=== PATIENT | male | born 1945 | race Caucasian/White ===

== ENCOUNTER 2021-04-27 07:56 | Inpatient (IN) | payer OTHER, MEDICARE, SELFPAY ==
[2021-04-27] VITALS (14 sets, daily range): BP systolic 112–145; BP diastolic 52–91; PULSE 75–133; RESP 12–34; TEMP 36.4–36.6; O2SAT 88–96; BMI 33.0
--- NOTE | 2021-04-27 07:57 | W.ED.WEAKNES ---
HPI - Weakness General: Chief complaint: Shortness of Breath/Dyspnea Stated complaint: WEAKNESS Time Seen by Provider: 04/27/21 07:56 History of Present Illness: HPI Narrative: Mr. Guerrero is a 75-year-old gentleman with most of his care performed at [facility] with history of diabetes, obesity, hypertension, hyperlipidemia, COPD with chronic hypoxic respiratory failure who presents the emergency department due to weakness. He reports being at his baseline health and was on the toilet at about 9:30 PM. He was unable to get up and reported difficulty with his left knee. He has chronic problems with his left knee. He has generalized weakness without focality. History is somewhat limited, unclear whether the patient has mildly altered mental status or is just a poor historian. Per EMS the patient's family demanded that he come to the hospital, he lives at home and has difficulty caring for himself. History otherwise limited by mental status. No other significant changes in health, exacerbating, alleviating, or provoking factors identified. Unclear intensity or course. MD Complaint: generalized weakness Onset (ago): hour(s) Duration: constant Location: generalized Migration: none Severity: moderate Relieving factors: none Exacerbating factors: movement Associated symptoms: Reports no associated symptoms Review of Systems General: Reports: 10 or more systems reviewed and unremarkable except in HPI and below PFSH ED PFSH: Medical History (Updated 05/03/21 @ 12:23 by Bebeto Bishop MD) Chronic respiratory failure with hypoxia COPD (chronic obstructive pulmonary disease) CVA (cerebral vascular accident) Diabetes Gastric ulcer Ribs, multiple fractures Surgical History H/O knee surgery Social History Additional social history: lives at home Physical Exam Const: COMMON NORMALS: alert GENERAL APPEARANCE: disheveled and ill appearing HENMT: COMMON NORMALS: normocephalic, atraumatic, external ears normal and Normal external nose present HEAD & SCALP: normocephalic and atraumatic NOSE: Normal external nose present EXTERNAL EAR: Yes external ears normal Eye: COMMON NORMALS: conjunctivae normal CONJUNCTIVA: Yes conjunctivae normal SCLERA: sclerae normal Neck/C-Spine: COMMON NORMALS: supple GENERAL: Yes trachea midline Resp: EFFORT & INSPECTION: Yes tachypneic and Yes uses accessory muscles AUSCULTATION: diminished lung sounds Cardio: RATE: tachycardic RHYTHM: abnormal rhythm irregularly irregular GI: COMMON NORMALS: Soft to palpation PALPATION: Yes Soft to palpation and No Tenderness to palpation present (GI) PERCUSSION: normal to percussion Extremity: NARRATIVE EXTREMITY EXAM: Bilateral lower extremities with 2+ edema which is firm. GENERAL: Yes edema Neuro: COMMON NORMALS: moves all extremities and no focal motor deficits SENSORIUM/ORIENTATION: Yes alert and No Orientation impaired Psych: THOUGHT PROCESS: confused Skin: GENERAL SKIN EXAM: other (Bilateral lower extremities with chronic skin breakdown/stasis changes.) Course ED course: - Patient was seen and evaluated by me at bedside - Patient placed on cardiac monitors, IV access obtained - Initial evaluation notable for confused without focality on neurologic exam. Patient is a poor historian. A. fib with RVR. Edematous. -Cardizem ordered - Labs notable for mild leukocytosis, normocytic anemia. Thrombocytosis noted. Metabolic panel with mild evidence of intravascular depletion or metabolic stress related to A. fib with RVR. CK is mildly elevated likely secondary to being stuck on the toilet all night. BNP elevated. - Imaging notable for lower lung consolidation and effusions. CT head without acute abnormality to explain mental status. - After bolus and drip of Cardizem with maximal titration patient remained at 125 to 130 bpm. As such D-dimer ordered for evaluation of persistent tachycardia and was elevated. Therefore CTA obtained. No evidence of pulmonary embolism. - Upon serial reexamination after treatment the patient was mildly improved though patient remains significantly ill - Based on patient history, evaluation, labs, and imaging as interpreted the most likely cause of the patient's condition is COPD, decompensated heart failure, atrial fibrillation with rapid ventricular response. - The results of ED evaluation were discussed with the patient including plan for admission due to requirement for level of care not available if discharged to prevent significant worsening/deterioration. - Hospitalist service contacted and agreed admit the patient. - Patient was admitted without further deterioration or significant events but remains significantly ill with multisystem dysfunction. Note: Click bubbles or prepopulated romero in note writing are used for assistance with data collection and billing and are inherently more limited than narrative and other text portions of this note. Please use narrative for additional clinical history and defer to narrative/free test for any case of contradictory information. If information appears in only free text or click bubble it should be considered present or absent as reported. Please contact note medical technical writer for clarifications of clinical information or contradictory information. MDM is a brief summary, contradictory or erroneous seeming information should be clarified and full note should be referred to in cases of contradiction or lack of clarity. 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 Patient is volume overloaded as well as in A. fib with RVR, likely has a component of COPD with exacerbation as well. Patient started on Cardizem with addition of esmolol secondary to suboptimal rate control on maxed Cardizem. Admitted for further management. Medical Records: Attestation: I reviewed the patient's medical records. Lab Data: Attestation: I reviewed the patient's lab results. Labs: Lab Results 04/27/21 04/27/21 04/27/21 01:36 08:23 08:23 WBC 10.2 10^3/uL H 10 ^3/uL (4.0-10.0) RBC 4.57 10^6/uL 10^6 /uL (4.1-5.3) Hgb 11.4 g/dL L g/dL (11.7-16.6) Hct 39.3 % L % (42.0-52.0) MCV 86.0 fl fl (80-94) MCH 24.9 pg L pg (28.0-34.0) MCHC 29.0 g/dL L g/dL (30.0-36.0) RDW 16.1 % H % (12.1-15.1) Plt Count 514 10^3/cmm H 10 ^3/cmm (130-400) MPV 9.7 fL fL (7.4-10.4) Neut % (Auto) 84.5 % % Lymph % (Auto) 7.9 % % Dawes % (Auto) 6.9 % % Eos % (Auto) 0.1 % % Baso % (Auto) 0.3 % % Neut # (Auto) 8.63 10^3/uL H 10 ^3/uL (1.8-7.7) Lymph # (Auto) 0.8 10^3/uL 10^3/ uL (0.8-4.8) Dawes # (Auto) 0.7 10^3/uL 10^3/ uL (0.2-0.9) Eos # (Auto) 0.0 10^3/uL 10^3/ uL (0.0-0.8) Baso # (Auto) 0.0 10^3/uL 10^3/ uL (0.0-0.1) Nucleated RBC % (a uto) 0 % % Nucleated RBCs # 0.0 /100WBC /100W BC D-Dimer Specimen Type Sample Site ABG pH ABG pCO2 ABG pO2 ABG HCO3 ABG O2 Saturation ABG Base Excess Dimitry Test A-a O2 Gradient Hematocrit Hgb O2 Saturation Carboxyhemoglobin Methemoglobin Total Hemoglobin Ionized Calcium O2 Delivery Device O2 Liters/Min FiO2 Erosion Control Specialist ID Sodium 133 mmol/L L mmol /L (136-145) Potassium 4.9 mmol/L mmol/L (3.5-5.1) Chloride 94 mmol/L L mmol/ L (98-107) Carbon Dioxide 22 mmol/L mmol/L (22-29) Anion Gap 21.9 H (5-19) BUN 37 mg/dL H mg/dL (8-23) Creatinine 1.2 mg/dL mg/dL (0.7-1.2) GFR Calculation Not Reportable Glucose 332 mg/dL H mg/dL (65-115) Calculated Osmolal ity 298 mOsm/kg H mOs m/kg (285-295) Lactate Calcium 8.9 mg/dL mg/dL (8.5-10.5) Magnesium 2.4 mg/dL H mg/dL (1.7-2.3) Total Bilirubin 0.2 mg/dL mg/dL (0.15-1.2) AST 22 U/L U/L (0-40) ALT 9 U/L U/L (0-41) Alkaline Phosphata se 109 IU/L IU/L (40-130) Creatine Kinase 461 U/L H* U/L (39-308) Troponin T Baselin e Troponin T 120 [place] Troponin T Troponin T Hi Sens 6Hr Troponin T Hi Sens 6Hr Delta C-Reactive Protein 179.8 mg/L H mg/L (0.0-4.9) NT-Pro-B Natriuret Pep 26630 pg/mL H pg/ mL (0-125) Total Protein 8.0 g/dL g/dL (6.6-8.7) Albumin 3.4 g/dL L g/dL (3.5-5.2) Globulin 4.6 g/dL g/dL (1.3-4.6) Procalcitonin 0.17 ng/mL ng/mL (0-0.5) TSH 0.35 uIU/mL uIU/m L (0.27-4.20) Urine Color Yellow (Yellow) Urine Appearance Hazy A (CLEAR) Urine pH 5 (5-7) Ur Specific Gravit y 1.020 (1.005-1.030) Urine Protein Neg (Negative) Urine Glucose (UA) Norm (Normal) Urine Ketones Negative (Negative) Urine Blood 2+ H (Negative) Urine Nitrate Negative (Negative) Urine Bilirubin Neg (Negative) Urine Urobilinogen Norm mg/dL mg/dL (Negative) Ur Leukocyte Esther ase Negative (Negative) Urine RBC 0-4 /hpf H /hpf (0-2) Urine WBC 5-10 /hpf H /hpf (0-5) Ur Squamous Epith Cells Rare /hpf /hpf (0-5) Amorphous Sediment Not Reportable Urine Bacteria 1+ /hpf H /hpf (NONE) Coronavirus 229E ( PCR) SARS-CoV-2 (PCR) 04/27/21 04/27/21 04/27/21 08:23 08:23 08:23 WBC RBC Hgb Hct MCV MCH MCHC RDW Plt Count MPV Neut % (Auto) Lymph % (Auto) Dawes % (Auto) Eos % (Auto) Baso % (Auto) Neut # (Auto) Lymph # (Auto) Dawes # (Auto) Eos # (Auto) Baso # (Auto) Nucleated RBC % (a uto) Nucleated RBCs # D-Dimer 7.36 ug/mIFEU H u g/mIFEU (0-0.59) Specimen Type Sample Site ABG pH ABG pCO2 ABG pO2 ABG HCO3 ABG O2 Saturation ABG Base Excess Dimitry Test A-a O2 Gradient Hematocrit Hgb O2 Saturation Carboxyhemoglobin Methemoglobin Total Hemoglobin Ionized Calcium O2 Delivery Device O2 Liters/Min FiO2 Erosion Control Specialist ID Sodium Potassium Chloride Carbon Dioxide Anion Gap BUN Creatinine GFR Calculation Glucose Calculated Osmolal ity Lactate 2.2 mmol/L mmol/L (0.5-2.2) Calcium Magnesium Total Bilirubin AST ALT Alkaline Phosphata se Creatine Kinase Troponin T Baselin e 47 ng/L H ng/L (0-15) Troponin T 120 [place] Troponin T Troponin T Hi Sens 6Hr Troponin T Hi Sens 6Hr Delta C-Reactive Protein NT-Pro-B Natriuret Pep Total Protein Albumin Globulin Procalcitonin TSH Urine Color Urine Appearance Urine pH Ur Specific Gravit y Urine Protein Urine Glucose (UA) Urine Ketones Urine Blood Urine Nitrate Urine Bilirubin Urine Urobilinogen Ur Leukocyte Esther ase Urine RBC Urine WBC Ur Squamous Epith Cells Amorphous Sediment Urine Bacteria Coronavirus 229E ( PCR) SARS-CoV-2 (PCR) 04/27/21 04/27/21 04/27/21 08:32 08:46 10:17 WBC RBC Hgb Hct MCV MCH MCHC RDW Plt Count MPV Neut % (Auto) Lymph % (Auto) Dawes % (Auto) Eos % (Auto) Baso % (Auto) Neut # (Auto) Lymph # (Auto) Dawes # (Auto) Eos # (Auto) Baso # (Auto) Nucleated RBC % (a uto) Nucleated RBCs # D-Dimer Specimen Type Arterial Sample Site Brachial, right ABG pH 7.30 L (7.35-7.45) ABG pCO2 51.5 mmHg H mmHg (35-45) ABG pO2 65.1 mmHg L mmHg (80.0-100.0) ABG HCO3 25.1 mmol/L mmol/ L (22-26) ABG O2 Saturation ABG Base Excess -1.8 mmol/L mmol/ L (-2.0-2.0) Dimitry Test N/a A-a O2 Gradient Hematocrit 33.7 % L % (42-52) Hgb O2 Saturation Carboxyhemoglobin Methemoglobin Total Hemoglobin Ionized Calcium O2 Delivery Device Nc O2 Liters/Min 4.0 % % FiO2 36.0 % % Erosion Control Specialist ID Amh Sodium Potassium Chloride Carbon Dioxide Anion Gap BUN Creatinine GFR Calculation Glucose Calculated Osmolal ity Lactate Calcium Magnesium Total Bilirubin AST ALT Alkaline Phosphata se Creatine Kinase Troponin T Baselin e Troponin T 120 [place] 46.61 ng/L H ng/L (0-15) Delta Troponin T -0.39 ABS# L ABS# (0-10) Troponin T Hi Sens 6Hr Troponin T Hi Sens 6Hr Delta C-Reactive Protein NT-Pro-B Natriuret Pep Total Protein Albumin Globulin Procalcitonin TSH Urine Color Urine Appearance Urine pH Ur Specific Gravit y Urine Protein Urine Glucose (UA) Urine Ketones Urine Blood Urine Nitrate Urine Bilirubin Urine Urobilinogen Ur Leukocyte Esther ase Urine RBC Urine WBC Ur Squamous Epith Cells Amorphous Sediment Urine Bacteria Coronavirus 229E ( PCR) Not detected (NOT DETECT) SARS-CoV-2 (PCR) Not detected (NOT DETECT) 04/27/21 04/27/21 13:22 14:13 WBC RBC Hgb Hct MCV MCH MCHC RDW Plt Count MPV Neut % (Auto) Lymph % (Auto) Dawes % (Auto) Eos % (Auto) Baso % (Auto) Neut # (Auto) Lymph # (Auto) Dawes # (Auto) Eos # (Auto) Baso # (Auto) Nucleated RBC % (a uto) Nucleated RBCs # D-Dimer Specimen Type Arterial Sample Site Radial, right ABG pH 7.30 L (7.35-7.45) ABG pCO2 54.0 mmHg H mmHg (35-45) ABG pO2 72.0 mmHg L mmHg (80.0-100.0) ABG HCO3 26.3 mmol/L H mmo l/L (22-26) ABG O2 Saturation 93.1 ABG Base Excess -0.8 mmol/L mmol/ L (-2.0-2.0) Dimitry Test Pos A-a O2 Gradient 19.7 mmHg H mmHg (5-10) Hematocrit 32.9 % L % (42-52) Hgb O2 Saturation 92.2 % L % (95-100) Carboxyhemoglobin 1.2 %THgb %THgb (0.4-20.1) Methemoglobin < 0.0 % L % (0.4-1.5) Total Hemoglobin 10.7 g/dL L g/dL (14-18) Ionized Calcium 1.2 mmol/L mmol/L (1.1-1.4) O2 Delivery Device Bipap O2 Liters/Min FiO2 40.0 % % Erosion Control Specialist ID Amh Sodium 136.0 mmol/L mmol /L (131-143) Potassium 5.1 mmol/L H mmol /L (3.5-5.0) Chloride Carbon Dioxide Anion Gap BUN Creatinine GFR Calculation Glucose 364.0 mg/dL H mg/ dL (70-115) Calculated Osmolal ity Lactate Calcium Magnesium Total Bilirubin AST ALT Alkaline Phosphata se Creatine Kinase Troponin T Baselin e Troponin T 120 [place] Troponin T Troponin T Hi Sens 6Hr 47.02 ng/L H ng/L (0-15) Troponin T Hi Sens 6Hr [place] 0.02 ng/L ng/L (0-12) C-Reactive Protein NT-Pro-B Natriuret Pep Total Protein Albumin Globulin Procalcitonin TSH Urine Color Urine Appearance Urine pH Ur Specific Gravit y Urine Protein Urine Glucose (UA) Urine Ketones Urine Blood Urine Nitrate Urine Bilirubin Urine Urobilinogen Ur Leukocyte Esther ase Urine RBC Urine WBC Ur Squamous Epith Cells Amorphous Sediment Urine Bacteria Coronavirus 229E ( PCR) SARS-CoV-2 (PCR) EKG Data^: EKG 1: Attestation: I personally reviewed and interpreted this EKG as follows: EKG interpretation date: 04/27/21 EKG interpretation time: 08:12 Interpretation: Twelve-lead EKG shows an irregular rhythm at a rate of 159. QRS duration 99, QTc 365. No CT interval. Normal axis. Interpretation: Atrial fibrillation with rapid ventricular response. EKG 2: Attestation: I personally reviewed and interpreted this EKG as follows: EKG interpretation date: 04/27/21 EKG interpretation time: 14:27 Interpretation: Twelve-lead EKG shows an irregular rhythm at a rate of 127. No CT interval, QRS 95, QTc 388. Normal axis. Interpretation: Atrial fibrillation with rapid ventricular response. Critical Care Time Critical Care Time: Critical Care Time: Yes Total Critical Care Time: 45 Attestation: Due to a high probability of clinically significant, possibly life threatening deterioration, the patient required my highest level of attention and preparedness to intervene emergently and I personally spent this critical care time directly and personally managing the patient. This critical care time included obtaining a history; examining the patient; pulse oximetry; ordering and review of laboratory and imaging studies; arranging urgent treatment with development of a management plan; evaluation of patient's response to treatment; frequent reassessment; and, discussions with other providers as applicable. It was exclusive of separately billable procedures. Discharge Plan Discharge Patient Disposition: Admitted As Inpatient Admit Provider: Capo Ames Clinical Impression: Acute exacerbation of chronic obstructive airways disease, Atrial fibrillation with rapid ventricular response Condition: Stable Coding Level of Care Code ED Literacy Teacher for Chg Fwd Exam Comprehensive
--- NOTE | 2021-04-27 08:00 | PC.NURSE ---
pt placed on continuous spo2, nibp, and cm.
--- NOTE | 2021-04-27 08:07 | XRR_ITS ---
PROCEDURE INFORMATION: Exam: XR Chest Exam date and time: 04/27/2021 8:07 AM Age: 75 years old Clinical indication: Other: Tachycardia; Prior surgery TECHNIQUE: Imaging protocol: XR of the chest. Views: 1 view. COMPARISON: CR Chest 1 [place] [id number] 08/22/2015 6:44 PM FINDINGS: Lungs: Limited inspiratory volume. Opacities of lower lungs. Pleural spaces: Bilateral pleural effusions. Heart/Mediastinum: The cardiac margins are not well defined. Heart size is accentuated. Bones/joints: Osteopenia. Degenerative change of the spine. Numerous plate fixation structures over left ribs posteriorly. XR/XR chest 1V portable [id number] IMPRESSION: 1. Consolidations in the lower lungs which may reflect pneumonic infiltrates or atelectasis. 2. Bilateral pleural effusions. 3. Accentuation of the heart size which has progressed since the prior comparison.
--- NOTE | 2021-04-27 08:07 | CTR_ITS ---
PROCEDURE INFORMATION: Exam: CT Head Without Contrast Exam date and time: 04/27/2021 8:07 AM Age: 75 years old Clinical indication: Weakness, extremity; Bilateral; Additional info: AMS TECHNIQUE: Imaging protocol: Computed tomography of the head without contrast. Radiation optimization: All CT scans at this facility use at least one of these dose optimization techniques: automated exposure control; mA and/or kV adjustment per patient size (includes targeted exams where dose is matched to clinical indication); or iterative reconstruction. COMPARISON: No relevant prior studies available. RADIATION DOSE METRICS: Total DLP (mGy-cm): 742.76 FINDINGS: Brain: Prominence of the cortical sulci. Extensive multifocal small-vessel ischemic change along with encephalomalacia in the left posterior parietal and occipital regions. Additional hypodensity in the left posterior cerebellum, suspicious for and ischemic infarct (series 2: Image 15). MRI can be performed for improved characterization, as clinically indicated. Cerebral ventricles: Mild ex vacuo enlargement of the left occipital horn. Paranasal sinuses: 12 x 6 mm polypoid lesion in the left maxillary sinus. Mastoid air cells: No mastoid effusion. Vasculature: Vascular, basal ganglia, and dural calcifications. Bones/joints: No acute calvarial pathology. Soft tissues: Punctate cutaneous calcifications. CT/CT head wo con* [id number] IMPRESSION: 1. Extensive multifocal small-vessel ischemic change along with encephalomalacia in the left posterior parietal and occipital regions. 2. Additional hypodensity in the left posterior cerebellum, suspicious for an ischemic infarct. MRI can be performed for improved characterization, as clinically indicated.
--- NOTE | 2021-04-27 08:09 | ECG_ITS ---
[facility] Test Date: 2021-04-27 Pat Name: John Guerrero Department: Room: Gender: Male Cigarette Tester: : 1945 Requested By: Aristides Cornejo Order Number: [id number] Jena MD: Pam Lamas M.D. Measurements Intervals [place] Rate: 159 P: MS: QRS: 65 QRSD: 99 T: 248 QT: 276 QTc: 450 Interpretive Statements ATRIAL FIBRILLATION WITH RAPID VENTRICULAR RESPONSE SEPTAL MYOCARDIAL INFARCTION , PROBABLY OLD [40+ ms Q WAVE IN V1/V2] MODERATE T-WAVE ABNORMALITY, CONSIDER INFERIOR ISCHEMIA [-0.1+ mV T-WAVE IN II/aVF] CRITICAL TEST RESULT No previous ECG available for comparison Electronically Signed On 04-29-2021 5:09:27 CHIEF MERCHANDISING OFFICER by Pam Lamas M.D. [email or web address]
--- NOTE | 2021-04-27 08:11 | XRR_ITS ---
PROCEDURE INFORMATION: Exam: XR Left Knee Exam date and time: 04/27/2021 8:11 AM Age: 75 years old Clinical indication: Pain; Knee; Left; Prior surgery; Additional info: Knee pain TECHNIQUE: Imaging protocol: XR Left knee. Views: 3 views. COMPARISON: No relevant prior studies available. FINDINGS: Bones/joints: Well-healed fracture deformity of the distal femoral diaphysis with callus formation. Intramedullary edward and transcortical screws distal femur. Osteopenia. Degenerative changes of the tibial spine and lateral tibial plateau. No acute fracture. Soft tissues: Soft tissue vascular calcification. XR/XR knee LT 3V* [id number] IMPRESSION: 1. Osteopenia. 2. Mild degenerative arthritis left knee.
[2021-04-27 08:31] LABS: Basophils % 0.3 %; Eosinophils % 0.1 %; Hematocrit 39.3 % (42.0-52.0); Hemoglobin 11.4 g/dL (11.7-16.6); Lymphocytes # 0.8 10^3/uL (0.8-4.8); Lymphocytes % 7.9 %; Mean Corpuscular Hemoglobin 24.9 pg (28.0-34.0); Mean Platelet Volume 9.7 fL (7.4-10.4); Monocytes # 0.7 10^3/uL (0.2-0.9); Monocytes % 6.9 %; Neutrophils # 8.63 10^3/uL (1.8-7.7); Neutrophils % 84.5 %; Nucleated Red Blood Cells % 0 %; Platelet Count 514 10^3/cmm (130-400); Red Blood Count 4.57 10^6/uL (4.1-5.3); Red Cell Distribution Width 16.1 % (12.1-15.1); White Blood Count 10.2 10^3/uL (4.0-10.0)
[2021-04-27 08:43] LABS: ABG PCO2 51.5 mmHg (35-45); Arterial Blood Gas Hematocrit 33.7 % (42-52); Base Excess ABG -1.8 mmol/L (-2.0-2.0); Blood Gas Operator Identificat AMH; Blood Gas Sample Site Brachial, right; Blood Gas Sample Type Arterial; HCO3 ABG 25.1 mmol/L (22-26); Oxygen Device NC; PO2 ABG 65.1 mmHg (80.0-100.0)
[2021-04-27 08:54] LABS: Lactate (Lactic Acid level) 2.2 mmol/L (0.5-2.2); Troponin(5th) Baseline 47 ng/L (0-15)
[2021-04-27 09:01] LABS: NT Pro B Type Natriuretic Pept 14272 pg/mL (0-125); Procalcitonin 0.17 ng/mL (0-0.5); Thyroid Stimulating Hormone 0.35 uIU/mL (0.27-4.20)
[2021-04-27 09:13] LABS: Alanine Aminotransferase 9 U/L (0-41); Albumin Level 3.4 g/dL (3.5-5.2); Alkaline Phosphatase 109 IU/L (40-130); Anion Gap 21.9 (5-19); Aspartate Amino Transferase 22 U/L (0-40); Blood Urea Nitrogen 37 mg/dL (8-23); C Reactive Protein 179.8 mg/L (0.0-4.9); Calcium 8.9 mg/dL (8.5-10.5); Carbon Dioxide 22 mmol/L (22-29); Chloride 94 mmol/L (98-107); Globulin 4.6 g/dL (1.3-4.6); Glucose 332 mg/dL (65-115); Magnesium 2.4 mg/dL (1.7-2.3); Osmolality Calculated 298 mOsm/kg (285-295); Potassium 4.9 mmol/L (3.5-5.1); Sodium 133 mmol/L (136-145); Total Bilirubin 0.2 mg/dL (0.15-1.2)
[2021-04-27 09:18] LABS: Creatine Phosphokinase 461 U/L (39-308)
[2021-04-27] MEDS: sodium chloride 0.9% 500 ML 999 ML IV (09:22)
--- NOTE | 2021-04-27 09:22 | PC.NURSE ---
HR IS 140BPM INFORMED DR. MICHAEL VERBALIZED UNDERSTANDING NO FURTHER ORDRES.
[2021-04-27] MEDS: ipratropium-albuterol 3 mL Neb INHALATION ×2 (09:36→22:05)
--- NOTE | 2021-04-27 10:09 | ECG_ITS ---
[facility] Test Date: 2021-04-27 Pat Name: John Guerrero Department: Room: Gender: Male Agricultural Technical Officer: : 1945 Requested By: Aristides Cornejo Order Number: [id number] Jena MD: Pam Lamas M.D. Measurements Intervals [place] Rate: 127 P: OR: QRS: 42 QRSD: 95 T: 127 QT: 313 QTc: 456 Interpretive Statements ATRIAL FIBRILLATION WITH RAPID VENTRICULAR RESPONSE NONSPECIFIC ST & T-WAVE ABNORMALITY Compared to ECG 04/27/2021 08:08:41 Myocardial infarct finding no longer present Possible ischemia no longer present T-wave abnormality still present Electronically Signed On 04-29-2021 5:20:55 MANAGER MERCHANDISING by Pam Lamas M.D. [email or web address]
[2021-04-27] MEDS: metoprolol tartrate 1 mg/1 mL SDV 5 mL 5 MG IVP ×2 (10:13→11:39)
--- NOTE | 2021-04-27 10:23 | PC.NURSE ---
PC TO RESP FOR NEED OF BIPAP.
--- NOTE | 2021-04-27 10:25 | PC.PHAR ---
Addendum entered by Carol Powell 04/27/21 14:52: RECEIVED [facility] L[facility] AT [id number] - UPDATED MED LIST Original Note: ATTEMPTED TO FAX [facility] ON 04/27/21 AT 7100
[2021-04-27 10:39] LABS: Troponin 5 2HR 46.61 ng/L (0-15)
[2021-04-27 10:43] LABS: Troponin 5 2HR Delta -0.39 ABS# (0-10)
[2021-04-27 12:46] LABS: Adenovirus Not Detected (NOT DETECT); Chlamydia Pneumoniae Not Detected (NOT DETECT); Coronavirus 229E,HKU1,NL63,OC4 Not Detected (NOT DETECT); Human Metapneumovirus Not Detected (NOT DETECT); Human Rhinovirus/Enterovirus Not Detected (NOT DETECT); Influenza A Not Detected (NOT DETECT); Influenza A H1 Not Detected (NOT DETECT); Influenza A H1-2009 Not Detected (NOT DETECT); Influenza A H3 Not Detected (NOT DETECT); Influenza B Not Detected (NOT DETECT); Mycoplasma Pneumoniae Not Detected (NOT DETECT); Parainfluenza Virus Type 1 Not Detected (NOT DETECT); Parainfluenza Virus Type 2 Not Detected (NOT DETECT); Parainfluenza Virus Type 3 Not Detected (NOT DETECT); Parainfluenza Virus Type 4 Not Detected (NOT DETECT); Respiratory Syncytial Virus A Not Detected (NOT DETECT); Respiratory Syncytial Virus B Not Detected (NOT DETECT); SARS-COV-2 Not Detected (NOT DETECT)
[2021-04-27 12:57] LABS: D Dimer 7.36 ug/mIFEU (0-0.59)
--- NOTE | 2021-04-27 13:06 | CTR_ITS ---
PROCEDURE INFORMATION: Exam: CTA Chest With Contrast Exam date and time: 04/27/2021 1:06 PM Age: 75 years old Clinical indication: Shortness of breath; Patient HX: SOB, tachycardia; Additional info: D dimer elevated, tachycardia, SOB TECHNIQUE: Imaging protocol: Computed tomographic angiography of the chest with contrast. 3D rendering (Not supervised by radiologist): MIP and/or 3D reconstructed images were created by the technologist. Radiation optimization: All CT scans at this facility use at least one of these dose optimization techniques: automated exposure control; mA and/or kV adjustment per patient size (includes targeted exams where dose is matched to clinical indication); or iterative reconstruction. Contrast material: OMNI 350; Contrast volume: 85 ml; Contrast route: INTRAVENOUS (IV); COMPARISON: CR (CHEST, ) 04/27/2021 8:25 AM RADIATION DOSE METRICS: Total DLP (mGy-cm): 602.56 FINDINGS: Pulmonary arteries: No filling defects in the pulmonary arteries to suggest pulmonary embolism. Aorta: Moderate atherosclerotic changes in the visualized arteries. No evidence for aortic aneurysm. Evaluation for aortic dissection is limited due to the phase of contrast-enhancement. Thyroid: 2.1 x 1.9 cm heterogenous nodule with foci of internal calcification in the right thyroid lobe (series 2, image 50). Lungs: Mild interstitial pulmonary edema. Compressive atelectasis in the the posterior right and left lower lobes and the posterior right upper lobe. No pulmonary parenchymal nodules or masses. Pleural spaces: Large bilateral pleural effusions. No pneumothorax. Heart: Mild enlargement of the heart. Small pericardial effusion. Moderate atherosclerotic calcification in the coronary arteries. Calcification of the aortic valve. Esophagus: The esophagus is unremarkable. Mediastinal space: No mediastinal hematoma. No pneumomediastinum. Lymph nodes: No lymphadenopathy. Liver: The visualized liver is unremarkable. Gallbladder and bile ducts: The visualized gallbladder is unremarkable. Pancreas: Mild atrophy of the visualized pancreatic parenchyma. Spleen: Multiple calcified granulomas in the spleen. Small splenule in the left upper quadrant. Adrenal glands: The right adrenal gland is unremarkable. The visualized left adrenal gland is unremarkable. Bones/joints: Degenerative changes in the spine and shoulders. Postsurgical changes in the posterior left 5th, 6th, and 7th ribs. Soft tissues: Mild body wall edema. CT/CT angio chest PE protcl [id number] IMPRESSION: 1. Mild interstitial pulmonary edema with large bilateral pleural effusions and compressive atelectasis in the the posterior right and left lower lobes and the posterior right upper lobe. 2. No evidence for pulmonary embolism. 3. Mild body wall edema. 4. Small pericardial effusion. 5. Complex nodule with internal foci of calcification in the right thyroid lobe.Follow-up non-emergent thyroid ultrasound is recommended if this has not previously been evaluated. No lymphadenopathy. 6. Incidental/nonacute findings are listed in the report. COMMENTS: Consistent with the [employer]'s Incidental Findings Committee white paper (J Am Wong Radiol 2015): In patients aged 35 years and older with an incidental thyroid nodule equal to or greater than 1.[address], MRI or extrathyroidal US, further evaluation with dedicated thyroid US is recommended for patients with normal life expectancy and without comorbidities. For smaller nodules without suspicious features, no further evaluation or follow up is recommended.
[2021-04-27] MEDS: esmolol drip 2,500 MG/250 ML PREMIX 34.02 MG IV (13:27)
[2021-04-27 13:34] LABS: Alveolar-Arterial Oxygen Gradi 19.7 mmHg (5-10); Arterial Blood Gas Hematocrit 32.9 % (42-52); Base Excess ABG -0.8 mmol/L (-2.0-2.0); Blood Gas Allen Test Pos; Blood Gas Operator Identificat AMH; Blood Gas Sample Site Radial, right; Blood Gas Sample Type Arterial; Carboxyhemoglobin 1.2 %THgb (0.4-20.1); HCO3 ABG 26.3 mmol/L (22-26); HGB O2 Sat 92.2 % (95-100); Ionized Calcium Level - ABG 1.2 mmol/L (1.1-1.4); Methemoglobin < 0.0 % (0.4-1.5); Oxygen Device BIPAP; Oxygen Saturation ABG 93.1; Potassium Level - ABG 5.1 mmol/L (3.5-5.0); Total Hemoglobin 10.7 g/dL (14-18)
[2021-04-27 15:03] LABS: Troponin 5 6HR 47.02 ng/L (0-15); Troponin 5 6HR Delta 0.02 ng/L (0-12)
[2021-04-27] MEDS: iohexol 350 mg/mL 100 mL Btl IV (17:06)
--- NOTE | 2021-04-27 18:25 | PM.HP ---
Providers/Chief Complaint Chief Complaint: WEAKNESS History of Present Illness 75 year old male with past medical history of hypertension, diabetes, heart failure, COPD, stays alone at home, and take care of himself, was brought in by chief complaint of weakness, and worsening shortness of breath, states that he was doing fine till yesterday night, was on the toilet at about 9:30 PM.He was unable to get up and reported difficulty with his left knee. He has chronic problems with his left knee. Patient is a poor historian, history taking has been difficult, history mostly gathered from ER chart review as well as from daughter. Upon arrival in the ER he was found to be in A. fib with RVR. He was worked up further. Potential imaging studies: CT angio chest PE: No PE, no infiltrates , Mild interstitial pulmonary edema with large bilateral pleural effusions and compressive atelectasis in the the posterior right and left lower lobes and the posterior right upper lobe. Small pericardial effusion. CT head without contrast; Extensive multifocal small-vessel ischemic change.Hypodensity in the left posterior cerebellum, suspicious for an ischemic infarct. XR knee LT: Mild degenerative arthritis left knee EKG: A. fib with RVR Pertinent labs: WBC 10.2, H&H 11.4/ 39.3, PLT : 514 , serum sodium 133 serum potassium 4.9, BUN and serum creatinine 37/ 1.2 , creatinine kinase 461, troponin trend without significant delta, proBNP:00651 Procalcitonin normal TSH normal, In ER: She was given Cardizem as well as metoprolol IV, and was then started on Cardizem as well as esmolol drip. Review of Systems Const: Denies: fever(s), chills, body aches, change in appetite or diaphoresis Resp: Denies: productive cough, wheezing or pain on inspiration GI: Denies: abdominal pain, nausea, vomiting, diarrhea or constipation : Denies: flank pain or difficulty urinating Musc: Denies: back pain or extremity pain Neuro: Denies: headache(s) or confusion Medications/Allergies Home Medications Medication Instructions Recorded Confirmed Last Taken Type atorvastatin 80 mg PO DAILY 04/27/21 04/27/21 Unknown History carvedilol 6.25 mg PO BID 04/27/21 04/27/21 Unknown History cholecalciferol (vitamin D3) 25 mcg PO DAILY 04/27/21 04/27/21 Unknown History [Vitamin D3] clopidogrel [Plavix] 75 mg PO DAILY 04/27/21 04/27/21 Unknown History ferrous gluconate 324 mg PO DAILY 04/27/21 04/27/21 Unknown History insulin aspart U-100 [Novolog See Rx Instructions .ROUTE .COMPLEX 04/27/21 04/27/21 Unknown History U-100 Insulin aspart] insulin glargine [Lantus U-100 40 unit SUBCUT DAILY 04/27/21 04/27/21 Unknown History Insulin] ipratropium-albuterol 3 ml INHALATION QID PRN 04/27/21 04/27/21 Unknown History metoprolol tartrate 25 mg PO BID 04/27/21 04/27/21 Unknown History multivitamin 1 tab PO DAILY 04/27/21 04/27/21 Unknown History oxycodone 10 mg PO Q8H PRN 04/27/21 04/27/21 Unknown History Allergies Allergy/AdvReac Type Severity Reaction Status Date / Time No Known Allergies Allergy Verified 04/27/21 08:00 PFSH Acute PFSH: Medical History (Updated 04/27/21 @ 18:55 by Capo Ames MD) Chronic respiratory failure with hypoxia COPD (chronic obstructive pulmonary disease) Diabetes Ribs, multiple fractures Surgical History H/O knee surgery Social History Additional social history: lives at home Vitals/I&O/Wt Last Vital Signs Pulse 86 04/27/21 16:37 Resp 30 H 04/27/21 11:06 BP 112/91 04/27/21 08:00 Pulse Ox 95 04/27/21 16:37 04/27/21 04/27/21 04/27/21 06:59 14:59 22:59 Intake Total 532.384 / 532.384 Balance 532.384 / 532.384 Weight last 48 hrs Weight 113.398 kg Physical Exam Const: COMMON NORMALS: patient oriented x3 HENMT: COMMON NORMALS: normocephalic and atraumatic Resp: OTHER: Diminished entry bilaterally up to mid lung romero. Cardio: COMMON NORMALS: No rub (Cardio) and Peripheral pulses 2+ throughout HEART SOUNDS: S1 normal heart sound present PERIPHERAL PULSES: Peripheral pulses 2+ throughout OTHER: Irregularly irregular rhythm, S1-S2 variable intensity GI: COMMON NORMALS: Normal to inspection, nondistended, normoactive bowel sounds present, Soft to palpation, non-tender, No hepatosplenomegaly present and no masses AUSCULTATION: Yes normoactive bowel sounds PALPATION: Yes Soft to palpation and Yes No hepatosplenomegaly present RECTAL EXAM: Yes deferred Extremity: NARRATIVE EXTREMITY EXAM: Bilateral lower extremity 3+ pitting edema, bilateral lower extremity extensive erythema, unkept feets Neuro: COMMON NORMALS: patient oriented x3 Data : 04/27/21 08:23 04/27/21 08:23 A&P Assessment and plan (1) Atrial fibrillation with rapid ventricular response: Status: Acute (2) Heart failure: Status: Acute (3) Acute on chronic respiratory failure with hypoxia and hypercapnia: Status: Acute (4) COPD (chronic obstructive pulmonary disease): Status: Acute (5) Diabetes: Status: Acute (6) Hypertension: Status: Acute Additional A&P Information 75 year old male with past medical history of hypertension, diabetes, heart failure, COPD, stays alone at home, and take care of himself, was brought in by chief complaint of weakness, and worsening shortness of breath, states that he was doing fine till yesterday night, was on the toilet at about 9:30 PM.He was unable to get up and reported difficulty with his left knee. #A. fib with RVR: Patient was started on Cardizem as well as esmolol drip in the ER. When I examined the patient the heart rate was pretty well controlled. We will continue metoprolol 50 mg p.o. twice daily Lovenox for therapeutic anticoagulation Continue telemetry monitoring #Decompensated heart failure: Patient presented with worsening shortness of breath. Has bilateral lower extremity 3+ pitting edema, bilateral moderate to large pleural effusion, interstitial edema. Elevated proBNP. No recent echo, according to daughter last echo was done around 5 years back. 2D echo: Lasix 60 mg IV twice daily Intake output charting Daily weight k>4,mg>2 #AC on Chronic hypoxic hypercapnic respiratory failure: Likely secondary to decompensated heart failure: AB.30 PCO2 54 , PO2 72, FiO2: 40% Continue BiPAP DuoNebs Monitor ABG #Diabetes: Lantus 30 subcu daily Low-dose sliding scale insulin Cardiac carbohydrate consistent diet Monitor fingerstick glucose #Hypertension: #COPD: Plan as above #Elevated CK: Continue IV hydration with normal saline at 75 cc an hour Follow CK in a.m. labs CODE STATUS: Full code DVT prophylaxis: On Lovenox Attestations Medical Necessity Statement*: Patient is in hospital for management of decompensated heart failure.Anticipated LOS greater than 2 midnights. Time Spent in Patient Care: Greater than 35 minutes (>than 50% of time spent in counselling and/or direct pt care on unit). Coding Level of Care Code Acute Merchandise Displayer for Chg Fwd Diagnoses Atrial fibrillation with rapid ventricular response I48.91 Heart failure I50.9 Acute on chronic respiratory failure with hypoxia and hypercapnia J96.21; J96.22 COPD (chronic obstructive pulmonary disease) J44.9 Diabetes E11.9 Hypertension I10
--- NOTE | 2021-04-27 18:29 | PC.NURSE ---
WHILE AT BEDSIDE PT ASSISTED WITH POSITIONING. PT DENIES ANY FURTHER NEEDS.
--- NOTE | 2021-04-27 19:09 | PC.NURSE ---
REPORT GIVEN TO CARLYLE XIONG ASSUMED CARE.
[2021-04-27] MEDS: dextrose 5%-sod chloride 0.9% 1,000 ML 75 ML IV (19:53)
--- NOTE | 2021-04-27 20:50 | PC.NURSE ---
Patient arrived to his room after report was received via ED. ED nurse stated that Esmolol and Cardizem drips were shut off in ED. Patient's oxygen saturation in 60s upon arrival to room on room air. RT called into room and placed patient on Bipap. Patient's oxygen saturation is now in he 90s. Patient is oriented x3. Patient had dried feces to bilateral gluts. Patient's bilateral lower extremities dirty. Patient's gluts and legs cleansed.
[2021-04-27] MEDS: insulin lispro 100 unit/1 mL SUBCUT (20:58)
[2021-04-27 21:07] LABS: Glucose Point of Care 373 mg/dL (70-110)
--- NOTE | 2021-04-27 21:29 | PC.NURSE ---
Patient states that [facility].
--- NOTE | 2021-04-27 22:03 | ECG_ITS ---
[facility] Test Date: 2021-04-27 Pat Name: John Guerrero Department: Room: 106 Gender: Male Fire Officer: : 1945 Requested By: Aristides Cornejo Order Number: [id number] Jena MD: Pam Lamas M.D. Measurements Intervals [place] Rate: 77 P: 34 OK: 172 QRS: 48 QRSD: 97 T: 158 QT: 404 QTc: 458 Interpretive Statements SINUS RHYTHM ST DEVIATION AND MODERATE T-WAVE ABNORMALITY, CONSIDER ANTEROLATERAL ISCHEMIA [-0.1+ mV T-WAVE IN V3-V6] Compared to ECG 04/27/2021 14:20:05 Possible ischemia now present Atrial fibrillation no longer present T-wave abnormality still present Electronically Signed On 04-29-2021 5:19:03 INFORMATION SYSTEMS OPERATOR by Pam aLmas M.D. [id number]
[2021-04-27] MEDS: metoprolol tartrate 50 mg Tablet PO (22:43)
[2021-04-27] MEDS: FUROsemide 10 mg/mL SDV 10mL 60 MG IVP (22:43)
[2021-04-27] MEDS: enoxaparin 120 mg/0.8 mL Syringe 110 MG SUBCUT (22:43)
[2021-04-27] MEDS: insulin glargine 100 units/1 mL 30 UNIT SUBCUT (23:24)
[2021-04-28] VITALS (47 sets, daily range): BP systolic 101–126; BP diastolic 44–80; PULSE 60–77; RESP 18–37; TEMP 36.1–36.8; O2SAT 79–98
[2021-04-28] MEDS: ipratropium-albuterol 3 mL Neb INHALATION ×4 (03:05→20:45)
--- NOTE | 2021-04-28 06:00 | PC.NURSE ---
Shift Note Frequent safety and comfort rounds continue. Orders and/or nursing care completed as indicated. Patient monitored for response to intervention and treatment(s). Will continue to monitor.
[2021-04-28 06:16] LABS: Hematocrit 33.9 % (42.0-52.0); Hemoglobin 9.6 g/dL (11.7-16.6); Mean Corpuscular Volume 87.6 fl (80-94); Red Blood Count 3.87 10^6/uL (4.1-5.3); White Blood Count 7.8 10^3/uL (4.0-10.0)
[2021-04-28 06:17] LABS: Basophils % 0.3 %; Eosinophils # 0.1 10^3/uL (0.0-0.8); Eosinophils % 0.9 %; Lymphocytes # 1.1 10^3/uL (0.8-4.8); Lymphocytes % 14.1 %; Mean Corpuscular HGB Conc 28.3 g/dL (30.0-36.0); Mean Corpuscular Hemoglobin 24.8 pg (28.0-34.0); Mean Platelet Volume 10.1 fL (7.4-10.4); Monocytes # 0.8 10^3/uL (0.2-0.9); Monocytes % 9.8 %; Neutrophils # 5.84 10^3/uL (1.8-7.7); Neutrophils % 74.6 %; Nucleated Red Blood Cells % 0.3 %; Platelet Count 337 10^3/cmm (130-400); Red Cell Distribution Width 16.1 % (12.1-15.1)
[2021-04-28 06:29] LABS: Glucose Point of Care 232 mg/dL (70-110)
[2021-04-28 06:34] LABS: INR 1.26 (0.8-1.2)
[2021-04-28 06:36] LABS: Partial Thromboplastin Time 43.2 SECONDS (23.9-36.7)
[2021-04-28 06:46] LABS: Alanine Aminotransferase 8 U/L (0-41); Albumin Level 2.6 g/dL (3.5-5.2); Alkaline Phosphatase 88 IU/L (40-130); Anion Gap 18.1 (5-19); Aspartate Amino Transferase 21 U/L (0-40); Blood Urea Nitrogen 39 mg/dL (8-23); Calcium 9.1 mg/dL (8.5-10.5); Carbon Dioxide 23 mmol/L (22-29); Chloride 103 mmol/L (98-107); Globulin 4.2 g/dL (1.3-4.6); Glucose 239 mg/dL (65-115); Magnesium 2.2 mg/dL (1.7-2.3); Osmolality Calculated 305 mOsm/kg (285-295); Potassium 5.1 mmol/L (3.5-5.1); Sodium 139 mmol/L (136-145); Total Bilirubin 0.2 mg/dL (0.15-1.2); Total Protein 6.8 g/dL (6.6-8.7)
--- NOTE | 2021-04-28 07:00 | ECG_ITS ---
[facility] Test Date: 2021-04-28 Pat Name: John Guerrero Department: Room: 106 Gender: Male Social Services Director: : 1945 Requested By: Capo Ames Order Number: [id number] eJna MD: Pam Lamas M.D. Measurements Intervals [place] Rate: 65 P: 58 WI: 158 QRS: 36 QRSD: 94 T: 101 QT: 420 QTc: 437 Interpretive Statements SINUS RHYTHM MODERATE T-WAVE ABNORMALITY, CONSIDER ANTERIOR ISCHEMIA [-0.1+ mV T-WAVE IN V3/V4] Compared to ECG 04/27/2021 22:33:27 No significant changes Electronically Signed On 04-29-2021 5:17:39 DISTRICT PLANT ENGINEER by Pam Lamas M.D. [id number]
[2021-04-28] MEDS: insulin lispro 100 unit/1 mL SUBCUT ×2 (08:57→12:45)
--- NOTE | 2021-04-28 09:20 | PC.CHAP ---
Pastoral Care Encounter/Spiritual Assessment Type of Contact [] Declined respiratory care instructor visit [] Patient/Family/Request visit [] Outpatient visit [] Follow-up visit [] Physician referral [] Code/Alert [x] Routine visit [] Staff referral [] Actively dying [x] Patient sleeping [] Family support [] [] Out of room [] Palliative care [] [] Receiving care in room [] Pre-surgical visit [] Trauma [] Long length of stay [] ICU visit [] Other: Relational/Emotional Strength [] Patient feels connected with others/family/visitors/staff [] Distress [] Loneliness/isolation [] Abandonment Spirituality of Patient [] Person of Ewa [] Attends Jewish of their Ewa [] Believes in Prayer [] Reads Bible or Tenriism materials [] There are Spiritual issues to be addressed Weft Straightener Interventions [x] Prayer [] Active listening [] Non-anxious presence [] Spiritual/emotional support [] Crisis/trauma care [] Spiritual counseling [] Bereavement support [] Provided bereavement packet [] Provided Bible/devotional materials [] Provided toy/stuffed animal, coloring book to patient or family member [] Provided Communion [] Anointing/[place] [] Salvation [x] Completed spiritual assessment [] Other: Impact on Illness or Injury [] Angry [] Fearful [] Anxious [] Often cries [] Exhaustion [] Unable to work [] Unable to attend hoahaoism [] Unable to walk/stand [] Unable to read [] Unable to drive [] Unable to eat/drink [] Unable to sleep [] Unable to be with family [] Patient intubated [] Other: Summary Time spent with patient
[2021-04-28] MEDS: aspirin 81 mg EC Tablet PO (10:40)
[2021-04-28] MEDS: cholecalciferol (vitamin D3) 1,000 unit Tablet 1000 UNIT PO (10:40)
[2021-04-28] MEDS: atorvastatin 40 mg Tablet 80 MG PO (10:40)
[2021-04-28] MEDS: enoxaparin 120 mg/0.8 mL Syringe 110 MG SUBCUT (10:41)
[2021-04-28] MEDS: metoprolol tartrate 50 mg Tablet PO ×2 (10:41→18:25)
[2021-04-28 12:11] LABS: Glucose Point of Care 191 mg/dL (70-110)
[2021-04-28] MEDS: oxyCODONE-APAP 10-325 mg Tablet 1 TAB PO (14:27)
--- NOTE | 2021-04-28 14:28 | P.PN_ITS ---
Subjective Subjective: Interval history: Patient was seen this morning alert to person, to place, follows commands, continues to complain of shortness of breath currently on BiPAP, no nausea, no vomiting, his lower extremity edema is improving, in normal sinus rhythm, heart rates in the 60s Patient was reexamined this afternoon, he was taken off BiPAP to nasal cannula, however his oxygen saturations dropped into the low 40s, was pale, was placed back on BiPAP, his oxygen saturations improved up to the 90s on 60%, reexamined alert oriented x2, following all commands, complaining of shortness of breath Vitals/I&O/Wt Last Vital Signs Temp 97.9 F 04/27/21 22:37 Pulse 64 04/28/21 13:50 Resp 20 H 04/28/21 14:27 BP 126/44 04/28/21 03:33 Pulse Ox 92 04/28/21 14:27 04/27/21 04/28/21 04/28/21 22:59 06:59 14:59 Intake Total 342.616 / 875.000 350 / 9110.292 4516 / 1000 Output Total 500 / 500 Balance 342.616 / 875.000 -150 / 526.670 3417 / 1000 Weight last 48 hrs Weight 110.54 kg Weight 109.996 kg Weight 109.905 kg Weight 113.398 kg Physical Exam Narrative: EXAM NARRATIVE: Currently on BiPAP, Resp: COMMON NORMALS: normal respiratory effort AUSCULTATION: crackles Cardio: COMMON NORMALS: regular rate, regular rhythm, S1 normal heart sound present and S2 normal heart sound present RATE: regular rate RHYTHM: regular rhythm HEART SOUNDS: S1 normal heart sound present and S2 normal heart sound present GI: COMMON NORMALS: Normal to inspection, nondistended, normoactive bowel sounds present, Soft to palpation and non-tender PALPATION: Yes Soft to palpation Extremity: NARRATIVE EXTREMITY EXAM: Bilateral lower extremity 1+ pitting edema bilateral lower extremity Diffuse skin changes, Left hernandez, slight erythema, swelling, tenderness Urinary Catheter Management^: Corbin: Cath Placed During This Visit: yes Reason for Continuing Indwelling Catheter: Acute Urinary Retention or Obstruction Urinary Catheter Date of Insertion: 04/27/21 Data : 04/28/21 05:44 04/28/21 05:44 A&P Assessment and plan (1) Atrial fibrillation with rapid ventricular response: Status: Acute (2) Heart failure: Status: Acute (3) Acute on chronic respiratory failure with hypoxia and hypercapnia: Status: Acute (4) COPD (chronic obstructive pulmonary disease): Status: Acute (5) Diabetes: Status: Acute (6) Hypertension: Status: Acute Additional A&P Information 75 year old male with past medical history of hypertension, diabetes, heart failure, COPD, stays alone at home, and take care of himself, was brought in by chief complaint of weakness, and worsening shortness of breath, states that he was doing fine till yesterday night, was on the toilet at about 9:30 PM.He was unable to get up and reported difficulty with his left knee. #A. fib with RVR: Patient was started on Cardizem as well as esmolol drip in the ER. When I examined the patient the heart rate was pretty well controlled. Cardizem, esmolol has been stopped We will continue metoprolol 50 mg p.o. twice daily Lovenox for therapeutic anticoagulation, currently on hold Continue telemetry monitoring #Anemia, hemoglobin 9.6, no bloody or black stools, no hemodynamic compromise, hold Lovenox, iron studies, Hemoccult stools repeat check hemoglobin #Decompensated heart failure: Combination of systolic and diastolic CHF, patient presented with worsening shortness of breath. Has bilateral lower extremity 3+ pitting edema, bilateral moderate to large pleural effusion, interstitial edema. Elevated proBNP. No recent echo, according to daughter last echo was done around 5 years back. 2D echo: Technically limited quality echocardiogram because of poor ultrasonic windows. LV systolic function is grossly moderately reduced. Right ventricle is dilated and severely hypokinetic. Left atrium is dilated. Thickened aortic valve. Moderate to severe low-flow low gradient aortic stenosis noted. Mild tricuspid regurgitation No comparison studies are available Bumex 1 mg every 12 hours, metolazone daily dosing Intake output charting Daily weight k>4,mg>2 #Bilateral pleural effusions, ultrasound thoracocentesis tomorrow morning #AC on Chronic hypoxic hypercapnic respiratory failure: Likely secondary to decompensated heart failure: Possible underlying pneumonia/aspiration, Pro-Yonatan, CRP, blood cultures, sputum cultures, start Zosyn Repeat ABG tomorrow morning Continue BiPAP DuoNebs Monitor ABG #Diabetes: Lantus 30 subcu daily Low-dose sliding scale insulin Cardiac carbohydrate consistent diet Monitor fingerstick glucose #Hypertension: #COPD: Plan as above #Elevated CK: Hold IV hydration Follow CK in a.m. labs CODE STATUS: Full code DVT prophylaxis: On Lovenox Attestations Medical Necessity Statement*: Patient course hospitalization for A. fib, decompensated CHF, Coding Level of Care Code Acute Insurance Job Titles for g Fwd Diagnoses Atrial fibrillation with rapid ventricular response I48.91 Heart failure I50.9 Acute on chronic respiratory failure with hypoxia and hypercapnia J96.21; J96.22 COPD (chronic obstructive pulmonary disease) J44.9 Diabetes E11.9 Hypertension I10
[2021-04-28] MEDS: metOLazone 5 MG Tablet 10 MG PO (15:53)
[2021-04-28] MEDS: LORazepam 2 mg/mL INJ 1 mL 0.5 MG IVP (15:53)
[2021-04-28] MEDS: piperacillin-tazobactam 3.375 GM in sodium chloride 0.9% (plus) 50 ML IV ×2 (15:54→22:35)
[2021-04-28] MEDS: bumetanide 0.25 mg/mL SDV 4 mL 1 MG IVP (15:54)
[2021-04-28 17:24] LABS: Glucose Point of Care 104 mg/dL (70-110)
--- NOTE | 2021-04-28 19:44 | USCV_ITS ---
John Guerrero Age: 75 Gender: M : 1945 Exam Date: 04/28/2021 06:25 Ordering Phys: Capo Ames MD Technologist: Karli Hdez Exam Location: [facility] – [place] Indication: SOB HEART FAILURE BP: 126 / 44 HR: 64 Rhythm: Sinus Technical Quality: Adequate MEASUREMENTS (Male / Female) Normal Values 2D ECHO LV Diastolic Diameter PLAX 4.5 cm 4.2 - 5.9 / 3.9 - 5.3 cm LV Systolic Diameter PLAX 3.7 cm LV Chamber Size 5.0 cm IVS Diastolic Thickness 1.2 cm 0.6 - 1.0 / 0.6 - 0.9 cm IVS Systolic Thickness 1.8 cm LVPW Diastolic Thickness 1.4 cm 0.6 - 1.0 / 0.6 - 0.9 cm LVPW Systolic Thickness 2.1 cm RV Chamber Size 4.8 cm LVOT Diameter 2.1 cm LV Ejection Fraction 2D Teich 37.4 % LV Ejection Fraction MOD 2C 51.3 % LV Ejection Fraction 2C AL 52.5 % LA Diameter 4.7 cm LA Width 4.7 cm LA Height 5.7 cm RA Width 4.8 cm RA Height 4.3 cm Aorta at Sinotubular Diameter 3.2 cm M-MODE Aortic Annulus Diameter 3.2 cm LA Ao Ratio MM 1.8 MV E Point Septal Separation 0.6 cm DOPPLER AV Peak Velocity 246.3 cm/s LVOT Peak Velocity 65.4 cm/s AV Area Cont Eq vti 1.0 cm squared AV Area Cont Eq pk 0.9 cm squared MV Area PHT 4.9 cm squared Mitral E to A Ratio 2.1 MV E' Velocity 39.5 cm/s Mitral E to MV E' Ratio 10.3 Mitral E to LV E' Lateral Ratio 9.2 Mitral E to LV E' Septal Ratio 11.8 TR Peak Velocity 226.6 cm/s TR Peak Gradient 20.5 mmHg TR Mean Velocity 176.8 cm/s TR Mean Gradient 14.9 mmHg TR Velocity Time Integral 79.0 cm TV Peak E Velocity 68.0 cm/s Right Atrial Pressure 15.0 mmHg Pulmonary Artery Systolic Pressu 35.5 mmHg PV Peak Velocity 119.0 cm/s RV Acceleration Time 0.2 s RV Ejection Time 0.4 s RV AcT/ET 0.5 FINDINGS Left Ventricle Normal left ventricular size. Grossly LV systolic function is moderately reduced. Moderate global hypokinesis is noted. Diastolic function is indeterminate Right Ventricle Right ventricle is dilated and is severely hypokinetic. Right Atrium The right atrium is normal in size. Left Atrium The left atrium is dilated Mitral Valve Structurally normal mitral valve without significant stenosis or prolapse. There is no mitral regurgitation. Aortic Valve Aortic valve is thickened. Moderate to severe low flow low gradient Aortic stenosis is noted. By continuity equation, aortic valve area is 1.06cm2 and mean gradient across the aortic valve is 13.6mmHg There is no aortic regurgitation. Tricuspid Valve Structurally normal tricuspid valve without significant stenosis. Mild tricuspid regurgitation. Insufficient TR jet to calculate RVSP Pulmonic Valve Structurally normal pulmonic valve without significant stenosis. There is no pulmonic regurgitation. Pericardium Normal pericardium without effusion. Aorta Normal ascending aorta dimension. CONCLUSIONS Technically limited quality echocardiogram because of poor ultrasonic windows. LV systolic function is grossly moderately reduced. Right ventricle is dilated and severely hypokinetic. Left atrium is dilated. Thickened aortic valve. Moderate to severe low-flow low gradient aortic stenosis noted. Mild tricuspid regurgitation No comparison studies are available Skyler Win MD (Electronically Signed) Final Date: 28 April 2021 09:23 S
[2021-04-28 20:24] LABS: Glucose Point of Care 132 mg/dL (70-110)
[2021-04-29] VITALS (59 sets, daily range): BP systolic 101–153; BP diastolic 46–95; PULSE 75–137; RESP 19–35; TEMP 36.8; O2SAT 67–98
[2021-04-29 02:14] LABS: Add Urine Microscopic? YES; Bilirubin Urine Neg (Negative); Blood Urine 2+ (Negative); Glucose Urine UA Norm (Normal); Ketones Urine Negative (Negative); Leukocyte Esterase Urine Negative (Negative); Nitrate Urine Negative (Negative); Protein Urine Neg (Negative); Urine Appearance Hazy (CLEAR); Urine Color Yellow (Yellow); Urobilinogen Urine Norm (Negative); pH Urine 5 (5-7)
[2021-04-29 02:15] LABS: Bacteria Urine 1+ /hpf; RBC Urine 0-4 /hpf (0-2); Squamous Epithelial Cell Urine RARE /hpf (0-5)
[2021-04-29] MEDS: ipratropium-albuterol 3 mL Neb INHALATION ×5 (03:02→23:30)
--- NOTE | 2021-04-29 03:07 | PC.NURSE ---
Patient verbalized understanding of thoracentesis procedure and was alert and oriented at time of consent signature.
[2021-04-29] MEDS: bumetanide 0.25 mg/mL SDV 4 mL 1 MG IVP (03:12)
--- NOTE | 2021-04-29 03:12 | PC.NURSE ---
Patient repositioned in bed with pillows placed. Patients requests to lay on right side. Patient refusing PO PRN pain medication at this time.
[2021-04-29 03:31] LABS: Basophils % 0.5 %; Eosinophils # 0.1 10^3/uL (0.0-0.8); Eosinophils % 0.8 %; Hemoglobin 9.6 g/dL (11.7-16.6); Lymphocytes # 1.3 10^3/uL (0.8-4.8); Lymphocytes % 16.3 %; Mean Corpuscular HGB Conc 29.1 g/dL (30.0-36.0); Mean Corpuscular Hemoglobin 25.7 pg (28.0-34.0); Mean Corpuscular Volume 88.2 fl (80-94); Mean Platelet Volume 9.8 fL (7.4-10.4); Monocytes # 0.7 10^3/uL (0.2-0.9); Monocytes % 8.6 %; Neutrophils # 5.64 10^3/uL (1.8-7.7); Neutrophils % 73.4 %; Nucleated Red Blood Cells % 0.3 %; Platelet Count 456 10^3/cmm (130-400); Red Blood Count 3.74 10^6/uL (4.1-5.3); Red Cell Distribution Width 16.1 % (12.1-15.1); White Blood Count 7.7 10^3/uL (4.0-10.0)
[2021-04-29 03:33] LABS: Reticulocyte % 1.3 % (0.5-2.0)
[2021-04-29 03:56] LABS: Alanine Aminotransferase 6 U/L (0-41); Albumin Level 2.8 g/dL (3.5-5.2); Alkaline Phosphatase 95 IU/L (40-130); Anion Gap 15.7 (5-19); Aspartate Amino Transferase 22 U/L (0-40); Blood Urea Nitrogen 44 mg/dL (8-23); Calcium 8.2 mg/dL (8.5-10.5); Carbon Dioxide 26 mmol/L (22-29); Chloride 101 mmol/L (98-107); Globulin 3.6 g/dL (1.3-4.6); Glucose 118 mg/dL (65-115); Magnesium 2.5 mg/dL (1.7-2.3); Osmolality Calculated 298 mOsm/kg (285-295); Potassium 4.7 mmol/L (3.5-5.1); Sodium 138 mmol/L (136-145); Total Bilirubin 0.2 mg/dL (0.15-1.2); Total Protein 6.4 g/dL (6.6-8.7)
[2021-04-29 04:06] LABS: Procalcitonin 0.23 ng/mL (0-0.5)
[2021-04-29 04:23] LABS: ABG PH Result 7.28 (7.35-7.45); Arterial Blood Gas Hematocrit 51.2 % (42-52); Base Excess ABG -0.3 mmol/L (-2.0-2.0); Blood Gas Allen Test Pos; Blood Gas Sample Site Radial, left; Blood Gas Sample Type Arterial; HCO3 ABG 28.3 mmol/L (22-26); Oxygen Device BIPAP; PO2 ABG 71.6 mmHg (80.0-100.0)
[2021-04-29 04:26] LABS: C Reactive Protein 147.2 mg/L (0.0-4.9); Ferritin 99 ng/mL (30-400); Iron 10 ug/dL (59-158)
[2021-04-29 04:29] LABS: Creatine Phosphokinase 388 U/L (39-308)
--- NOTE | 2021-04-29 05:00 | USCV_ITS ---
John Guerrero Age: 75 Gender: M : 1945 Exam Date: 04/29/2021 06:10 Ordering Phys: Robby Rios MD Technologist: Faviola Painter Exam Location: [facility] [place] Indication: EVAL FOR DVT PROCEDURES: Venous duplex imaging was performed in bilateral lower extremities. The following venous structures were evaluated: common femoral vein, profunda vein, proximal portion of the greater saphenous vein, superficial femoral vein, and the popliteal vein. Serial compression, augmentation maneuvers, and spectral Doppler flow evaluation were performed. FINDINGS: No evidence of DVT seen in any vessel visualized at this time. Examination was technically limited due to patient coorapration. CONCLUSIONS Technically difficult exam No evidence of right lower extremity DVT. No evidence of left lower extremity DVT. Urban Paige MD (Electronically Signed) Final Date: 29 April 2021 11:36 S
[2021-04-29] MEDS: piperacillin-tazobactam 3.375 GM in sodium chloride 0.9% (plus) 50 ML IV ×3 (06:59→22:28)
--- NOTE | 2021-04-29 07:00 | XR_ITS ---
WS: [id number] XR chest 1V portable [id number] REASON FOR EXAM: sob FINDINGS: Compared to the examination of 04/27/2021, the right hemithorax has become completely opacified with a shift of the mediastinal structures to the right. No other significant interval changes identified compared to the previous study. No new findings are noted. XR/XR chest 1V portable [id number] IMPRESSION: Complete opacification of the right hemithorax with shift of the mediastinal st ructures to the right. Most likely this is due to complete atelectasis of the r ight lung. There is right pleural effusion as noted on the previous examination .
[2021-04-29 07:11] LABS: ABG PCO2 60.7 mmHg (35-45)
[2021-04-29 07:25] LABS: Glucose Point of Care 161 mg/dL (70-110)
[2021-04-29] MEDS: acetylcysteine 200 mg/mL SDV 4 mL 100 MG INHALATION ×4 (08:22→23:30)
[2021-04-29] MEDS: sodium chloride 3.5% neb 4 mL Neb INHALATION (09:47)
[2021-04-29 11:31] LABS: Blood Gas Allen Test Pos; Blood Gas Sample Type Arterial; Ionized Calcium Level - ABG 1.2 mmol/L (1.1-1.4)
[2021-04-29 11:33] LABS: Blood Gas Sample Site Brachial, right; Potassium Level - ABG 4.9 mmol/L (3.5-5.0)
[2021-04-29] MEDS: heparin drip 25,000 UNIT/500 ML PREMIX 31 UNIT IV (11:33)
[2021-04-29] MEDS: aspirin 81 mg EC Tablet PO (11:33)
[2021-04-29 11:34] LABS: ABG PCO2 58.1 mmHg (35-45); Arterial Blood Gas Hematocrit 29.7 % (42-52); Carboxyhemoglobin 0.7 %THgb (0.4-20.1); HCO3 ABG 28.2 mmol/L (22-26); HGB O2 Sat 95.2 % (95-100); Methemoglobin 0.2 % (0.4-1.5); PO2 ABG 87.3 mmHg (80.0-100.0); Total Hemoglobin 9.7 g/dL (14-18)
[2021-04-29 11:35] LABS: Alveolar-Arterial Oxygen Gradi 31.3 mmHg (5-10); Blood Gas Operator Identificat MONRO; Oxygen Device BIPAP
--- NOTE | 2021-04-29 12:00 | XRR_ITS ---
PROCEDURE INFORMATION: Exam: XR Chest Exam date and time: 04/29/2021 12:00 PM Age: 75 years old Clinical indication: Condition or disease; Lung condition and disease; Pneumothorax; Additional info: Right lung collapse TECHNIQUE: Imaging protocol: XR of the chest. Views: 1 view. COMPARISON: CR XR chest 1V portable [id number] 04/29/2021 5:31 AM FINDINGS: Lungs: Re-aeration of the right upper lobe but there continues to be lack of aeration of the right lung base assuming the patient has not had a prior partial pneumonectomy. Pleural spaces: Suspect a right subpulmonic pleural effusion, likely moderate to large in size though the location of the right hemidiaphragm cannot be determined on this exam. No pneumothorax. Heart/Mediastinum: The cardiac silhouette is partially silhouetted out but the heart is potentially enlarged. Vasculature: The aorta is atherosclerotic. Bones/joints: Prior multilevel left rib ORIF with side plates and screws. XR/XR chest 1V portable [id number] IMPRESSION: 1. Re-aeration of the right upper lobe. 2. No pneumothorax.
[2021-04-29] MEDS: insulin lispro 100 unit/1 mL SUBCUT (12:58)
--- NOTE | 2021-04-29 15:31 | PM.PN ---
Subjective Subjective: Interval history: This morning I was urgently paged to see patient in CSU, he was progressively more short of breath, on BiPAP, complaining of shortness of breath, chest x-ray showed complete whiteout of the right side of the lung, currently patient is alert oriented x3, following commands, complaining of shortness of breath, no chest pain, no palpitations, patient was moved to CSU, I reexamined patient in the CSU, currently on BiPAP, he tells me that is feeling better, laying on his side, spontaneous movement of upper lower extremities, no weakness reported Vitals/I&O/Wt Last Vital Signs Temp 98.2 F 04/28/21 19:52 Pulse 80 04/29/21 15:24 Resp 33 H 04/29/21 15:22 BP 135/77 04/29/21 14:00 Pulse Ox 96 04/29/21 15:24 04/29/21 04/29/21 04/29/21 06:59 14:59 22:59 Intake Total 50 / 1580 Output Total 300 / 300 Balance -250 / 1280 Weight last 48 hrs Weight 112.763 kg Weight 110.54 kg Weight 109.996 kg Weight 109.905 kg Physical Exam Const: COMMON NORMALS: patient oriented x3 GENERAL APPEARANCE: cooperative Resp: COMMON NORMALS: normal respiratory effort EFFORT & INSPECTION: Yes tachypneic and Yes respiratory distress (Mild respiratory distress, intercostal retractions, nasal flaring) AUSCULTATION: diminished lung sounds on the right throughout Cardio: COMMON NORMALS: regular rate, regular rhythm, S1 normal heart sound present and S2 normal heart sound present RATE: regular rate RHYTHM: regular rhythm HEART SOUNDS: S1 normal heart sound present and S2 normal heart sound present GI: COMMON NORMALS: Normal to inspection, nondistended, normoactive bowel sounds present, Soft to palpation and non-tender PALPATION: Yes Soft to palpation Extremity: NARRATIVE EXTREMITY EXAM: 1+ pitting edema bilateral extremity Neuro: COMMON NORMALS: patient oriented x3 Urinary Catheter Management^: Corbin: Cath Placed During This Visit: yes Reason for Continuing Indwelling Catheter: Acute Urinary Retention or Obstruction Urinary Catheter Date of Insertion: 04/27/21 Data : 04/29/21 02:55 04/29/21 02:55 Micro: Microbiology 04/29/21 02:57 Blood Culture - Preliminary Blood SPECIMEN COLLECTED 04/29/21 02:55 Blood Culture - Preliminary Blood SPECIMEN COLLECTED A&P Assessment and plan (1) Atrial fibrillation with rapid ventricular response: Status: Acute (2) Heart failure: Status: Acute (3) Acute on chronic respiratory failure with hypoxia and hypercapnia: Status: Acute (4) COPD (chronic obstructive pulmonary disease): Status: Acute (5) Diabetes: Status: Acute (6) Hypertension: Status: Acute (7) CVA (cerebral vascular accident): Status: Acute (8) Aspiration into respiratory tract: Status: Acute (9) Aspiration pneumonia: Status: Acute Additional A&P Information 75 year old male with past medical history of hypertension, diabetes, heart failure, COPD, stays alone at home, and take care of himself, was brought in by chief complaint of weakness, and worsening shortness of breath, states that he was doing fine till yesterday night, was on the toilet at about 9:30 PM.He was unable to get up and reported difficulty with his left knee. #Acute CVA -CT of the head shows: 1. Extensive multifocal small-vessel ischemic change along with encephalomalacia in the left posterior parietal and occipital regions. 2. Additional hypodensity in the left posterior cerebellum, suspicious for an ischemic infarct. MRI can be performed for improved characterization, as clinically indicated. -Currently moving all upper and lower extremities, no facial droop, no slurring of words, hasn't gotten up out of bed, is bedbound -All evident of embolic CVAs related to atrial fibrillation -Likely patient's respiratory failure, component related to aspiration event, aspiration pneumonia -Keep n.p.o. -Speech therapy eval -PT OT once stable -Aspirin, statin -On heparin as below #A. fib with RVR: Patient was started on Cardizem as well as esmolol drip in the ER. When I examined the patient the heart rate was pretty well controlled. Cardizem, esmolol has been stopped We will continue metoprolol 50 mg p.o. twice daily Currently on heparin drip for anticoagulation Continue telemetry monitoring #Anemia, hemoglobin 9.6, no bloody or black stools, no hemodynamic compromise, currently on heparin drip, iron 10, ferritin 99, Hemoccult stools pending, monitor hemoglobin #Right lung collapse -Chest x-ray showing whiteout of right lung -Likely aspiration event given concerns for CVA and/or mucous plugging -Status post chest vest therapy, repeat chest x-ray shows improved aeration in the right upper lobe, continues to have white out of right lower lobe -Continue chest vest therapy, hypertonic saline, Mucomyst, repositioning -We'll repeat chest x-ray tomorrow morning -Possible bronchoscopy tomorrow #Acute renal failure -Creatinine up to 1.6, urine output 500 cc -CK388 -Did receive contrast 2 days ago -Hold Bumex therapy -For now hold off on Lasix therapy monitor urine output monitor creatinine #Decompensated heart failure: Combination of systolic and diastolic CHF, patient presented with worsening shortness of breath. Has bilateral lower extremity 1+ + pitting edema, bilateral moderate to large pleural effusion, interstitial edema. Elevated proBNP. No recent echo, according to daughter last echo was done around 5 years back. 2D echo: Technically limited quality echocardiogram because of poor ultrasonic windows. LV systolic function is grossly moderately reduced. Right ventricle is dilated and severely hypokinetic. Left atrium is dilated. Thickened aortic valve. Moderate to severe low-flow low gradient aortic stenosis noted. Mild tricuspid regurgitation No comparison studies are available Creatinine level 1.6, decreasing urine output Hold Bumex 1 mg every 12 hours, hold metolazone daily dosing Intake output charting Daily weight k>4,mg>2 #Bilateral pleural effusions, ultrasound thoracocentesis tomorrow morning #AC on Chronic hypoxic hypercapnic respiratory failure: Likely secondary to decompensated heart failure, possible underlying pneumonia, aspiration, mucous plugging Possible underlying pneumonia/aspiration, blood cultures, sputum cultures On Zosyn Repeat ABG tomorrow morning Continue BiPAP DuoNebs Monitor ABG #Diabetes: Lantus 30 subcu daily Low-dose sliding scale insulin Cardiac carbohydrate consistent diet Monitor fingerstick glucose #Hypertension: #COPD: Plan as above #Elevated CK: 388 Follow CK in a.m. labs CODE STATUS: Full code DVT prophylaxis: On Lovenox Attestations Medical Necessity Statement*: Patient requires hospitalization for acute respiratory failure, atrial fibrillation, acute CVA, anemia, decompensated heart failure, right lung collapse, critical care time spent over 55 minutes Coding Level of Care Code Acute Wide Area Network Engineer for [facility] Diagnoses Atrial fibrillation with rapid ventricular response I48.91 Heart failure I50.9 Acute on chronic respiratory failure with hypoxia and hypercapnia J96.21; J96.22 COPD (chronic obstructive pulmonary disease) J44.9 Diabetes E11.9 Hypertension I10 CVA (cerebral vascular accident) I63.9 Aspiration into respiratory tract T17.908A Aspiration pneumonia J69.0
[2021-04-29 18:23] LABS: Partial Thromboplastin Time 61.1 SECONDS (23.9-36.7)
--- NOTE | 2021-04-29 20:45 | PC.NURSE ---
Family Update Daughter, Lauren Brennan, called for update on patient at this time. Oxygen requirements, NPO diet, and time of procedure tomorrow discussed. Daughter verbalized understanding. No further questions stated at this time.
[2021-04-29] MEDS: insulin glargine 100 units/1 mL 30 UNIT SUBCUT (21:57)
[2021-04-29] MEDS: oxyCODONE-APAP 10-325 mg Tablet 1 TAB PO (22:41)
--- NOTE | 2021-04-29 23:39 | PC.NURSE ---
Physician Communication Dr. Rios provided information on thoracentesis. Thoracentesis to most likely occur tomorrow around 8 AM to be done by radiology. Order received to pause Heparin drip at 0200 on 04/30/21 for procedure.
[2021-04-30] VITALS (55 sets, daily range): BP systolic 92–148; BP diastolic 39–95; PULSE 66–91; RESP 17–88; TEMP 36.6–36.9; O2SAT 87–100; BMI 30.4
[2021-04-30 01:00] LABS: Basophils # 0.1 10^3/uL (0.0-0.1); Basophils % 0.5 %; Eosinophils # 0.1 10^3/uL (0.0-0.8); Eosinophils % 0.6 %; Hematocrit 33.4 % (42.0-52.0); Hemoglobin 9.6 g/dL (11.7-16.6); Lymphocytes % 10.8 %; Mean Corpuscular HGB Conc 28.7 g/dL (30.0-36.0); Mean Corpuscular Hemoglobin 24.9 pg (28.0-34.0); Mean Corpuscular Volume 86.5 fl (80-94); Mean Platelet Volume 9.6 fL (7.4-10.4); Monocytes # 0.8 10^3/uL (0.2-0.9); Monocytes % 8.3 %; Neutrophils % 79.6 %; Nucleated Red Blood Cells % 0 %; Platelet Count 460 10^3/cmm (130-400); Red Blood Count 3.86 10^6/uL (4.1-5.3); Red Cell Distribution Width 16.3 % (12.1-15.1); White Blood Count 9.4 10^3/uL (4.0-10.0)
[2021-04-30 01:20] LABS: C Reactive Protein 131.7 mg/L (0.0-4.9)
[2021-04-30 01:21] LABS: Alanine Aminotransferase 15 U/L (0-41); Albumin Level 2.7 g/dL (3.5-5.2); Alkaline Phosphatase 93 IU/L (40-130); Anion Gap 19.8 (5-19); Aspartate Amino Transferase 49 U/L (0-40); Blood Urea Nitrogen 44 mg/dL (8-23); Calcium 8.4 mg/dL (8.5-10.5); Carbon Dioxide 23 mmol/L (22-29); Chloride 102 mmol/L (98-107); Globulin 4.1 g/dL (1.3-4.6); Glucose 114 mg/dL (65-115); Magnesium 2.5 mg/dL (1.7-2.3); Osmolality Calculated 302 mOsm/kg (285-295); Potassium 4.8 mmol/L (3.5-5.1); Sodium 140 mmol/L (136-145); Total Bilirubin 0.2 mg/dL (0.15-1.2); Total Protein 6.8 g/dL (6.6-8.7)
[2021-04-30 01:22] LABS: Lactate (Lactic Acid level) 1.1 mmol/L (0.5-2.2)
[2021-04-30 01:33] LABS: Partial Thromboplastin Time 63.5 SECONDS (23.9-36.7)
[2021-04-30 01:43] LABS: Phosphorus 4.6 mg/dL (2.5-4.5)
[2021-04-30 01:53] LABS: NT Pro B Type Natriuretic Pept 24125 pg/mL (0-125)
[2021-04-30 02:07] LABS: Creatine Phosphokinase 1394 U/L (39-308)
[2021-04-30] MEDS: ipratropium-albuterol 3 mL Neb INHALATION ×5 (03:33→20:43)
[2021-04-30] MEDS: acetylcysteine 200 mg/mL SDV 4 mL 100 MG INHALATION ×5 (03:33→20:44)
[2021-04-30 04:00] LABS: ABG PCO2 53.9 mmHg (35-45); ABG PH Result 7.33 (7.35-7.45); Arterial Blood Gas Hematocrit 29.8 % (42-52); Blood Gas Allen Test Pos; Blood Gas Sample Site Radial, right; Blood Gas Sample Type Arterial; HCO3 ABG 28.6 mmol/L (22-26); Oxygen Device BIPAP; PO2 ABG 78.8 mmHg (80.0-100.0)
--- NOTE | 2021-04-30 05:00 | US_ITS ---
WS: [id number] ULTRASOUND-GUIDED THORACENTESIS CLINICAL INFORMATION: bilateral pleural efffusion COMPARISON: None. PROCEDURE: Informed consent: The risks, benefits, and alternatives of the procedure were discussed with the basilia ent. Verbal and written consent was obtained. Timeout: A timeout was performed to confirm the correct patient, procedure, and site. Site: Right chest Preparation: A suitable skin site was identified. The patient was prepped and draped in usual sterile fashion. Lidocaine 1% was used for local anesthesia. Catheter: 4 American One-Step catheter. Fluid Volume: 1000 ml Color: Bloody serous Discarded safely. Complications: None US/ thoracentesis [id number] IMPRESSION: 1. Uncomplicated ultrasound-guided thoracentesis. 2. No pneumothorax on the portable radiograph post thoracentesis
[2021-04-30] MEDS: piperacillin-tazobactam 3.375 GM in sodium chloride 0.9% (plus) 50 ML IV ×3 (06:19→22:28)
--- NOTE | 2021-04-30 06:41 | PC.NURSE ---
Family update Daughter, Lauren, called and received update on patient status. Daughter states to call if any changes occur throughout day. No further questions.
--- NOTE | 2021-04-30 07:00 | XRR_ITS ---
PROCEDURE INFORMATION: Exam: XR Chest Exam date and time: 04/30/2021 7:00 AM Age: 75 years old Clinical indication: Condition or disease; Lung condition and disease; Respiratory failure; Status not specified; Shortness of breath; Patient HX: Resp failure. On bipap. Three attempts to include all of left costophrenic angle. Best film submitted; Additional info: SOB TECHNIQUE: Imaging protocol: XR of the chest. Views: 1 view. COMPARISON: CR XR chest 1V portable [id number] 04/29/2021 12:09 PM FINDINGS: Lungs: There is increased density in the right lower hemithorax consistent with right pleural effusion with right basilar consolidation/atelectasis. There is left retrocardiac opacification consistent with left lower lobe atelectasis. Pleural spaces: No pneumothorax Heart/Mediastinum: Stable cardiomegaly. Bones/joints: Multiple plates and screws bridge old left rib fractures. XR/XR chest 1V portable [id number] IMPRESSION: Bibasilar atelectasis and right pleural effusion. When compared to the previous study there is improvement of the aeration in the right lung base.
--- NOTE | 2021-04-30 08:25 | PC.NURSE ---
Family Update Daughter, Lauren, called and received patient update. Thoracentesis procedure completed and oxygen requirements discussed. Lauren verbalized understanding. Stated intent to visit tomorrow
[2021-04-30] MEDS: sodium chloride 3.5% neb 4 mL Neb INHALATION (08:52)
[2021-04-30] MEDS: atorvastatin 40 mg Tablet 80 MG PO (09:17)
[2021-04-30] MEDS: cholecalciferol (vitamin D3) 1,000 unit Tablet 1000 UNIT PO (09:17)
[2021-04-30] MEDS: aspirin 81 mg EC Tablet PO (09:18)
[2021-04-30] MEDS: metoprolol tartrate 50 mg Tablet PO ×2 (09:18→17:44)
[2021-04-30] MEDS: linezolid premix 600 MG/300 ML PREMIX 300 MG IV ×2 (09:22→20:55)
--- NOTE | 2021-04-30 09:24 | XR_ITS ---
WS: [id number] CHEST XRAY TECHNIQUE: Portable chest. CLINICAL INFORMATION: post thora COMPARISON: April 30, 2021 0400 FINDINGS: Heart: Cardiomegaly. Lungs: Improved right pleural effusion post thoracentesis. Small amount of residual pleural fluid. At electasis right lower lobe 6 with partial opacification of the right lower lobe. No pneumothorax. Pul monary vascular congestion. Bones: Prior postoperative changes plate and screw fixation left mid posterior rib fractures XR/XR chest 1V portable [id number] IMPRESSION: 1. Post thoracentesis right lung. No pneumothorax. 2. Small amount of residual pleural fluid bilaterally. Residual opacification right lower lobe. 3. Stable cardiomegaly with pulmonary vascular congestion.
[2021-04-30 09:53] LABS: Body Fluid Polynuclear #Cells 0.153; Body Fluid WBC 906 /uL; Monocytes # Body Fluid 0.753
--- NOTE | 2021-04-30 10:04 | PC.CHAP ---
Pastoral Care Encounter/Spiritual Assessment Type of Contact [] Declined clearing distribution clerk visit [] Patient/Family/Request visit [] Outpatient visit [] Follow-up visit [] Physician referral [] Code/Alert [x] Routine visit [] Staff referral [] Actively dying [] Patient sleeping [] Family support [] [] Out of room [] Palliative care [] [x] Receiving care in room [] Pre-surgical visit [] Trauma [] Long length of stay [x] ICU visit [] Other: Relational/Emotional Strength [] Patient feels connected with others/family/visitors/staff [] Distress [] Loneliness/isolation [] Abandonment Spirituality of Patient [] Person of Ewa [] Attends Voodoo of their Ewa [] Believes in Prayer [] Reads Bible or Islam materials [] There are Spiritual issues to be addressed Turbine Blade Assembler Interventions [x] Prayer [] Active listening [] Non-anxious presence [] Spiritual/emotional support [] Crisis/trauma care [] Spiritual counseling [] Bereavement support [] Provided bereavement packet [] Provided Bible/devotional materials [] Provided toy/stuffed animal, coloring book to patient or family member [] Provided Communion [] Anointing/[place] [] Salvation [x] Completed spiritual assessment [] Other: Impact on Illness or Injury [] Angry [] Fearful [] Anxious [] Often cries [] Exhaustion [] Unable to work [] Unable to attend scientologist [] Unable to walk/stand [] Unable to read [] Unable to drive [] Unable to eat/drink [] Unable to sleep [] Unable to be with family [] Patient intubated [] Other: Summary Time spent with patient
[2021-04-30 10:12] LABS: Hematocrit Body Fluid 0.1 %
[2021-04-30 10:13] LABS: Albumin Body Fluid 1.5 g/dL; Apprearance, Body Fluid CLEAR; Color, Body Fluid YELLOW; Creatinine Body Fluid 1.56 (0.7-1.2); PATH Referral YES; Triglycerides, Pleural Fluid 39 mg/dL
[2021-04-30 10:14] LABS: LDH Pleural Fluid 122 U/L; Total Protein Pleural Fluid 3.1 g/dL
[2021-04-30 10:36] LABS: Glucose Point of Care 116 mg/dL (70-110)
[2021-04-30 10:36] LABS: Glucose Point of Care 146 mg/dL (70-110)
[2021-04-30 10:36] LABS: Glucose Point of Care 119 mg/dL (70-110)
[2021-04-30] MEDS: insulin lispro 100 unit/1 mL SUBCUT ×2 (12:18→17:44)
--- NOTE | 2021-04-30 14:32 | PC.SOCIAL ---
IMM update IMM updated with patient, verbalized an understanding. Copy Pg 2 provided. Initialled, dated, timed, and placed in chart.
--- NOTE | 2021-04-30 14:48 | PC.NURSE ---
Thoracentesis done this AM. 1L of fluid removed and pt was able to sit of the side of the bed without assistance.
--- NOTE | 2021-04-30 17:38 | P.PN_ITS ---
Subjective Subjective: Interval history: Patient was seen this morning, he is laying on his side, telling me that his breathing has improved, no nausea, no vomiting, no chest pain, palpitations, no lightheadedness, no dizziness Vitals/I&O/Wt Last Vital Signs Temp 98.4 F 04/30/21 04:00 Pulse 84 04/30/21 16:00 Resp 34 H 04/30/21 16:00 BP 124/59 04/30/21 16:00 Pulse Ox 90 04/30/21 16:00 04/30/21 04/30/21 04/30/21 06:59 14:59 22:59 Intake Total 491.234 / 591.234 250 / 250 Output Total 300 / 1200 450 / 450 Balance 191.234 / -608.766 250 / 250 -450 / -200 Weight last 48 hrs Weight 104.462 kg Weight 112.763 kg Physical Exam Narrative: EXAM NARRATIVE: Currently on BiPAP, Const: COMMON NORMALS: no acute distress and patient oriented x3 GENERAL APPEARANCE: cooperative Resp: COMMON NORMALS: normal respiratory effort, No retractions and No use of accessory muscles AUSCULTATION: diminished lung sounds on the right in the lower lung romero Cardio: COMMON NORMALS: regular rate, regular rhythm, S1 normal heart sound present and S2 normal heart sound present RATE: regular rate RHYTHM: regular rhythm HEART SOUNDS: S1 normal heart sound present and S2 normal heart sound present GI: COMMON NORMALS: Normal to inspection, nondistended, normoactive bowel sounds present, Soft to palpation and non-tender PALPATION: Yes Soft to palpation Extremity: COMMON NORMALS: no pedal edema Neuro: COMMON NORMALS: patient oriented x3 Psych: COMMON NORMALS: mental status grossly normal Urinary Catheter Management^: Corbin: Cath Placed During This Visit: yes Reason for Continuing Indwelling Catheter: Accurate Measurement of Urinary Output in Critically Ill Patients Urinary Catheter Date of Insertion: 04/27/21 Data : 04/30/21 00:55 04/30/21 00:55 Micro: Microbiology 04/30/21 09:25 Gram Stain - Final Pleural Fluid 04/29/21 02:57 Blood Culture - Preliminary Blood NEGATIVE TO DATE 04/29/21 02:55 Blood Culture - Preliminary Blood NEGATIVE TO DATE 04/28/21 18:25 MRSA Culture - Final Nose A&P Assessment and plan (1) Atrial fibrillation with rapid ventricular response: Status: Acute (2) Heart failure: Status: Acute (3) Acute on chronic respiratory failure with hypoxia and hypercapnia: Status: Acute (4) COPD (chronic obstructive pulmonary disease): Status: Acute (5) Diabetes: Status: Acute (6) Hypertension: Status: Acute (7) CVA (cerebral vascular accident): Status: Acute (8) Aspiration into respiratory tract: Status: Acute (9) Aspiration pneumonia: Status: Acute Additional A&P Information 75 year old male with past medical history of hypertension, diabetes, heart mary beth lure, COPD, stays alone at home, and take care of himself, was brought in by chief complaint of weakness, and worsening shortness of breath, states that he was doing fine till yesterday night, was on the toilet at about 9:30 PM.He was unable to get up and reported difficulty with his left knee. #Acute CVA -CT of the head shows: 1. Extensive multifocal small-vessel ischemic change along with encephalomalacia in the left posterior parietal and occipital regions. 2. Additional hypodensity in the left posterior cerebellum, suspicious for an ischemic infarct. MRI can be performed for improved characterization, as clinically indicated. -Currently moving all upper and lower extremities, no facial droop, no slurring of words, hasn't gotten up out of bed, is bedbound -All evident of embolic CVAs related to atrial fibrillation -Likely patient's respiratory failure, component related to aspiration event, aspiration pneumonia -Keep n.p.o. until speech therapy eval -Speech therapy eval -PT OT once stable -Aspirin, statin -On heparin as below #A. fib with RVR: Patient was started on Cardizem as well as esmolol drip in the ER. When I examined the patient the heart rate was pretty well controlled. Cardizem, esmolol has been stopped We will continue metoprolol 50 mg p.o. twice daily Currently on heparin drip for anticoagulation Continue telemetry monitoring #Anemia, hemoglobin 9.6, no bloody or black stools, no hemodynamic compromise, currently on heparin drip, iron 10, ferritin 99, Hemoccult stools pending, monitor hemoglobin #Right lung collapse, resolving -Chest x-ray showing whiteout of right lung -After chest vest therapy, chest x-ray showed improved aeration of the right upper lobe -Chest x-ray this morning bibasilar atelectasis and right pleural effusion. When compared to the previous study there is improvement of the aeration in the right lung base -Likely aspiration event given concerns for CVA and/or mucous plugging -Continue chest vest therapy, hypertonic saline, Mucomyst, repositioning -We'll repeat chest x-ray tomorrow morning #Acute renal failure -Creatinine up to 1.6, urine output 1650 -Rhabdomyolysis -Did receive contrast 2 days ago -Hold Bumex therapy #Rhabdomyolysis, -CPK over 1300 -Monitor for now -We will avoid fluids as concerns for fluid overload #Decompensated heart failure: Combination of systolic and diastolic CHF, patient presented with worsening shortness of breath. Has bilateral lower extremity 1+ + pitting edema, bilateral moderate to large pleural effusion, interstitial edema. Elevated proBNP. No recent echo, according to daughter last echo was done around 5 years back. 2D echo: Technically limited quality echocardiogram because of poor ultrasonic windows. LV systolic function is grossly moderately reduced. Right ventricle is dilated and severely hypokinetic. Left atrium is dilated. Thickened aortic valve. Moderate to severe low-flow low gradient aortic stenosis noted. Mild tricuspid regurgitation No comparison studies are available Creatinine level 1.6, urine output improving Hold Bumex 1 mg every 12 hours, hold metolazone daily dosing Intake output charting Daily weight k>4,mg>2 #Bilateral pleural effusions, ultrasound thoracocentesis today #AC on Chronic hypoxic hypercapnic respiratory failure: Likely secondary to decompensated heart failure, possible underlying pneumonia, aspiration, mucous plugging Possible underlying pneumonia/aspiration, blood cultures, sputum cultures On Zosyn Repeat ABG tomorrow morning Continue BiPAP DuoNebs Monitor ABG #Diabetes: Lantus 30 subcu daily Low-dose sliding scale insulin Cardiac carbohydrate consistent diet Monitor fingerstick glucose #Hypertension: #COPD: Plan as above #Elevated CK: 388 Follow CK in a.m. labs CODE STATUS: Full code DVT prophylaxis: On Lovenox Attestations Medical Necessity Statement*: Patient requires hospitalization for right lung collapse, diastolic CHF, anemia, stroke, A. fib Coding Level of Care Code Acute Continuous Process Machine Operator for [facility] Fwd Diagnoses Atrial fibrillation with rapid ventricular response I48.91 Heart failure I50.9 Acute on chronic respiratory failure with hypoxia and hypercapnia J96.21; J96.22 COPD (chronic obstructive pulmonary disease) J44.9 Diabetes E11.9 Hypertension I10 CVA (cerebral vascular accident) I63.9 Aspiration into respiratory tract T17.908A Aspiration pneumonia J69.0
--- NOTE | 2021-04-30 19:00 | PC.NURSE ---
Heparin Drip Upon assessment, Heparin drip administering at 31 ml/hr while MAR shows paused. MAR updated to reflect administration.
[2021-04-30] MEDS: heparin drip 25,000 UNIT/500 ML PREMIX 31 UNIT IV (20:00)
[2021-04-30] MEDS: insulin glargine 100 units/1 mL 30 UNIT SUBCUT (20:55)
[2021-04-30 23:13] LABS: Partial Thromboplastin Time 52.1 SECONDS (23.9-36.7)
[2021-04-30] MEDS: heparin 5,000 unit/mL INJ 1 mL IV (23:49)
[2021-05-01] VITALS (62 sets, daily range): BP systolic 94–141; BP diastolic 38–75; PULSE 69–88; RESP 16–41; TEMP 36.6–37.2; O2SAT 85–100; BMI 29.9
[2021-05-01] MEDS: ipratropium-albuterol 3 mL Neb INHALATION ×7 (00:09→23:29)
[2021-05-01] MEDS: acetylcysteine 200 mg/mL SDV 4 mL 100 MG INHALATION ×7 (00:09→23:29)
[2021-05-01] MEDS: oxyCODONE-APAP 10-325 mg Tablet 1 TAB PO ×2 (03:30→16:03)
[2021-05-01 04:28] LABS: ABG PCO2 50.6 mmHg (35-45); ABG PH Result 7.39 (7.35-7.45); Arterial Blood Gas Hematocrit 29.5 % (42-52); Base Excess ABG 4.5 mmol/L (-2.0-2.0); Blood Gas Allen Test Pos; Blood Gas Sample Site Brachial, left; Blood Gas Sample Type Arterial; HCO3 ABG 30.3 mmol/L (22-26); Oxygen Device HAG; PO2 ABG 62.2 mmHg (80.0-100.0)
--- NOTE | 2021-05-01 05:00 | PC.NURSE ---
Catheter Horn catheter noted to have no output for several hours. Patient states feels like (he) is going in the bed. Upon assessment, horn noted to be leaking urine with blanket and sheet damp. Horn catheter balloon had 10ml NS as needed. Horn flushed at port with 2 flushes. Urine output noted following flushes.
[2021-05-01 05:29] LABS: Lactate (Lactic Acid level) 0.9 mmol/L (0.5-2.2)
[2021-05-01 05:36] LABS: NT Pro B Type Natriuretic Pept 23193 pg/mL (0-125); Procalcitonin 0.16 ng/mL (0-0.5)
[2021-05-01 05:51] LABS: Creatine Phosphokinase 390 U/L (39-308)
[2021-05-01 06:04] LABS: C Reactive Protein 113.1 mg/L (0.0-4.9); Magnesium 2.3 mg/dL (1.7-2.3)
[2021-05-01] MEDS: piperacillin-tazobactam 3.375 GM in sodium chloride 0.9% (plus) 50 ML IV ×3 (06:06→22:15)
--- NOTE | 2021-05-01 07:51 | XR_ITS ---
WS: [id number] XR chest 1V portable [id number] REASON FOR EXAM: sob FINDINGS: Compared to the examination the previous day, there appears to be increasing reticular lung opacities diffusely in both lungs but more prominently on the left. This may be pulmonary edema. There is no pneumothorax. Right pleural effusion unchanged compared to the previous day. Left pleural effusion unchanged compared to the previous day. Increased opacity in the medial aspect of both lower lungs with obscuration of the left hemidiaphragm s may be the result of pleural effusion and/or atelectasis of the lower lungs. XR/XR chest 1V portable [id number] IMPRESSION: Pleural effusions and atelectasis as above. Possible increasing pulmonary edema.
[2021-05-01 08:19] LABS: Basophils % 0.6 %; Eosinophils # 0.1 10^3/uL (0.0-0.8); Eosinophils % 1.7 %; Hematocrit 30.1 % (42.0-52.0); Hemoglobin 8.9 g/dL (11.7-16.6); Lymphocytes # 1.1 10^3/uL (0.8-4.8); Lymphocytes % 14.6 %; Mean Corpuscular HGB Conc 29.6 g/dL (30.0-36.0); Mean Corpuscular Hemoglobin 25.3 pg (28.0-34.0); Mean Corpuscular Volume 85.5 fl (80-94); Monocytes # 0.6 10^3/uL (0.2-0.9); Monocytes % 8.5 %; Neutrophils # 5.38 10^3/uL (1.8-7.7); Neutrophils % 74.5 %; Nucleated Red Blood Cells % 0 %; Platelet Count 441 10^3/cmm (130-400); Red Blood Count 3.52 10^6/uL (4.1-5.3); Red Cell Distribution Width 16.2 % (12.1-15.1); White Blood Count 7.2 10^3/uL (4.0-10.0)
[2021-05-01 08:30] LABS: Alanine Aminotransferase 13 U/L (0-41); Albumin Level 2.7 g/dL (3.5-5.2); Alkaline Phosphatase 81 IU/L (40-130); Anion Gap 16.5 (5-19); Aspartate Amino Transferase 32 U/L (0-40); Blood Urea Nitrogen 34 mg/dL (8-23); Calcium 7.9 mg/dL (8.5-10.5); Carbon Dioxide 27 mmol/L (22-29); Chloride 101 mmol/L (98-107); Globulin 2.9 g/dL (1.3-4.6); Glucose 136 mg/dL (65-115); Osmolality Calculated 300 mOsm/kg (285-295); Potassium 4.5 mmol/L (3.5-5.1); Sodium 140 mmol/L (136-145); Total Bilirubin 0.3 mg/dL (0.15-1.2); Total Protein 5.6 g/dL (6.6-8.7)
[2021-05-01] MEDS: linezolid premix 600 MG/300 ML PREMIX 300 MG IV ×2 (08:51→20:29)
[2021-05-01] MEDS: metOLazone 5 MG Tablet 10 MG PO (08:51)
[2021-05-01] MEDS: aspirin 81 mg EC Tablet PO (08:51)
[2021-05-01] MEDS: atorvastatin 40 mg Tablet 80 MG PO (08:51)
[2021-05-01] MEDS: cholecalciferol (vitamin D3) 1,000 unit Tablet 1000 UNIT PO (08:51)
[2021-05-01] MEDS: metoprolol tartrate 50 mg Tablet PO ×2 (08:52→18:14)
[2021-05-01] MEDS: bumetanide 0.25 mg/mL SDV 4 mL 1 MG IVP ×2 (08:52→18:14)
[2021-05-01] MEDS: sodium chloride 3.5% neb 4 mL Neb INHALATION ×2 (09:04→20:00)
--- NOTE | 2021-05-01 12:13 | P.PN_ITS ---
Subjective Subjective: Interval history: Patient was seen this morning, currently on high flow nasal cannula, O2 sats in the high 90s, no chest pain, his shortness of breath has improved, no lightheadedness, dizziness, no nausea, no vomiting, no choking episodes, tells me that he is hungry, alert to person, to place, not to time Vitals/I&O/Wt Last Vital Signs Temp 97.8 F 05/01/21 10:00 Pulse 74 05/01/21 11:22 Resp 16 05/01/21 11:20 BP 127/55 05/01/21 10:00 Pulse Ox 93 05/01/21 11:20 04/30/21 05/01/21 05/01/21 22:59 06:59 14:59 Intake Total 391 / 941 376.85 / 1317.85 110 / 110 Output Total 450 / 450 300 / 750 425 / 425 Balance -59 / 491 76.85 / 567.85 -315 / -315 Weight last 48 hrs Weight 102.965 kg Weight 104.462 kg Physical Exam Const: COMMON NORMALS: no acute distress ORIENTATION/CONSCIOUSNESS: Yes awake, Yes oriented to person and Yes oriented to place; not oriented to time Resp: COMMON NORMALS: normal respiratory effort, No retractions and No use of accessory muscles AUSCULTATION: wheezes Cardio: COMMON NORMALS: regular rate, regular rhythm, S1 normal heart sound present and S2 normal heart sound present RATE: regular rate RHYTHM: regular rhythm HEART SOUNDS: S1 normal heart sound present and S2 normal heart sound present GI: COMMON NORMALS: Normal to inspection, nondistended, normoactive bowel sounds present, Soft to palpation and non-tender PALPATION: Yes Soft to palpation Extremity: COMMON NORMALS: no pedal edema Neuro: SENSORIUM/ORIENTATION: Yes oriented to person, Yes oriented to place and No oriented to time Psych: COMMON NORMALS: mental status grossly normal Urinary Catheter Management^: Corbin: Cath Placed During This Visit: yes Reason for Continuing Indwelling Catheter: Accurate Measurement of Urinary Output in Critically Ill Patients Urinary Catheter Date of Insertion: 04/27/21 Data : 05/01/21 04:56 05/01/21 04:56 Micro: Microbiology 04/30/21 09:25 Gram Stain - Final Pleural Fluid A&P Assessment and plan (1) Atrial fibrillation with rapid ventricular response: Status: Acute (2) Heart failure: Status: Acute (3) Acute on chronic respiratory failure with hypoxia and hypercapnia: Status: Acute (4) COPD (chronic obstructive pulmonary disease): Status: Acute (5) Diabetes: Status: Acute (6) Hypertension: Status: Acute (7) CVA (cerebral vascular accident): Status: Acute (8) Aspiration into respiratory tract: Status: Acute (9) Aspiration pneumonia: Status: Acute Additional A&P Information 75 year old male with past medical history of hypertension, diabetes, heart failure, COPD, stays alone at home, and take care of himself, was brought in by chief complaint of weakness, and worsening shortness of breath, states that he was doing fine till yesterday night, was on the toilet at about 9:30 PM.He was unable to get up and reported difficulty with his left knee. #Acute CVA -CT of the head shows: 1. Extensive multifocal small-vessel ischemic change along with encephalomalacia in the left posterior parietal and occipital regions. 2. Additional hypodensity in the left posterior cerebellum, suspicious for an ischemic infarct. MRI can be performed for improved characterization, as clinically indicated. -Currently moving all upper and lower extremities, no facial droop, no slurring of words, hasn't gotten up out of bed, is bedbound -All evident of embolic CVAs related to atrial fibrillation -Likely patient's respiratory failure, component related to aspiration event, aspiration pneumonia -Keep n.p.o. until speech therapy eval -Speech therapy eval -PT OT once stable -Aspirin, statin -Switch to Lovenox #A. fib with RVR: Patient was started on Cardizem as well as esmolol drip in the ER. When I examined the patient the heart rate was pretty well controlled. Cardizem, esmolol has been stopped We will continue metoprolol 50 mg p.o. twice daily Switch to Lovenox Continue telemetry monitoring #Anemia, hemoglobin 8.9, no bloody or black stools, no hemodynamic compromise, no Lovenox, iron 10, ferritin 99, Hemoccult stools pending, monitor hemoglobin #Right lung collapse, resolving -Chest x-ray showing whiteout of right lung -Chest x-ray this morning shows bilateral pulmonary edema, bilateral pleural effusions -Likely aspiration event given concerns for CVA and/or mucous plugging -Continue chest vest therapy, hypertonic saline, Mucomyst, repositioning -We'll repeat chest x-ray tomorrow morning #Acute renal failure -Creatinine up to 1.1, urine output 1175 -Rhabdomyolysis -Did receive contrast 2 days ago -Hold Bumex therapy #Rhabdomyolysis, -CPK over 390 -Monitor for now -We will avoid fluids as concerns for fluid overload #Decompensated heart failure: Combination of systolic and diastolic CHF, patient presented with worsening shortness of breath. Has bilateral lower extremity 1+ + pitting edema, bilateral moderate to large pleural effusion, interstitial edema. Elevated proBNP. No recent echo, according to daughter last echo was done around 5 years back. 2D echo: Technically limited quality echocardiogram because of poor ultrasonic windows. LV systolic function is grossly moderately reduced. Right ventricle is dilated and severely hypokinetic. Left atrium is dilated. Thickened aortic valve. Moderate to severe low-flow low gradient aortic stenosis noted. Mild tricuspid regurgitation No comparison studies are available Creatinine level 1.1, urine output improving Bumex 1 mg once, with 10 mg metolazone, with 50 of albumin, will consider repeat dosing the evening based on urine output and hemodynamics Intake output charting Daily weight k>4,mg>2 #Bilateral pleural effusions, ultrasound thoracocentesis 1 L out on the right #AC on Chronic hypoxic hypercapnic respiratory failure: Likely secondary to decompensated heart failure, possible underlying pneumonia, aspiration, mucous plugging Possible underlying pneumonia/aspiration, blood cultures, sputum cultures On Zosyn Repeat ABG tomorrow morning Continue BiPAP DuoNebs Monitor ABG #Diabetes: Lantus 30 subcu daily Low-dose sliding scale insulin Cardiac carbohydrate consistent diet Monitor fingerstick glucose #Hypertension: #COPD: Plan as above #Elevated CK: 390 Follow CK in a.m. labs CODE STATUS: Full code DVT prophylaxis: On Lovenox Attestations Medical Necessity Statement*: Patient requires hospitalization for decompensated heart failure, A. fib, CVA, right lung collapse, critical care time spent over 35 minutes Coding Level of Care Code Acute Mysql Database Administrator for [facility] Fwd Diagnoses Atrial fibrillation with rapid ventricular response I48.91 Heart failure I50.9 Acute on chronic respiratory failure with hypoxia and hypercapnia J96.21; J96.2 2 COPD (chronic obstructive pulmonary disease) J44.9 Diabetes E11.9 Hypertension I10 CVA (cerebral vascular accident) I63.9 Aspiration into respiratory tract T17.908A Aspiration pneumonia J69.0
[2021-05-01] MEDS: insulin lispro 100 unit/1 mL SUBCUT (12:28)
--- NOTE | 2021-05-01 13:07 | PC.NURSE ---
pt refused PT this AM
[2021-05-01 13:58] LABS: Partial Thromboplastin Time 75.6 SECONDS (23.9-36.7)
[2021-05-01] MEDS: enoxaparin 100 mg/mL Syringe SUBCUT ×2 (14:10→23:27)
--- NOTE | 2021-05-01 18:00 | PC.NURSE ---
Patient has continued to refused to be repositioned this shift. Education has been provided and family aware.
[2021-05-01] MEDS: albumin 37.5 GM/150 ML VIAL IV (18:14)
[2021-05-01 20:17] LABS: Glucose Point of Care 97 mg/dL (70-110)
[2021-05-01 20:19] LABS: Glucose Point of Care 100 mg/dL (70-110)
[2021-05-01 20:19] LABS: Glucose Point of Care 153 mg/dL (70-110)
[2021-05-01 20:19] LABS: Glucose Point of Care 124 mg/dL (70-110)
[2021-05-01 20:19] LABS: Glucose Point of Care 146 mg/dL (70-110)
[2021-05-01 20:19] LABS: Glucose Point of Care 159 mg/dL (70-110)
[2021-05-01] MEDS: insulin glargine 100 units/1 mL 30 UNIT SUBCUT (20:29)
--- NOTE | 2021-05-01 22:10 | PC.NURSE ---
Hygiene Patient received full bed bath: Hair shampooed and combed, body washed, new gown applied, deodorant placed under arms, pericare/catheter care completed. Linens changed earlier in the day. Patient only able to assist minimally. Following care, patient resting in bed on left side. A few minutes later, patient's oxygen saturation dropped to low 80s on high flow nasal cannula 10 L. Liter flow increased to 15 to no effect. Patient noted to be breathing through mouth rather than nose, nasal cannula placed near mouth, oxygen saturation increased to 100%. All other vitals stable.
[2021-05-02] VITALS (102 sets, daily range): BP systolic 65–158; BP diastolic 31–93; PULSE 61–98; RESP 15–42; TEMP 35.9–36.9; O2SAT 82–100; BMI 29.5
[2021-05-02] MEDS: acetylcysteine 200 mg/mL SDV 4 mL 100 MG INHALATION ×3 (03:28→11:17)
[2021-05-02] MEDS: ipratropium-albuterol 3 mL Neb INHALATION ×6 (03:28→23:45)
[2021-05-02 03:38] LABS: Basophils % 0.5 %; Eosinophils # 0.2 10^3/uL (0.0-0.8); Eosinophils % 3.1 %; Hematocrit 28.3 % (42.0-52.0); Hemoglobin 8.1 g/dL (11.7-16.6); Lymphocytes # 1.3 10^3/uL (0.8-4.8); Lymphocytes % 20.9 %; Mean Corpuscular HGB Conc 28.6 g/dL (30.0-36.0); Mean Corpuscular Hemoglobin 24.7 pg (28.0-34.0); Mean Corpuscular Volume 86.3 fl (80-94); Mean Platelet Volume 9.9 fL (7.4-10.4); Monocytes # 0.7 10^3/uL (0.2-0.9); Monocytes % 11.3 %; Neutrophils # 3.89 10^3/uL (1.8-7.7); Neutrophils % 63.9 %; Nucleated Red Blood Cells % 0 %; Platelet Count 352 10^3/cmm (130-400); Red Blood Count 3.28 10^6/uL (4.1-5.3); Red Cell Distribution Width 16.2 % (12.1-15.1); White Blood Count 6.1 10^3/uL (4.0-10.0)
[2021-05-02 04:02] LABS: C Reactive Protein 87.8 mg/L (0.0-4.9); Magnesium 2.2 mg/dL (1.7-2.3); Phosphorus 3.5 mg/dL (2.5-4.5)
[2021-05-02 04:05] LABS: Lactate (Lactic Acid level) 0.8 mmol/L (0.5-2.2)
[2021-05-02 04:07] LABS: Alanine Aminotransferase 11 U/L (0-41); Albumin Level 3.4 g/dL (3.5-5.2); Alkaline Phosphatase 73 IU/L (40-130); Anion Gap 17.2 (5-19); Aspartate Amino Transferase 23 U/L (0-40); Blood Urea Nitrogen 28 mg/dL (8-23); Calcium 8.2 mg/dL (8.5-10.5); Carbon Dioxide 28 mmol/L (22-29); Chloride 101 mmol/L (98-107); Globulin 3.1 g/dL (1.3-4.6); Glucose 98 mg/dL (65-115); Osmolality Calculated 299 mOsm/kg (285-295); Potassium 4.2 mmol/L (3.5-5.1); Sodium 142 mmol/L (136-145); Total Bilirubin 0.3 mg/dL (0.15-1.2); Total Protein 6.5 g/dL (6.6-8.7)
[2021-05-02 04:12] LABS: ABG PH Result 7.31 (7.35-7.45); Base Excess ABG 7.6 mmol/L (-2.0-2.0); Blood Gas Allen Test Pos; Blood Gas Sample Site Brachial, right; Blood Gas Sample Type Arterial; HCO3 ABG 35.1 mmol/L (22-26); Oxygen Device OXY MASK; PO2 ABG 97.5 mmHg (80.0-100.0)
[2021-05-02 04:14] LABS: NT Pro B Type Natriuretic Pept 28722 pg/mL (0-125); Procalcitonin 0.18 ng/mL (0-0.5)
[2021-05-02 04:24] LABS: Creatine Phosphokinase 162 U/L (39-308)
--- NOTE | 2021-05-02 04:24 | PC.NURSE ---
BIPAP Patient's blood gas labs reveal a PH of 7.3 with a CO2 of 69. Dr. Good notified, no new orders received. Order for BIPAP remaining in chart; RT to initiate.
[2021-05-02] MEDS: piperacillin-tazobactam 3.375 GM in sodium chloride 0.9% (plus) 50 ML IV ×2 (06:00→18:06)
--- NOTE | 2021-05-02 06:20 | PC.NURSE ---
Positioning Patient states he does not want to turn away from laying on his right side. Nurse asks if he is in pain; patient denies. Education provided on preventing skin breakdown and the necessary position changes to prevent pressure injuries; patient verbalized understanding but states he still does not wish to change position.
[2021-05-02] MEDS: sodium chloride 3.5% neb 4 mL Neb INHALATION ×2 (07:36→20:07)
[2021-05-02] MEDS: insulin lispro 100 unit/1 mL SUBCUT ×4 (08:04→20:20)
[2021-05-02] MEDS: linezolid premix 600 MG/300 ML PREMIX 200 MG IV (08:05)
[2021-05-02] MEDS: atorvastatin 40 mg Tablet 80 MG PO (08:05)
[2021-05-02] MEDS: cholecalciferol (vitamin D3) 1,000 unit Tablet 1000 UNIT PO (08:05)
[2021-05-02] MEDS: aspirin 81 mg EC Tablet PO (08:05)
[2021-05-02] MEDS: metOLazone 5 MG Tablet 10 MG PO (08:07)
[2021-05-02] MEDS: bumetanide 0.25 mg/mL SDV 4 mL 1 MG IVP (08:30)
--- NOTE | 2021-05-02 09:00 | PC.NURSE ---
noted to have active gi bleed noted red with clots noted large amts... doctor notified
[2021-05-02] MEDS: pantoprazole 40 mg SDV IVP ×2 (09:07→20:20)
[2021-05-02] MEDS: metoprolol tartrate 50 mg Tablet PO (09:07)
--- NOTE | 2021-05-02 09:44 | P.ANESASSM_ITS ---
Pre-Anesthetic Assessment Pre-Anesthetic Assessment: Height/Weight: Height 1.85 m Weight 101.605 kg Temp Pulse Resp BP Pulse Ox 98.5 F 77 24 H 113/45 96 05/02/21 04:00 05/02/21 07:55 05/02/21 07:55 05/02/21 06:00 05/02/21 07:55 Preop Diagnosis: gi bleed Proposed Procedure: Operation Date: 05/02/21 09:30 Proposed Procedures p EGD(Not Applicable) - Bebeto Bishop MD Familial anesthetic complications: none Last intake: 3 spoonfulls of orange juice and 2-3 bites of biscuit and gravy at 0700 and a bite or two of egg- will need to wait 6 hrs for light meal Social: Social History: No alcohol and No tobacco Exam: Pre-Anes Outpt Exam: alert, oriented x 3, clear to auscultation bilater ally and regular rate & rhythm Airway: Cervical ROM: WNL MP: 3 Dentition: Full Pulmonary: Pulmonary: COPD Comments: Bipap, aspiration pneumonia CV/HEM: CV/HEM: Afib and HTN : Comments: ARF Metabolic: Metabolic: DM Neuropsych: Neuropsych: CVA Anesthetic Plan: ASA status: 4 Anesthesia: MAC Risk of > 500 ml blood loss (7ml/kg in children): No Medications/Allergies Current Medications: Current Medications Generic Name Dose Route Start Last Admin Trade Name Freq PRN Reason Stop Dose Admin Acetylcysteine 100 mg 04/29/21 08:00 05/02/21 07:35 Acetylcysteine 2 00 Mg/Ml Sdv 4 Ml INHALATION 100 mg Q4H.RESPIRATORY S CH Administration Albuterol/Ipratrop ium 3 ml 04/29/21 16:00 05/02/21 07:35 Ipratropium-Albu terol 3 Ml Neb INHALATION 3 ml Q4H.RESPIRATORY S CH Administration Aspirin 81 mg 04/29/21 10:20 05/02/21 08:05 Aspirin 81 Mg Ec Tablet PO 81 mg DAILY NATALIE Administration Atorvastatin Calci um 80 mg 04/28/21 09:00 05/02/21 08:05 Atorvastatin 40 Mg Tablet PO 80 mg DAILY NATALIE Administration Enoxaparin Sodium 100 mg 05/01/21 12:15 05/01/21 23:27 Enoxaparin 100 M g/Ml Syringe 1 mg/kg (100 mg) 100 mg SUBCUT Administration Q12H NATALIE Piperacillin Sod/T azobactam 50 mls @ 12.5 mls /hr 04/28/21 15:00 05/02/21 06:00 Sod 3.375 gm/ So dium Chloride IV 12.5 mls/hr Q8H NATALIE Administration Protocol Albumin Human 50 gm in 200 mls @ 60 mls/hr 05/02/21 07:57 05/02/21 08:29 Albumin IV 05/02/21 11:16 60 mls/hr ONCE ONE Administration Insulin Glargine 30 unit 04/27/21 22:30 05/01/21 20:29 Insulin Glargine 100 Units/1 Ml SUBCUT 30 unit BEDTIME NATALIE Administration Insulin Human Lisp ro 0 unit 04/27/21 21:00 05/02/21 08:04 Insulin Lispro 1 00 Unit/1 Ml SUBCUT 2 unit WM&BEDTIME NATALIE Administration Protocol Lorazepam 0.5 mg 04/28/21 15:00 04/28/21 15:53 Lorazepam 2 Mg/M l Inj 1 Ml IVP 0.5 mg Q4H PRN Administration ANXIETY Metoprolol Tartrat e 50 mg 04/27/21 22:30 05/02/21 09:07 Metoprolol Tartr ate 50 Mg Tablet PO 50 mg BID NATALIE Administration Non-Formulary Medi cation 324 mg 04/28/21 09:00 04/29/21 08:50 Ferrous Gluconat e PO Not Given DAILY NATALIE Oxycodone/Acetamin ophen 1 tab 04/27/21 18:13 05/01/21 16:03 Oxycodone-Apap 1 0-325 Mg Tablet PO 1 tab Q4H PRN Administration SEVERE PAIN Pantoprazole Sodiu m 40 mg 05/02/21 08:45 05/02/21 09:07 Pantoprazole 40 Mg Sdv IVP 40 mg Q12H NATALIE Administration Sodium Chloride 4 ml 04/29/21 08:00 05/02/21 07:36 Sodium Chloride 3.5% Neb 4 Ml Neb INHALATION 4 ml BID.RESPIRATORY S CH Administration Vitamin D 1,000 unit 04/28/21 09:00 05/02/21 08:05 Cholecalciferol (Vitamin D3) 1,000 Unit Tablet PO 1,000 unit DAILY NATALIE Administration PFSH Anesthesia PFSH: Medical History (Updated 04/29/21 @ 15:40 by Robby Rios MD) Chronic respiratory failure with hypoxia COPD (chronic obstructive pulmonary disease) Diabetes Ribs, multiple fractures Surgical History H/O knee surgery Social History Additional social history: lives at home Data Anesthesia CBC & Chem 7: 05/02/21 03:09 05/02/21 03:09 Other Labs: Laboratory Results - last 48 hr 04/29/21 04/29/21 04/29/21 11:44 17:02 20:35 WBC RBC Hgb Hct MCV MCH MCHC RDW Plt Count MPV Neut % (Auto) Lymph % (Auto) [place] % (Auto) Eos % (Auto) Baso % (Auto) Neut # (Auto) Lymph # (Auto) [place] # (Auto) Eos # (Auto) Baso # (Auto) Nucleated RBC % (auto) Nucleated RBCs # Differential Comment APTT Specimen Type Sample Site ABG pH ABG pCO2 ABG pO2 ABG HCO3 ABG Base Excess Dimitry Test Hematocrit O2 Delivery Device O2 Liters/Min FiO2 Site Damage Prevention Technician ID Sodium Potassium Chloride Carbon Dioxide Anion Gap BUN Creatinine GFR Calculation Glucose POC Glucose 146 H 116 H 119 H Calculated Osmolality Lactate Calcium Phosphorus Magnesium Total Bilirubin AST ALT Alkaline Phosphatase Creatine Kinase C-Reactive Protein NT-Pro-B Natriuret Pep Total Protein Albumin Globulin Procalcitonin Fluid Color Fluid Appearance Fluid WBC Fluid RBC Fluid Hematocrit Fld Polynuclear WBCs # Fld Polynuclear WBCs % Fl Mononucl WBCs #(Auto) Fl Mononuclear % Auto Fluid Albumin Fluid Creatinine Pleural pH Pleural Total Protein Pleural LDH Pleural Glucose Pleural Amylase Pleural Triglycerides 04/30/21 04/30/21 04/30/21 09:25 12:07 17:37 WBC RBC Hgb Hct MCV MCH MCHC RDW Plt Count MPV Neut % (Auto) Lymph % (Auto) [place] % (Auto) Eos % (Auto) Baso % (Auto) Neut # (Auto) Lymph # (Auto) [place] # (Auto) Eos # (Auto) Baso # (Auto) Nucleated RBC % (auto) Nucleated RBCs # Differential Comment Yes APTT Specimen Type Sample Site ABG pH ABG pCO2 ABG pO2 ABG HCO3 ABG Base Excess Dimitry Test Hematocrit O2 Delivery Device O2 Liters/Min FiO2 Site Damage Prevention Technician ID Sodium Potassium Chloride Carbon Dioxide Anion Gap BUN Creatinine GFR Calculation Glucose POC Glucose 159 H 153 H Calculated Osmolality Lactate Calcium Phosphorus Magnesium Total Bilirubin AST ALT Alkaline Phosphatase Creatine Kinase C-Reactive Protein NT-Pro-B Natriuret Pep Total Protein Albumin Globulin Procalcitonin Fluid Color Yellow Fluid Appearance Clear Fluid WBC 906 Fluid RBC 5.000 Fluid Hematocrit 0.1 Fld Polynuclear WBCs # 0.153 Fld Polynuclear WBCs % 16.900 Fl Mononucl WBCs #(Auto) 0.753 Fl Mononuclear % Auto 83.100 Fluid Albumin 1.5 Fluid Creatinine 1.56 H Pleural pH 7.00 Pleural Total Protein 3.1 Pleural LDH 122 Pleural Glucose 113.0 Pleural Amylase 20.0 Pleural Triglycerides 39 04/30/21 04/30/21 05/01/21 20:36 22:48 04:16 WBC RBC Hgb Hct MCV MCH MCHC RDW Plt Count MPV Neut % (Auto) Lymph % (Auto) [place] % (Auto) Eos % (Auto) Baso % (Auto) Neut # (Auto) Lymph # (Auto) [place] # (Auto) Eos # (Auto) Baso # (Auto) Nucleated RBC % (auto) Nucleated RBCs # Differential Comment APTT 52.1 H Specimen Type Arterial Sample Site Brachial, left ABG pH 7.39 ABG pCO2 50.6 H ABG pO2 62.2 L ABG HCO3 30.3 H ABG Base Excess 4.5 H Dimitry Test Pos Hematocrit 29.5 L O2 Delivery Device Hag O2 Liters/Min 35.0 FiO2 35.0 Site Damage Prevention Technician ID Buttr Sodium Potassium Chloride Carbon Dioxide Anion Gap BUN Creatinine GFR Calculation Glucose POC Glucose 124 H Calculated Osmolality Lactate Calcium Phosphorus Magnesium Total Bilirubin AST ALT Alkaline Phosphatase Creatine Kinase C-Reactive Protein NT-Pro-B Natriuret Pep Total Protein Albumin Globulin Procalcitonin Fluid Color Fluid Appearance Fluid WBC Fluid RBC Fluid Hematocrit Fld Polynuclear WBCs # Fld Polynuclear WBCs % Fl Mononucl WBCs #(Auto) Fl Mononuclear % Auto Fluid Albumin Fluid Creatinine Pleural pH Pleural Total Protein Pleural LDH Pleural Glucose Pleural Amylase Pleural Triglycerides 05/01/21 05/01/21 05/01/21 04:56 04:56 04:56 WBC RBC Hgb Hct MCV MCH MCHC RDW Plt Count Cancelled MPV Neut % (Auto) Lymph % (Auto) [place] % (Auto) Eos % (Auto) Baso % (Auto) Neut # (Auto) Lymph # (Auto) [place] # (Auto) Eos # (Auto) Baso # (Auto) Nucleated RBC % (auto) Nucleated RBCs # Differential Comment APTT Specimen Type Sample Site ABG pH ABG pCO2 ABG pO2 ABG HCO3 ABG Base Excess Dimitry Test Hematocrit O2 Delivery Device O2 Liters/Min FiO2 Site Damage Prevention Technician ID Sodium Potassium Chloride Carbon Dioxide Anion Gap BUN Creatinine GFR Calculation Glucose POC Glucose Calculated Osmolality Lactate Calcium Phosphorus Magnesium Total Bilirubin AST ALT Alkaline Phosphatase Creatine Kinase 390 H* C-Reactive Protein Cancelled NT-Pro-B Natriuret Pep 62835 H Total Protein Albumin Globulin Procalcitonin 0.16 Fluid Color Fluid Appearance Fluid WBC Fluid RBC Fluid Hematocrit Fld Polynuclear WBCs # Fld Polynuclear WBCs % Fl Mononucl WBCs #(Auto) Fl Mononuclear % Auto Fluid Albumin Fluid Creatinine Pleural pH Pleural Total Protein Pleural LDH Pleural Glucose Pleural Amylase Pleural Triglycerides 05/01/21 05/01/21 05/01/21 04:56 04:56 04:56 WBC RBC Hgb Hct MCV MCH MCHC RDW Plt Count MPV Neut % (Auto) Lymph % (Auto) [place] % (Auto) Eos % (Auto) Baso % (Auto) Neut # (Auto) Lymph # (Auto) [place] # (Auto) Eos # (Auto) Baso # (Auto) Nucleated RBC % (auto) Nucleated RBCs # Differential Comment APTT 100.0 H D Specimen Type Sample Site ABG pH ABG pCO2 ABG pO2 ABG HCO3 ABG Base Excess Dimitry Test Hematocrit O2 Delivery Device O2 Liters/Min FiO2 Site Damage Prevention Technician ID Sodium Potassium Chloride Carbon Dioxide Anion Gap BUN Creatinine GFR Calculation Glucose POC Glucose Calculated Osmolality Lactate 0.9 Calcium Phosphorus 3.0 Magnesium 2.3 Total Bilirubin AST ALT Alkaline Phosphatase Creatine Kinase C-Reactive Protein 113.1 H NT-Pro-B Natriuret Pep Total Protein Albumin Globulin Procalcitonin Fluid Color Fluid Appearance Fluid WBC Fluid RBC Fluid Hematocrit Fld Polynuclear WBCs # Fld Polynuclear WBCs % Fl Mononucl WBCs #(Auto) Fl Mononuclear % Auto Fluid Albumin Fluid Creatinine Pleural pH Pleural Total Protein Pleural LDH Pleural Glucose Pleural Amylase Pleural Triglycerides 05/01/21 05/01/21 05/01/21 04:56 04:56 07:13 WBC 7.2 RBC 3.52 L Hgb 8.9 L Hct 30.1 L MCV 85.5 MCH 25.3 L MCHC 29.6 L RDW 16.2 H Plt Count 441 H MPV 10.0 Neut % (Auto) 74.5 Lymph % (Auto) 14.6 [place] % (Auto) 8.5 Eos % (Auto) 1.7 Baso % (Auto) 0.6 Neut # (Auto) 5.38 Lymph # (Auto) 1.1 [place] # (Auto) 0.6 Eos # (Auto) 0.1 Baso # (Auto) 0.0 Nucleated RBC % (auto) 0 Nucleated RBCs # 0.0 Differential Comment APTT Specimen Type Sample Site ABG pH ABG pCO2 ABG pO2 ABG HCO3 ABG Base Excess Dimitry Test Hematocrit O2 Delivery Device O2 Liters/Min FiO2 Site Damage Prevention Technician ID Sodium 140 Potassium 4.5 Chloride 101 Carbon Dioxide 27 Anion Gap 16.5 BUN 34 H Creatinine 1.1 GFR Calculation Not Reportable Glucose 136 H POC Glucose 146 H Calculated Osmolality 300 H Lactate Calcium 7.9 L Phosphorus Magnesium Total Bilirubin 0.3 AST 32 ALT 13 Alkaline Phosphatase 81 Creatine Kinase C-Reactive Protein NT-Pro-B Natriuret Pep Total Protein 5.6 L Albumin 2.7 L Globulin 2.9 Procalcitonin Fluid Color Fluid Appearance Fluid WBC Fluid RBC Fluid Hematocrit Fld Polynuclear WBCs # Fld Polynuclear WBCs % Fl Mononucl WBCs #(Auto) Fl Mononuclear % Auto Fluid Albumin Fluid Creatinine Pleural pH Pleural Total Protein Pleural LDH Pleural Glucose Pleural Amylase Pleural Triglycerides 05/01/21 05/01/21 05/01/21 13:05 16:47 20:02 WBC RBC Hgb Hct MCV MCH MCHC RDW Plt Count MPV Neut % (Auto) Lymph % (Auto) [place] % (Auto) Eos % (Auto) Baso % (Auto) Neut # (Auto) Lymph # (Auto) [place] # (Auto) Eos # (Auto) Baso # (Auto) Nucleated RBC % (auto) Nucleated RBCs # Differential Comment APTT 75.6 H Specimen Type Sample Site ABG pH ABG pCO2 ABG pO2 ABG HCO3 ABG Base Excess Dimitry Test Hematocrit O2 Delivery Device O2 Liters/Min FiO2 Site Damage Prevention Technician ID Sodium Potassium Chloride Carbon Dioxide Anion Gap BUN Creatinine GFR Calculation Glucose POC Glucose 97 100 Calculated Osmolality Lactate Calcium Phosphorus Magnesium Total Bilirubin AST ALT Alkaline Phosphatase Creatine Kinase C-Reactive Protein NT-Pro-B Natriuret Pep Total Protein Albumin Globulin Procalcitonin Fluid Color Fluid Appearance Fluid WBC Fluid RBC Fluid Hematocrit Fld Polynuclear WBCs # Fld Polynuclear WBCs % Fl Mononucl WBCs #(Auto) Fl Mononuclear % Auto Fluid Albumin Fluid Creatinine Pleural pH Pleural Total Protein Pleural LDH Pleural Glucose Pleural Amylase Pleural Triglycerides 05/02/21 05/02/21 05/02/21 03:09 03:09 03:09 WBC RBC Hgb Hct MCV MCH MCHC RDW Plt Count MPV Neut % (Auto) Lymph % (Auto) [place] % (Auto) Eos % (Auto) Baso % (Auto) Neut # (Auto) Lymph # (Auto) [place] # (Auto) Eos # (Auto) Baso # (Auto) Nucleated RBC % (auto) Nucleated RBCs # Differential Comment APTT Specimen Type Sample Site ABG pH ABG pCO2 ABG pO2 ABG HCO3 ABG Base Excess Dimitry Test Hematocrit O2 Delivery Device O2 Liters/Min FiO2 Site Damage Prevention Technician ID Sodium Potassium Chloride Carbon Dioxide Anion Gap BUN Creatinine GFR Calculation Glucose POC Glucose Calculated Osmolality Lactate 0.8 Calcium Phosphorus 3.5 Magnesium 2.2 Total Bilirubin AST ALT Alkaline Phosphatase Creatine Kinase 162 C-Reactive Protein 87.8 H NT-Pro-B Natriuret Pep 80862 H Total Protein Albumin Globulin Procalcitonin 0.18 Fluid Color Fluid Appearance Fluid WBC Fluid RBC Fluid Hematocrit Fld Polynuclear WBCs # Fld Polynuclear WBCs % Fl Mononucl WBCs #(Auto) Fl Mononuclear % Auto Fluid Albumin Fluid Creatinine Pleural pH Pleural Total Protein Pleural LDH Pleural Glucose Pleural Amylase Pleural Triglycerides 05/02/21 05/02/21 05/02/21 03:09 03:09 04:01 WBC 6.1 RBC 3.28 L Hgb 8.1 L Hct 28.3 L MCV 86.3 MCH 24.7 L MCHC 28.6 L RDW 16.2 H Plt Count 352 MPV 9.9 Neut % (Auto) 63.9 Lymph % (Auto) 20.9 [place] % (Auto) 11.3 Eos % (Auto) 3.1 Baso % (Auto) 0.5 Neut # (Auto) 3.89 Lymph # (Auto) 1.3 [place] # (Auto) 0.7 Eos # (Auto) 0.2 Baso # (Auto) 0.0 Nucleated RBC % (auto) 0 Nucleated RBCs # 0.0 Differential Comment APTT Specimen Type Arterial Sample Site Brachial, right ABG pH 7.31 L ABG pCO2 69.0 H* ABG pO2 97.5 ABG HCO3 35.1 H ABG Base Excess 7.6 H Dimitry Test Pos Hematocrit 25.0 L O2 Delivery Device Oxy mask O2 Liters/Min 12.0 FiO2 Site Damage Prevention Technician ID Buttr Sodium 142 Potassium 4.2 Chloride 101 Carbon Dioxide 28 Anion Gap 17.2 BUN 28 H Creatinine 1.2 GFR Calculation Not Reportable Glucose 98 POC Glucose Calculated Osmolality 299 H Lactate Calcium 8.2 L Phosphorus Magnesium Total Bilirubin 0.3 AST 23 ALT 11 Alkaline Phosphatase 73 Creatine Kinase C-Reactive Protein NT-Pro-B Natriuret Pep Total Protein 6.5 L Albumin 3.4 L Globulin 3.1 Procalcitonin Fluid Color Fluid Appearance Fluid WBC Fluid RBC Fluid Hematocrit Fld Polynuclear WBCs # Fld Polynuclear WBCs % Fl Mononucl WBCs #(Auto) Fl Mononuclear % Auto Fluid Albumin Fluid Creatinine Pleural pH Pleural Total Protein Pleural LDH Pleural Glucose Pleural Amylase Pleural Triglycerides Micro: Microbiology 04/30/21 09:25 Gram Stain - Final Pleural Fluid Body Fluid Culture - Preliminary Cardiac Studies: Echocardiogram 04/28/21
[2021-05-02] MEDS: doxycycline 100 MG in sodium chloride 0.9% (plus) 100 ML IV ×2 (10:02→20:22)
--- NOTE | 2021-05-02 10:17 | PC.OT ---
hold occupational per nursing due to current medical condition.
--- NOTE | 2021-05-02 10:40 | P.CONIM_ITS ---
Providers/Reason For Consult Consulting Physician/Specialty*: General Surgery Dr. Bishop Reason for Consult*: GI bleed Attending Physician: Robby Rios MD History of Present Illness History of Present Illness John Guerrero is a 75 year old male who had presented with shortness of breath and during work-up was noted to have A. fib and embolic CVA on presentation and was started on Lovenox. Patient is currently on BiPAP and he was noted to have black stools today. Patient denies any abdominal pain, nausea, vomiting, hematemesis. He denies any history of PUD. His hemoglobin is down to 8.1 from prior hemoglobin of 11 on admission Review of Systems General: Reports: ROS unobtainable due to medical condition Medications/Allergies Home Medications Medication Instructions Recorded Confirmed Last Taken Type atorvastatin 80 mg PO DAILY 04/27/21 04/27/21 Unknown History carvedilol 6.25 mg PO BID 04/27/21 04/27/21 Unknown History cholecalciferol (vitamin D3) 25 mcg PO DAILY 04/27/21 04/27/21 Unknown History [Vitamin D3] clopidogrel [Plavix] 75 mg PO DAILY 04/27/21 04/27/21 Unknown History ferrous gluconate 324 mg PO DAILY 04/27/21 04/27/21 Unknown History insulin aspart U-100 [Novolog See Rx Instructions .ROUTE .COMPLEX 04/27/21 04/27/21 Unknown History U-100 Insulin aspart] insulin glargine [Lantus U-100 40 unit SUBCUT DAILY 04/27/21 04/27/21 Unknown History Insulin] ipratropium-albuterol 3 ml INHALATION QID PRN 04/27/21 04/27/21 Unknown History metoprolol tartrate 25 mg PO BID 04/27/21 04/27/21 Unknown History multivitamin 1 tab PO DAILY 04/27/21 04/27/21 Unknown History oxycodone 10 mg PO Q8H PRN 04/27/21 04/27/21 Unknown History Allergies Allergy/AdvReac Type Severity Reaction Status Date / Time No Known Allergies Allergy Verified 04/27/21 08:00 Current Medications Generic Name Dose Route Start Last Admin Trade Name Freq PRN Reason Stop Dose Admin Acetylcysteine 100 mg 04/29/21 08:00 05/02/21 07:35 Acetylcysteine 200 Mg/Ml Sdv 4 Ml INHALATION 100 mg Q4H.RESPIRATORY NATALIE Administration Albuterol/Ipratropium 3 ml 04/29/21 16:00 05/02/21 07:35 Ipratropium-Albuterol 3 Ml Neb INHALATION 3 ml Q4H.RESPIRATORY NATALIE Administration Aspirin 81 mg 04/29/21 10:20 05/02/21 08:05 Aspirin 81 Mg Ec Tablet PO 81 mg DAILY NATALIE Administration Atorvastatin Calcium 80 mg 04/28/21 09:00 05/02/21 08:05 Atorvastatin 40 Mg Tablet PO 80 mg DAILY NATALIE Administration Enoxaparin Sodium 100 mg 05/01/21 12:15 05/01/21 23:27 Enoxaparin 100 Mg/Ml Syringe 1 mg/kg (100 mg) 100 mg SUBCUT Administration Q12H REPLACED BY [facility] Piperacillin Sod/Tazobactam 50 mls @ 12.5 mls/hr 04/28/21 15:00 05/02/21 10:08 Sod 3.375 gm/ Sodium Chloride IV Infused Q8H REPLACED BY [facility] Infusion Protocol Albumin Human 50 gm in 200 mls @ 60 mls/hr 05/02/21 07:57 05/02/21 08:29 Albumin IV 05/02/21 11:16 60 mls/hr ONCE ONE Administration Doxycycline Hyclate 100 mg/ 100 mls @ 100 mls/hr 05/02/21 09:00 05/02/21 10:02 Sodium Chloride IV 100 mls/hr Q12H REPLACED BY [facility] Administration Protocol Insulin Glargine 30 unit 04/27/21 22:30 05/01/21 20:29 Insulin Glargine 100 Units/1 Ml SUBCUT 30 unit BEDTIME NATALIE Administration Insulin Human Lispro 0 unit 04/27/21 21:00 05/02/21 08:04 Insulin Lispro 100 Unit/1 Ml SUBCUT 2 unit WM&BEDTIME NATALIE Administration Protocol Lorazepam 0.5 mg 04/28/21 15:00 04/28/21 15:53 Lorazepam 2 Mg/Ml Inj 1 Ml IVP 0.5 mg Q4H PRN Administration ANXIETY Metoprolol Tartrate 50 mg 04/27/21 22:30 05/02/21 09:07 Metoprolol Tartrate 50 Mg Tablet PO 50 mg BID NATALIE Administration Non-Formulary Medication 324 mg 04/28/21 09:00 04/29/21 08:50 Ferrous Gluconate PO Not Given DAILY NATALIE Oxycodone/Acetaminophen 1 tab 04/27/21 18:13 05/01/21 16:03 Oxycodone-Apap 10-325 Mg Tablet PO 1 tab Q4H PRN Administration SEVERE PAIN Pantoprazole Sodium 40 mg 05/02/21 08:45 05/02/21 09:07 Pantoprazole 40 Mg Sdv IVP 40 mg Q12H NATALIE Administration Sodium Chloride 4 ml 04/29/21 08:00 05/02/21 07:36 Sodium Chloride 3.5% Neb 4 Ml Neb INHALATION 4 ml BID.RESPIRATORY NATALIE Administration Vitamin D 1,000 unit 04/28/21 09:00 05/02/21 08:05 Cholecalciferol (Vitamin D3) 1,000 Unit Tablet PO 1,000 unit DAILY NATALIE Administration PFSH Acute PFSH: Medical History (Updated 05/02/21 @ 10:44 by Bebeto Bishop MD) Chronic respiratory failure with hypoxia COPD (chronic obstructive pulmonary disease) CVA (cerebral vascular accident) Diabetes Ribs, multiple fractures Surgical History H/O knee surgery Social History Additional social history: lives at home Vitals/I&O/Wt Last Vital Signs Temp 98.5 F 05/02/21 04:00 Pulse 77 05/02/21 07:55 Resp 24 H 05/02/21 07:55 BP 113/45 05/02/21 06:00 Pulse Ox 96 05/02/21 07:55 05/01/21 05/02/21 05/02/21 22:59 06:59 14:59 Intake Total 618 / 1478 50 / 1478 50 / 50 Output Total 775 / 1850 650 / 1850 Balance -157 / -372 -600 / -372 50 / 50 Weight last 48 hrs Weight 224 lb Weight 227 lb Physical Exam Narrative: EXAM NARRATIVE: HEENT: Normocephalic, BiPAP Eye: Sclera /conjunctiva normal Respiratory and chest: Bilateral clear breath sounds on auscultation Cardiovascular: Normal S1 and S2 heart sounds Abdomen: Soft to palpation Neurological: Oriented to place person and time Skin: Intact, no lesions appreciated on gross exam Urinary Catheter Management^: Corbin: Cath Placed During This Visit: yes Reason for Continuing Indwelling Catheter: Accurate Measurement of Urinary Output in Critically Ill Patients Urinary Catheter Date of Insertion: 04/27/21 Data Micro: Micro: Microbiology 04/30/21 09:25 Gram Stain - Final Pleural Fluid Body Fluid Culture - Preliminary A&P Assessment and plan (1) GI bleed: 75-year-old male with history of CVA and A. fib who was initially started on therapeutic Lovenox but developed melena. His hemoglobin is down to 8.1 from 11 on admission. 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
[2021-05-02 10:44] LABS: Glucose Point of Care 162 mg/dL (70-110)
--- NOTE | 2021-05-02 10:58 | PC.SOCIAL ---
IMM update IMM updated with patient. Copy Pg 2 provided. Initialled, dated, timed, and placed in chart.
[2021-05-02 11:00] LABS: Hematocrit 20.5 % (42.0-52.0); Hemoglobin 5.8 g/dL (11.7-16.6)
--- NOTE | 2021-05-02 11:29 | PC.NURSE ---
pending lab to draw for transfusion lab called again to redraw
--- NOTE | 2021-05-02 11:30 | PC.NURSE ---
continue to attempt to get prbc to infuse blood pressure low Dr foley called order ns bolus started preparing uncrossed blood at this time and ffp in emergent situation .. continues to have bleeding rectal with clots and red blood
[2021-05-02 11:41] LABS: Glucose Point of Care 231 mg/dL (70-110)
--- NOTE | 2021-05-02 11:48 | PC.SLP ---
Patient not seen today per nursing request.
[2021-05-02] MEDS: protamine 10 mg/mL SDV 5 mL 50 MG IVP (12:11)
--- NOTE | 2021-05-02 12:51 | XR_ITS ---
WS: [id number] XR chest 1V portable [id number] REASON FOR EXAM: cvl line FINDINGS: A right internal jugular central venous line has been placed. The tip is within the right atrium 6 cm below the cavoatrial junction. Diffuse bilateral reticular lung opacities are unchanged compared to 05/01/2021. Moderate sized right pleural effusion is present with a small left pleural effusion. There still appears to be consolidation in the medial basilar segments of both lungs. There appears to be significant bowel distention, probably stomach, developing below the left hemidia phragm. XR/XR chest 1V portable [id number] IMPRESSION: Right jugular central venous line placement. The chest is essentially unchanged compared to 05/01/2021. Stomach appears to be significantly distended.
[2021-05-02] MEDS: pantoprazole 40 MG in sodium chloride 0.9% (plus) 100 ML 20 MG IV (13:12)
[2021-05-02] MEDS: octreotide 500 MCG in sodium chloride 0.9% (100 ml) 100 ML 10.1 MCG IV (13:12)
[2021-05-02] MEDS: EPINEPHrine 1 mg/mL INJ XX (14:25)
--- NOTE | 2021-05-02 15:13 | ANE.PACU2 ---
Inpatient post-anesthesia follow up: Airway intact: No Vital signs: Temperature 98.5 F Pulse Rate [Curren t] 61 Pulse Rate 81 Respiratory Rate [ Current] 18 Respiratory Rate 18 Blood Pressure 118/49 Pulse Oximetry [Cu rrent] 93 Pulse Oximetry 100 Oxygen Delivery Me thod BiPAP Oxygen Flow Rate [ Current] 50 Oxygen Flow Rate 50 Fraction of Inspir ed Oxygen [ 70 Current] Fraction of Inspir ed Oxygen 70 Hydration adequate: Yes Nausea and vomiting: No Pain level: 1 Mental status: Altered Additional Comments: intubated and sedated
--- NOTE | 2021-05-02 16:12 | XRR_ITS ---
PROCEDURE INFORMATION: Exam: XR Chest Exam date and time: 05/02/2021 4:12 PM Age: 75 years old Clinical indication: Device placement; Ett placement (vent status); Additional info: Intubation TECHNIQUE: Imaging protocol: XR of the chest. Views: 1 view. COMPARISON: CR XR chest 1V portable [id number] 05/02/2021 12:55 PM FINDINGS: Tubes, catheters and devices: Enteric tube seen entering the stomach and outside the field of view. Right central line terminates within the right atrium. Endotracheal tube terminates 3 cm above the suze. Lungs: Ill-defined opacities at the lung bases likely secondary to atelectasis from the adjacent effusions. Pleural spaces: Bilateral small to moderate volume pleural effusions are stable in size. No pneumothorax. Heart/Mediastinum: Stable heart size. Bones/joints: Visualized osseous structures are intact. Several metallic plates again noted along the posterior left 5th-7th ribs. XR/XR chest 1V portable [id number] IMPRESSION: Endotracheal tube in proper positioning 3 cm above the suze.
[2021-05-02 16:26] LABS: Alveolar-Arterial Oxygen Gradi 36.5 mmHg (5-10); Arterial Blood Gas Hematocrit 26.1 % (42-52); Base Excess ABG 5.8 mmol/L (-2.0-2.0); Blood Gas Allen Test Pos; Blood Gas Sample Site Radial, left; Blood Gas Sample Type Arterial; Carboxyhemoglobin 1.2 %THgb (0.4-20.1); HCO3 ABG 31.3 mmol/L (22-26); HGB O2 Sat 97.5 % (95-100); Ionized Calcium Level - ABG 1.1 mmol/L (1.1-1.4); Methemoglobin 1.2 % (0.4-1.5); Oxygen Saturation ABG 99.8; Total Hemoglobin 8.5 g/dL (14-18)
[2021-05-02 17:09] LABS: Hematocrit 26.4 % (42.0-52.0); Hemoglobin 8.5 g/dL (11.7-16.6)
[2021-05-02 17:31] LABS: Oxygen Device VENT
[2021-05-02 17:56] LABS: Glucose Point of Care 245 mg/dL (70-110)
--- NOTE | 2021-05-02 18:24 | P.PN_ITS ---
Subjective Subjective: Interval history: Patient was seen this morning, currently on BiPAP, denies any nausea, no vomiting, he had breakfast this morning, no lightheadedness, no dizziness Early in the morning, I was paged to see patient immediately as he had a large black bloody bowel movement, patient had a 500 cc black bloody bowel movement, alert to person, to place, was following commands Is dropped blood pressures dropped into the 60s over 40s, started on Levophed Immediately patient was ordered 2 units PRBC, 1 unit FFP, Protonix, octreotide drip, given protamine sulfate I put in a right IJ central line Spoke to general surgery, patient's blood pressures were more normotensive, but continued to have bloody black bowel movements, After discussing the risks and benefits, proceeded to perform EGD, decision was made to pursue intubation to protect airway due to risk of aspiration of blood contents, risks of respiratory failure given concerns for fluid overload and diastolic heart failure Patient was intubated, EGD was performed, patient had a esophageal and duodenal ulcer that were found Patient's family was seen today at bedside in the afternoon, I discussed patient's acute GI bleed second to duodenal and esophageal ulcer, currently he is stable, prognosis guarded, will continue to monitor his hemoglobin, continue intubation, monitor for respiratory failure, monitor hemoglobin Vitals/I&O/Wt Last Vital Signs Temp 98.3 F 05/02/21 17:30 Pulse 70 05/02/21 17:30 Resp 18 05/02/21 17:24 BP 139/93 05/02/21 17:30 Pulse Ox 100 05/02/21 17:30 05/02/21 05/02/21 05/02/21 06:59 14:59 22:59 Intake Total 50 / 1478 168 / 168 1506 / 1674 Output Total 650 / 1850 1075 / 1075 800 / 1875 Balance -600 / -372 -907 / -907 706 / -201 Weight last 48 hrs Weight 101.605 kg Weight 102.965 kg Physical Exam Narrative: EXAM NARRATIVE: Currently intubated, sedated on mechanical ventilation Const: COMMON NORMALS: no acute distress Resp: COMMON NORMALS: normal respiratory effort, No retractions, No use of accessory muscles and clear to auscultation bilaterally AUSCULTATION: clear to auscultation bilaterally Cardio: COMMON NORMALS: regular rate, regular rhythm, S1 normal heart sound present and S2 normal heart sound present RATE: regular rate RHYTHM: regular rhythm HEART SOUNDS: S1 normal heart sound present and S2 normal heart sound present GI: COMMON NORMALS: Normal to inspection, nondistended, normoactive bowel sounds present, Soft to palpation and non-tender PALPATION: Yes Soft to palpation Extremity: COMMON NORMALS: no pedal edema Urinary Catheter Management^: Corbin: Cath Placed During This Visit: yes Reason for Continuing Indwelling Catheter: Accurate Measurement of Urinary Output in Critically Ill Patients Urinary Catheter Date of Insertion: 04/27/21 Data : 05/02/21 16:40 05/02/21 03:09 Micro: Microbiology 04/30/21 09:25 Gram Stain - Final Pleural Fluid Body Fluid Culture - Preliminary A&P Assessment and plan (1) Atrial fibrillation with rapid ventricular response: Status: Acute (2) Heart failure: Status: Acute (3) Acute on chronic respiratory failure with hypoxia and hypercapnia: Status: Acute (4) COPD (chronic obstructive pulmonary disease): Status: Acute (5) Diabetes: Status: Acute (6) Hypertension: Status: Acute (7) CVA (cerebral vascular accident): Status: Acute (8) Aspiration into respiratory tract: Status: Acute (9) Aspiration pneumonia: Status: Acute (10) Upper GI bleed: Status: Acute (11) Hemorrhagic shock: Status: Acute (12) Acute respiratory failure: Status: Acute Additional A&P Information 75 year old male with past medical history of hypertension, diabetes, heart failure, COPD, stays alone at home, and take care of himself, was brought in by chief complaint of weakness, and worsening shortness of breath, states that he was doing fine till yesterday night, was on the toilet at about 9:30 PM.He was unable to get up and reported difficulty with his left knee. Upper GI bleed, with hemorrhagic shock -Status post units 3 units PRBC, 2 units FFP, protamine sulfate -Hemoglobin 8.5 -Transfuse if less than 7 -Status post EGD shows esophageal ulcer, duodenal ulcer -Continue to monitor same hemoglobins every 6 hours, monitor for bloody or black stools, monitor hemodynamics -Right IJ in place, Levophed maintain MAP greater than 65 -Continue intubation, mechanical ventilation protect airway -Monitor for fluid overload, will diurese when more hemodynamically stable -Protonix 40 IV twice daily, Carafate 4 times daily -Hold aspirin, hold Lovenox Acute respiratory failure -Intubated for airway protection, risk of aspiration, risk of fluid overload, decreased mentation on BiPAP -Continue intubation, mechanical ventilation -Fentanyl, propofol for sedation -Daily spontaneous breathing trials #Acute CVA -CT of the head shows: 1. Extensive multifocal small-vessel ischemic change along with encephalomalacia in the left posterior parietal and occipital regions. 2. Additional hypodensity in the left posterior cerebellum, suspicious for an ischemic infarct. MRI can be performed for improved characterization, as clinically indicated. -Currently moving all upper and lower extremities, no facial droop, no slurring of words, hasn't gotten up out of bed, is bedbound -All evident of embolic CVAs related to atrial fibrillation, likely embolic -Likely patient's respiratory failure, component related to aspiration event, aspiration pneumonia -Currently n.p.o. -Speech therapy eval -PT OT once stable -Aspirin on hold, statin -Lovenox discontinued #A. fib with RVR: Patient was started on Cardizem as well as esmolol drip in the ER. When I examined the patient the heart rate was pretty well controlled. Cardizem, esmolol has been stopped We will continue metoprolol 50 mg p.o. twice daily, currently on hold due to hypotensive episodes Cardizem drip as needed lovenox on hold Continue telemetry monitoring #Right lung collapse, resolving -Chest x-ray showing whiteout of right lung -Chest x-ray this morning shows bilateral pulmonary edema, bilateral pleural effusions -Likely aspiration event given concerns for CVA and/or mucous plugging -We'll repeat chest x-ray tomorrow morning #Acute renal failure -Creatinine up to 1.2, urine output 1175 -Rhabdomyolysis -Did receive contrast 2 days ago #Rhabdomyolysis, -CPK over 390 -Monitor for now -We will avoid fluids as concerns for fluid overload #Decompensated heart failure: Combination of systolic and diastolic CHF, patient presented with worsening shortness of breath. Has bilateral lower extremity 1+ + pitting edema, bilateral moderate to large pleural effusion, interstitial edema. Elevated proBNP. No recent echo, according to daughter last echo was done around 5 years back. 2D echo: Technically limited quality echocardiogram because of poor ultrasonic windows. LV systolic function is grossly moderately reduced. Right ventricle is dilated and severely hypokinetic. Left atrium is dilated. Thickened aortic valve. Moderate to severe low-flow low gradient aortic stenosis noted. Mild tricuspid regurgitation No comparison studies are available Creatinine level 1.2, urine output improving diuretics on hold Intake output charting Daily weight k>4,mg>2 #Bilateral pleural effusions, ultrasound thoracocentesis 1 L out on the right #AC on Chronic hypoxic hypercapnic respiratory failure: Likely secondary to decompensated heart failure, possible underlying pneumonia, aspiration, mucous plugging Possible underlying pneumonia/aspiration, blood cultures, sputum cultures On Zosyn Repeat ABG tomorrow morning on ventilation DuoNebs Monitor ABG #Diabetes: Lantus 30 subcu daily Low-dose sliding scale insulin Cardiac carbohydrate consistent diet Monitor fingerstick glucose #Hypertension: #COPD: Plan as above #Elevated CK: Follow CK in a.m. labs CODE STATUS: Full code DVT prophylaxis: On Lovenox Attestations Medical Necessity Statement*: Patient requires hospitalization for upper GI bleed, acute respiratory failure, hemorrhagic shock, CVA, critical care time spent over 2 hours Coding Level of Care Code Acute [employer] Ass[employer] for g Fwd Diagnoses Atrial fibrillation with rapid ventricular response I48.91 Heart failure I50.9 Acute on chronic respiratory failure with hypoxia and hypercapnia J96.21; J96.22 COPD (chronic obstructive pulmonary disease) J44.9 Diabetes E11.9 Hypertension I10 CVA (cerebral vascular accident) I63.9 Aspiration into respiratory tract T17.908A Aspiration pneumonia J69.0 Upper GI bleed K92.2 Hemorrhagic shock R57.8 Acute respiratory failure J96.00
[2021-05-02] MEDS: propofol 1,000 MG/100 ML INJ 30.48 MG IV (19:05)
[2021-05-02] MEDS: sucralfate 1 gm Tablet PO (20:20)
[2021-05-02 20:28] LABS: Glucose Point of Care 170 mg/dL (70-110)
[2021-05-02 20:45] LABS: Hemoglobin 7.8 g/dL (11.7-16.6)
[2021-05-02] MEDS: propofol 1,000 MG/100 ML INJ 24.39 MG IV (22:23)
--- NOTE | 2021-05-02 23:43 | PC.NURSE ---
With Octreotide d/c, pt is requiring more levophed. Fentanyl drip was ordered for sedation earlier in the day, but it was not ever started. This nurse will try to wean propofol down and add fentanyl in an attempt to protect BP.
[2021-05-03] VITALS (113 sets, daily range): BP systolic 83–146; BP diastolic 44–75; PULSE 67–88; RESP 18–19; TEMP 36.3–36.6; O2SAT 91–100; BMI 28.5
[2021-05-03] MEDS: piperacillin-tazobactam 3.375 GM in sodium chloride 0.9% (plus) 50 ML IV ×3 (01:15→17:03)
[2021-05-03 02:21] LABS: Basophils # 0.1 10^3/uL (0.0-0.1); Basophils % 0.6 %; Eosinophils # 0.1 10^3/uL (0.0-0.8); Eosinophils % 1.8 %; Hematocrit 23.6 % (42.0-52.0); Hemoglobin 7.5 g/dL (11.7-16.6); Lymphocytes # 1.9 10^3/uL (0.8-4.8); Lymphocytes % 24.1 %; Mean Corpuscular HGB Conc 31.8 g/dL (30.0-36.0); Mean Corpuscular Hemoglobin 27.2 pg (28.0-34.0); Mean Corpuscular Volume 85.5 fl (80-94); Monocytes # 0.9 10^3/uL (0.2-0.9); Monocytes % 11.5 %; Neutrophils # 4.82 10^3/uL (1.8-7.7); Neutrophils % 61.6 %; Nucleated Red Blood Cells % 0 %; Platelet Count 230 10^3/cmm (130-400); Red Blood Count 2.76 10^6/uL (4.1-5.3); Red Cell Distribution Width 16.6 % (12.1-15.1); White Blood Count 7.8 10^3/uL (4.0-10.0)
[2021-05-03 02:28] LABS: INR 1.23 (0.8-1.2)
[2021-05-03 02:37] LABS: Lactate (Lactic Acid level) 1.2 mmol/L (0.5-2.2)
[2021-05-03 02:48] LABS: Alanine Aminotransferase 9 U/L (0-41); Alkaline Phosphatase 51 IU/L (40-130); Anion Gap 13.2 (5-19); Aspartate Amino Transferase 14 U/L (0-40); Blood Urea Nitrogen 41 mg/dL (8-23); C Reactive Protein 45.4 mg/L (0.0-4.9); Calcium 7.7 mg/dL (8.5-10.5); Carbon Dioxide 31 mmol/L (22-29); Chloride 104 mmol/L (98-107); Globulin 2.1 g/dL (1.3-4.6); Glucose 70 mg/dL (65-115); NT Pro B Type Natriuretic Pept 18813 pg/mL (0-125); Osmolality Calculated 307 mOsm/kg (285-295); Phosphorus 2.9 mg/dL (2.5-4.5); Potassium 4.2 mmol/L (3.5-5.1); Sodium 144 mmol/L (136-145); Total Bilirubin 0.6 mg/dL (0.15-1.2); Total Protein 5.1 g/dL (6.6-8.7)
[2021-05-03] MEDS: ipratropium-albuterol 3 mL Neb INHALATION ×6 (04:12→23:55)
[2021-05-03] MEDS: propofol 1,000 MG/100 ML INJ 15.24 MG IV (04:53)
[2021-05-03 05:48] LABS: ABG PCO2 53.3 mmHg (35-45); ABG PH Result 7.41 (7.35-7.45); Arterial Blood Gas Hematocrit 28.6 % (42-52); Base Excess ABG 8.1 mmol/L (-2.0-2.0); Blood Gas Allen Test Pos; Blood Gas Sample Type Arterial; HCO3 ABG 33.9 mmol/L (22-26); PO2 ABG 63.3 mmHg (80.0-100.0)
[2021-05-03 05:50] LABS: Blood Gas Operator Identificat JB; Blood Gas Sample Site Radial, right; Blood Gas Tidal Volume 0.45; Oxygen Device VENT
--- NOTE | 2021-05-03 07:00 | XRR_ITS ---
PROCEDURE INFORMATION: Exam: XR Chest Exam date and time: 05/03/2021 7:00 AM Age: 75 years old Clinical indication: Shortness of breath; Additional info: SOB TECHNIQUE: Imaging protocol: XR of the chest. Views: 1 view. COMPARISON: CR XR chest 1V portable [id number] 05/02/2021 4:27 PM FINDINGS: Tubes, catheters and devices: Tip of the ET tube about 4.6 cm superior to the suze representing interval mild retraction. Continued extension of the enteric tube below the diaphragm with its tip not included. Tip of the right IJ catheter not well visualized, but possibly at the cavoatrial junction representing no significant change. Lungs: Continued probable atelectasis in the lung bases. Complete atelectasis of the left lower lobe behind the heart still possible. No interval airspace disease in the upper lungs. Pleural spaces: Continued evidence of a right pleural effusion of possibly moderate volume. Left basilar pleural fluid still likely. Still no apparent pneumothorax. Heart/Mediastinum: Still no apparent cardiomegaly. Bones/joints: Screw and plate fixation devices in 3 left ribs again evident. Other old left rib fractures again evident. No suggestion of acute bony disease. Possible narrowing of each glenohumeral joint. XR/XR chest 1V portable [id number] IMPRESSION: 1. Interval mild retraction of the ET tube. No obvious change in the other life-supporting tubes. 2. Bilateral pleural effusions probably unchanged. Continued probable atelectasis in the lung bases; complete atelectasis of the left lower lobe still possible. No significant change elsewhere.
[2021-05-03 07:39] LABS: Glucose Point of Care 95 mg/dL (70-110)
[2021-05-03 08:32] LABS: Hematocrit 23.7 % (42.0-52.0); Hemoglobin 7.4 g/dL (11.7-16.6)
[2021-05-03] MEDS: FUROsemide 10 mg/mL SDV 4mL 40 MG IVP (09:30)
[2021-05-03] MEDS: sucralfate 1 gm Tablet PO ×4 (09:31→21:48)
[2021-05-03] MEDS: metOLazone 5 MG Tablet 10 MG PO (09:31)
[2021-05-03] MEDS: pantoprazole 40 mg SDV IVP ×2 (09:31→21:47)
[2021-05-03] MEDS: cholecalciferol (vitamin D3) 1,000 unit Tablet 1000 UNIT PO (09:31)
[2021-05-03] MEDS: atorvastatin 40 mg Tablet 80 MG PO (09:33)
[2021-05-03] MEDS: doxycycline 100 MG in sodium chloride 0.9% (plus) 100 ML IV (09:34)
[2021-05-03] MEDS: propofol 1,000 MG/100 ML INJ 18.29 MG IV ×3 (10:19→22:19)
[2021-05-03] MEDS: sodium chloride 3.5% neb 4 mL Neb INHALATION ×2 (11:24→19:58)
[2021-05-03] MEDS: insulin lispro 100 unit/1 mL SUBCUT ×3 (12:22→21:48)
--- NOTE | 2021-05-03 12:22 | P.PN_ITS ---
Subjective Subjective: Interval history: Patient has remained intubated on Levophed overnight, had couple of bloody bowel movements, NG output has been minimal Vitals/I&O/Wt Last Vital Signs Temp 97.6 F 05/03/21 12:00 Pulse 80 05/03/21 12:00 Resp 18 05/03/21 12:00 BP 106/49 05/03/21 12:00 Pulse Ox 92 05/03/21 12:00 05/02/21 05/03/21 05/03/21 22:59 06:59 14:59 Intake Total 1977.32 / 2414.659 269.339 / 2414.659 302.681 / 302.681 Output Total 800 / 2175 300 / 2175 Balance 1177.32 / 239.659 -30.661 / 239.659 302.681 / 302.681 Weight last 48 hrs Weight 216 lb Weight 224 lb Physical Exam Narrative: EXAM NARRATIVE: Abdomen: Soft Urinary Catheter Management^: Corbin: Cath Placed During This Visit: yes Reason for Continuing Indwelling Catheter: Accurate Measurement of Urinary Output in Critically Ill Patients Urinary Catheter Date of Insertion: 04/27/21 Data : 05/03/21 08:23 05/03/21 02:07 Micro: Microbiology 05/02/21 15:55 Gram Stain - Final Sputum - Endotracheal Tube Aspirate Sputum Culture - Preliminary 04/30/21 09:25 Gram Stain - Final Pleural Fluid Body Fluid Culture - Preliminary A&P Assessment and plan (1) Gastric ulcer: 75-year-old male with upper GI bleed who underwent EGD with injection of epinephrine around a gastric and duodenal ulcer. Hemoglobin is 7.4 today compared to 8.5 yesterday and 5.8 prior to transfusions. Continue IV Protonix Medical management as per hospitalist service Status: Acute Attestations Medical Necessity Statement*: As per primary Coding Level of Care Code Acute [employer] [facility] Diagnoses Gastric ulcer K25.9
[2021-05-03 12:25] LABS: Glucose Point of Care 141 mg/dL (70-110)
--- NOTE | 2021-05-03 13:18 | ANES.PROC ---
Anesthesia Procedures Procedure/Date: 05/02/21 Right IJ Central Venous Insert: Time Out Performed: Yes Consent: emergency procedure Central Line: New Anesthesia monitors: pulse oximetry, BP cuff and oxygen Vein cannulated: right internal jugular Ultrasound used: to identify patency to vessel Post procedure: Obtain Chest X-Ray Additional Comments: Tolerated procedure well, using sterile fashion, sterile technique, minimal bleeding, right central line in correct position, flash of blood, dark, nonpulsatile, chest x-ray no pneumothorax
--- NOTE | 2021-05-03 13:28 | P.PN_ITS ---
Subjective Subjective: Interval history: Patient was seen this morning, he is on 30% FiO2, afebrile overnight, normotensive, no repeat episodes of bloody or black stools Vitals/I&O/Wt Last Vital Signs Temp 97.6 F 05/03/21 12:00 Pulse 80 05/03/21 12:00 Resp 18 05/03/21 12:00 BP 106/49 05/03/21 12:00 Pulse Ox 92 05/03/21 12:00 05/02/21 05/03/21 05/03/21 22:59 06:59 14:59 Intake Total 1977.32 / 2145.32 269.339 / 2414.659 302.681 / 302.681 Output Total 800 / 1875 300 / 2175 Balance 1177.32 / 270.32 -30.661 / 239.659 302.681 / 302.681 Weight last 48 hrs Weight 97.976 kg Weight 101.605 kg Physical Exam Narrative: EXAM NARRATIVE: Remains intubated, sedated Const: COMMON NORMALS: no acute distress Resp: COMMON NORMALS: normal respiratory effort, No retractions, No use of accessory muscles and clear to auscultation bilaterally AUSCULTATION: clear to auscultation bilaterally Cardio: COMMON NORMALS: regular rate, regular rhythm, S1 normal heart sound present and S2 normal heart sound present RATE: regular rate RHYTHM: regular rhythm HEART SOUNDS: S1 normal heart sound present and S2 normal heart sound present GI: COMMON NORMALS: Normal to inspection, nondistended, normoactive bowel sounds present, Soft to palpation and non-tender PALPATION: Yes Soft to palpation Extremity: COMMON NORMALS: no pedal edema Urinary Catheter Management^: Corbin: Cath Placed During This Visit: yes Reason for Continuing Indwelling Catheter: Accurate Measurement of Urinary Output in Critically Ill Patients Urinary Catheter Date of Insertion: 04/27/21 Data : 05/03/21 08:23 05/03/21 02:07 Micro: Microbiology 05/02/21 15:55 Gram Stain - Final Sputum - Endotracheal Tube Aspirate Sputum Culture - Preliminary 04/30/21 09:25 Gram Stain - Final Pleural Fluid Body Fluid Culture - Preliminary A&P Assessment and plan (1) Atrial fibrillation with rapid ventricular response: Status: Acute (2) Heart failure: Status: Acute (3) Acute on chronic respiratory failure with hypoxia and hypercapnia: Status: Acute (4) COPD (chronic obstructive pulmonary disease): Status: Acute (5) Diabetes: Status: Acute (6) Hypertension: Status: Acute (7) CVA (cerebral vascular accident): Status: Acute (8) Aspiration into respiratory tract: Status: Acute (9) Aspiration pneumonia: Status: Acute (10) Upper GI bleed: Status: Acute (11) Hemorrhagic shock: Status: Acute (12) Acute respiratory failure: Status: Acute Additional A&P Information 75 year old male with past medical history of hypertension, diabetes, heart failure, COPD, stays alone at home, and take care of himself, was brought in by chief complaint of weakness, and worsening shortness of breath, states that he was doing fine till yesterday night, was on the toilet at about 9:30 PM.He was unable to get up and reported difficulty with his left knee. Upper GI bleed, with hemorrhagic shock -Status post units 3 units PRBC, 2 units FFP, protamine sulfate -Hemoglobin 7.4, INR 1.23 -Transfuse if less than 7 -Status post EGD showed gastric and duodenal ulcer with injection of epinephrine -Continue to monitor same hemoglobins every 6 hours, monitor for bloody or black stools, monitor hemodynamics -Right IJ in place, Levophed maintain MAP greater than 65 -Continue intubation, mechanical ventilation protect airway -Monitor for fluid overload, will diurese today -Protonix 40 IV twice daily, Carafate 4 times daily -Hold aspirin, hold Lovenox Acute respiratory failure -Intubated for airway protection, risk of aspiration, risk of fluid overload, decreased mentation on BiPAP -Continue intubation, mechanical ventilation -Fentanyl, propofol for sedation -Daily spontaneous breathing trials, plan on extubation tomorrow morning #Acute CVA -CT of the head shows: 1. Extensive multifocal small-vessel ischemic change along with encephalomalacia in the left posterior parietal and occipital regions. 2. Additional hypodensity in the left posterior cerebellum, suspicious for an ischemic infarct. MRI can be performed for improved characterization, as clinically indicated. -Currently moving all upper and lower extremities, no facial droop, no slurring of words, hasn't gotten up out of bed, is bedbound -All evident of embolic CVAs related to atrial fibrillation, likely embolic -Likely patient's respiratory failure, component related to aspiration event, aspiration pneumonia -Currently n.p.o. -Speech therapy eval -PT OT once stable -Aspirin on hold, statin -Lovenox discontinued #A. fib with RVR: Patient was started on Cardizem as well as esmolol drip in the ER. When I examined the patient the heart rate was pretty well controlled. Cardizem, esmolol has been stopped We will continue metoprolol 50 mg p.o. twice daily, currently on hold due to hypotensive episodes Cardizem drip as needed lovenox on hold Continue telemetry monitoring #Right lung collapse, resolving -Chest x-ray showing whiteout of right lung, resolved #Acute renal failure -Creatinine up to 1.5 urine output 1175 -Rhabdomyolysis -Did receive contrast 2 days ago #Rhabdomyolysis, -CPK over 390 -Monitor for now -We will avoid fluids as concerns for fluid overload #Decompensated heart failure: Combination of systolic and diastolic CHF, patient presented with worsening shortness of breath. Has bilateral lower extremity 1+ + pitting edema, bilateral moderate to large pleural effusion, interstitial edema. Elevated proBNP. No recent echo, according to daughter last echo was done around 5 years back. 2D echo: Technically limited quality echocardiogram because of poor ultrasonic windows. LV systolic function is grossly moderately reduced. Right ventricle is dilated and severely hypokinetic. Left atrium is dilated. Thickened aortic valve. Moderate to severe low-flow low gradient aortic stenosis noted. Mild tricuspid regurgitation No comparison studies are available Creatinine level 1.2, urine output improving diuretics on hold Intake output charting Daily weight k>4,mg>2 #Bilateral pleural effusions, ultrasound thoracocentesis 1 L out on the right #AC on Chronic hypoxic hypercapnic respiratory failure: Likely secondary to decompensated heart failure, possible underlying pneumonia, aspiration, mucous plugging Possible underlying pneumonia/aspiration, blood cultures, sputum cultures On Zosyn Repeat ABG tomorrow morning on ventilation DuoNebs Monitor ABG #Diabetes: Lantus 30 subcu daily Low-dose sliding scale insulin Cardiac carbohydrate consistent diet Monitor fingerstick glucose #Hypertension: #COPD: Plan as above #Elevated CK: Follow CK in a.m. labs CODE STATUS: Full code DVT prophylaxis: On Lovenox Attestations Medical Necessity Statement*: Patient requires hospitalization for upper GI bleed, acute respiratory failure, CVA, critical care time spent over 35 minutes Coding Level of Care Code Acute Staff Veterinarian for [facility] Diagnoses Atrial fibrillation with rapid ventricular response I48.91 Heart failure I50.9 Acute on chronic respiratory failure with hypoxia and hypercapnia J96.21; J96.22 COPD (chronic obstructive pulmonary disease) J44.9 Diabetes E11.9 Hypertension I10 CVA (cerebral vascular accident) I63.9 Aspiration into respiratory tract T17.908A Aspiration pneumonia J69.0 Upper GI bleed K92.2 Hemorrhagic shock R57.8 Acute respiratory failure J96.00
[2021-05-03 14:54] LABS: Hematocrit 24.7 % (42.0-52.0); Hemoglobin 7.4 g/dL (11.7-16.6)
[2021-05-03 16:56] LABS: Glucose Point of Care 175 mg/dL (70-110)
[2021-05-03 20:22] LABS: Glucose Point of Care 184 mg/dL (70-110)
[2021-05-03 21:09] LABS: Hematocrit 22.7 % (42.0-52.0); Hemoglobin 7.1 g/dL (11.7-16.6)
[2021-05-04] VITALS (114 sets, daily range): BP systolic 88–145; BP diastolic 42–83; PULSE 74–153; RESP 18–22; TEMP 35.9–37.1; O2SAT 88–100
[2021-05-04] MEDS: piperacillin-tazobactam 3.375 GM in sodium chloride 0.9% (plus) 50 ML IV ×3 (01:07→17:31)
[2021-05-04] MEDS: ipratropium-albuterol 3 mL Neb INHALATION ×6 (03:06→23:45)
[2021-05-04 03:21] LABS: Basophils # 0.1 10^3/uL (0.0-0.1); Basophils % 0.6 %; Eosinophils # 0.4 10^3/uL (0.0-0.8); Eosinophils % 4.8 %; Hematocrit 23.3 % (42.0-52.0); Hemoglobin 7.1 g/dL (11.7-16.6); Lymphocytes # 1.8 10^3/uL (0.8-4.8); Mean Corpuscular HGB Conc 30.5 g/dL (30.0-36.0); Mean Corpuscular Hemoglobin 26.2 pg (28.0-34.0); Mean Platelet Volume 10.5 fL (7.4-10.4); Monocytes # 0.9 10^3/uL (0.2-0.9); Monocytes % 10.2 %; Neutrophils # 5.36 10^3/uL (1.8-7.7); Neutrophils % 62.9 %; Nucleated Red Blood Cells % 0 %; Platelet Count 255 10^3/cmm (130-400); Red Blood Count 2.71 10^6/uL (4.1-5.3); Red Cell Distribution Width 16.8 % (12.1-15.1); White Blood Count 8.5 10^3/uL (4.0-10.0)
[2021-05-04 03:36] LABS: INR 1.09 (0.8-1.2)
[2021-05-04 03:43] LABS: Lactate (Lactic Acid level) 1.3 mmol/L (0.5-2.2)
[2021-05-04 03:50] LABS: NT Pro B Type Natriuretic Pept 6658 pg/mL (0-125)
[2021-05-04] MEDS: propofol 1,000 MG/100 ML INJ 18.29 MG IV ×4 (04:04→19:54)
[2021-05-04 04:05] LABS: Alanine Aminotransferase 9 U/L (0-41); Albumin Level 3.2 g/dL (3.5-5.2); Alkaline Phosphatase 61 IU/L (40-130); Anion Gap 13.4 (5-19); Aspartate Amino Transferase 19 U/L (0-40); Blood Urea Nitrogen 41 mg/dL (8-23); C Reactive Protein 48.6 mg/L (0.0-4.9); Carbon Dioxide 31 mmol/L (22-29); Chloride 101 mmol/L (98-107); Creatine Phosphokinase 285 U/L (39-308); Globulin 2.2 g/dL (1.3-4.6); Glucose 148 mg/dL (65-115); Magnesium 1.9 mg/dL (1.7-2.3); Osmolality Calculated 305 mOsm/kg (285-295); Phosphorus 3.1 mg/dL (2.5-4.5); Potassium 4.4 mmol/L (3.5-5.1); Sodium 141 mmol/L (136-145); Total Bilirubin 0.3 mg/dL (0.15-1.2); Total Protein 5.4 g/dL (6.6-8.7)
[2021-05-04 04:07] LABS: ABG PCO2 51.8 mmHg (35-45); ABG PH Result 7.42 (7.35-7.45); Arterial Blood Gas Hematocrit 20.8 % (42-52); Base Excess ABG 7.9 mmol/L (-2.0-2.0); Blood Gas Allen Test Pos; Blood Gas Sample Site Radial, right; Blood Gas Sample Type Arterial; Blood Gas Tidal Volume 0.45; HCO3 ABG 33.3 mmol/L (22-26); Oxygen Device VENT
--- NOTE | 2021-05-04 07:00 | XRR_ITS ---
PROCEDURE INFORMATION: Exam: XR Chest Exam date and time: 05/04/2021 7:00 AM Age: 75 years old Clinical indication: Dyspnea; Patient HX: Intubated; Additional info: SOB TECHNIQUE: Imaging protocol: XR of the chest. Views: 1 view. COMPARISON: CR (CHEST, ) 05/03/2021 5:20 AM FINDINGS: Tubes, catheters and devices: Support tubes and lines are in good position. Lungs: Stable bilateral pulmonary opacities which may be secondary to atelectasis or pneumonia. Pleural spaces: Stable small bilateral pleural effusions. Heart/Mediastinum: Unremarkable. No cardiomegaly. Bones/joints: Surgical hardware in the ribs. XR/XR chest 1V portable [id number] IMPRESSION: 1. Support tubes and lines are in good position. 2. Stable bilateral pulmonary opacities which may be secondary to atelectasis or pneumonia. 3. Stable small bilateral pleural effusions.
[2021-05-04] MEDS: sodium chloride 3.5% neb 4 mL Neb INHALATION ×2 (08:03→20:05)
[2021-05-04 08:19] LABS: Glucose Point of Care 249 mg/dL (70-110)
--- NOTE | 2021-05-04 08:36 | ECG_ITS ---
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: : [id number] Requested By: Robby Rios Order Number: [id number] Reading MD: MER HARRIS Measurements Intervals [address] Rate: 126 P: -72 VA: 160 QRS: 35 QRSD: 89 T: 206 QT: 308 QTc: 446 Interpretive Statements SINUS TACHYCARDIA LOW QRS VOLTAGE IN EXTREMITY LEADS [QRS DEFLECTION < 0.5 mV IN LIMB LEADS] MODERATE ST DEPRESSION [0.05+ mV ST DEPRESSION] ABNORMAL QRS-T ANGLE [QRS-T AXIS DIFFERENCE > 60] Compared to ECG 04/28/2021 06:07:27 Low QRS voltage now present ST (T wave) deviation now present Sinus rhythm no longer present T-wave abnormality no longer present Possible ischemia no longer present Electronically Signed On 05-04-2021 17:47:29 INDUSTRIAL TRAINER by MER HARRIS [id number]
[2021-05-04] MEDS: pantoprazole 40 mg SDV IVP ×2 (08:43→21:10)
[2021-05-04] MEDS: atorvastatin 40 mg Tablet 80 MG PO (08:43)
[2021-05-04] MEDS: sucralfate 1 gm Tablet PO ×4 (08:43→21:10)
[2021-05-04] MEDS: FUROsemide 10 mg/mL SDV 4mL 40 MG IVP (08:43)
[2021-05-04] MEDS: cholecalciferol (vitamin D3) 1,000 unit Tablet 1000 UNIT PO (08:43)
[2021-05-04] MEDS: metOLazone 5 MG Tablet 2.5 MG PO (08:44)
[2021-05-04] MEDS: insulin lispro 100 unit/1 mL SUBCUT ×4 (09:09→21:10)
[2021-05-04] MEDS: dilTIAZem 30 mg Tablet PO ×3 (10:52→23:13)
--- NOTE | 2021-05-04 11:00 | PM.PN ---
Subjective Subjective: Interval history: Patient was seen this morning, his oxygen requirement have increased to 60%, is in A. fib with RVR, normotensive, afebrile, Vitals/I&O/Wt Last Vital Signs Temp 97.2 F L 05/04/21 09:15 Pulse 126 H 05/04/21 09:15 Resp 20 H 05/04/21 09:47 BP 103/56 05/04/21 09:15 Pulse Ox 94 05/04/21 09:47 05/03/21 05/04/21 05/04/21 22:59 06:59 14:59 Intake Total 619.744 / 922.425 372.542 / 1294.967 123.279 / 123.279 Output Total 1575 / 1575 725 / 2300 Balance -955.256 / -652.575 -352.458 / -1005.033 123.279 / 123.279 Weight last 48 hrs Weight 98.883 kg Weight 97.976 kg Physical Exam Narrative: EXAM NARRATIVE: Remains intubated, sedated on mechanical ventilation Const: COMMON NORMALS: no acute distress Resp: COMMON NORMALS: normal respiratory effort, No retractions, No use of accessory muscles and clear to auscultation bilaterally AUSCULTATION: clear to auscultation bilaterally Cardio: COMMON NORMALS: S1 normal heart sound present and S2 normal heart sound present RATE: tachycardic RHYTHM: abnormal rhythm irregularly irregular HEART SOUNDS: S1 normal heart sound present and S2 normal heart sound present GI: COMMON NORMALS: Normal to inspection, nondistended, normoactive bowel sounds present, Soft to palpation and non-tender PALPATION: Yes Soft to palpation Extremity: COMMON NORMALS: no pedal edema Psych: COMMON NORMALS: mental status grossly normal Urinary Catheter Management^: Corbin: Cath Placed During This Visit: yes Reason for Continuing Indwelling Catheter: Accurate Measurement of Urinary Output in Critically Ill Patients Urinary Catheter Date of Insertion: 04/27/21 Data : 05/04/21 02:36 05/04/21 02:36 Micro: Microbiology 05/02/21 15:55 Gram Stain - Final Sputum - Endotracheal Tube Aspirate Sputum Culture - Preliminary Yeast 04/29/21 02:57 Blood Culture - Final Blood NO GROWTH AFTER 5 DAYS 04/29/21 02:55 Blood Culture - Final Blood NO GROWTH AFTER 5 DAYS 04/30/21 09:25 Gram Stain - Final Pleural Fluid Body Fluid Culture - Final A&P Assessment and plan (1) Atrial fibrillation with rapid ventricular response: Status: Acute (2) Heart failure: Status: Acute (3) Acute on chronic respiratory failure with hypoxia and hypercapnia: Status: Acute (4) COPD (chronic obstructive pulmonary disease): Status: Acute (5) Diabetes: Status: Acute (6) Hypertension: Status: Acute (7) CVA (cerebral vascular accident): Status: Acute (8) Aspiration into respiratory tract: Status: Acute (9) Aspiration pneumonia: Status: Acute (10) Upper GI bleed: Status: Acute (11) Hemorrhagic shock: Status: Acute (12) Acute respiratory failure: Status: Acute Additional A&P Information 75 year old male with past medical history of hypertension, diabetes, heart failure, COPD, stays alone at home, and take care of himself, was brought in by chief complaint of weakness, and worsening shortness of breath, states that he was doing fine till yesterday night, was on the toilet at about 9:30 PM.He was unable to get up and reported difficulty with his left knee. Upper GI bleed, with hemorrhagic shock -Status post units 3 units PRBC, 2 units FFP, protamine sulfate -Hemoglobin 7.1, INR 1.09 -Recheck hemoglobin at 4 PM -Transfuse if less than 7 -Status post EGD showed gastric and duodenal ulcer with injection of epinephrine -Continue to monitor same hemoglobins every 6 hours, monitor for bloody or black stools, monitor hemodynamics -Right IJ in place, Levophed maintain MAP greater than 65 -Continue intubation, mechanical ventilation protect airway -Monitor for fluid overload, will diurese today, creatinine 1.6 -Protonix 40 IV twice daily, Carafate 4 times daily -Hold aspirin, hold Lovenox Acute respiratory failure -O2 records have increased to 60%, likely sec to fluid overload, A. fib -Intubated for airway protection, risk of aspiration, risk of fluid overload, decreased mentation on BiPAP -Continue intubation, mechanical ventilation -Fentanyl, propofol for sedation -Daily spontaneous breathing trials, plan on extubation tomorrow morning -Rate control, diuresis today #Acute CVA -CT of the head shows: 1. Extensive multifocal small-vessel ischemic change along with encephalomalacia in the left posterior parietal and occipital regions. 2. Additional hypodensity in the left posterior cerebellum, suspicious for an ischemic infarct. MRI can be performed for improved characterization, as clinically indicated. -Currently moving all upper and lower extremities, no facial droop, no slurring of words, hasn't gotten up out of bed, is bedbound -All evident of embolic CVAs related to atrial fibrillation, likely embolic -Likely patient's respiratory failure, component related to aspiration event, aspiration pneumonia -Currently n.p.o. -Speech therapy eval -PT OT once stable -Aspirin on hold, statin -Lovenox discontinued #A. fib with RVR: Patient was started on Cardizem as well as esmolol drip in the ER. When I examined the patient the heart rate was pretty well controlled. Cardizem, esmolol has been stopped Start Cardizem drip, lovenox on hold Continue telemetry monitoring #Right lung collapse, resolving -Chest x-ray showing whiteout of right lung, resolved #Acute renal failure -Creatinine up to 1.5 urine output 1175 -Rhabdomyolysis -Did receive contrast 2 days ago #Rhabdomyolysis, -CPK over 390 -Monitor for now -We will avoid fluids as concerns for fluid overload #Decompensated heart failure: Combination of systolic and diastolic CHF, patient presented with worsening shortness of breath. Has bilateral lower extremity 1+ + pitting edema, bilateral moderate to large pleural effusion, interstitial edema. Elevated proBNP. No recent echo, according to daughter last echo was done around 5 years back. 2D echo: Technically limited quality echocardiogram because of poor ultrasonic windows. LV systolic function is grossly moderately reduced. Right ventricle is dilated and severely hypokinetic. Left atrium is dilated. Thickened aortic valve. Moderate to severe low-flow low gradient aortic stenosis noted. Mild tricuspid regurgitation No comparison studies are available Creatinine level 1.6, urine output improving Will diurese today Intake output charting Daily weight k>4,mg>2 #Bilateral pleural effusions, ultrasound thoracocentesis 1 L out on the right #AC on Chronic hypoxic hypercapnic respiratory failure: Likely secondary to decompensated heart failure, possible underlying pneumonia, aspiration, mucous plugging Possible underlying pneumonia/aspiration, blood cultures, sputum cultures On Zosyn, doxycycline Repeat ABG tomorrow morning on ventilation DuoNebs Monitor ABG Left hernandez cellulitis -Continue doxycycline, Zosyn as above #Diabetes: Lantus 30 subcu daily Low-dose sliding scale insulin Cardiac carbohydrate consistent diet Monitor fingerstick glucose #Hypertension: #COPD: Plan as above #Elevated CK: Follow CK in a.m. labs CODE STATUS: Full code DVT prophylaxis: scd Attestations Medical Necessity Statement*: Patient requires hospitalization for GI bleed, acute respiratory failure, atrial fibrillation, decompensated heart failure, CVA, critical care time spent over 35 minutes Coding Level of Care Code Acute Clinical Advisor for [facility] Fwd Diagnoses Atrial fibrillation with rapid ventricular response I48.91 Heart failure I50.9 Acute on chronic respiratory failure with hypoxia and hypercapnia J96.21; J96.22 COPD (chronic obstructive pulmonary disease) J44.9 Diabetes E11.9 Hypertension I10 CVA (cerebral vascular accident) I63.9 Aspiration into respiratory tract T17.908A Aspiration pneumonia J69.0 Upper GI bleed K92.2 Hemorrhagic shock R57.8 Acute respiratory failure J96.00
--- NOTE | 2021-05-04 11:40 | PC.SOCIAL ---
IMM Pt is still intubated at this time. A copy off the IMM left at bedside. Will update pt/family on IMM once pt is extubated & closer to d/c.
--- NOTE | 2021-05-04 12:00 | PC.NURSE ---
Patients heart rate became tachy in the 130's this AM. was called and cardizam drip was started. Unable to extubate this shift. Family aware.
[2021-05-04 12:05] LABS: Glucose Point of Care 236 mg/dL (70-110)
[2021-05-04] MEDS: doxycycline 100 MG in sodium chloride 0.9% (plus) 100 ML IV (13:26)
[2021-05-04] MEDS: sodium chloride 0.9% (100 ml) 100 ML 50 ML (15:48)
[2021-05-04 15:50] LABS: Hematocrit 25.3 % (42.0-52.0); Hemoglobin 8.1 g/dL (11.7-16.6)
[2021-05-04 16:38] LABS: Glucose Point of Care 215 mg/dL (70-110)
[2021-05-04] MEDS: lanolin oint 7 gm 1 APPLIC TOPICAL (18:37)
[2021-05-04 23:05] LABS: Glucose Point of Care 184 mg/dL (70-110)
[2021-05-05] VITALS (83 sets, daily range): BP systolic 85–148; BP diastolic 37–77; PULSE 71–145; RESP 15–23; TEMP 36.6–37.2; O2SAT 76–99
[2021-05-05] MEDS: propofol 1,000 MG/100 ML INJ 18.29 MG IV ×3 (00:44→20:32)
[2021-05-05] MEDS: doxycycline 100 MG in sodium chloride 0.9% (plus) 100 ML IV ×2 (00:46→15:05)
[2021-05-05] MEDS: piperacillin-tazobactam 3.375 GM in sodium chloride 0.9% (plus) 50 ML IV ×3 (02:39→17:54)
[2021-05-05] MEDS: ipratropium-albuterol 3 mL Neb INHALATION ×5 (03:05→20:13)
[2021-05-05 03:44] LABS: ABG PCO2 46.5 mmHg (35-45); ABG PH Result 7.48 (7.35-7.45); Arterial Blood Gas Hematocrit 24.9 % (42-52); Base Excess ABG 9.8 mmol/L (-2.0-2.0); Blood Gas Allen Test Pos; Blood Gas Sample Site Radial, left; Blood Gas Sample Type Arterial; Blood Gas Tidal Volume 0.45; HCO3 ABG 34.3 mmol/L (22-26); Oxygen Device VENT; PO2 ABG 64.4 mmHg (80.0-100.0)
[2021-05-05] MEDS: dilTIAZem 30 mg Tablet PO ×2 (04:27→11:12)
[2021-05-05 05:23] LABS: NT Pro B Type Natriuretic Pept 5438 pg/mL (0-125); Procalcitonin 0.24 ng/mL (0-0.5)
[2021-05-05 05:38] LABS: C Reactive Protein 73.6 mg/L (0.0-4.9); Magnesium 1.8 mg/dL (1.7-2.3); Phosphorus 3.5 mg/dL (2.5-4.5)
[2021-05-05 05:58] LABS: Creatine Phosphokinase 1775 U/L (39-308)
[2021-05-05 07:37] LABS: Basophils # 0.1 10^3/uL (0.0-0.1); Basophils % 0.6 %; Eosinophils # 0.3 10^3/uL (0.0-0.8); Eosinophils % 2.7 %; Hematocrit 23.7 % (42.0-52.0); Hemoglobin 7.4 g/dL (11.7-16.6); Lymphocytes # 1.7 10^3/uL (0.8-4.8); Lymphocytes % 15.9 %; Mean Corpuscular HGB Conc 31.2 g/dL (30.0-36.0); Mean Corpuscular Hemoglobin 27.4 pg (28.0-34.0); Mean Corpuscular Volume 87.8 fl (80-94); Mean Platelet Volume 10.1 fL (7.4-10.4); Monocytes % 9.3 %; Neutrophils # 7.42 10^3/uL (1.8-7.7); Neutrophils % 70.8 %; Nucleated Red Blood Cells % 0.3 %; Platelet Count 243 10^3/cmm (130-400); Red Cell Distribution Width 16.7 % (12.1-15.1); White Blood Count 10.5 10^3/uL (4.0-10.0)
[2021-05-05 07:40] LABS: Glucose Point of Care 215 mg/dL (70-110)
[2021-05-05 08:01] LABS: Alanine Aminotransferase 13 U/L (0-41); Albumin Level 2.8 g/dL (3.5-5.2); Alkaline Phosphatase 61 IU/L (40-130); Anion Gap 17.5 (5-19); Aspartate Amino Transferase 54 U/L (0-40); Blood Urea Nitrogen 45 mg/dL (8-23); Calcium 7.9 mg/dL (8.5-10.5); Carbon Dioxide 28 mmol/L (22-29); Chloride 99 mmol/L (98-107); Globulin 2.8 g/dL (1.3-4.6); Glucose 188 mg/dL (65-115); Osmolality Calculated 307 mOsm/kg (285-295); Potassium 4.5 mmol/L (3.5-5.1); Sodium 140 mmol/L (136-145); Total Bilirubin 0.4 mg/dL (0.15-1.2); Total Protein 5.6 g/dL (6.6-8.7)
[2021-05-05] MEDS: sodium chloride 3.5% neb 4 mL Neb INHALATION (08:15)
[2021-05-05] MEDS: cholecalciferol (vitamin D3) 1,000 unit Tablet 1000 UNIT PO (08:26)
[2021-05-05] MEDS: atorvastatin 40 mg Tablet 80 MG PO (08:26)
[2021-05-05] MEDS: sucralfate 1 gm Tablet PO ×4 (08:26→21:04)
[2021-05-05] MEDS: pantoprazole 40 mg SDV IVP ×2 (08:26→21:04)
[2021-05-05] MEDS: insulin lispro 100 unit/1 mL SUBCUT ×4 (08:27→21:22)
--- NOTE | 2021-05-05 08:29 | P.PN_ITS ---
Subjective Subjective: Interval history: Patient is off Levophed could not be extubated yesterday. NG output has been bloody but minimal and he has not had any further bowel movement since 05/02/2021 Vitals/I&O/Wt Last Vital Signs Temp 97.9 F 05/05/21 04:00 Pulse 77 05/05/21 08:18 Resp 16 05/05/21 08:25 BP 131/61 05/05/21 06:00 Pulse Ox 93 05/05/21 08:25 05/04/21 05/05/21 05/05/21 22:59 06:59 14:59 Intake Total 385.294 / 2025.881 336.558 / 2025.881 Output Total 900 / 2275 1200 / 2275 Balance -514.706 / -248.119 -863.442 / -248.119 Weight last 48 hrs Weight 222 lb 9.6 oz Weight 218 lb Physical Exam Narrative: EXAM NARRATIVE: Abdomen: Soft, nondistended Urinary Catheter Management^: Corbin: Cath Placed During This Visit: yes Reason for Continuing Indwelling Catheter: Accurate Measurement of Urinary Output in Critically Ill Patients Urinary Catheter Date of Insertion: 04/27/21 Data : 05/05/21 07:29 05/05/21 07:29 Micro: Microbiology 05/02/21 15:55 Gram Stain - Final Sputum - Endotracheal Tube Aspirate Sputum Culture - Preliminary Yeast 04/29/21 02:57 Blood Culture - Final Blood NO GROWTH AFTER 5 DAYS 04/29/21 02:55 Blood Culture - Final Blood NO GROWTH AFTER 5 DAYS A&P Assessment and plan (1) Gastric ulcer: 75-year-old male with upper GI bleed who underwent EGD with injection of epinephrine around a gastric and duodenal ulcer. Hemoglobin is 7.4 today, came up to 8.1 yesterday after he received 1 unit PRBC Continue IV Protonix Medical management as per hospitalist service Status: Acute Attestations Medical Necessity Statement*: as per primary Coding Level of Care Code Acute Supervisor [employer] for [facility] Diagnoses Gastric ulcer K25.9
--- NOTE | 2021-05-05 10:43 | PC.OT ---
OT TREATMENT HELD TODAY DUE TO PATIENT CURRENTLY INTUBATED AND UNABLE TO PARTICIPATE
[2021-05-05] MEDS: FUROsemide 10 mg/mL SDV 4mL 40 MG IVP (11:12)
[2021-05-05 12:09] LABS: Glucose Point of Care 178 mg/dL (70-110)
[2021-05-05 13:30] LABS: Hematocrit 25.5 % (42.0-52.0)
[2021-05-05 13:45] LABS: INR 1.06 (0.8-1.2)
--- NOTE | 2021-05-05 15:16 | P.PN_ITS ---
Subjective Subjective: Interval history: Patient was seen this morning, down to 35%, he had a large bloody bowel movement, hemodynamically stable, afebrile Vitals/I&O/Wt Last Vital Signs Temp 97.9 F 05/05/21 04:00 Pulse 78 05/05/21 12:08 Resp 23 H 05/05/21 13:43 BP 119/71 05/05/21 12:00 Pulse Ox 91 05/05/21 13:43 05/05/21 05/05/21 05/05/21 06:59 14:59 22:59 Intake Total 386.558 / 2076.881 Output Total 1200 / 2275 Balance -813.442 / -198.119 Weight last 48 hrs Weight 100.97 kg Weight 98.883 kg Physical Exam Narrative: EXAM NARRATIVE: Intubated, sedated on mechanical ventilation Right central line in place Orogastric tube in place Const: COMMON NORMALS: no acute distress Resp: COMMON NORMALS: normal respiratory effort, No retractions, No use of accessory muscles and clear to auscultation bilaterally AUSCULTATION: clear to auscultation bilaterally Cardio: COMMON NORMALS: regular rate, regular rhythm, S1 normal heart sound present and S2 normal heart sound present RATE: regular rate RHYTHM: regular rhythm HEART SOUNDS: S1 normal heart sound present and S2 normal heart sound present GI: COMMON NORMALS: Normal to inspection, nondistended, normoactive bowel sounds present, Soft to palpation and non-tender PALPATION: Yes Soft to palpation Extremity: COMMON NORMALS: no pedal edema Urinary Catheter Management^: Corbin: Cath Placed During This Visit: yes Reason for Continuing Indwelling Catheter: Accurate Measurement of Urinary Output in Critically Ill Patients Urinary Catheter Date of Insertion: 04/27/21 Data : 05/05/21 13:20 05/05/21 07:29 Micro: Microbiology 05/02/21 15:55 Gram Stain - Final Sputum - Endotracheal Tube Aspirate Sputum Culture - Final A&P Assessment and plan (1) Atrial fibrillation with rapid ventricular response: Status: Acute (2) Heart failure: Status: Acute (3) Acute on chronic respiratory failure with hypoxia and hypercapnia: Status: Acute (4) COPD (chronic obstructive pulmonary disease): Status: Acute (5) Diabetes: Status: Acute (6) Hypertension: Status: Acute (7) CVA (cerebral vascular accident): Status: Acute (8) Aspiration into respiratory tract: Status: Acute (9) Aspiration pneumonia: Status: Acute (10) Upper GI bleed: Status: Acute (11) Hemorrhagic shock: Status: Acute (12) Acute respiratory failure: Status: Acute Additional A&P Information 75 year old male with past medical history of hypertension, diabetes, heart failure, COPD, stays alone at home, and take care of himself, was brought in by chief complaint of weakness, and worsening shortness of breath, states that he was doing fine till yesterday night, was on the toilet at about 9:30 PM.He was unable to get up and reported difficulty with his left knee. Upper GI bleed, with hemorrhagic shock -Status post units 3 units PRBC, 2 units FFP, protamine sulfate -1 episode of bloody bowel movement this morning -Hemoglobin 8, INR 1.06 -Monitor hemoglobin closely -Transfuse if less than 7 -Status post EGD showed gastric and duodenal ulcer with injection of epinephrine -Continue to monitor same hemoglobins every 6 hours, monitor for bloody or black stools, monitor hemodynamics -Right IJ in place, Levophed maintain MAP greater than 65 -Continue intubation, mechanical ventilation protect airway -Monitor for fluid overload, will diurese today, creatinine 1.6 -Protonix 40 IV twice daily, Carafate 4 times daily -Hold aspirin, hold Lovenox Acute respiratory failure -O2 records have increased to 60%, likely sec to fluid overload, A. fib -Intubated for airway protection, risk of aspiration, risk of fluid overload, decreased mentation on BiPAP -Continue intubation, mechanical ventilation -Fentanyl, propofol for sedation -Daily spontaneous breathing trials, plan extubation in the next 24 hours once hemoglobin stable, no more evidence of bloody black stools, A. fib under control -Rate control, diuresis today #Acute CVA -CT of the head shows: 1. Extensive multifocal small-vessel ischemic change along with encephalomalacia in the left posterior parietal and occipital regions. 2. Additional hypodensity in the left posterior cerebellum, suspicious for an ischemic infarct. MRI can be performed for improved characterization, as clinically indicated. -Currently moving all upper and lower extremities, no facial droop, no slurring of words, hasn't gotten up out of bed, is bedbound -All evident of embolic CVAs related to atrial fibrillation, likely embolic -Likely patient's respiratory failure, component related to aspiration event, aspiration pneumonia -Currently n.p.o. -Speech therapy eval -PT OT once stable -Aspirin on hold, statin -Lovenox discontinued #A. fib with RVR: Start Cardizem drip, increase Cardizem to 60 every 6 lovenox on hold Continue telemetry monitoring #Right lung collapse, resolving -Chest x-ray showing whiteout of right lung, resolved #Acute renal failure -Creatinine up to 1.5 urine output 1175 -Rhabdomyolysis -Did receive contrast 2 days ago #Rhabdomyolysis, -CPK over 390 -Monitor for now -We will avoid fluids as concerns for fluid overload #Decompensated heart failure: Combination of systolic and diastolic CHF, patient presented with worsening shortness of breath. Has bilateral lower extremity 1+ + pitting edema, bilateral moderate to large pleural effusion, interstitial edema. Elevated proBNP. No recent echo, according to daughter last echo was done around 5 years back. 2D echo: Technically limited quality echocardiogram because of poor ultrasonic windows. LV systolic function is grossly moderately reduced. Right ventricle is dilated and severely hypokinetic. Left atrium is dilated. Thickened aortic valve. Moderate to severe low-flow low gradient aortic stenosis noted. Mild tricuspid regurgitation No comparison studies are available Creatinine level 1.5, monitor urine output Will diurese today Intake output charting Daily weight k>4,mg>2 #Bilateral pleural effusions, ultrasound thoracocentesis 1 L out on the right #AC on Chronic hypoxic hypercapnic respiratory failure: Likely secondary to decompensated heart failure, possible underlying pneumonia, aspiration, mucous plugging Possible underlying pneumonia/aspiration, blood cultures, sputum cultures On Zosyn, doxycycline Repeat ABG tomorrow morning on ventilation DuoNebs Monitor ABG Left hernandez cellulitis -Continue doxycycline, Zosyn as above #Diabetes: Lantus 30 subcu daily Low-dose sliding scale insulin Cardiac carbohydrate consistent diet Monitor fingerstick glucose #Hypertension: #COPD: Plan as above #Elevated CK: Follow CK in a.m. labs CODE STATUS: Full code DVT prophylaxis: scd Attestations Medical Necessity Statement*: Patient requires hospitalization for GI bleed, acute respiratory failure, acute CVA, critical care time spent over 35 minutes Coding Level of Care Code Acute [facility] for [facility] Diagnoses Atrial fibrillation with rapid ventricular response I48.91 Heart failure I50.9 Acute on chronic respiratory failure with hypoxia and hypercapnia J96.21; J96.22 COPD (chronic obstructive pulmonary disease) J44.9 Diabetes E11.9 Hypertension I10 CVA (cerebral vascular accident) I63.9 Aspiration into respiratory tract T17.908A Aspiration pneumonia J69.0 Upper GI bleed K92.2 Hemorrhagic shock R57.8 Acute respiratory failure J96.00
--- NOTE | 2021-05-05 16:00 | PC.NURSE ---
Sedation was turned down to extubate and patients o2 levels dropped in the mid 80's. Respiratory was aware. On monitor it showed Afib with heart rate in the 130's. Cardizem turned on.
[2021-05-05 16:45] LABS: Glucose Point of Care 211 mg/dL (70-110)
[2021-05-05] MEDS: dilTIAZem 60 mg Tablet PO ×2 (17:55→21:04)
[2021-05-05 21:24] LABS: Glucose Point of Care 165 mg/dL (70-110)
[2021-05-06] VITALS (47 sets, daily range): BP systolic 87–141; BP diastolic 44–65; PULSE 73–118; RESP 15–30; TEMP 36.7–36.9; O2SAT 74–99; BMI 29.3
[2021-05-06] MEDS: doxycycline 100 MG in sodium chloride 0.9% (plus) 100 ML IV ×3 (00:40→23:25)
[2021-05-06] MEDS: piperacillin-tazobactam 3.375 GM in sodium chloride 0.9% (plus) 50 ML IV ×3 (01:49→18:19)
[2021-05-06] MEDS: propofol 1,000 MG/100 ML INJ 18.29 MG IV (03:03)
[2021-05-06] MEDS: dilTIAZem 60 mg Tablet PO ×4 (03:03→21:40)
[2021-05-06] MEDS: ipratropium-albuterol 3 mL Neb INHALATION ×5 (03:17→19:54)
[2021-05-06 03:51] LABS: ABG PCO2 47.9 mmHg (35-45); ABG PH Result 7.45 (7.35-7.45); Arterial Blood Gas Hematocrit 23.3 % (42-52); Base Excess ABG 8.4 mmol/L (-2.0-2.0); Blood Gas Allen Test Pos; Blood Gas Sample Site Radial, right; Blood Gas Sample Type Arterial; Blood Gas Tidal Volume 0.45; HCO3 ABG 33.3 mmol/L (22-26); Oxygen Device VENT; PO2 ABG 71.9 mmHg (80.0-100.0)
[2021-05-06 05:07] LABS: Basophils # 0.1 10^3/uL (0.0-0.1); Basophils % 0.6 %; Eosinophils # 0.2 10^3/uL (0.0-0.8); Eosinophils % 1.5 %; Hematocrit 24.8 % (42.0-52.0); Hemoglobin 7.6 g/dL (11.7-16.6); Lymphocytes % 14.7 %; Mean Corpuscular HGB Conc 30.6 g/dL (30.0-36.0); Mean Corpuscular Hemoglobin 27.7 pg (28.0-34.0); Mean Corpuscular Volume 90.5 fl (80-94); Mean Platelet Volume 10.5 fL (7.4-10.4); Monocytes # 1.2 10^3/uL (0.2-0.9); Monocytes % 8.9 %; Neutrophils # 10.07 10^3/uL (1.8-7.7); Neutrophils % 73.6 %; Nucleated Red Blood Cells % 0.1 %; Platelet Count 274 10^3/cmm (130-400); Red Blood Count 2.74 10^6/uL (4.1-5.3); Red Cell Distribution Width 17.3 % (12.1-15.1); White Blood Count 13.7 10^3/uL (4.0-10.0)
[2021-05-06 05:15] LABS: INR 1.03 (0.8-1.2)
[2021-05-06 05:23] LABS: Lactate (Lactic Acid level) 0.9 mmol/L (0.5-2.2)
[2021-05-06 05:25] LABS: Alanine Aminotransferase 21 U/L (0-41); Albumin Level 2.7 g/dL (3.5-5.2); Alkaline Phosphatase 65 IU/L (40-130); Aspartate Amino Transferase 113 U/L (0-40); Blood Urea Nitrogen 38 mg/dL (8-23); Carbon Dioxide 28 mmol/L (22-29); Chloride 98 mmol/L (98-107); Globulin 3.2 g/dL (1.3-4.6); Glucose 159 mg/dL (65-115); Magnesium 1.9 mg/dL (1.7-2.3); Osmolality Calculated 302 mOsm/kg (285-295); Phosphorus 3.7 mg/dL (2.5-4.5); Sodium 140 mmol/L (136-145); Total Bilirubin 0.4 mg/dL (0.15-1.2); Total Protein 5.9 g/dL (6.6-8.7)
[2021-05-06 05:41] LABS: NT Pro B Type Natriuretic Pept 5108 pg/mL (0-125); Procalcitonin 0.28 ng/mL (0-0.5)
[2021-05-06 06:10] LABS: Creatine Phosphokinase 4453 U/L (39-308)
--- NOTE | 2021-05-06 07:00 | XRR_ITS ---
PROCEDURE INFORMATION: Exam: XR Chest Exam date and time: 05/06/2021 7:00 AM Age: 75 years old Clinical indication: Dyspnea; Additional info: SOB TECHNIQUE: Imaging protocol: XR of the chest. Views: 1 view. COMPARISON: CR (CHEST, ) 05/04/2021 3:26 AM FINDINGS: Tubes, catheters and devices: Endotracheal tube is in satisfactory position. Feeding tube is in satisfactory position. Right IJ approach central line is in satisfactory position, with distal tip in the RA. Lungs: Persistent redistribution and indistinctness of the pulmonary vasculature, in association with haziness of the lungs and small bilateral pleural effusions, which in the setting of cardiomegaly is consistent with pulmonary edema. Pneumonia should be excluded clinically. No pneumothorax. Pleural spaces: See Lungs finding. Heart/Mediastinum: Stable cardiomediastinal silhouette. Bones/joints: Internal fixation plates noted in the left ribcage. Degenerative changes of the spine seen. XR/XR chest 1V portable [id number] IMPRESSION: Imaging findings of pulmonary edema with small bilateral pleural effusions. Pneumonia should be excluded clinically.
[2021-05-06] MEDS: pantoprazole 40 mg SDV IVP ×2 (07:44→20:09)
[2021-05-06] MEDS: FUROsemide 10 mg/mL SDV 4mL 40 MG IVP (07:45)
[2021-05-06] MEDS: insulin lispro 100 unit/1 mL SUBCUT ×4 (07:55→20:09)
[2021-05-06 08:05] LABS: Glucose Point of Care 186 mg/dL (70-110)
--- NOTE | 2021-05-06 09:24 | PC.SOCIAL ---
IMM Update pg 2 of IMM updated and reviewed w/ patients daughter via telephone.
[2021-05-06] MEDS: dexmedeTOMIDine 0.9 % NaCL 400 MCG/100 ML PREMIX IV (10:03)
[2021-05-06] MEDS: atorvastatin 40 mg Tablet 80 MG PO (10:13)
[2021-05-06] MEDS: cholecalciferol (vitamin D3) 1,000 unit Tablet 1000 UNIT PO (10:14)
[2021-05-06] MEDS: sucralfate 1 gm Tablet PO ×4 (10:14→20:09)
[2021-05-06] MEDS: sodium chloride 0.9% 1,000 ML 30 ML IV (10:42)
[2021-05-06] MEDS: midazolam 1 mg/mL INJ 2 mL 3 MG IVP (12:15)
[2021-05-06] MEDS: norepinephrine 8 MG in dextrose 5 % 500 ML 7.62 MG IV (12:40)
--- NOTE | 2021-05-06 12:44 | PC.NURSE ---
1215 Dr. Brown and GI lab personell here to do an EGD. Per dr. Brown's orders I gave Versed 2mg IVP for sedation for the procedure at 1215. Patient still not as sedated as prefered, Dr. Brown ask me to give Versed 1mg, I did so at 1220, while monitoring vitals continually and after the procedure. 1240 Started LEvophed to correct blood pressure.
[2021-05-06 15:11] LABS: Glucose Point of Care 199 mg/dL (70-110)
--- NOTE | 2021-05-06 15:22 | PM.PN ---
Subjective Subjective: Interval history: Patient had couple of bloody bowel movements, NG output has been minimal. He is awake and following commands and off pressors. His hemoglobin is however around 7 Vitals/I&O/Wt Last Vital Signs Temp 98.0 F 05/06/21 12:00 Pulse 105 H 05/06/21 14:00 Resp 15 05/06/21 14:35 BP 119/53 05/06/21 14:00 Pulse Ox 99 05/06/21 14:35 05/06/21 05/06/21 05/06/21 06:59 14:59 22:59 Intake Total 250 / 570 32.439 / 32.439 Output Total 1000 / 2400 Balance -750 / -1830 32.439 / 32.439 Weight last 48 hrs Weight 222 lb 9.6 oz Weight 222 lb 9.6 oz Physical Exam Narrative: EXAM NARRATIVE: Abdomen: Soft, nontender Urinary Catheter Management^: Corbin: Cath Placed During This Visit: yes Reason for Continuing Indwelling Catheter: Accurate Measurement of Urinary Output in Critically Ill Patients Urinary Catheter Date of Insertion: 04/27/21 Data : 05/06/21 04:28 05/06/21 04:28 Micro: Microbiology 05/02/21 15:55 Gram Stain - Final Sputum - Endotracheal Tube Aspirate Sputum Culture - Final A&P Assessment and plan (1) Gastric ulcer: 75-year-old male with upper GI bleed who underwent EGD with injection of epinephrine around a gastric and duodenal ulcer. His hemoglobin has stayed around 7 but patient had couple of bloody bowel movements and the plan was for extubation today. We will therefore plan for EGD prior to extubation given his bloody bowel movements and slow drop in hemoglobin Status: Acute Attestations Medical Necessity Statement*: As per primary Coding Level of Care Code Acute [employer] Att[facility] for [facility] Fwd Diagnoses Gastric ulcer K25.9
--- NOTE | 2021-05-06 15:40 | PC.OT ---
OT TREATMENT HELD DUE TO PATIENT ON VENT AND UNABLE TO PARTICIPATE.
--- NOTE | 2021-05-06 16:25 | PM.PN ---
Subjective Subjective: Interval history: This morning, patient is on minimal sedation, does awaken, opens his eyes, does not follow commands, but is on 35% FiO2, nursing staff tells me that he has had 3 black bowel movements overnight, hemodynamically stable, hemoglobin at 7.6 -Patient had a bedside EGD, had clots in the stomach that were irrigated, no evidence of active bleeding, no evidence of active bleeding of gastric or duodenal ulcer, Reexamined in the afternoon, MAP is 60, has sinus bradycardia, Precedex, fentanyl, will continue to monitor, plan on extubation later on this afternoon if pressures remain stable, and is safely taken off sedation Vitals/I&O/Wt Last Vital Signs Temp 98.0 F 05/06/21 12:00 Pulse 105 H 05/06/21 14:00 Resp 15 05/06/21 14:35 BP 119/53 05/06/21 14:00 Pulse Ox 99 05/06/21 14:35 05/06/21 05/06/21 05/06/21 06:59 14:59 22:59 Intake Total 250 / 570 32.439 / 32.439 Output Total 1000 / 2400 Balance -750 / -1830 32.439 / 32.439 Weight last 48 hrs Weight 100.97 kg Weight 100.97 kg Physical Exam Narrative: EXAM NARRATIVE: Merlyn intubated, on minimal sedation, does arouse, does not follow commands Const: COMMON NORMALS: no acute distress Resp: COMMON NORMALS: normal respiratory effort, No retractions, No use of accessory muscles and clear to auscultation bilaterally AUSCULTATION: clear to auscultation bilaterally Cardio: COMMON NORMALS: regular rate, regular rhythm, S1 normal heart sound present and S2 normal heart sound present RATE: regular rate RHYTHM: regular rhythm HEART SOUNDS: S1 normal heart sound present and S2 normal heart sound present GI: COMMON NORMALS: Normal to inspection, nondistended, normoactive bowel sounds present, Soft to palpation and non-tender PALPATION: Yes Soft to palpation Extremity: COMMON NORMALS: no pedal edema Urinary Catheter Management^: Corbin: Cath Placed During This Visit: yes Reason for Continuing Indwelling Catheter: Accurate Measurement of Urinary Output in Critically Ill Patients Urinary Catheter Date of Insertion: 04/27/21 Data : 05/06/21 04:28 05/06/21 04:28 A&P Assessment and plan (1) Atrial fibrillation with rapid ventricular response: Status: Acute (2) Heart failure: Status: Acute (3) Acute on chronic respiratory failure with hypoxia and hypercapnia: Status: Acute (4) COPD (chronic obstructive pulmonary disease): Status: Acute (5) Diabetes: Status: Acute (6) Hypertension: Status: Acute (7) CVA (cerebral vascular accident): Status: Acute (8) Aspiration into respiratory tract: Status: Acute (9) Aspiration pneumonia: Status: Acute (10) Upper GI bleed: Status: Acute (11) Hemorrhagic shock: Status: Acute (12) Acute respiratory failure: Status: Acute Additional A&P Information 75 year old male with past medical history of hypertension, diabetes, heart failure, COPD, stays alone at home, and take care of himself, was brought in by chief complaint of weakness, and worsening shortness of breath, states that he was doing fine till yesterday night, was on the toilet at about 9:30 PM.He was unable to get up and reported difficulty with his left knee. Upper GI bleed, with hemorrhagic shock -Status post units 3 units PRBC, 2 units FFP, protamine sulfate - 3 episode of bloody bowel movement this morning, status post EGD, gastric and duodenal ulcers, no active bleeding -Hemoglobin 7.6, INR 1.06 -Monitor hemoglobin closely -Transfuse if less than 7 -Status post EGD showed gastric and duodenal ulcer with injection of epinephrine -Continue to monitor same hemoglobins every 6 hours, monitor for bloody or black stools, monitor hemodynamics -Right IJ in place, Levophed maintain MAP greater than 65 -Continue intubation, mechanical ventilation protect airway, plan for extubation today -Monitor for fluid overload, will diurese today, creatinine 1.5 -Protonix 40 IV twice daily, Carafate 4 times daily -Hold aspirin, hold Lovenox Acute respiratory failure -O2 records have increased to 60%, likely sec to fluid overload, A. fib -Intubated for airway protection, risk of aspiration, risk of fluid overload, decreased mentation on BiPAP -Continue intubation, mechanical ventilation -Fentanyl, propofol for sedation -Daily spontaneous breathing trials, plan plan for extubation today -Rate control, diuresis today #Acute CVA -CT of the head shows: 1. Extensive multifocal small-vessel ischemic change along with encephalomalacia in the left posterior parietal and occipital regions. 2. Additional hypodensity in the left posterior cerebellum, suspicious for an ischemic infarct. MRI can be performed for improved characterization, as clinically indicated. -Currently moving all upper and lower extremities, no facial droop, no slurring of words, hasn't gotten up out of bed, is bedbound -All evident of embolic CVAs related to atrial fibrillation, likely embolic -Likely patient's respiratory failure, component related to aspiration event, aspiration pneumonia -Currently n.p.o. -Speech therapy eval -PT OT once stable -Aspirin on hold, statin -Lovenox discontinued #A. fib with RVR: On Cardizem 60 every 6 lovenox on hold Continue telemetry monitoring #Right lung collapse, resolving -Chest x-ray showing whiteout of right lung, resolved #Acute renal failure -Creatinine up to 1.5 urine output 1175 -Rhabdomyolysis -Did receive contrast 2 days ago #Rhabdomyolysis, -CPK over 390 -Monitor for now -We will avoid fluids as concerns for fluid overload #Decompensated heart failure: Combination of systolic and diastolic CHF, patient presented with worsening shortness of breath. Has bilateral lower extremity 1+ + pitting edema, bilateral moderate to large pleural effusion, interstitial edema. Elevated proBNP. No recent echo, according to daughter last echo was done around 5 years back. 2D echo: Technically limited quality echocardiogram because of poor ultrasonic windows. LV systolic function is grossly moderately reduced. Right ventricle is dilated and severely hypokinetic. Left atrium is dilated. Thickened aortic valve. Moderate to severe low-flow low gradient aortic stenosis noted. Mild tricuspid regurgitation No comparison studies are available Creatinine level 1.5, monitor urine output Will diurese today Intake output charting Daily weight k>4,mg>2 #Bilateral pleural effusions, ultrasound thoracocentesis 1 L out on the right #AC on Chronic hypoxic hypercapnic respiratory failure: Likely secondary to decompensated heart failure, possible underlying pneumonia, aspiration, mucous plugging Possible underlying pneumonia/aspiration, blood cultures, sputum cultures On Zosyn, doxycycline Repeat ABG tomorrow morning on ventilation DuoNebs Monitor ABG Left hernandez cellulitis -Continue doxycycline, Zosyn as above #Diabetes: Lantus 30 subcu daily Low-dose sliding scale insulin Cardiac carbohydrate consistent diet Monitor fingerstick glucose #Hypertension: #COPD: Plan as above #Elevated CK: Follow CK in a.m. 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
--- NOTE | 2021-05-06 16:57 | PC.NURSE ---
1700 All sedation stopped per dr orders, RT has patient on CPAP, pravin well. Dr. Rios visited, orders to extubate. 1715 RT extubated patient, placed on 6l n/c, awarke and alert. Asking for a drink of water. 1730 Removed NG as ordered. Ice chips given and pravin well.
[2021-05-06] MEDS: oxyCODONE-APAP 10-325 mg Tablet 1 TAB PO (18:01)
[2021-05-06 18:29] LABS: Glucose Point of Care 171 mg/dL (70-110)
[2021-05-06 20:09] LABS: Glucose Point of Care 153 mg/dL (70-110)
--- NOTE | 2021-05-06 21:49 | PC.NURSE ---
Addendum entered by Shasha Millard RN 05/07/21 06:00: Witnessed waste Original Note: Wasted 129ml of fentanyl. Second manager post and witness was INGA Pulliam.
[2021-05-06] MEDS: fentaNYL 50 mcg/mL INJ 2mL 25 MCG IVP (22:33)
[2021-05-07] VITALS (61 sets, daily range): BP systolic 91–133; BP diastolic 38–78; PULSE 72–90; RESP 14–47; TEMP 36.4–36.9; O2SAT 78–99; BMI 29.4
[2021-05-07] MEDS: ipratropium-albuterol 3 mL Neb INHALATION ×5 (00:50→20:15)
[2021-05-07] MEDS: piperacillin-tazobactam 3.375 GM in sodium chloride 0.9% (plus) 50 ML IV ×3 (02:13→17:26)
[2021-05-07] MEDS: fentaNYL 50 mcg/mL INJ 2mL 25 MCG IVP ×2 (04:48→07:38)
[2021-05-07] MEDS: dilTIAZem 60 mg Tablet PO ×4 (04:49→21:51)
[2021-05-07 04:59] LABS: ABG PCO2 41.5 mmHg (35-45); ABG PH Result 7.46 (7.35-7.45); Arterial Blood Gas Hematocrit 23.3 % (42-52); Base Excess ABG 4.9 mmol/L (-2.0-2.0); Blood Gas Allen Test Pos; Blood Gas Operator Identificat JB; Blood Gas Sample Site Radial, right; Blood Gas Sample Type Arterial; HCO3 ABG 29.2 mmol/L (22-26); Oxygen Device NC; PO2 ABG 61.4 mmHg (80.0-100.0)
[2021-05-07 05:01] LABS: Basophils # 0.1 10^3/uL (0.0-0.1); Basophils % 0.4 %; Eosinophils # 0.2 10^3/uL (0.0-0.8); Eosinophils % 1.2 %; Hemoglobin 7.2 g/dL (11.7-16.6); Lymphocytes % 14.3 %; Mean Corpuscular Hemoglobin 27.6 pg (28.0-34.0); Monocytes # 1.1 10^3/uL (0.2-0.9); Monocytes % 7.8 %; Neutrophils # 10.82 10^3/uL (1.8-7.7); Neutrophils % 75.9 %; Nucleated Red Blood Cells % 0.1 %; Platelet Count 300 10^3/cmm (130-400); Red Blood Count 2.61 10^6/uL (4.1-5.3); Red Cell Distribution Width 17.2 % (12.1-15.1); White Blood Count 14.3 10^3/uL (4.0-10.0)
[2021-05-07 05:17] LABS: Lactate (Lactic Acid level) 0.8 mmol/L (0.5-2.2)
[2021-05-07 05:21] LABS: Alanine Aminotransferase 22 U/L (0-41); Albumin Level 2.6 g/dL (3.5-5.2); Alkaline Phosphatase 70 IU/L (40-130); Anion Gap 22.8 (5-19); Aspartate Amino Transferase 104 U/L (0-40); Blood Urea Nitrogen 34 mg/dL (8-23); C Reactive Protein 124.6 mg/L (0.0-4.9); Calcium 8.2 mg/dL (8.5-10.5); Carbon Dioxide 25 mmol/L (22-29); Chloride 98 mmol/L (98-107); Globulin 3.4 g/dL (1.3-4.6); Glucose 125 mg/dL (65-115); Magnesium 1.9 mg/dL (1.7-2.3); Osmolality Calculated 303 mOsm/kg (285-295); Phosphorus 3.2 mg/dL (2.5-4.5); Potassium 3.8 mmol/L (3.5-5.1); Sodium 142 mmol/L (136-145); Total Bilirubin 0.4 mg/dL (0.15-1.2)
[2021-05-07 05:26] LABS: NT Pro B Type Natriuretic Pept 5375 pg/mL (0-125); Procalcitonin 0.23 ng/mL (0-0.5)
[2021-05-07 05:33] LABS: INR 1.22 (0.8-1.2)
[2021-05-07 06:06] LABS: Creatine Phosphokinase 2511 U/L (39-308)
--- NOTE | 2021-05-07 07:36 | PC.NURSE ---
Patient's oxygen saturation dropped to the high 70's. Nurse entered room and patient had removed the nasal cannula. WHen asked about the removal, patient said he purposefully removed it to get us to come into the room. Nurse educated patient on use of call light, which was available to him when he removed his oxygen.
[2021-05-07 07:50] LABS: Glucose Point of Care 145 mg/dL (70-110)
[2021-05-07] MEDS: pantoprazole 40 mg SDV IVP ×2 (09:26→21:50)
[2021-05-07] MEDS: FUROsemide 10 mg/mL SDV 4mL 40 MG IVP (09:26)
[2021-05-07] MEDS: insulin lispro 100 unit/1 mL SUBCUT ×3 (09:28→22:10)
[2021-05-07] MEDS: metOLazone 5 MG Tablet 10 MG PO (09:28)
[2021-05-07] MEDS: cholecalciferol (vitamin D3) 1,000 unit Tablet 1000 UNIT PO (09:28)
[2021-05-07] MEDS: atorvastatin 40 mg Tablet 80 MG PO (09:28)
[2021-05-07] MEDS: sucralfate 1 gm Tablet PO ×4 (09:28→21:51)
[2021-05-07] MEDS: doxycycline 100 MG in sodium chloride 0.9% (plus) 100 ML IV (12:09)
[2021-05-07] MEDS: oxyCODONE-APAP 10-325 mg Tablet 1 TAB PO ×2 (12:15→15:46)
[2021-05-07 12:29] LABS: Glucose Point of Care 122 mg/dL (70-110)
[2021-05-07] MEDS: gabapentin 300 mg Capsule PO (13:16)
--- NOTE | 2021-05-07 14:34 | PM.PN ---
Subjective Subjective: Interval history: Patient was seen this morning, he tells me he is thirsty, he wants to drink the water at bedside, currently on 6 L, afebrile, normotensive, he was successfully extubated yesterday evening to 6 L, denies any nausea, no vomiting, no chest pain, palpitations, no weakness is able to wiggle both his toes, squeeze my fingers, able to smile Vitals/I&O/Wt Last Vital Signs Temp 98.3 F 05/07/21 08:00 Pulse 81 05/07/21 11:23 Resp 28 H 05/07/21 12:15 BP 111/46 05/07/21 10:00 Pulse Ox 92 05/07/21 12:15 05/06/21 05/07/21 05/07/21 22:59 06:59 14:59 Intake Total 271.000 / 409.387 150 / 559.387 Output Total 1000 / 1000 450 / 1450 Balance -729.000 / -590.613 -300 / -890.613 Weight last 48 hrs Weight 101.151 kg Weight 100.97 kg Physical Exam Const: COMMON NORMALS: no acute distress and patient oriented x3 HENMT: COMMON NORMALS: normocephalic HEAD & SCALP: normocephalic Resp: COMMON NORMALS: normal respiratory effort, No retractions, No use of accessory muscles and clear to auscultation bilaterally AUSCULTATION: clear to auscultation bilaterally Cardio: COMMON NORMALS: regular rate, regular rhythm, S1 normal heart sound present and S2 normal heart sound present RATE: regular rate RHYTHM: regular rhythm HEART SOUNDS: S1 normal heart sound present and S2 normal heart sound present GI: COMMON NORMALS: Normal to inspection, nondistended, normoactive bowel sounds present, Soft to palpation and non-tender PALPATION: Yes Soft to palpation Extremity: COMMON NORMALS: no pedal edema Neuro: COMMON NORMALS: patient oriented x3 Psych: COMMON NORMALS: mental status grossly normal Urinary Catheter Management^: Corbin: Cath Placed During This Visit: yes Reason for Continuing Indwelling Catheter: Accurate Measurement of Urinary Output in Critically Ill Patients Urinary Catheter Date of Insertion: 04/27/21 Data : 05/07/21 04:19 05/07/21 04:19 A&P Assessment and plan (1) Atrial fibrillation with rapid ventricular response: Status: Acute (2) Heart failure: Status: Acute (3) Acute on chronic respiratory failure with hypoxia and hypercapnia: Status: Acute (4) COPD (chronic obstructive pulmonary disease): Status: Acute (5) Diabetes: Status: Acute (6) Hypertension: Status: Acute (7) CVA (cerebral vascular accident): Status: Acute (8) Aspiration into respiratory tract: Status: Acute (9) Aspiration pneumonia: Status: Acute (10) Upper GI bleed: Status: Acute (11) Hemorrhagic shock: Status: Acute (12) Acute respiratory failure: Status: Acute Additional A&P Information 75 year old male with past medical history of hypertension, diabetes, heart failure, COPD, stays alone at home, and take care of himself, was brought in by chief complaint of weakness, and worsening shortness of breath, states that he was doing fine till yesterday night, was on the toilet at about 9:30 PM.He was unable to get up and reported difficulty with his left knee. Upper GI bleed, with hemorrhagic shock -Status post units 3 units PRBC, 2 units FFP, protamine sulfate -Hemoglobin 7.2, INR 1.22 -Monitor hemoglobin closely -Transfuse if less than 7 -Status post EGD showed gastric and duodenal ulcer with injection of epinephrine, with repeat EGD 05/06/2021 due to recurrent black stools without any significant evidence of active bleeding -No repeat bloody or black stools -Right IJ in place, Levophed maintain MAP greater than 65 -Creatinine 1.4, 1 dose Lasix and metolazone -Protonix 40 IV twice daily, Carafate 4 times daily -Hold aspirin, hold Lovenox Acute respiratory failure -Fluid overload, diastolic CHF, pulm edema -Extubated 05/06/2021 -Currently 6 L - -1.8 L -Diuresis with Lasix and metolazone today #Acute CVA -CT of the head shows: 1. Extensive multifocal small-vessel ischemic change along with encephalomalacia in the left posterior parietal and occipital regions. 2. Additional hypodensity in the left posterior cerebellum, suspicious for an ischemic infarct. MRI can be performed for improved characterization, as clinically indicated. -Currently moving all upper and lower extremities, no facial droop, no slurring of words, hasn't gotten up out of bed, is bedbound -All evident of embolic CVAs related to atrial fibrillation, likely embolic -Likely patient's respiratory failure, component related to aspiration event, aspiration pneumonia -Currently n.p.o. -Speech therapy eval -PT OT once stable -Aspirin on hold, statin -Lovenox discontinued #A. fib with RVR: On Cardizem 60 every 6 lovenox on hold Continue telemetry monitoring #Right lung collapse, resolving -Chest x-ray showing whiteout of right lung, resolved #Acute renal failure -Creatinine up to 1.2 -Rhabdomyolysis -Did receive contrast 2 days ago #Rhabdomyolysis, -CPK over 390 -Monitor for now -We will avoid fluids as concerns for fluid overload #Decompensated heart failure: Combination of systolic and diastolic CHF, patient presented with worsening shortness of breath. Has bilateral lower extremity 1+ + pitting edema, bilateral moderate to large pleural effusion, interstitial edema. Elevated proBNP. No recent echo, according to daughter last echo was done around 5 years back. 2D echo: Technically limited quality echocardiogram because of poor ultrasonic windows. LV systolic function is grossly moderately reduced. Right ventricle is dilated and severely hypokinetic. Left atrium is dilated. Thickened aortic valve. Moderate to severe low-flow low gradient aortic stenosis noted. Mild tricuspid regurgitation No comparison studies are available Creatinine level 1.5, monitor urine output Will diurese today Intake output charting Daily weight k>4,mg>2 #Bilateral pleural effusions, ultrasound thoracocentesis 1 L out on the right #AC on Chronic hypoxic hypercapnic respiratory failure: Likely secondary to decompensated heart failure, possible underlying pneumonia, aspiration, mucous plugging Possible underlying pneumonia/aspiration, blood cultures, sputum cultures On Zosyn, doxycycline DuoNebs Monitor ABG Left hernandez cellulitis -Continue doxycycline, Zosyn as above #Diabetes: Lantus 30 subcu daily Low-dose sliding scale insulin Cardiac carbohydrate consistent diet Monitor fingerstick glucose #Hypertension: #COPD: Plan as above #Elevated CK: Follow CK in a.m. labs CODE STATUS: Full code DVT prophylaxis: scd We will moved to general medical floors today Attestations Medical Necessity Statement*: Patient requires hospitalization for GI bleed, acute respiratory failure, acute CVA, decompensated heart failure, critical care time spent over 35 minutes Coding Level of Care Code Acute Brilliandeer Looper for Chg Fwd Diagnoses Atrial fibrillation with rapid ventricular response I48.91 Heart failure I50.9 Acute on chronic respiratory failure with hypoxia and hypercapnia J96.21; J96.22 COPD (chronic obstructive pulmonary disease) J44.9 Diabetes E11.9 Hypertension I10 CVA (cerebral vascular accident) I63.9 Aspiration into respiratory tract T17.908A Aspiration pneumonia J69.0 Upper GI bleed K92.2 Hemorrhagic shock R57.8 Acute respiratory failure J96.00
--- NOTE | 2021-05-07 16:52 | PC.NURSE ---
Patient again removed oxygen and states he did so so his oxygen levels would drop in order to get the nurses attention. Call light was available to the patient. Patient has been educated again on the use of the call light.
[2021-05-07 17:18] LABS: Glucose Point of Care 161 mg/dL (70-110)
[2021-05-07] MEDS: HYDROmorphone 1 mg/mL INJ 1 mL 0.5 MG IVP (17:25)
[2021-05-07 18:08] LABS: Basophils # 0.1 10^3/uL (0.0-0.1); Basophils % 0.4 %; Eosinophils # 0.2 10^3/uL (0.0-0.8); Eosinophils % 1.2 %; Hematocrit 23.5 % (42.0-52.0); Lymphocytes # 1.2 10^3/uL (0.8-4.8); Lymphocytes % 8.8 %; Mean Corpuscular HGB Conc 29.8 g/dL (30.0-36.0); Mean Corpuscular Hemoglobin 27.3 pg (28.0-34.0); Mean Corpuscular Volume 91.8 fl (80-94); Mean Platelet Volume 10.1 fL (7.4-10.4); Monocytes # 0.8 10^3/uL (0.2-0.9); Monocytes % 6.3 %; Neutrophils # 11.08 10^3/uL (1.8-7.7); Neutrophils % 82.6 %; Nucleated Red Blood Cells % 0.2 %; Platelet Count 318 10^3/cmm (130-400); Red Blood Count 2.56 10^6/uL (4.1-5.3); Red Cell Distribution Width 17.3 % (12.1-15.1); White Blood Count 13.4 10^3/uL (4.0-10.0)
--- NOTE | 2021-05-07 19:20 | PC.NURSE ---
Shift Summary: Overall, uneventful shift. Patient rested in bed throughout the day. Frequently complained of pain, for which PRN hydropmorphone and oxycodone were given. Gabapentin also started. Near end of shift, patient's HGB was check again and was shown to have decreased form 7.2 in the morning to 7 at night. Nurse received order for 1 unit of PRBC. Instead of using call light, patient would take oxygen off to cause saturation to drop, prompting nurse's attention. Patient refused speech language eval and wants them to come back tommorow.
[2021-05-07 21:56] LABS: Glucose Point of Care 214 mg/dL (70-110)
[2021-05-08] VITALS (44 sets, daily range): BP systolic 101–123; BP diastolic 32–84; PULSE 65–86; RESP 12–39; TEMP 36.6–37.1; O2SAT 84–98
[2021-05-08] MEDS: ipratropium-albuterol 3 mL Neb INHALATION ×6 (00:40→20:16)
[2021-05-08] MEDS: piperacillin-tazobactam 3.375 GM in sodium chloride 0.9% (plus) 50 ML IV ×3 (01:08→18:30)
[2021-05-08] MEDS: doxycycline 100 MG in sodium chloride 0.9% (plus) 100 ML IV ×2 (01:08→12:43)
[2021-05-08] MEDS: HYDROmorphone 1 mg/mL INJ 1 mL 0.5 MG IVP ×2 (01:57→09:38)
[2021-05-08 03:46] LABS: Basophils # 0.1 10^3/uL (0.0-0.1); Basophils % 0.5 %; Eosinophils # 0.2 10^3/uL (0.0-0.8); Eosinophils % 1.9 %; Hematocrit 25.3 % (42.0-52.0); Hemoglobin 7.6 g/dL (11.7-16.6); Lymphocytes # 1.9 10^3/uL (0.8-4.8); Mean Corpuscular Hemoglobin 27.4 pg (28.0-34.0); Mean Corpuscular Volume 91.3 fl (80-94); Mean Platelet Volume 10.1 fL (7.4-10.4); Monocytes # 1.1 10^3/uL (0.2-0.9); Monocytes % 9.3 %; Neutrophils # 8.73 10^3/uL (1.8-7.7); Neutrophils % 71.7 %; Nucleated Red Blood Cells % 0.2 %; Platelet Count 298 10^3/cmm (130-400); Red Blood Count 2.77 10^6/uL (4.1-5.3); Red Cell Distribution Width 16.9 % (12.1-15.1); White Blood Count 12.2 10^3/uL (4.0-10.0)
[2021-05-08 04:02] LABS: Lactate (Lactic Acid level) 0.6 mmol/L (0.5-2.2)
[2021-05-08 04:13] LABS: Alanine Aminotransferase 20 U/L (0-41); Albumin Level 2.9 g/dL (3.5-5.2); Alkaline Phosphatase 74 IU/L (40-130); Anion Gap 18.4 (5-19); Aspartate Amino Transferase 82 U/L (0-40); Blood Urea Nitrogen 30 mg/dL (8-23); C Reactive Protein 122.8 mg/L (0.0-4.9); Carbon Dioxide 29 mmol/L (22-29); Chloride 98 mmol/L (98-107); Glucose 98 mg/dL (65-115); Magnesium 1.9 mg/dL (1.7-2.3); Osmolality Calculated 300 mOsm/kg (285-295); Potassium 3.4 mmol/L (3.5-5.1); Sodium 142 mmol/L (136-145); Total Bilirubin 0.5 mg/dL (0.15-1.2); Total Protein 5.9 g/dL (6.6-8.7)
[2021-05-08 04:21] LABS: NT Pro B Type Natriuretic Pept 16729 pg/mL (0-125); Procalcitonin 0.23 ng/mL (0-0.5)
[2021-05-08 04:39] LABS: INR 1.09 (0.8-1.2)
[2021-05-08] MEDS: dilTIAZem 60 mg Tablet PO ×3 (04:47→22:59)
[2021-05-08 04:53] LABS: Creatine Phosphokinase 1950 U/L (39-308)
[2021-05-08 07:18] LABS: Glucose Point of Care 139 mg/dL (70-110)
[2021-05-08] MEDS: atorvastatin 40 mg Tablet 80 MG PO (08:15)
[2021-05-08] MEDS: gabapentin 300 mg Capsule PO (08:15)
[2021-05-08] MEDS: sucralfate 1 gm Tablet PO ×4 (08:15→22:59)
[2021-05-08] MEDS: cholecalciferol (vitamin D3) 1,000 unit Tablet 1000 UNIT PO (08:15)
[2021-05-08] MEDS: pantoprazole 40 mg SDV IVP ×2 (08:16→23:39)
[2021-05-08] MEDS: polyethylene glycol 3350 Pkt 17 gm PO ×2 (09:30→23:00)
[2021-05-08] MEDS: docusate sodium 100 mg Capsule PO ×2 (09:30→22:59)
[2021-05-08] MEDS: FUROsemide 10 mg/mL SDV 4mL 40 MG IVP (09:30)
[2021-05-08] MEDS: lidocaine 1% 5 ML in potassium chloride premix 100 ML 25 ML IV (09:31)
[2021-05-08] MEDS: metOLazone 5 MG Tablet PO (09:31)
--- NOTE | 2021-05-08 09:46 | PC.SOCIAL ---
IMM Update pg 2 of IMM updated and reviewed w/ patient. Copy provided.
--- NOTE | 2021-05-08 10:24 | PC.NURSE ---
Rounding with Dr. Rios this am, verbal orders received to remove Corbin catheter and Right side Central line.
[2021-05-08 11:33] LABS: Glucose Point of Care 220 mg/dL (70-110)
--- NOTE | 2021-05-08 11:56 | P.PN_ITS ---
Subjective Subjective: Interval history: Patient was seen this morning, is alert to person, to place, not to time, follows all commands, no trouble swallowing, no choking, no shortness of breath, no nausea, no vomiting, no chest pain, no bloody or black stools Vitals/I&O/Wt Last Vital Signs Temp 98.7 F 05/08/21 07:00 Pulse 67 05/08/21 10:30 Resp 22 H 05/08/21 10:30 BP 119/43 05/08/21 10:30 Pulse Ox 95 05/08/21 10:30 05/07/21 05/08/21 05/08/21 22:59 06:59 14:59 Intake Total 1300 / 2179 150 / 2329 350 / 350 Output Total 700 / 700 475 / 1175 Balance 600 / 1479 -325 / 1154 350 / 350 Weight last 48 hrs Weight 98.883 kg Weight 101.151 kg Physical Exam Const: COMMON NORMALS: no acute distress GENERAL APPEARANCE: frail appearing ORIENTATION/CONSCIOUSNESS: Yes awake, Yes oriented to person and Yes oriented to place Resp: COMMON NORMALS: normal respiratory effort, No retractions, No use of accessory muscles and clear to auscultation bilaterally AUSCULTATION: clear to auscultation bilaterally Cardio: COMMON NORMALS: regular rate, regular rhythm, S1 normal heart sound present and S2 normal heart sound present RATE: regular rate RHYTHM: regular rhythm HEART SOUNDS: S1 normal heart sound present and S2 normal heart sound present GI: COMMON NORMALS: Normal to inspection, nondistended, normoactive bowel sounds present, Soft to palpation and non-tender PALPATION: Yes Soft to palpation Extremity: COMMON NORMALS: no pedal edema Neuro: SENSORIUM/ORIENTATION: Yes oriented to person and Yes oriented to place Psych: COMMON NORMALS: mental status grossly normal Urinary Catheter Management^: Corbin: Cath Placed During This Visit: yes Reason for Continuing Indwelling Catheter: Accurate Measurement of Urinary Output in Critically Ill Patients Urinary Catheter Date of Insertion: 04/27/21 Data : 05/08/21 03:08 05/08/21 03:08 A&P Assessment and plan (1) Atrial fibrillation with rapid ventricular response: Status: Acute (2) Heart failure: Status: Acute (3) Acute on chronic respiratory failure with hypoxia and hypercapnia: Status: Acute (4) COPD (chronic obstructive pulmonary disease): Status: Acute (5) Diabetes: Status: Acute (6) Hypertension: Status: Acute (7) CVA (cerebral vascular accident): Status: Acute (8) Aspiration into respiratory tract: Status: Acute (9) Aspiration pneumonia: Status: Acute (10) Upper GI bleed: Status: Acute (11) Hemorrhagic shock: Status: Acute (12) Acute respiratory failure: Status: Acute Additional A&P Information 75 year old male with past medical history of hypertension, diabetes, heart failure, COPD, stays alone at home, and take care of himself, was brought in by chief complaint of weakness, and worsening shortness of breath, states that he was doing fine till yesterday night, was on the toilet at about 9:30 PM.He was unable to get up and reported difficulty with his left knee. Upper GI bleed, with hemorrhagic shock -Status post units 4 units PRBC, 2 units FFP, protamine sulfate -Hemoglobin 7.6 -Monitor hemoglobin closely -Transfuse if less than 7 -Status post EGD showed gastric and duodenal ulcer with injection of epinephrine, with repeat EGD 05/06/2021 due to recurrent black stools without any significant evidence of active bleeding -No repeat bloody or black stools -Right IJ in place, removed today as remains normotensive -Creatinine 1.3, 1 dose Lasix and metolazone -Protonix 40 IV twice daily, Carafate 4 times daily -Hold aspirin, hold Lovenox Acute respiratory failure -Fluid overload, diastolic CHF, pulm edema -Extubated 05/06/2021 -Currently 6 L - - 300 cc -Diuresis with Lasix today #Acute CVA -CT of the head shows: 1. Extensive multifocal small-vessel ischemic change along with encephalomalacia in the left posterior parietal and occipital regions. 2. Additional hypodensity in the left posterior cerebellum, suspicious for an ischemic infarct. MRI can be performed for improved characterization, as clinically indicated. -Currently moving all upper and lower extremities, no facial droop, no slurring of words, hasn't gotten up out of bed, is bedbound -All evident of embolic CVAs related to atrial fibrillation, likely embolic -Likely patient's respiratory failure, component related to aspiration event, aspiration pneumonia -Currently n.p.o. -Speech therapy eval -PT OT once stable -Aspirin on hold, statin on hold given rhabdo -Lovenox discontinued #A. fib with RVR: On Cardizem 60 every 6 lovenox on hold Continue telemetry monitoring #Right lung collapse, resolving -Chest x-ray showing whiteout of right lung, resolved #Acute renal failure -Creatinine up to 1.30 -Rhabdomyolysis -Continue to monitor #Rhabdomyolysis, -CPK over 1950, creatinine 1.3 -Monitor for now -We will avoid fluids as concerns for fluid overload #Decompensated heart failure: Combination of systolic and diastolic CHF, patient presented with worsening shortness of breath. Has bilateral lower extremity 1+ + pitting edema, bilateral moderate to large pleural effusion, interstitial ed [place]. Elevated proBNP. No recent echo, according to daughter last echo was done around 5 years back. 2D echo: Technically limited quality echocardiogram because of poor ultrasonic windows. LV systolic function is grossly moderately reduced. Right ventricle is dilated and severely hypokinetic. Left atrium is dilated. Thickened aortic valve. Moderate to severe low-flow low gradient aortic stenosis noted. Mild tricuspid regurgitation No comparison studies are available Creatinine level 1.3, monitor urine output Will diurese today Intake output charting Daily weight k>4,mg>2 #Bilateral pleural effusions, ultrasound thoracocentesis 1 L out on the right #AC on Chronic hypoxic hypercapnic respiratory failure: Likely secondary to decompensated heart failure, possible underlying pneumonia, aspiration, mucous plugging Possible underlying pneumonia/aspiration, blood cultures, sputum cultures On Zosyn, doxycycline DuoNebs Monitor ABG Left hernandez cellulitis -Continue doxycycline, Zosyn as above #Diabetes: Lantus 30 subcu daily Low-dose sliding scale insulin Cardiac carbohydrate consistent diet Monitor fingerstick glucose #Hypertension: #COPD: Plan as above CODE STATUS: Full code DVT prophylaxis: scd We will moved to general medical floors today Attestations Medical Necessity Statement*: Patient requires hospital For GI bleed, diastolic CHF, rhabdo, A. fib, chronic inpatient hospitalization Coding Level of Care Code Acute Stave Cutter for Chg Fwd Diagnoses Atrial fibrillation with rapid ventricular response I48.91 Heart failure I50.9 Acute on chronic respiratory failure with hypoxia and hypercapnia J96.21; J96.22 COPD (chronic obstructive pulmonary disease) J44.9 Diabetes E11.9 Hypertension I10 CVA (cerebral vascular accident) I63.9 Aspiration into respiratory tract T17.908A Aspiration pneumonia J69.0 Upper GI bleed K92.2 Hemorrhagic shock R57.8 Acute respiratory failure J96.00
[2021-05-08] MEDS: insulin lispro 100 unit/1 mL SUBCUT ×3 (12:44→22:59)
--- NOTE | 2021-05-08 12:51 | PM.PN ---
Subjective Subjective: Interval history: Patient is a awake denies any nausea or vomiting, tolerating clear liquid diet. No hematemesis, melena or hematochezia Vitals/I&O/Wt Last Vital Signs Temp 98.7 F 05/08/21 07:00 Pulse 67 05/08/21 10:30 Resp 22 H 05/08/21 10:30 BP 119/43 05/08/21 10:30 Pulse Ox 95 05/08/21 10:30 05/07/21 05/08/21 05/08/21 22:59 06:59 14:59 Intake Total 1300 / 2329 150 / 2329 350 / 350 Output Total 700 / 1175 475 / 1175 Balance 600 / 1154 -325 / 1154 350 / 350 Weight last 48 hrs Weight 218 lb Weight 223 lb Physical Exam Narrative: EXAM NARRATIVE: Abdomen: Soft, nontender, nondistended Urinary Catheter Management^: Corbin: Cath Placed During This Visit: yes Reason for Continuing Indwelling Catheter: Accurate Measurement of Urinary Output in Critically Ill Patients Urinary Catheter Date of Insertion: 04/27/21 Data : 05/08/21 03:08 05/08/21 03:08 A&P Assessment and plan (1) Gastric ulcer: 75-year-old male with upper GI bleed who underwent EGD with injection of epinephrine around a gastric and duodenal ulcer. Patient had a repeat EGD which showed no active bleeding. His hemoglobin is 7.6 after 1 unit PRBC. No evidence of active GI bleed Advance to GI soft diet Protonix 40 mg twice daily and Carafate 1 g p.o. 4 times daily Status: Acute Attestations Medical Necessity Statement*: As per primary Coding Level of Care Code Acute [employer] Cloth Inspector for [facility] Fwd Diagnoses Gastric ulcer K25.9
[2021-05-08] MEDS: acetaminophen 325 mg Tablet 650 MG PO (13:23)
--- NOTE | 2021-05-08 16:24 | PC.NURSE ---
Uneventful transfer to 2nd floor room 261. patient resting in bed with 2nd floor nurse at bedside. Patient chart left with nurse. patient belongings with patient accompanied by daughter, norma.
[2021-05-08 17:57] LABS: Glucose Point of Care 230 mg/dL (70-110)
[2021-05-08 22:00] LABS: Glucose Point of Care 167 mg/dL (70-110)
[2021-05-09] VITALS (17 sets, daily range): BP systolic 85–143; BP diastolic 45–61; PULSE 77–160; RESP 18–32; TEMP 36.8–37.6; O2SAT 81–95
[2021-05-09] MEDS: ipratropium-albuterol 3 mL Neb INHALATION ×4 (00:15→21:34)
[2021-05-09] MEDS: doxycycline 100 MG in sodium chloride 0.9% (plus) 100 ML IV (01:23)
[2021-05-09] MEDS: piperacillin-tazobactam 3.375 GM in sodium chloride 0.9% (plus) 50 ML IV ×3 (02:24→17:43)
[2021-05-09] MEDS: dilTIAZem 60 mg Tablet PO ×2 (05:53→10:30)
[2021-05-09 06:48] LABS: Glucose Point of Care 194 mg/dL (70-110)
[2021-05-09 07:02] LABS: Basophils % 0.4 %; Eosinophils # 0.1 10^3/uL (0.0-0.8); Eosinophils % 1.3 %; Hematocrit 25.3 % (42.0-52.0); Hemoglobin 7.7 g/dL (11.7-16.6); Lymphocytes # 1.3 10^3/uL (0.8-4.8); Lymphocytes % 12.2 %; Mean Corpuscular HGB Conc 30.4 g/dL (30.0-36.0); Mean Corpuscular Hemoglobin 27.6 pg (28.0-34.0); Mean Corpuscular Volume 90.7 fl (80-94); Mean Platelet Volume 10.3 fL (7.4-10.4); Monocytes # 0.9 10^3/uL (0.2-0.9); Monocytes % 8.5 %; Neutrophils # 8.41 10^3/uL (1.8-7.7); Neutrophils % 76.9 %; Nucleated Red Blood Cells % 0 %; Platelet Count 327 10^3/cmm (130-400); Red Blood Count 2.79 10^6/uL (4.1-5.3); Red Cell Distribution Width 17.2 % (12.1-15.1); White Blood Count 10.9 10^3/uL (4.0-10.0)
[2021-05-09 07:10] LABS: INR 1.27 (0.8-1.2)
[2021-05-09 07:17] LABS: Alanine Aminotransferase 20 U/L (0-41); Albumin Level 2.9 g/dL (3.5-5.2); Alkaline Phosphatase 74 IU/L (40-130); Anion Gap 16.6 (5-19); Aspartate Amino Transferase 69 U/L (0-40); Blood Urea Nitrogen 32 mg/dL (8-23); C Reactive Protein 96.9 mg/L (0.0-4.9); Calcium 8.3 mg/dL (8.5-10.5); Carbon Dioxide 28 mmol/L (22-29); Chloride 98 mmol/L (98-107); Globulin 3.1 g/dL (1.3-4.6); Glucose 168 mg/dL (65-115); Magnesium 1.8 mg/dL (1.7-2.3); Osmolality Calculated 299 mOsm/kg (285-295); Phosphorus 2.5 mg/dL (2.5-4.5); Potassium 3.6 mmol/L (3.5-5.1); Sodium 139 mmol/L (136-145); Total Bilirubin 0.3 mg/dL (0.15-1.2)
[2021-05-09 07:30] LABS: NT Pro B Type Natriuretic Pept 14737 pg/mL (0-125); Procalcitonin 0.21 ng/mL (0-0.5)
--- NOTE | 2021-05-09 07:54 | PC.NURSE ---
nurses and rt are in the room at this time
--- NOTE | 2021-05-09 08:00 | ECG_ITS ---
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 Measurements Intervals [place] Rate: 135 P: MI: QRS: 14 QRSD: 103 T: -30 QT: 305 QTc: 457 Interpretive Statements ATRIAL FIBRILLATION WITH RAPID VENTRICULAR RESPONSE NONSPECIFIC ST & T-WAVE ABNORMALITY ABNORMAL RHYTHM ECG Compared to ECG 05/04/2021 09:05:15 T-wave abnormality now present Sinus tachycardia no longer present ST (T wave) deviation no longer present Electronically Signed On 05-10-2021 14:06:56 [employer] ARCHITECT by Freddy Vasques M.D. [id number] chris
[2021-05-09 08:03] LABS: Creatine Phosphokinase 1503 U/L (39-308)
--- NOTE | 2021-05-09 09:38 | XR_ITS ---
WS: [id number] Exam: XR chest 1V portable [id number] Date/Time of Exam: 05/09/2021 9:48 AM Reason For Exam: decreased O2 sats, increased oxygenation needs Comparison 05/06/2021. There is consolidating infiltrate and/or atelectasis in the right lower lung zone as well as the left basal region. The heart is enlarged. Bilateral pleural effusions are noted. Pulmonary vascularity is increased. ET tube, enteric tube and central line is been removed. There is plate and screw fixation involving multiple left-sided rib fractures. No pneumothorax is seen. XR/XR chest 1V portable [id number] IMPRESSION: 1. Bilateral pulmonary infiltrates and pleural effusions. Superimposed pneumoni a cannot be excluded. 2. Cardiac enlargement with increased pulmonary vascularity suggesting CHF.
[2021-05-09] MEDS: metoprolol tartrate 1 mg/1 mL SDV 5 mL 5 MG IVP (09:49)
[2021-05-09] MEDS: cholecalciferol (vitamin D3) 1,000 unit Tablet 1000 UNIT PO (09:57)
[2021-05-09] MEDS: sucralfate 1 gm Tablet PO ×4 (09:57→21:03)
[2021-05-09] MEDS: gabapentin 300 mg Capsule PO (09:57)
[2021-05-09] MEDS: pantoprazole 40 mg SDV IVP ×2 (10:00→21:03)
[2021-05-09] MEDS: insulin lispro 100 unit/1 mL SUBCUT ×2 (10:00→21:04)
[2021-05-09 10:27] LABS: ABG PCO2 52.4 mmHg (35-45); Base Excess ABG 6.6 mmol/L (-2.0-2.0); Blood Gas Allen Test Pos; Blood Gas Operator Identificat MONRO; Blood Gas Sample Site Radial, right; Blood Gas Sample Type Arterial; Carboxyhemoglobin 0.9 %THgb (0.4-20.1); HCO3 ABG 32.3 mmol/L (22-26); HGB O2 Sat 95.4 % (95-100); Ionized Calcium Level - ABG 1.2 mmol/L (1.1-1.4); Oxygen Device NC; Oxygen Saturation ABG 97.3; PO2 ABG 85.8 mmHg (80.0-100.0); Potassium Level - ABG 3.6 mmol/L (3.5-5.0); Total Hemoglobin 8.1 g/dL (14-18)
[2021-05-09] MEDS: metOLazone 5 MG Tablet PO ×2 (10:30→17:41)
[2021-05-09] MEDS: FUROsemide 10 mg/mL SDV 4mL 40 MG IVP ×2 (10:30→17:43)
[2021-05-09] MEDS: metoprolol tartrate 25 mg Tablet PO ×2 (10:30→21:04)
--- NOTE | 2021-05-09 14:49 | PC.CHAP ---
Pastoral Care Encounter/Spiritual Assessment Type of Contact [] Declined music professionals visit [] Patient/Family/Request visit [] Outpatient visit [xx] Follow-up visit [] Physician referral [] Code/Alert [] Routine visit [] Staff referral [] Actively dying [xx] Patient sleeping [] Family support [] [] Out of room [] Palliative care [] [] Receiving care in room [] Pre-surgical visit [] Trauma [xx] Long length of stay [] ICU visit [] Other: Relational/Emotional Strength [] Patient feels connected with others/family/visitors/staff [] Distress [] Loneliness/isolation [] Abandonment Spirituality of Patient [] Person of Ewa [] Attends Caodaism of their Ewa [] Believes in Prayer [] Reads Bible or Jewish materials [] There are Spiritual issues to be addressed Security Coordinator Interventions [] Prayer [] Active listening [] Non-anxious presence [] Spiritual/emotional support [] Crisis/trauma care [] Spiritual counseling [] Bereavement support [] Provided bereavement packet [] Provided Bible/devotional materials [] Provided toy/stuffed animal, coloring book to patient or family member [] Provided Communion [] Anointing/[place] [] Salvation [] Completed spiritual assessment [] Other: Impact on Illness or Injury [] Angry [] Fearful [] Anxious [] Often cries [] Exhaustion [] Unable to work [] Unable to attend religion [] Unable to walk/stand [] Unable to read [] Unable to drive [] Unable to eat/drink [] Unable to sleep [] Unable to be with family [] Patient intubated [] Other: Summary Security Coordinator visit should be attempted now. Time spent with patient
[2021-05-09] MEDS: dilTIAZem 60 mg Tablet 90 MG PO ×3 (14:55→22:33)
--- NOTE | 2021-05-09 15:59 | P.PN_ITS ---
Subjective Subjective: Interval history: I met with patient's sister last night, she would like patient be transferred to [facility] This morning patient was seen, he is having breakfast, he has no complaints, no nausea, no vomiting, currently in A. fib with RVR, heart rate in the 130s, was given metoprolol, his oxygen requirements have increased to 12 L, denies any shortness of breath currently, no chest pain, no palpitations, no choking episodes Review of chest x-ray shows bilateral pulm edema, was given 40 mg IV Lasix, 5 mg IV metoprolol, Cardizem increased to 90 every 6, metoprolol increased to 25 twice daily This afternoon patient's heart rate went back up to 130s, currently on 12 L, will be moved to the CSU for Cardizem drip, given additional 40 of Lasix with metolazone Vitals/I&O/Wt Last Vital Signs Temp 98.7 F 05/09/21 15:50 Pulse 130 H 05/09/21 15:54 Resp 20 H 05/09/21 15:50 BP 107/61 05/09/21 15:50 Pulse Ox 92 05/09/21 15:54 05/09/21 05/09/21 05/09/21 06:59 14:59 22:59 Intake Total 1110 / 2702.954 340 / 340 Balance 1110 / 2402.954 340 / 340 Weight last 48 hrs Weight 106.503 kg Weight 98.883 kg Physical Exam Const: COMMON NORMALS: no acute distress and patient oriented x3 GENERAL APPEARANCE: cooperative and frail appearing ORIENTATION/CONSCIOUSNESS: Yes awake, Yes oriented to person and Yes oriented to place; not oriented to time Resp: COMMON NORMALS: normal respiratory effort, No retractions and No use of accessory muscles AUSCULTATION: crackles Cardio: COMMON NORMALS: S1 normal heart sound present and S2 normal heart sound present RATE: tachycardic RHYTHM: abnormal rhythm irregularly irregular HEART SOUNDS: S1 normal heart sound present and S2 normal heart sound present GI: COMMON NORMALS: Normal to inspection, nondistended, normoactive bowel sounds present, Soft to palpation and non-tender PALPATION: Yes Soft to palp ation Extremity: COMMON NORMALS: no pedal edema Neuro: COMMON NORMALS: patient oriented x3 SENSORIUM/ORIENTATION: Yes oriented to person, Yes oriented to place and No oriented to time Psych: COMMON NORMALS: mental status grossly normal Urinary Catheter Management^: Corbin: Cath Placed During This Visit: yes Reason for Continuing Indwelling Catheter: Accurate Measurement of Urinary Output in Critically Ill Patients Urinary Catheter Date of Insertion: 04/27/21 Data : 05/09/21 05:55 05/09/21 05:55 A&P Assessment and plan (1) Atrial fibrillation with rapid ventricular response: Status: Acute (2) Heart failure: Status: Acute (3) Acute on chronic respiratory failure with hypoxia and hypercapnia: Status: Acute (4) COPD (chronic obstructive pulmonary disease): Status: Acute (5) Diabetes: Status: Acute (6) Hypertension: Status: Acute (7) CVA (cerebral vascular accident): Status: Acute (8) Aspiration into respiratory tract: Status: Acute (9) Aspiration pneumonia: Status: Acute (10) Upper GI bleed: Status: Acute (11) Hemorrhagic shock: Status: Acute (12) Acute respiratory failure: Status: Acute Additional A&P Information 75 year old male with past medical history of hypertension, diabetes, heart failure, COPD, stays alone at home, and take care of himself, was brought in by chief complaint of weakness, and worsening shortness of breath, states that he was doing fine till yesterday night, was on the toilet at about 9:30 PM.He was unable to get up and reported difficulty with his left knee. Currently with Wiley jones with RVR, with acute hypoxic respiratory failure secondary fluid overload -We will moved down to CSU for Cardizem drip -Continue Cardizem 90 every 6 hours, Toprol 25 twice daily -Monitor respiratory status closely -Possible mucous plugging, chest vest therapy, hypertonic saline, Mucomyst -Possible aspiration, aspiration pneumonitis, aspiration pneumonia, continue Zosyn, aspiration precautions, will have speech therapy see patient again, possibly requiring modified barium swallow on Wednesday Upper GI bleed, with hemorrhagic shock -Status post units 4 units PRBC, 2 units FFP, protamine sulfate -Hemoglobin 7.7 -Monitor hemoglobin closely -Transfuse if less than 7 -Status post EGD showed gastric and duodenal ulcer with injection of epinephrine, with repeat EGD 05/06/2021 due to recurrent black stools without any significant evidence of active bleeding -No repeat bloody or black stools -Right IJ in place, -Creatinine 1.3, -Protonix 40 IV twice daily, Carafate 4 times daily -Hold aspirin, hold Lovenox Acute respiratory failure -Fluid overload, diastolic CHF, pulm edema -Extubated 05/06/2021 -Currently 6 L -Diuresis with Lasix today #Acute CVA -CT of the head shows: 1. Extensive multifocal small-vessel ischemic change along with encephalomalacia in the left posterior parietal and occipital regions. 2. Additional hypodensity in the left posterior cerebellum, suspicious for an ischemic infarct. MRI can be performed for improved characterization, as clinically indicated. -Currently moving all upper and lower extremities, no facial droop, no slurring of words, hasn't gotten up out of bed, is bedbound -All evident of embolic CVAs related to atrial fibrillation, likely embolic -Likely patient's respiratory failure, component related to aspiration event, aspiration pneumonia -Currently n.p.o. -Speech therapy eval -PT OT once stable -Aspirin on hold, statin on hold given rhabdo -Lovenox discontinued #A. fib with RVR: As above lovenox on hold Continue telemetry monitoring #Right lung collapse, resolving -Chest x-ray showing whiteout of right lung, resolved #Acute renal failure -Creatinine up to 1.30 -Rhabdomyolysis -Continue to monitor #Rhabdomyolysis, -CPK over 1950, creatinine 1.3 -Monitor for now -We will avoid fluids as concerns for fluid overload #Decompensated heart failure: Combination of systolic and diastolic CHF, patient presented with worsening shortness of breath. Has bilateral lower extremity 1+ + pitting edema, bilateral moderate to large pleural effusion, interstitial edema. Elevated proBNP. No recent echo, according to daughter last echo was done around 5 years back. 2D echo: Technically limited quality echocardiogram because of poor ultrasonic windows. LV systolic function is grossly moderately reduced. Right ventricle is dilated and severely hypokinetic. Left atrium is dilated. Thickened aortic valve. Moderate to severe low-flow low gradient aortic stenosis noted. Mild tricuspid regurgitation No comparison studies are available Creatinine level 1.3, monitor urine output As above Intake output charting Daily weight k>4,mg>2 #Bilateral pleural effusions, ultrasound thoracocentesis 1 L out on the right #AC on Chronic hypoxic hypercapnic respiratory failure: Likely secondary to decompensated heart failure, possible underlying pneumonia, aspiration, mucous plugging Possible underlying pneumonia/aspiration, blood cultures, sputum cultures On Zosyn, DuoNebs Monitor ABG Left hernandez cellulitis -Completed antibiotic therapy #Diabetes: Lantus 30 subcu daily Low-dose sliding scale insulin Cardiac carbohydrate consistent diet Monitor fingerstick glucose #Hypertension: #COPD: Plan as above CODE STATUS: Full code DVT prophylaxis: scd Will moved to CSU Attestations Medical Necessity Statement*: Patient requires hospitalization for A. 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
[2021-05-09] MEDS: HYDROmorphone 1 mg/mL INJ 1 mL 0.5 MG IVP (17:57)
[2021-05-09 20:47] LABS: Glucose Point of Care 317 mg/dL (70-110)
[2021-05-09] MEDS: magnesium sulfate premix 2 GM/50 ML PIGGYBACK IV (21:01)
[2021-05-09] MEDS: docusate sodium 100 mg Capsule PO (21:03)
[2021-05-09] MEDS: polyethylene glycol 3350 Pkt 17 gm PO (21:04)
[2021-05-09] MEDS: sodium chloride 3.5% neb 4 mL Neb INHALATION (21:34)
[2021-05-09] MEDS: acetylcysteine 200 mg/mL SDV 4 mL 100 MG INHALATION (21:34)
[2021-05-09 23:04] LABS: Glucose Point of Care 222 mg/dL (70-110)
[2021-05-10] VITALS (31 sets, daily range): BP systolic 87–114; BP diastolic 52–68; PULSE 68–130; RESP 18–33; TEMP 36.9; O2SAT 81–100
[2021-05-10] MEDS: ipratropium-albuterol 3 mL Neb INHALATION ×5 (00:18→20:38)
--- NOTE | 2021-05-10 00:36 | PC.NURSE ---
Dr Ames on the floor. Informed Dr Ames of patient's anxiety with wearing bipap. SpO2 upper 60s to low 80s. Doctor assessed patient. Received verbal order for Ativan 2mg IVP onetime now. RBVO
[2021-05-10] MEDS: piperacillin-tazobactam 3.375 GM in sodium chloride 0.9% (plus) 50 ML IV ×3 (00:46→19:00)
[2021-05-10] MEDS: LORazepam 2 mg/mL INJ 1 mL IVP (00:46)
--- NOTE | 2021-05-10 01:08 | PC.NURSE ---
Patient's current heart rate dropping to 40 to mid 60s. Stopped cardizem drip at this time. Patient is currently receiving PO cardizem 90mg every 6 hours.
[2021-05-10 01:52] LABS: Adenovirus Not Detected (NOT DETECT); Chlamydia Pneumoniae Not Detected (NOT DETECT); Coronavirus 229E,HKU1,NL63,OC4 Not Detected (NOT DETECT); Human Metapneumovirus Not Detected (NOT DETECT); Human Rhinovirus/Enterovirus Not Detected (NOT DETECT); Influenza A Not Detected (NOT DETECT); Influenza A H1 Not Detected (NOT DETECT); Influenza A H1-2009 Not Detected (NOT DETECT); Influenza A H3 Not Detected (NOT DETECT); Influenza B Not Detected (NOT DETECT); Mycoplasma Pneumoniae Not Detected (NOT DETECT); Parainfluenza Virus Type 1 Not Detected (NOT DETECT); Parainfluenza Virus Type 2 Not Detected (NOT DETECT); Parainfluenza Virus Type 3 Not Detected (NOT DETECT); Parainfluenza Virus Type 4 Not Detected (NOT DETECT); Respiratory Syncytial Virus A Not Detected (NOT DETECT); Respiratory Syncytial Virus B Not Detected (NOT DETECT); SARS-COV-2 Not Detected (NOT DETECT)
[2021-05-10] MEDS: acetylcysteine 200 mg/mL SDV 4 mL 100 MG INHALATION ×2 (03:16→20:38)
[2021-05-10] MEDS: dilTIAZem 60 mg Tablet 90 MG PO ×2 (05:44→22:15)
[2021-05-10] MEDS: FUROsemide 10 mg/mL SDV 4mL 40 MG IVP ×2 (05:44→19:15)
[2021-05-10 05:57] LABS: Basophils # 0.1 10^3/uL (0.0-0.1); Basophils % 0.5 %; Eosinophils # 0.2 10^3/uL (0.0-0.8); Eosinophils % 1.4 %; Hematocrit 27.6 % (42.0-52.0); Hemoglobin 8.2 g/dL (11.7-16.6); Lymphocytes # 1.9 10^3/uL (0.8-4.8); Lymphocytes % 17.8 %; Mean Corpuscular HGB Conc 29.7 g/dL (30.0-36.0); Mean Corpuscular Hemoglobin 27.3 pg (28.0-34.0); Mean Platelet Volume 10.2 fL (7.4-10.4); Monocytes # 0.9 10^3/uL (0.2-0.9); Monocytes % 8.2 %; Neutrophils # 7.53 10^3/uL (1.8-7.7); Neutrophils % 71.5 %; Nucleated Red Blood Cells % 0 %; Platelet Count 349 10^3/cmm (130-400); Red Cell Distribution Width 17.1 % (12.1-15.1); White Blood Count 10.5 10^3/uL (4.0-10.0)
[2021-05-10 06:25] LABS: INR 1.27 (0.8-1.2)
[2021-05-10 06:32] LABS: Glucose Point of Care 181 mg/dL (70-110)
[2021-05-10 06:57] LABS: Alanine Aminotransferase 21 U/L (0-41); Alkaline Phosphatase 82 IU/L (40-130); Anion Gap 18.5 (5-19); Aspartate Amino Transferase 65 U/L (0-40); Blood Urea Nitrogen 34 mg/dL (8-23); C Reactive Protein 98.3 mg/L (0.0-4.9); Calcium 9.4 mg/dL (8.5-10.5); Carbon Dioxide 28 mmol/L (22-29); Chloride 97 mmol/L (98-107); Globulin 3.7 g/dL (1.3-4.6); Glucose 175 mg/dL (65-115); Magnesium 2.2 mg/dL (1.7-2.3); Osmolality Calculated 302 mOsm/kg (285-295); Phosphorus 3.5 mg/dL (2.5-4.5); Potassium 3.5 mmol/L (3.5-5.1); Sodium 140 mmol/L (136-145); Total Bilirubin 0.2 mg/dL (0.15-1.2); Total Protein 6.7 g/dL (6.6-8.7)
[2021-05-10 07:43] LABS: Creatine Phosphokinase 1092 U/L (39-308)
[2021-05-10 07:45] LABS: NT Pro B Type Natriuretic Pept 29384 pg/mL (0-125)
[2021-05-10] MEDS: sodium chloride 3.5% neb 4 mL Neb INHALATION ×2 (07:52→20:38)
--- NOTE | 2021-05-10 08:53 | XRR_ITS ---
PROCEDURE INFORMATION: Exam: XR Chest Exam date and time: 05/10/2021 8:53 AM Age: 75 years old Clinical indication: Pneumonia TECHNIQUE: Imaging protocol: XR of the chest. Views: 1 view. COMPARISON: CR XR chest 1V portable [id number] 05/09/2021 9:52 AM FINDINGS: Lungs: Interval complete opacification of the right hemithorax due to occlusion of the right mainstem bronchus. Mild left perihilar/mid lung zone airspace disease which could be due to atelectasis or pneumonia. Pleural spaces: Potential right pleural effusion though volume difficult to determine. Possible small subpulmonic left pleural effusion. No pneumothorax. Heart/Mediastinum: The right cardiac border is silhouetted out. Cannot determine the heart size. The mediastinum is shifted to the right. Vasculature: The aorta is atherosclerotic. Bones/joints: Prior multilevel left rib ORIF with side plates and screws. Multilevel disc degeneration with bridging osteophyte formation in the thoracic spine. XR/XR chest 1V portable [id number] IMPRESSION: Interval opacification of the right hemithorax due to occlusion of the right mainstem bronchus.
--- NOTE | 2021-05-10 08:57 | ECG_ITS ---
[facility] Test Date: 2021-05-10 Pat Name: John Guerrero Department: Room: 103 Gender: Male Etiquette Teacher: : 1945 Requested By: Bennie Plasencia Order Number: [id number] Jena MD: Freddy Vasques M.D. Measurements Intervals [place] Rate: 74 P: MS: QRS: 16 QRSD: 105 T: 0 QT: 393 QTc: 436 Interpretive Statements ATRIAL FIBRILLATION NONSPECIFIC ST & T-WAVE ABNORMALITY ABNORMAL RHYTHM ECG Compared to ECG 05/09/2021 07:59:34 No significant changes Electronically Signed On 05-11-2021 20:07:34 AMUSEMENT MACHINE MECHANIC by Freddy Vasques M.D. [email or web address]
--- NOTE | 2021-05-10 09:04 | P.PN_ITS ---
Subjective Subjective: Interval history: This is a 75-year-old gentleman with a very unfortunate course during his hospital stay here. He was doing much better until yesterday he had a decline in and A. fib with RVR and what felt like was congestive heart failure again with hypoxia. His hypoxia is worsened overnight. He is not as responsive this morning. He has not had much urine output with the Lasix overnight. Not able to communicate with me whether he is having chest pain at this time or not. No fevers or chills noted. His A. fib is been controlled with Cardizem drip and heart rate is normal at this time. Medications: Reviewed: Yes Medication Review Details: Current Medications Acetaminophen (Acetaminophen 325 Mg Tablet) 650 mg PO Q6H PRN PRN Reason: Mild/Mod Pain Or Temp >/= 101 Last Admin: 05/08/21 13:23 Dose: 650 mg Documented by: Acetylcysteine (Acetylcysteine 200 Mg/Ml Sdv 4 Ml) 100 mg INHALATION Q6H.RESPIRATORY NATALIE Last Admin: 05/10/21 07:30 Dose: Not Given Documented by: Albuterol/Ipratropium (Ipratropium-Albuterol 3 Ml Neb) 3 ml INHALATION Q4H.R ESPIRATORY NATALIE Last Admin: 05/10/21 07:52 Dose: 3 ml Documented by: Atorvastatin Calcium (Atorvastatin 40 Mg Tablet) 80 mg PO DAILY NATALIE Last Admin: 05/08/21 08:15 Dose: 80 mg Documented by: Bisacodyl (Bisacodyl 5 Mg Tablet) 10 mg PO DAILY PRN; Protocol PRN Reason: Constipation (see protocol) Dextrose (Dextrose 50% Syringe 50 Ml) 25 ml IVP ONCE PRN; Protocol PRN Reason: hypoglycemia protocol Dextrose (Dextrose 50% Syringe 50 Ml) 50 ml IVP PRN PRN; Protocol PRN Reason: hypoglycemia protocol Diltiazem HCl (Diltiazem 60 Mg Tablet) 90 mg PO Q6H NATALIE Last Admin: 05/10/21 05:44 Dose: 90 mg Documented by: Docusate Sodium (Docusate Sodium 100 Mg Capsule) 100 mg PO 0900,2100 NATALIE Last Admin: 05/09/21 21:03 Dose: 100 mg Documented by: Furosemide (Furosemide 10 Mg/Ml Sdv 4ml) 80 mg IVP Q6H NATALIE Gabapentin (Gabapentin 300 Mg Capsule) 300 mg PO DAILY NATALIE Last Admin: 05/09/21 09:57 Dose: 300 mg Documented by: Glucagon (Glucagon 1 Mg/Ml Inj 1 Ml) 1 mg IM ONCE PRN; Protocol PRN Reason: Adult Acute Hypoglycemia Prot. Hydromorphone HCl (Hydromorphone 1 Mg/Ml Inj 1 Ml) 0.5 mg IVP Q6H PRN PRN Reason: PAIN Last Admin: 05/09/21 17:57 Dose: 0.5 mg Documented by: Dextrose (D5w) 500 mls @ 100 mls/hr IV ONCE PRN; Protocol PRN Reason: Adult Acute Hypoglycemia Prot Piperacillin Sod/Tazobactam (Sod 3.375 gm/ Sodium Chloride) 50 mls @ 12.5 mls/hr IV Q8H [facility]; Protocol Last Infusion: 05/10/21 04:40 Dose: Infused Documented by: Diltiazem HCl 125 mg/ Sodium (Chloride) 125 mls @ 0 mls/hr IV .Q0M [facility]; Protocol Last Titration: 05/10/21 01:08 Dose: 0 mg/hr, 0 mls/hr Documented by: Insulin Human Lispro (Insulin Lispro 100 Unit/1 Ml) 0 unit SUBCUT WM&BEDTIME [facility]; Protocol Last Admin: 05/10/21 09:17 Dose: Not Given Documented by: Lanolin (Lanolin Oint 7 Gm) 1 applic TOPICAL PRN PRN PRN Reason: DRYNESS Last Admin: 05/04/21 18:37 Dose: 1 applic Documented by: Metoprolol Tartrate (Metoprolol Tartrate 1 Mg/1 Ml Sdv 5 Ml) 5 mg IVP Q5MIN PRN PRN Reason: HR>120, call og Last Admin: 05/09/21 09:49 Dose: 5 mg Documented by: Metoprolol Tartrate (Metoprolol Tartrate 25 Mg Tablet) 25 mg PO Q12H [facility] Last Admin: 05/09/21 21:04 Dose: 25 mg Documented by: Naloxone HCl (Naloxone 0.4 Mg/Ml Sdv) 0.1 mg IVP Q2M PRN PRN Reason: OPIATERV Ondansetron HCl (Ondansetron 2 Mg/Ml Sdv 2 Ml) 4 mg IVP Q8H PRN PRN Reason: vomiting, or N/V if npo Pantoprazole Sodium (Pantoprazole 40 Mg Sdv) 40 mg IVP Q12H [facility] Last Admin: 05/09/21 21:03 Dose: 40 mg Documented by: Polyethylene Glycol (Polyethylene Glycol 3350 Pkt 17 Gm) 17 gm PO 0900,2100 [facility] Last Admin: 05/09/21 21:04 Dose: 17 gm Documented by: Sodium Chloride (Sodium Chloride 3.5% Neb 4 Ml Neb) 4 ml INHALATION BID.RESPIRATORY [facility] Last Admin: 05/10/21 07:52 Dose: 4 ml Documented by: Sucralfate (Sucralfate 1 Gm Tablet) 1 gm PO QID [facility] Last Admin: 05/09/21 21:03 Dose: 1 gm Documented by: Vitamin D (Cholecalciferol (Vitamin D3) 1,000 Unit Tablet) 1,000 unit PO DAILY [facility] Last Admin: 05/09/21 09:57 Dose: 1,000 unit Documented by: Vitals/I&O/Wt Last Vital Signs Temp 98.7 F 05/09/21 15:50 Pulse 79 05/10/21 08:03 Resp 22 H 05/10/21 08:00 BP 114/64 05/10/21 07:27 Pulse Ox 91 05/10/21 08:03 05/09/21 05/10/21 05/10/21 22:59 06:59 14:59 Intake Total 580 / 1489.5 569.5 / 1489.5 Output Total 200 / 200 Balance 580 / 1289.5 369.5 / 1289.5 Weight last 48 hrs Weight 224 lb 11.2 oz Weight 224 lb 11.2 oz Weight 234 lb 12.8 oz Physical Exam Narrative: EXAM NARRATIVE: General: No acute distress, Alert. Well nourished. Heart: A. fib. No murmurs, rubs or gallops. Normal capillary refill. Lungs: Decreased breath sounds on both lung romero. Some crackles noted. Not very good air movement. Abdomen: Positive bowel sounds. Non-tender, non-distended. No hepatosplenomegaly. No gaurding. Extremities: No clubbing, cyanosis.he has 1-2+ edema. Negative Sarah's Urinary Catheter Management^: Corbin: Cath Placed During This Visit: yes Reason for Continuing Indwelling Catheter: Accurate Measurement of Urinary Output in Critically Ill Patients Urinary Catheter Date of Insertion: 04/27/21 Data : 05/10/21 05:33 05/10/21 05:33 A&P Assessment and plan (1) Acute respiratory failure: Status: Acute (2) Heart failure: Status: Acute (3) Atrial fibrillation with rapid ventricular response: Status: Acute (4) Aspiration pneumonia: Status: Acute (5) Upper GI bleed: Status: Acute (6) Hemorrhagic shock: Status: Acute Additional A&P Information - 75-year-old gentleman initially admitted for acute on chronic systolic and diastolic CHF exacerbation and A. fib with RVR. 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 It appears this may have decompensated again last night with the exacerbation of his A. fib. His BNP is remarkably high. His hypoxia has gotten significantly worse and is lung exam is poor as well. He was placed on 40 of Lasix every 12 hours with not much diuresis. We will get a stat ABG, chest x-ray, troponins, EKG. Go ahead and proceed with 80 of Lasix IV now and every 6 hours. At this point I think it would be appropriate to consult cardiology as well. If his respiratory status continues to decline we will need to transfer him to the ICU and get pulmonology consultation at that time as well. Does have a history of possible pneumonia and pleural effusions. CAT scan of his chest without contrast might be helpful to further sort out what is going on as well. He was getting ready for discharge prior to this acute decline. -He has had pneumonia thought to be aspiration pneumonia. Continues to be on Zosyn for antibiotic coverage. His white blood cell count is normal. He also had pleural effusions that required a thoracentesis during this hospital stay. We cannot rule out that this may be contributing. He had also had mucous plugging and significant atelectasis but responded to chest vest therapy. Again if he does not improve with aggressive diuresis we may need pulmonology to help with this part as well. - A. fib with RVR -controlled on insulin drip at this point. Anticoagulations been held due to his GI bleed and hemorrhagic shock earlier in his hospital ization. Continue with current treatment at this time. Cardiology consultation. -Upper GI bleed and hemorrhagic shock -stable at this time. Status post 4 units of packed red blood cells. Still on Protonix and Carafate. Continue to hold Lovenox and aspirin. -Acute CVA during this hospitalization.-CT scan suggested an embolic infarct. With his decreased responsiveness today we cannot rule out that he possibly has had another episode. We are in a difficult spot with his GI bleed and the need to hold anticoagulation therapy. Monitor this closely through the day. -Acute renal failure and rhabdomyolysis. -CK is still elevated. Creatinine has improved. Continue to monitor these as well. Would normally like to be more aggressive with the fluids but are limited due to his CHF. Attestations Medical Necessity Statement*: This is a patient with multiple medical problems including acutely systolic CHF exacerbation and A. fib with RVR with acute respiratory distress requiring continued inpatient IV treatments and monitoring. Coding Level of Care Code Acute Microsoft Exchange Administrator for kezia Alonzo Diagnoses Acute respiratory failure J96.00 Heart failure I50.9 Atrial fibrillation with rapid ventricular response I48.91 Aspiration pneumonia J69.0 Upper GI bleed K92.2 Hemorrhagic shock R57.8
[2021-05-10] MEDS: pantoprazole 40 mg SDV IVP ×2 (09:17→19:50)
[2021-05-10] MEDS: FUROsemide 10 mg/mL SDV 10mL 80 MG IVP (09:18)
--- NOTE | 2021-05-10 09:57 | P.CONIM_ITS ---
Providers/Reason For Consult Consulting Physician/Specialty*: ASHLEY Vasques MD/cardiology Reason for Consult*: Patient with atrial fibrillation rapid ventricular response rate. Congestive heart failure Attending Physician: Bennie Godfrey MD History of Present Illness History of Present Illness John Guerrero is a 75 year old male who has been in this hospital for almost 2 weeks with multiple medical issues. He was getting ready to be transferred to a jail yesterday.He was found to be in atrial fibrillation with rapid ventricular rate and with some features of congestive heart failure. Because of the worsening shortness of breath and the atrial arrhythmia, the transfer is held at this point. Cardiology consult is requested for further cardiac evaluation recommendations.. This patient is an extremely poor historian. Most of the information is from the medical records and also from the medical staff. Apparently this patient has a history of atrial fibrillation and heart failure. He was admitted to hospital on the ninth of this month with symptoms of generalized weakness, shortness of breath and difficulty to navigate. He was found to be in congestive heart failure, atrial fibrillation with rapid ventricular rate and with features of COPD exacerbation. He was treated with diuretics and heart rate control measures. While being in the hospital, he had a CVA. Later on he also developed a GI bleed for which he underwent EGD and epinephrine injection around the gastric and duodenal ulcer. Because of the recurrence of GI bleed, had a repeat endoscopy which revealed no evidence of any active bleed. He also developed some mucus plugging of the bronchial tree for which he underwent respiratory therapy. Symptomatically he improved. He had a few blood transfusion for the blood loss anemia. His clinical status has been getting stabilized. The plan was to send him to a jail for recuper ation. Yesterday evening he started getting short of breath again. His chest x-ray showed luis out right lung field. He also was found to be in atrial fibrillation with rapid ventricular rate. He did not have any chest pain or chest tightness. He has a baseline shortness of breath with activities which was getting worse since yesterday. No fever or chills. No significant cough. His heart failure was treated with the diuretics and currently he is on p.o. medication. His LV ejection fraction could not be evaluated properly because of the poor ultrasonic window. The ejection fraction appeared to be moderately reduced. He has no previous history for coronary artery disease or myocardial infarction Review of Systems Narrative: CONSTITUTIONAL: No fever or chills. EYES: Moderate pallor. No visual disturbances lately. ENT: No hoarseness of voice, auditory disturbances or sore throat. CARDIOVASCULAR: Congestive heart failure and atrial fibrillation as mentioned above RESPIRATORY: COPD with intermittent exacerbations GASTROINTESTINAL: Bleed as mentioned above GENITOURINARY: No dysuria or hematuria. INTEGUMENTARY: Excoriated skin lesions bilaterally in the lower extremities NEURO: No transient ischemic attacks or amaurosis. PSYCHIATRIC: No history of psychosis or major depression. HEMATOLOGIC: Recent blood loss anemia, status post blood transfusion. ENDOCRINE: No history of polyuria or polydipsia. MUSCULOSKELETAL: No recent joint pain or swelling. ALLERGY/IMMUNOLOGY: As mentioned above. Medications/Allergies Home Medications Medication Instructions Recorded Confirmed Last Taken Type atorvastatin 80 mg PO DAILY 04/27/21 04/27/21 Unknown History carvedilol 6.25 mg PO BID 04/27/21 04/27/21 Unknown History cholecalciferol (vitamin D3) 25 mcg PO DAILY 04/27/21 04/27/21 Unknown History [Vitamin D3] clopidogrel [Plavix] 75 mg PO DAILY 04/27/21 04/27/21 Unknown History ferrous gluconate 324 mg PO DAILY 04/27/21 04/27/21 Unknown History insulin aspart U-100 [Novolog See Rx Instructions .ROUTE .COMPLEX 04/27/21 04/27/21 Unknown History U-100 Insulin aspart] insulin glargine [Lantus U-100 40 unit SUBCUT DAILY 04/27/21 04/27/21 Unknown History Insulin] ipratropium-albuterol 3 ml INHALATION QID PRN 04/27/21 04/27/21 Unknown History metoprolol tartrate 25 mg PO BID 04/27/21 04/27/21 Unknown History multivitamin 1 tab PO DAILY 04/27/21 04/27/21 Unknown History oxycodone 10 mg PO Q8H PRN 04/27/21 04/27/21 Unknown History Allergies Allergy/AdvReac Type Severity Reaction Status Date / Time No Known Allergies Allergy Verified 04/27/21 08:00 Current Medications Generic Name Dose Route Start Last Admin Trade Name Freq PRN Reason Stop Dose Admin Acetaminophen 650 mg 04/27/21 18:13 05/08/21 13:23 Acetaminophen 325 Mg Tablet PO 650 mg Q6H PRN Administration Mild/Mod Pain Or Temp >/= 101 Acetylcysteine 100 mg 05/09/21 15:00 05/10/21 07:30 Acetylcysteine 200 Mg/Ml Sdv 4 Ml INHALATION Not Given Q6H.RESPIRATORY NATALIE Albuterol/Ipratropium 3 ml 04/29/21 16:00 05/10/21 07:52 Ipratropium-Albuterol 3 Ml Neb INHALATION 3 ml Q4H.RESPIRATORY NATALIE Administration Atorvastatin Calcium 80 mg 04/28/21 09:00 05/08/21 08:15 Atorvastatin 40 Mg Tablet PO 80 mg DAILY NATALIE Administration Diltiazem HCl 90 mg 05/09/21 11:17 05/10/21 05:44 Diltiazem 60 Mg Tablet PO 90 mg Q6H NATALIE Administration Docusate Sodium 100 mg 05/08/21 09:00 05/10/21 09:56 Docusate Sodium 100 Mg Capsule PO Not Given 0900,2100 NATALIE Furosemide 80 mg 05/10/21 09:00 05/10/21 09:24 Furosemide 10 Mg/Ml Sdv 4ml IVP Not Given Q6H NATALIE Gabapentin 300 mg 05/07/21 13:15 05/10/21 09:56 Gabapentin 300 Mg Capsule PO Not Given DAILY NATALIE Hydromorphone HCl 0.5 mg 05/07/21 17:01 05/09/21 17:57 Hydromorphone 1 Mg/Ml Inj 1 Ml IVP 0.5 mg Q6H PRN Administration PAIN Piperacillin Sod/Tazobactam 50 mls @ 12.5 mls/hr 04/28/21 15:00 05/10/21 09:17 Sod 3.375 gm/ Sodium Chloride IV 12.5 mls/hr Q8H NATALIE Administration Protocol Diltiazem HCl 125 mg/ Sodium 125 mls @ 0 mls/hr 05/09/21 16:00 05/10/21 01:08 Chloride IV 0 mg/hr .Q0M NATALIE 0 mls/hr Titration Protocol Per Protocol Insulin Human Lispro 0 unit 04/27/21 21:00 05/10/21 09:17 Insulin Lispro 100 Unit/1 Ml SUBCUT Not Given WM&BEDTIME NATALIE Protocol Lanolin 1 applic 05/04/21 18:31 05/04/21 18:37 Lanolin Oint 7 Gm TOPICAL 1 applic PRN PRN Administration DRYNESS Metoprolol Tartrate 5 mg 05/09/21 08:05 05/09/21 09:49 Metoprolol Tartrate 1 Mg/1 Ml Sdv 5 Ml IVP 5 mg Q5MIN PRN Administration HR>120, call og Metoprolol Tartrate 25 mg 05/09/21 10:15 05/09/21 21:04 Metoprolol Tartrate 25 Mg Tablet PO 25 mg Q12H NATALIE Administration Pantoprazole Sodium 40 mg 05/02/21 08:45 05/10/21 09:17 Pantoprazole 40 Mg Sdv IVP 40 mg Q12H NATALIE Administration Polyethylene Glycol 17 gm 05/08/21 09:00 05/10/21 09:56 Polyethylene Glycol 3350 Pkt 17 Gm PO Not Given 0900,2100 NATALIE Sodium Chloride 4 ml 05/09/21 20:00 05/10/21 07:52 Sodium Chloride 3.5% Neb 4 Ml Neb INHALATION 4 ml BID.RESPIRATORY NATALIE Administration Sucralfate 1 gm 05/02/21 17:00 05/10/21 09:56 Sucralfate 1 Gm Tablet PO Not Given QID NATALIE Vitamin D 1,000 unit 04/28/21 09:00 05/10/21 09:56 Cholecalciferol (Vitamin D3) 1,000 Unit Tablet PO Not Given DAILY NATALIE PFSH Acute PFSH: Medical History Chronic respiratory failure with hypoxia COPD (chronic obstructive pulmonary disease) CVA (cerebral vascular accident) Diabetes Gastric ulcer Ribs, multiple fractures Surgical History H/O knee surgery Social History Additional social history: lives at home Vitals/I&O/Wt Last Vital Signs Temp 98.7 F 05/09/21 15:50 Pulse 79 05/10/21 08:03 Resp 22 H 05/10/21 08:00 BP 114/64 05/10/21 07:27 Pulse Ox 91 05/10/21 08:03 05/09/21 05/10/21 05/10/21 22:59 06:59 14:59 Intake Total 580 / 920 569.5 / 1489.5 Output Total 200 / 200 700 / 700 Balance 580 / 920 369.5 / 1289.5 -700 / -700 Weight last 48 hrs Weight 224 lb 11.2 oz Weight 224 lb 11.2 oz Weight 234 lb 12.8 oz Physical Exam Narrative: EXAM NARRATIVE: GENERAL: The patient is alert and oriented to place and person. Seems very lethargic. Chronically ill looking. Currently is on a BiPAP. HEENT: Moderate pallor, icterus or lymphadenopathy. The pupils are symmetrical oral cavity: There are no mucous membrane lesions. Funduscopic examination: Fundus is not visualized NECK: Trachea appears to be central. No masses noted. No JVD or thyromegaly appreciated. No carotid bruit. RESPIRATORY: Breath sounds are heard bilaterally with some bronchovesicular breath sounds in the right side. Diminished intensity breath sounds at the bases BREASTS: Deferred. HEART: The PMI could not be palpated no palpable precordial events. S1 and S2 are normal. No S3 or S4 heard. No pericardial rub or any click heard. ABDOMEN: No vessel pulsations or distention. No tenderness. No organomegaly appreciated. No abdominal bruit. Bowel sounds are normally heard. : Deferred. RECTAL: Deferred. LYMPHATIC: No lymphadenopathy in the neck EXTREMITIES:The skin is indurated with a healed excoriations. Trace edema with no cyanosis. Peripheral pulses are palpable but weak bilaterally MUSCULOSKELETAL: No acute joint deformities or swelling SKIN: Indurated, healed excoriations and some hyperpigmentation both lower extremities NEUROPSYCHIATRIC: Some motor weakness of the left lower extremity. Patient has generalized weakness Urinary Catheter Management^: Corbin: Cath Placed During This Visit: yes Reason for Continuing Indwelling Catheter: Accurate Measurement of Urinary Outpu t in Critically Ill Patients Urinary Catheter Date of Insertion: 04/27/21 Urinary Catheter Time of Insertion: 09:15 Data Labs: Other Labs: Laboratory Last Values WBC 10.5 10^3/uL (4.0 -10.0) H 05/10/21 05:33 RBC 3.00 10^6/uL (4.1 -5.3) L 05/10/21 05:33 Hgb 8.2 g/dL (11.7-16 .6) L 05/10/21 05:33 Hct 27.6 % (42.0-52.0 ) L 05/10/21 05:33 MCV 92.0 fl (80-94) 05/10/21 05:33 MCH 27.3 pg (28.0-34. 0) L 05/10/21 05:33 MCHC 29.7 g/dL (30.0-3 6.0) L 05/10/21 05:33 RDW 17.1 % (12.1-15.1 ) H 05/10/21 05:33 Plt Count 349 10^3/cmm (130 -400) 05/10/21 05:33 MPV 10.2 fL (7.4-10.4 ) 05/10/21 05:33 Neut % (Auto) 71.5 % 05/10/21 05:33 Lymph % (Auto) 17.8 % 05/10/21 05:33 [place] % (Auto) 8.2 % 05/10/21 05:33 Eos % (Auto) 1.4 % 05/10/21 05:33 Baso % (Auto) 0.5 % 05/10/21 05:33 Reticulocyte % (Au to) 1.3 % (0.5-2.0) 04/29/21 02:55 Neut # (Auto) 7.53 10^3/uL (1.8 -7.7) 05/10/21 05:33 Lymph # (Auto) 1.9 10^3/uL (0.8- 4.8) 05/10/21 05:33 [place] # (Auto) 0.9 10^3/uL (0.2- 0.9) 05/10/21 05:33 Eos # (Auto) 0.2 10^3/uL (0.0- 0.8) 05/10/21 05:33 Baso # (Auto) 0.1 10^3/uL (0.0- 0.1) 05/10/21 05:33 Nucleated RBC % (a uto) 0 % 05/10/21 05:33 Nucleated RBCs # 0.0 /100WBC 05/10/21 05:33 Differential Comme nt Yes 04/30/21 09:25 PT 16.30 SECONDS (12 .1-14.9) H 05/10/21 05:33 INR 1.27 (0.8-1.2) H 05/10/21 05:33 APTT 75.6 SECONDS (23. 9-36.7) H 05/01/21 13:05 D-Dimer 7.36 ug/mIFEU (0- 0.59) H 04/27/21 08:23 Specimen Type Arterial 05/09/21 09:37 Sample Site Radial, right 05/09/21 09:37 ABG pH 7.40 (7.35-7.45) 05/09/21 09:37 ABG pCO2 52.4 mmHg (35-45) H 05/09/21 09:37 ABG pO2 85.8 mmHg (80.0-1 00.0) 05/09/21 09:37 ABG HCO3 32.3 mmol/L (22-2 6) H 05/09/21 09:37 ABG O2 Saturation 97.3 05/09/21 09:37 ABG Base Excess 6.6 mmol/L (-2.0- 2.0) H 05/09/21 09:37 Dimitry Test Pos 05/09/21 09:37 A-a O2 Gradient Not Reportable 05/09/21 09:37 Hematocrit 25.0 % (42-52) L 05/09/21 09:37 Hgb O2 Saturation 95.4 % (95-100) 05/09/21 09:37 Carboxyhemoglobin 0.9 %THgb (0.4-20 .1) 05/09/21 09:37 Methemoglobin 1.0 % (0.4-1.5) 05/09/21 09:37 Total Hemoglobin 8.1 g/dL (14-18) L 05/09/21 09:37 Sodium 141.0 mmol/L (131 -143) 05/09/21 09:37 Potassium 3.6 mmol/L (3.5-5 .0) 05/09/21 09:37 Glucose 193.0 mg/dL (70-1 15) H 05/09/21 09:37 Ionized Calcium 1.2 mmol/L (1.1-1 .4) 05/09/21 09:37 O2 Delivery Device Nc 05/09/21 09:37 O2 Liters/Min 6.0 % 05/07/21 04:44 FiO2 15.0 % 05/09/21 09:37 Tidal Volume 0.45 05/06/21 03:40 PEEP 8.0 cmH20 05/06/21 03:40 Pretzel Twister ID [place] 05/09/21 09:37 Sodium 140 mmol/L (136-1 45) 05/10/21 05:33 Potassium 3.5 mmol/L (3.5-5 .1) 05/10/21 05:33 Chloride 97 mmol/L (98-107 ) L 05/10/21 05:33 Carbon Dioxide 28 mmol/L (22-29) 05/10/21 05:33 Anion Gap 18.5 (5-19) 05/10/21 05:33 BUN 34 mg/dL (8-23) H 05/10/21 05:33 Creatinine 1.4 mg/dL (0.7-1. 2) H 05/10/21 05:33 GFR Calculation Not Reportable 05/10/21 05:33 Glucose 175 mg/dL (65-115 ) H 05/10/21 05:33 POC Glucose 181 mg/dL (70-110 ) H 05/10/21 06:28 Calculated Osmolal ity 302 mOsm/kg (285- 295) H 05/10/21 05:33 Lactate 0.6 mmol/L (0.5-2 .2) 05/08/21 03:08 Calcium 9.4 mg/dL (8.5-10 .5) 05/10/21 05:33 Phosphorus 3.5 mg/dL (2.5-4. 5) 05/10/21 05:33 Magnesium 2.2 mg/dL (1.7-2. 3) 05/10/21 05:33 Iron 10 ug/dL (59-158) L 04/29/21 02:55 Ferritin 99 ng/mL (30-400) 04/29/21 02:55 Total Bilirubin 0.2 mg/dL (0.15-1 .2) 05/10/21 05:33 AST 65 U/L (0-40) H 05/10/21 05:33 ALT 21 U/L (0-41) 05/10/21 05:33 Alkaline Phosphata se 82 IU/L (40-130) 05/10/21 05:33 Creatine Kinase 1092 U/L (39-308) H* 05/10/21 05:33 Troponin T Baselin e 47 ng/L (0-15) H 04/27/21 08:23 Troponin T 120 Min [place] 46.61 ng/L (0-15) H 04/27/21 10:17 Delta Troponin T -0.39 ABS# (0-10) L 04/27/21 10:17 Troponin T Hi Sens 6Hr 47.02 ng/L (0-15) H 04/27/21 14:13 Troponin T Hi Sens 6Hr Delta 0.02 ng/L (0-12) 04/27/21 14:13 C-Reactive Protein 98.3 mg/L (0.0-4. 9) H 05/10/21 05:33 NT-Pro-B Natriuret Pep 46233 pg/mL (0-12 5) H 05/10/21 05:33 Total Protein 6.7 g/dL (6.6-8.7 ) 05/10/21 05:33 Albumin 3.0 g/dL (3.5-5.2 ) L 05/10/21 05:33 Globulin 3.7 g/dL (1.3-4.6 ) 05/10/21 05:33 Procalcitonin 0.20 ng/mL (0-0.5 ) 05/10/21 05:33 TSH 0.35 uIU/mL (0.27 -4.20) 04/27/21 08:23 Urine Color Yellow (Yellow) 04/27/21 01:36 Urine Appearance Hazy (CLEAR) A 04/27/21 01:36 Urine pH 5 (5-7) 04/27/21 01:36 Ur Specific Gravit y 1.020 (1.005-1.0 30) 04/27/21 01:36 Urine Protein Neg (Negative) 04/27/21 01:36 Urine Glucose (UA) Norm (Normal) 04/27/21 01:36 Urine Ketones Negative (Negati ve) 04/27/21 01:36 Urine Blood 2+ (Negative) H 04/27/21 01:36 Urine Nitrate Negative (Negati ve) 04/27/21 01:36 Urine Bilirubin Neg (Negative) 04/27/21 01:36 Urine Urobilinogen Norm mg/dL (Negat latricia) 04/27/21 01:36 Ur Leukocyte Esther ase Negative (Negati ve) 04/27/21 01:36 Urine RBC 0-4 /hpf (0-2) H 04/27/21 01:36 Urine WBC 5-10 /hpf (0-5) H 04/27/21 01:36 Ur Squamous Epith Cells Rare /hpf (0-5) 04/27/21 01:36 Amorphous Sediment Not Reportable 04/27/21 01:36 Urine Bacteria 1+ /hpf (NONE) H 04/27/21 01:36 Fluid Color Yellow 04/30/21 09:25 Fluid Appearance Clear 04/30/21 09:25 Fluid WBC 906 /uL 04/30/21 09:25 Fluid RBC 5.000 10^3/uL 04/30/21 09:25 Fluid Hematocrit 0.1 % 04/30/21 09:25 Fld Polynuclear WB Cs # 0.153 04/30/21 09:25 Fld Polynuclear WB Cs % 16.900 % 04/30/21 09:25 Fl Mononucl WBCs # (Auto) 0.753 04/30/21 09:25 Fl Mononuclear % A uto 83.100 % 04/30/21 09:25 Fluid Albumin 1.5 g/dL 04/30/21 09:25 Fluid Creatinine 1.56 (0.7-1.2) H 04/30/21 09:25 Pleural pH 7.00 (6.5-7.5) 04/30/21 09:25 Pleural Total Prot ein 3.1 g/dL 04/30/21 09:25 Pleural LDH 122 U/L 04/30/21 09:25 Pleural Glucose 113.0 mg/dL 04/30/21 09:25 Pleural Amylase 20.0 U/L 04/30/21 09:25 Pleural Triglyceri angelo 39 mg/dL 04/30/21 09:25 Coronavirus 229E ( PCR) Not detected (NO T DETECT) 05/09/21 22:00 SARS-CoV-2 (PCR) Not detected (NO T DETECT) 05/09/21 22:00 Blood Type O Positive 05/07/21 19:36 Rho(D) Type Positive 05/07/21 19:36 Antibody Screen Negative 05/07/21 19:36 Crossmatch See Detail 05/07/21 19:36 Imaging^: Echo: My impression: Technically limited quality echocardiogram because of poor ultrasonic windows. LV systolic function is grossly moderately reduced. Right ventricle is dilated and severely hypokinetic. Left atrium is dilated. Thickened aortic valve. Moderate to severe low-flow low gradient aortic stenosis noted. Mild tricuspid regurgitation No comparison studies are available EKG^: EKG 1: My Interpretation: Atrial fibrillation with rapid ventricular rate of 135 bpm. Diffuse nonspecific T wave changes. A&P Assessment and plan (1) Atrial fibrillation with rapid ventricular response: Patient currently seems to be in atrial fibrillation with controlled ventricular response rate. The patient's episode of atrial fibrillation rapid ventricular rate, most likely related to the acute respiratory distress, possibly from the mucous plugging. He has been taking the Cardizem and the metoprolol. This may be continued if the blood pressure tolerates. Status: Acute (2) Acute on chronic systolic heart failure: Difficult to chief station engineer the extent of heart failure. Patient seems to have an acute pulmonary event causing the shortness of breath. Most likely he may have mucous plugging on the right side. He does not seems to be fluid overloaded. Status: Acute (3) Acute exacerbation of chronic obstructive airways disease: Possibly related to mucous plugging. Aspiration pneumonia is a consideration. Other etiologies cannot be excluded. Status: Acute (4) Upper GI bleed: Patient status post blood transfusion and endoscopic injection of the epinephrine around the gastric and duodenal ulcer. Currently does not appear to have any active bleeding. Status: Acute (5) SOB (shortness of breath): This could be multifactorial. Acute exacerbation could be related to mucous plugging/aspiration pneumonia. Status: Acute (6) Hypotension: According to nursing staff, the patient became hypotensive soon after the Lasix. The blood pressure seems to be slowly coming up. At this point, it may be appropriate to hold off on the Lasix. Towards a blood pressure improves to above 100, we may restart on the metoprolol. May add Cardizem later on, if the blood still remains in the normal range. Status: Acute Qualifiers: Hypotension type: hypotension due to drug Qualified Code(s): I95.2 - Hypotension due to drugs Additional A&P Information Other problems are 1.? Cardiomyopathy-the echocardiogram was of suboptimal quality. The ejection fraction appeared to be moderately depressed. We may consider doing a repeat echocardiogram, to reevaluate the ejection fraction, once respiratory status has improved. 2. Anemia, possibly from blood loss, seems to be stable 3. Acute on chronic kidney injury, seems to be improving I may hold off on any medication changes at this time. Patient may be put back on the metoprolol and the Cardizem as the blood pressure tolerates. He requires further cardiac work-up, once respiratory status is stable. 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
--- NOTE | 2021-05-10 10:07 | PC.SLP ---
Patient currently on BiPap and cannot be evaluated for swallowing function.
--- NOTE | 2021-05-10 11:12 | PC.NURSE ---
blood glucose 253
[2021-05-10 11:45] LABS: Glucose Point of Care 253 mg/dL (70-110)
--- NOTE | 2021-05-10 13:20 | PC.SOCIAL ---
IMM update IMM update with patient. Copy Pg 2 provided. Verbalized an understanding. Initialled, dated, timed, and placed in chart.
[2021-05-10] MEDS: insulin lispro 100 unit/1 mL SUBCUT ×2 (13:39→20:09)
--- NOTE | 2021-05-10 13:51 | PC.NURSE ---
Patient is resting at this time.
[2021-05-10] MEDS: metoprolol tartrate 25 mg Tablet PO ×2 (14:52→22:14)
--- NOTE | 2021-05-10 15:32 | PC.NURSE ---
blood glucose 252
[2021-05-10 16:11] LABS: Glucose Point of Care 252 mg/dL (70-110)
[2021-05-10] MEDS: docusate sodium 100 mg Capsule PO (19:51)
[2021-05-10] MEDS: polyethylene glycol 3350 Pkt 17 gm PO (19:51)
[2021-05-10] MEDS: sucralfate 1 gm Tablet PO (19:52)
[2021-05-10] MEDS: HYDROmorphone 1 mg/mL INJ 1 mL 0.5 MG IVP (20:00)
[2021-05-10 20:20] LABS: Glucose Point of Care 206 mg/dL (70-110)
[2021-05-11] VITALS (27 sets, daily range): BP systolic 94–127; BP diastolic 55–84; PULSE 87–121; RESP 12–30; TEMP 36.1–36.8; O2SAT 88–98
[2021-05-11] MEDS: piperacillin-tazobactam 3.375 GM in sodium chloride 0.9% (plus) 50 ML IV ×3 (03:33→19:40)
[2021-05-11] MEDS: acetylcysteine 200 mg/mL SDV 4 mL 100 MG INHALATION ×4 (04:21→19:27)
[2021-05-11] MEDS: ipratropium-albuterol 3 mL Neb INHALATION ×6 (04:21→23:17)
[2021-05-11] MEDS: FUROsemide 10 mg/mL SDV 4mL 40 MG IVP ×2 (05:21→19:45)
[2021-05-11] MEDS: dilTIAZem 60 mg Tablet 90 MG PO ×3 (05:22→19:44)
[2021-05-11 06:28] LABS: Basophils # 0.1 10^3/uL (0.0-0.1); Basophils % 0.7 %; Eosinophils # 0.2 10^3/uL (0.0-0.8); Eosinophils % 1.9 %; Hematocrit 27.8 % (42.0-52.0); Hemoglobin 8.3 g/dL (11.7-16.6); Lymphocytes # 1.7 10^3/uL (0.8-4.8); Mean Corpuscular HGB Conc 29.9 g/dL (30.0-36.0); Mean Corpuscular Hemoglobin 27.8 pg (28.0-34.0); Mean Platelet Volume 10.3 fL (7.4-10.4); Monocytes # 0.8 10^3/uL (0.2-0.9); Neutrophils # 7.07 10^3/uL (1.8-7.7); Neutrophils % 71.9 %; Nucleated Red Blood Cells % 0 %; Platelet Count 366 10^3/cmm (130-400); Red Blood Count 2.99 10^6/uL (4.1-5.3); Red Cell Distribution Width 17.1 % (12.1-15.1); White Blood Count 9.8 10^3/uL (4.0-10.0)
[2021-05-11 06:41] LABS: Glucose Point of Care 223 mg/dL (70-110)
[2021-05-11 06:47] LABS: INR 1.38 (0.8-1.2)
[2021-05-11 06:54] LABS: Alanine Aminotransferase 19 U/L (0-41); Albumin Level 2.9 g/dL (3.5-5.2); Alkaline Phosphatase 70 IU/L (40-130); Anion Gap 17.4 (5-19); Aspartate Amino Transferase 46 U/L (0-40); Blood Urea Nitrogen 36 mg/dL (8-23); C Reactive Protein 91.9 mg/L (0.0-4.9); Calcium 9.5 mg/dL (8.5-10.5); Carbon Dioxide 30 mmol/L (22-29); Chloride 96 mmol/L (98-107); Globulin 3.7 g/dL (1.3-4.6); Glucose 164 mg/dL (65-115); Osmolality Calculated 302 mOsm/kg (285-295); Phosphorus 3.7 mg/dL (2.5-4.5); Potassium 3.4 mmol/L (3.5-5.1); Sodium 140 mmol/L (136-145); Total Bilirubin 0.2 mg/dL (0.15-1.2); Total Protein 6.6 g/dL (6.6-8.7)
[2021-05-11 07:32] LABS: NT Pro B Type Natriuretic Pept 23970 pg/mL (0-125)
[2021-05-11 07:43] LABS: Creatine Phosphokinase 620 U/L (39-308)
[2021-05-11] MEDS: sodium chloride 3.5% neb 4 mL Neb INHALATION ×2 (08:00→19:27)
--- NOTE | 2021-05-11 09:08 | P.PN_ITS ---
Subjective Subjective: Interval history: Patient is feeling okay. The oxygenation seems to be improving. A limited 2D echocardiogram was done today which revealed multiple wall motion abnormalities with a diminished ejection fraction of 45%. Patient denies any chest pain. Telemetry shows atrial fibrillation with a mostly controlled ventricular response rate. Medications: Reviewed: Yes Medication Review Details: Current Medications Acetaminophen (Acetaminophen 325 Mg Tablet) 650 mg PO Q6H PRN PRN Reason: Mild/Mod Pain Or Temp >/= 101 Last Admin: 05/08/21 13:23 Dose: 650 mg Documented by: Acetylcysteine (Acetylcysteine 200 Mg/Ml Sdv 4 Ml) 100 mg INHALATION Q6H.RESPIRATORY NATALIE Last Admin: 05/11/21 08:19 Dose: 100 mg Documented by: Albuterol/Ipratropium (Ipratropium-Albuterol 3 Ml Neb) 3 ml INHALATION Q4H.RESPIRATORY NATALIE Last Admin: 05/11/21 08:18 Dose: 3 ml Documented by: Atorvastatin Calcium (Atorvastatin 40 Mg Tablet) 80 mg PO DAILY [facility] Last Admin: 05/08/21 08:15 Dose: 80 mg Documented by: Bisacodyl (Bisacodyl 5 Mg Tablet) 10 mg PO DAILY PRN; Protocol PRN Reason: Constipation (see protocol) Dextrose (Dextrose 50% Syringe 50 Ml) 25 ml IVP ONCE PRN; Protocol PRN Reason: hypoglycemia protocol Dextrose (Dextrose 50% Syringe 50 Ml) 50 ml IVP PRN PRN; Protocol PRN Reason: hypoglycemia protocol Diltiazem HCl (Diltiazem 60 Mg Tablet) 90 mg PO Q6H [facility] Last Admin: 05/11/21 05:22 Dose: 90 mg Documented by: Docusate Sodium (Docusate Sodium 100 Mg Capsule) 100 mg PO 0900,2100 [facility] Last Admin: 05/10/21 19:51 Dose: 100 mg Documented by: Furosemide (Furosemide 10 Mg/Ml Sdv 4ml) 40 mg IVP Q12H [facility] Last Admin: 05/11/21 05:21 Dose: 40 mg Documented by: Gabapentin (Gabapentin 300 Mg Capsule) 300 mg PO DAILY [facility] Last Admin: 05/10/21 09:56 Dose: Not Given Documented by: Glucagon (Glucagon 1 Mg/Ml Inj 1 Ml) 1 mg IM ONCE PRN; Protocol PRN Reason: Adult Acute Hypoglycemia Prot. Hydromorphone HCl (Hydromorphone 1 Mg/Ml Inj 1 Ml) 0.5 mg IVP Q6H PRN PRN Reason: PAIN Last Admin: 05/10/21 20:00 Dose: 0.5 mg Documented by: Dextrose (D5w) 500 mls @ 100 mls/hr IV ONCE PRN; Protocol PRN Reason: Adult Acute Hypoglycemia Prot Piperacillin Sod/Tazobactam (Sod 3.375 gm/ Sodium Chloride) 50 mls @ 12.5 mls/hr IV Q8H NATALIE; Protocol Last Admin: 05/11/21 03:33 Dose: 12.5 mls/hr Documented by: Diltiazem HCl 125 mg/ Sodium (Chloride) 125 mls @ 0 mls/hr IV .Q0M NATALIE; Protocol Last Titration: 05/10/21 01:08 Dose: 0 mg/hr, 0 mls/hr Documented by: Insulin Human Lispro (Insulin Lispro 100 Unit/1 Ml) 0 unit SUBCUT WM&BEDTIME [facility]; Protocol Last Admin: 05/10/21 20:09 Dose: 4 unit Documented by: Lanolin (Lanolin Oint 7 Gm) 1 applic TOPICAL PRN PRN PRN Reason: DRYNESS Last Admin: 05/04/21 18:37 Dose: 1 applic Documented by: Metoprolol Tartrate (Metoprolol Tartrate 1 Mg/1 Ml Sdv 5 Ml) 5 mg IVP Q5MIN PRN PRN Reason: HR>120, call og Last Admin: 05/09/21 09:49 Dose: 5 mg Documented by: Metoprolol Tartrate (Metoprolol Tartrate 25 Mg Tablet) 25 mg PO Q12H [facility] Last Admin: 05/10/21 22:14 Dose: 25 mg Documented by: Naloxone HCl (Naloxone 0.4 Mg/Ml Sdv) 0.1 mg IVP Q2M PRN PRN Reason: OPIATERV Ondansetron HCl (Ondansetron 2 Mg/Ml Sdv 2 Ml) 4 mg IVP Q8H PRN PRN Reason: vomiting, or N/V if npo Pantoprazole Sodium (Pantoprazole 40 Mg Sdv) 40 mg IVP Q12H NATALIE Last Admin: 05/10/21 19:50 Dose: 40 mg Documented by: Polyethylene Glycol (Polyethylene Glycol 3350 Pkt 17 Gm) 17 gm PO 0900,2100 [facility] Last Admin: 05/10/21 19:51 Dose: 17 gm Documented by: Sodium Chloride (Sodium Chloride 3.5% Neb 4 Ml Neb) 4 ml INHALATION BID.RESPIRATORY [facility] Last Admin: 05/10/21 20:38 Dose: 4 ml Documented by: Sucralfate (Sucralfate 1 Gm Tablet) 1 gm PO QID [facility] Last Admin: 05/10/21 19:52 Dose: 1 gm Documented by: Vitamin D (Cholecalciferol (Vitamin D3) 1,000 Unit Tablet) 1,000 unit PO DAILY [facility] Last Admin: 05/10/21 09:56 Dose: Not Given Documented by: Vitals/I&O/Wt Last Vital Signs Temp 97.2 F L 05/11/21 07:18 Pulse 106 H 05/11/21 08:29 Resp 19 H 05/11/21 08:29 BP 114/62 05/11/21 07:18 Pulse Ox 94 05/11/21 08:29 05/10/21 05/11/21 05/11/21 22:59 06:59 14:59 Intake Total 50 / 100 Output Total 500 / 1200 875 / 2075 340 / 340 Balance -500 / -1150 -825 / -1975 -340 / -340 Weight last 48 hrs Weight 222 lb 8 oz Weight 224 lb 11.2 oz Weight 224 lb 11.2 oz Physical Exam Narrative: EXAM NARRATIVE: GENERAL: The patient is alert and oriented to place and person. Seems very lethargic. Chronically ill looking. Currently is on a BiPAP. HEENT: Moderate pallor, icterus or lymphadenopathy. The pupils are symmetrical oral cavity: There are no mucous membrane lesions. Funduscopic examination: Fundus is not visualized NECK: Trachea appears to be central. No masses noted. No JVD or thyromegaly appr eciated. No carotid bruit. RESPIRATORY: Breath sounds are heard bilaterally with some bronchovesicular breath sounds in the right side. Diminished intensity breath sounds at the bases BREASTS: Deferred. HEART: The PMI could not be palpated no palpable precordial events. S1 and S2 are normal. No S3 or S4 heard. No pericardial rub or any click heard. ABDOMEN: No vessel pulsations or distention. No tenderness. No organomegaly appreciated. No abdominal bruit. Bowel sounds are normally heard. : Deferred. RECTAL: Deferred. LYMPHATIC: No lymphadenopathy in the neck EXTREMITIES:The skin is indurated with a healed excoriations. Trace edema with no cyanosis. Peripheral pulses are palpable but weak bilaterally MUSCULOSKELETAL: No acute joint deformities or swelling SKIN: Indurated, healed excoriations and some hyperpigmentation both lower extremities NEUROPSYCHIATRIC: Some motor weakness of the left lower extremity. Patient has generalized weakness Urinary Catheter Management^: Corbin: Cath Placed During This Visit: yes Reason for Continuing Indwelling Catheter: Acute Urinary Retention or Obstruct ion Urinary Catheter Date of Insertion: 04/27/21 Urinary Catheter Time of Insertion: 09:15 Data : 05/11/21 05:40 05/11/21 05:40 Other Labs: Laboratory Last Values WBC 9.8 10^3/uL (4.0-10.0) 05/11/21 05:40 RBC 2.99 10^6/uL (4.1-5.3) L 05/11/21 05:40 Hgb 8.3 g/dL (11.7-16.6) L 05/11/21 05:40 Hct 27.8 % (42.0-52.0) L 05/11/21 05:40 MCV 93.0 fl (80-94) 05/11/21 05:40 MCH 27.8 pg (28.0-34.0) L 05/11/21 05:40 MCHC 29.9 g/dL (30.0-36.0) L 05/11/21 05:40 RDW 17.1 % (12.1-15.1) H 05/11/21 05:40 Plt Count 366 10^3/cmm (130-400) 05/11/21 05:40 MPV 10.3 fL (7.4-10.4) 05/11/21 05:40 Neut % (Auto) 71.9 % 05/11/21 05:40 Lymph % (Auto) 17.0 % 05/11/21 05:40 [place] % (Auto) 8.0 % 05/11/21 05:40 Eos % (Auto) 1.9 % 05/11/21 05:40 Baso % (Auto) 0.7 % 05/11/21 05:40 Reticulocyte % (Auto) 1.3 % (0.5-2.0) 04/29/21 02:55 Neut # (Auto) 7.07 10^3/uL (1.8-7.7) 05/11/21 05:40 Lymph # (Auto) 1.7 10^3/uL (0.8-4.8) 05/11/21 05:40 [place] # (Auto) 0.8 10^3/uL (0.2-0.9) 05/11/21 05:40 Eos # (Auto) 0.2 10^3/uL (0.0-0.8) 05/11/21 05:40 Baso # (Auto) 0.1 10^3/uL (0.0-0.1) 05/11/21 05:40 Nucleated RBC % (auto) 0 % 05/11/21 05:40 Nucleated RBCs # 0.0 /100WBC 05/11/21 05:40 Differential Comment Yes 04/30/21 09:25 PT 17.30 SECONDS (12.1-14.9) H 05/11/21 05:40 INR 1.38 (0.8-1.2) H 05/11/21 05:40 APTT 75.6 SECONDS (23.9-36.7) H 05/01/21 13:05 D-Dimer 7.36 ug/mIFEU (0-0.59) H 04/27/21 08:23 Specimen Type Arterial 05/09/21 09:37 Sample Site Radial, right 05/09/21 09:37 ABG pH 7.40 (7.35-7.45) 05/09/21 09:37 ABG pCO2 52.4 mmHg (35-45) H 05/09/21 09:37 ABG pO2 85.8 mmHg (80.0-100.0) 05/09/21 09:37 ABG HCO3 32.3 mmol/L (22-26) H 05/09/21 09:37 ABG O2 Saturation 97.3 05/09/21 09:37 ABG Base Excess 6.6 mmol/L (-2.0-2.0) H 05/09/21 09:37 Dimitry Test Pos 05/09/21 09:37 A-a O2 Gradient Not Reportable 05/09/21 09:37 Hematocrit 25.0 % (42-52) L 05/09/21 09:37 Hgb O2 Saturation 95.4 % (95-100) 05/09/21 09:37 Carboxyhemoglobin 0.9 %THgb (0.4-20.1) 05/09/21 09:37 Methemoglobin 1.0 % (0.4-1.5) 05/09/21 09:37 Total Hemoglobin 8.1 g/dL (14-18) L 05/09/21 09:37 Sodium 141.0 mmol/L (131-143) 05/09/21 09:37 Potassium 3.6 mmol/L (3.5-5.0) 05/09/21 09:37 Glucose 193.0 mg/dL (70-115) H 05/09/21 09:37 Ionized Calcium 1.2 mmol/L (1.1-1.4) 05/09/21 09:37 O2 Delivery Device Nc 05/09/21 09:37 O2 Liters/Min 6.0 % 05/07/21 04:44 FiO2 15.0 % 05/09/21 09:37 Tidal Volume 0.45 05/06/21 03:40 PEEP 8.0 cmH20 05/06/21 03:40 [employer] ID [place] 05/09/21 09:37 Sodium 140 mmol/L (136-145) 05/11/21 05:40 Potassium 3.4 mmol/L (3.5-5.1) L 05/11/21 05:40 Chloride 96 mmol/L (98-107) L 05/11/21 05:40 Carbon Dioxide 30 mmol/L (22-29) H 05/11/21 05:40 Anion Gap 17.4 (5-19) 05/11/21 05:40 BUN 36 mg/dL (8-23) H 05/11/21 05:40 Creatinine 1.6 mg/dL (0.7-1.2) H 05/11/21 05:40 GFR Calculation Not Reportable 05/11/21 05:40 Glucose 164 mg/dL (65-115) H 05/11/21 05:40 POC Glucose 223 mg/dL (70-110) H 05/11/21 06:37 Calculated Osmolality 302 mOsm/kg (285-295) H 05/11/21 05:40 Lactate 0.6 mmol/L (0.5-2.2) 05/08/21 03:08 Calcium 9.5 mg/dL (8.5-10.5) 05/11/21 05:40 Phosphorus 3.7 mg/dL (2.5-4.5) 05/11/21 05:40 Magnesium 2.0 mg/dL (1.7-2.3) 05/11/21 05:40 Iron 10 ug/dL (59-158) L 04/29/21 02:55 Ferritin 99 ng/mL (30-400) 04/29/21 02:55 Total Bilirubin 0.2 mg/dL (0.15-1.2) 05/11/21 05:40 AST 46 U/L (0-40) H 05/11/21 05:40 ALT 19 U/L (0-41) 05/11/21 05:40 Alkaline Phosphatase 70 IU/L (40-130) 05/11/21 05:40 Creatine Kinase 620 U/L (39-308) H* 05/11/21 05:40 Troponin T Baseline 47 ng/L (0-15) H 04/27/21 08:23 Troponin T 120 Minute 46.61 ng/L (0-15) H 04/27/21 10:17 Delta Troponin T -0.39 ABS# (0-10) L 04/27/21 10:17 Troponin T Hi Sens 6Hr 47.02 ng/L (0-15) H 04/27/21 14:13 Troponin T Hi Sens 6Hr Delta 0.02 ng/L (0-12) 04/27/21 14:13 C-Reactive Protein 91.9 mg/L (0.0-4.9) H 05/11/21 05:40 NT-Pro-B Natriuret Pep 74106 pg/mL (0-125) H 05/11/21 05:40 Total Protein 6.6 g/dL (6.6-8.7) 05/11/21 05:40 Albumin 2.9 g/dL (3.5-5.2) L 05/11/21 05:40 Globulin 3.7 g/dL (1.3-4.6) 05/11/21 05:40 Procalcitonin 0.20 ng/mL (0-0.5) 05/11/21 05:40 TSH 0.35 uIU/mL (0.27-4.20) 04/27/21 08:23 Urine Color Yellow (Yellow) 04/27/21 01:36 Urine Appearance Hazy (CLEAR) A 04/27/21 01:36 Urine pH 5 (5-7) 04/27/21 01:36 Ur Specific [place] 1.020 (1.005-1.030) 04/27/21 01:36 Urine Protein Neg (Negative) 04/27/21 01:36 Urine Glucose (UA) Norm (Normal) 04/27/21 01:36 Urine Ketones Negative (Negative) 04/27/21 01:36 Urine Blood 2+ (Negative) H 04/27/21 01:36 Urine Nitrate Negative (Negative) 04/27/21 01:36 Urine Bilirubin Neg (Negative) 04/27/21 01:36 Urine Urobilinogen Norm mg/dL (Negative) 04/27/21 01:36 Ur Leukocyte Esterase Negative (Negative) 04/27/21 01:36 Urine RBC 0-4 /hpf (0-2) H 04/27/21 01:36 Urine WBC 5-10 /hpf (0-5) H 04/27/21 01:36 Ur Squamous Epith Cells Rare /hpf (0-5) 04/27/21 01:36 Amorphous Sediment Not Reportable 04/27/21 01:36 Urine Bacteria 1+ /hpf (NONE) H 04/27/21 01:36 Fluid Color Yellow 04/30/21 09:25 Fluid Appearance Clear 04/30/21 09:25 Fluid WBC 906 /uL 04/30/21 09:25 Fluid RBC 5.000 10^3/uL 04/30/21 09:25 Fluid Hematocrit 0.1 % 04/30/21 09:25 Fld Polynuclear WBCs # 0.153 04/30/21 09:25 Fld Polynuclear WBCs % 16.900 % 04/30/21 09:25 Fl Mononucl WBCs #(Auto) 0.753 04/30/21 09:25 Fl Mononuclear % Auto 83.100 % 04/30/21 09:25 Fluid Albumin 1.5 g/dL 04/30/21 09:25 Fluid Creatinine 1.56 (0.7-1.2) H 04/30/21 09:25 Pleural pH 7.00 (6.5-7.5) 04/30/21 09:25 Pleural Total Protein 3.1 g/dL 04/30/21 09:25 Pleural LDH 122 U/L 04/30/21 09:25 Pleural Glucose 113.0 mg/dL 04/30/21 09:25 Pleural Amylase 20.0 U/L 04/30/21 09:25 Pleural Triglycerides 39 mg/dL 04/30/21 09:25 Coronavirus 229E (PCR) Not detected (NOT DETECT) 05/09/21 22:00 SARS-CoV-2 (PCR) Not detected (NOT DETECT) 05/09/21 22:00 Blood Type O Positive 05/07/21 19:36 Rho(D) Type Positive 05/07/21 19:36 Antibody Screen Negative 05/07/21 19:36 Crossmatch See Detail 05/07/21 19:36 A&P Assessment and plan (1) Atrial fibrillation with rapid ventricular response: Patient currently seems to be in atrial fibrillation with controlled ventricular response rate. May continue the current medications. Also patient is a GI bleed, requiring multiple blood transfusions, he may not be an ideal candidate for long-term oral anticoagulation. At this point, he may be continued on the current medications. Status: Acute (2) Acute on chronic systolic heart failure: Patient has systolic dysfunction with ejection fraction of around 45%. Most likely he may have underlying coronary artery disease causing LV dysfunction. For further evaluation of the coronary status, a myocardial perfusion imaging would be appropriate. However considering the patient's physical condition, it may be appropriate to hold off on this for the time being. Need to discuss with the patient's family regarding further work-up. Patient is overall physical condition is very poor at this point Status: Acute (3) Acute exacerbation of chronic obstructive airways disease: The respiratory status is improving. The oxygenation is better. May continue on the current management. Status: Acute (4) Upper GI bleed: Patient status post multiple blood transfusion and endoscopic injection of the epinephrine around the gastric and duodenal ulcer. Currently does not appear to have any active bleeding. Status: Acute (5) Hypotension: Currently the blood pressure is in the normal range. Status: Acute Qualifiers: Hypotension type: hypotension due to drug Qualified Code(s): I95.2 - Hypotension due to drugs Additional A&P Information Other problems are 1.? Cardiomyopathy-if the patient's blood pressure continues to remain stable, may consider starting him on Entresto tomorrow. 2. Anemia, possibly from blood loss, seems to be stable 3. 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
--- NOTE | 2021-05-11 10:16 | XRR_ITS ---
PROCEDURE INFORMATION: Exam: XR Chest Exam date and time: 05/11/2021 10:16 AM Age: 75 years old Clinical indication: Shortness of breath; Prior surgery TECHNIQUE: Imaging protocol: XR of the chest. Views: 1 view. COMPARISON: CR (CHEST, ) 05/10/2021 9:26 AM FINDINGS: Lungs: Interval improvement of the aeration of the right lung. New ill-defined opacification of the mid and lower left lung. Pleural spaces: Small volume right pleural effusion. No pneumothorax. Heart/Mediastinum: Stable heart size. Bones/joints: Redemonstrated ORIF hardware with side plates and screws along the posterolateral left mid ribs. Visualized osseous structures are intact. XR/XR chest 1V portable [id number] IMPRESSION: 1. Interval improvement of the aeration of the right lung. New ill-defined opacification of the mid and lower left lung. 2. Small volume right pleural effusion.
--- NOTE | 2021-05-11 10:23 | PM.PN ---
Subjective Subjective: Interval history: Patient is doing much better this morning. He is on nasal cannula. More alert and visiting. No chest pain. No increased shortness of breath. No nausea or vomiting. Medications: Reviewed: Yes Medication Review Details: Current Medications Acetaminophen (Acetaminophen 325 Mg Tablet) 650 mg PO Q6H PRN PRN Reason: Mild/Mod Pain Or Temp >/= 101 Last Admin: 05/08/21 13:23 Dose: 650 mg Documented by: Acetylcysteine (Acetylcysteine 200 Mg/Ml Sdv 4 Ml) 100 mg INHALATION Q6H.RESPIRATORY NATALIE Last Admin: 05/11/21 08:19 Dose: 100 mg Documented by: Albuterol/Ipratropium (Ipratropium-Albuterol 3 Ml Neb) 3 ml INHALATION Q4H.RESPIRATORY [facility] Last Admin: 05/11/21 08:18 Dose: 3 ml Documented by: Atorvastatin Calcium (Atorvastatin 40 Mg Tablet) 80 mg PO DAILY [facility] Last Admin: 05/08/21 08:15 Dose: 80 mg Documented by: Bisacodyl (Bisacodyl 5 Mg Tablet) 10 mg PO DAILY PRN; Protocol PRN Reason: Constipation (see protocol) Dextrose (Dextrose 50% Syringe 50 Ml) 25 ml IVP ONCE PRN; Protocol PRN Reason: hypoglycemia protocol Dextrose (Dextrose 50% Syringe 50 Ml) 50 ml IVP PRN PRN; Protocol PRN Reason: hypoglycemia protocol Diltiazem HCl (Diltiazem 60 Mg Tablet) 90 mg PO Q6H [facility] Last Admin: 05/11/21 05:22 Dose: 90 mg Documented by: Docusate Sodium (Docusate Sodium 100 Mg Capsule) 100 mg PO 0900,2100 [facility] Last Admin: 05/10/21 19:51 Dose: 100 mg Documented by: Furosemide (Furosemide 10 Mg/Ml Sdv 4ml) 40 mg IVP Q12H [facility] Last Admin: 05/11/21 05:21 Dose: 40 mg Documented by: Gabapentin (Gabapentin 300 Mg Capsule) 300 mg PO DAILY [facility] Last Admin: 05/10/21 09:56 Dose: Not Given Documented by: Glucagon (Glucagon 1 Mg/Ml Inj 1 Ml) 1 mg IM ONCE PRN; Protocol PRN Reason: Adult Acute Hypoglycemia Prot. Hydromorphone HCl (Hydromorphone 1 Mg/Ml Inj 1 Ml) 0.5 mg IVP Q6H PRN PRN Reason: PAIN Last Admin: 05/10/21 20:00 Dose: 0.5 mg Documented by: Dextrose (D5w) 500 mls @ 100 mls/hr IV ONCE PRN; Protocol PRN Reason: Adult Acute Hypoglycemia Prot Piperacillin Sod/Tazobactam (Sod 3.375 gm/ Sodium Chloride) 50 mls @ 12.5 mls/hr IV Q8H [facility]; Protocol Last Admin: 05/11/21 03:33 Dose: 12.5 mls/hr Documented by: Diltiazem HCl 125 mg/ Sodium (Chloride) 125 mls @ 0 mls/hr IV .Q0M [facility]; Protocol Last Titration: 05/10/21 01:08 Dose: 0 mg/hr, 0 mls/hr Documented by: Insulin Human Lispro (Insulin Lispro 100 Unit/1 Ml) 0 unit SUBCUT WM&BEDTIME [facility]; Protocol Last Admin: 05/10/21 20:09 Dose: 4 unit Documented by: Lanolin (Lanolin Oint 7 Gm) 1 applic TOPICAL PRN PRN PRN Reason: DRYNESS Last Admin: 05/04/21 18:37 Dose: 1 applic Documented by: Metoprolol Tartrate (Metoprolol Tartrate 1 Mg/1 Ml Sdv 5 Ml) 5 mg IVP Q5MIN PRN PRN Reason: HR>120, call og Last Admin: 05/09/21 09:49 Dose: 5 mg Documented by: Metoprolol Tartrate (Metoprolol Tartrate 25 Mg Tablet) 25 mg PO Q12H [facility] Last Admin: 05/10/21 22:14 Dose: 25 mg Documented by: Naloxone HCl (Naloxone 0.4 Mg/Ml Sdv) 0.1 mg IVP Q2M PRN PRN Reason: OPIATERV Ondansetron HCl (Ondansetron 2 Mg/Ml Sdv 2 Ml) 4 mg IVP Q8H PRN PRN Reason: vomiting, or N/V if npo Pantoprazole Sodium (Pantoprazole 40 Mg Sdv) 40 mg IVP Q12H [facility] Last Admin: 05/10/21 19:50 Dose: 40 mg Documented by: Polyethylene Glycol (Polyethylene Glycol 3350 Pkt 17 Gm) 17 gm PO 0900,2100 [facility] Last Admin: 05/10/21 19:51 Dose: 17 gm Documented by: Sodium Chloride (Sodium Chloride 3.5% Neb 4 Ml Neb) 4 ml INHALATION BID.RESPIRATORY [facility] Last Admin: 05/10/21 20:38 Dose: 4 ml Documented by: Sucralfate (Sucralfate 1 Gm Tablet) 1 gm PO QID [facility] Last Admin: 05/10/21 19:52 Dose: 1 gm Documented by: Vitamin D (Cholecalciferol (Vitamin D3) 1,000 Unit Tablet) 1,000 unit PO DAILY [facility] Last Admin: 05/10/21 09:56 Dose: Not Given Documented by: Vitals/I&O/Wt Last Vital Signs Temp 97.2 F L 05/11/21 07:18 Pulse 101 H 05/11/21 09:45 Resp 19 H 05/11/21 09:45 BP 114/62 05/11/21 07:18 Pulse Ox 93 05/11/21 09:45 05/10/21 05/11/21 05/11/21 22:59 06:59 14:59 Intake Total 50 / 100 Output Total 500 / 5 875 / 5 340 / 340 Balance -500 / -1974 -825 / -1974 -340 / -340 Weight last 48 hrs Weight 222 lb 8 oz Weight 224 lb 11.2 oz Weight 224 lb 11.2 oz Physical Exam Narrative: EXAM NARRATIVE: General: No acute distress, Alert. Well nourished. Heart: A. fib. No murmurs, rubs or gallops. Normal capillary refill. Lungs: Decreased breath sounds on both lung romero. Some crackles noted. Not very good air movement. Abdomen: Positive bowel sounds. Non-tender, non-distended. No hepatosplenomegaly. No gaurding. Extremities: No clubbing, cyanosis.he has 1-2+ edema. Negative Sarah's Urinary Catheter Management^: Corbin: Cath Placed During This Visit: yes Reason for Continuing Indwelling Catheter: Acute Urinary Retention or Obstruction Urinary Catheter Date of Insertion: 04/27/21 Urinary Catheter Time of Insertion: 09:15 Data : 05/11/21 05:40 05/11/21 05:40 A&P Assessment and plan (1) Acute respiratory failure: Status: Acute (2) Heart failure: Status: Acute (3) Atrial fibrillation with rapid ventricular response: Status: Acute (4) Aspiration pneumonia: Status: Acute (5) Upper GI bleed: Status: Acute (6) Hemorrhagic shock: Status: Acute Additional A&P Information - 75-year-old gentleman initially admitted for acute on chronic systolic and diastolic CHF exacerbation and A. fib with RVR. 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 He had decompensated yesterday morning and it initially was felt like this was from his CHF. However after the chest x-ray was done we found he most likely had mucous plugging with a complete white out of his right lung field. Respiratory therapy was able to resolve this with chest vest and positioning in encouraging him to cough. Had a pretty dramatic improvement back to his baseline here. Still requiring oxygen but was able to get off the BiPAP. Overall is done relatively well overnight.. -He has had pneumonia thought to be aspiration pneumonia. Continues to be on Zosyn for antibiotic coverage. His white blood cell count is normal. He also had pleural effusions that required a thoracentesis during this hospital stay. We cannot rule out that this may be contributing. He had also had mucous plugging and significant atelectasis but responded to chest vest therapy. - A. fib with RVR -controlled on Cardizem and metoprolol at this point. Anticoagulations been held due to his GI bleed and hemorrhagic shock earlier in his hospitalization. Continue with current treatment at this time. Cardiology consultation. -Upper GI bleed and hemorrhagic shock -stable at this time. Status post 4 units of packed red blood cells. Still on Protonix and Carafate. Continue to hold Lovenox and aspirin. -Acute CVA during this hospitalization.-CT scan suggested an embolic infarct. With his decreased responsiveness today we cannot rule out that he possibly has had another episode. We are in a difficult spot with his GI bleed and the need to hold anticoagulation therapy. Monitor this closely through the day. -Acute renal failure and rhabdomyolysis. -CK is still elevated. Creatinine has improved. Continue to monitor these as well. Would normally like to be more aggressive with the fluids but are limited due to his CHF. Attestations Medical Necessity Statement*: Patient is 75-year-old gentleman with respiratory failure secondary to CHF and mucous plugging requiring continued inpatient IV treatments and monitoring. 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
--- NOTE | 2021-05-11 10:37 | USCV_ITS ---
John Guerrero Age: 75 Gender: M : 1945 Exam Date: 05/11/2021 11:03 Ordering Phys: Freddy Vasques MD ([email or web address]) Technologist: Nika Voss Exam Location: [facility] [place] Indication: EF measurements BP: 114 / 62 HR: 106 Rhythm: Sinus Technical Quality: Technically difficult study MEASUREMENTS (Male / Female) Normal Values 2D ECHO LV Diastolic Diameter PLAX 3.5 cm 4.2 - 5.9 / 3.9 - 5.3 cm LV Systolic Diameter PLAX 3.1 cm IVS Diastolic Thickness 1.8 cm 0.6 - 1.0 / 0.6 - 0.9 cm IVS Systolic Thickness 1.5 cm LVPW Diastolic Thickness 1.2 cm 0.6 - 1.0 / 0.6 - 0.9 cm LVPW Systolic Thickness 1.6 cm LV Ejection Fraction 2D Teich 23.4 % LV Ejection Fraction MOD 2C 45.1 % LV Ejection Fraction 2C AL 50.2 % M-MODE LV Diastolic Diameter MM 4.1 cm 4.2 - 5.9 / 3.9 - 5.3 cm LV Systolic Diameter MM 3.4 cm LV Ejection Fraction MM Teich 35.0 % IVS Diastolic Thickness MM 1.8 cm 0.6 - 1.0 / 0.6 - 0.9 cm IVS Systolic Thickness MM 1.6 cm LVPW Diastolic Thickness MM 1.6 cm 0.6 - 1.0 / 0.6 - 0.9 cm LVPW Systolic Thickness MM 1.5 cm FINDINGS Left Ventricle Diffuse hypokinesis of the inferior wall with a somewhat dyskinetic basal inferior wall segment. Mild diffuse hypokinesis of the septum and the anteroseptal segment sLV ejection fraction around 45%. Right Ventricle Mildly dilated right ventricle with possibly normal ejection fraction Right Atrium Mildly dilated Left Atrium Mildly dilated Mitral Valve Mild mitral annular calcification. Aortic Valve Thickened aortic valve Tricuspid Valve Normal gross abnormalities noted Pulmonic Valve Pulmonic valve not well visualized. Pericardium No pericardial effusion. Aorta Normal aortic annulus size. CONCLUSIONS Multiple wall motion of normalities with a diminished ejection fraction of 45%. Mildly dilated right ventricle with possibly normal ejection fraction Mild biatrial enlargement Thickened aortic valve. Mild mitral annular calcification. There is no pericardial effusion. Comparison with the previous study is difficult because of the difference in the technical quality. Dr Freddy Vasques MD FACC (Electronically Signed) Final Date: 11 May 2021 17:44 S
[2021-05-11] MEDS: pantoprazole 40 mg SDV IVP ×2 (10:46→19:43)
[2021-05-11] MEDS: cholecalciferol (vitamin D3) 1,000 unit Tablet 1000 UNIT PO (10:46)
[2021-05-11] MEDS: gabapentin 300 mg Capsule PO (10:46)
[2021-05-11] MEDS: sucralfate 1 gm Tablet PO ×3 (10:46→19:46)
[2021-05-11] MEDS: metoprolol tartrate 25 mg Tablet PO ×2 (10:46→21:54)
--- NOTE | 2021-05-11 10:49 | PC.NURSE ---
blood glucose 193
[2021-05-11 11:31] LABS: Glucose Point of Care 193 mg/dL (70-110)
[2021-05-11] MEDS: insulin lispro 100 unit/1 mL SUBCUT ×3 (12:53→21:41)
--- NOTE | 2021-05-11 13:51 | PC.PT ---
Attempted PT in the morning, but patient had just been repositioned and was tachycardic. Attempted PT in afternoon, but patient refused a couple of requests for bed exercises as he was not feeling well.
--- NOTE | 2021-05-11 15:14 | PC.SLP ---
Patient not seen today due to high heart rate and return to BiPap.
[2021-05-11] MEDS: HYDROmorphone 1 mg/mL INJ 1 mL 0.5 MG IVP (16:06)
[2021-05-11 16:10] LABS: Glucose Point of Care 158 mg/dL (70-110)
[2021-05-11] MEDS: docusate sodium 100 mg Capsule PO (19:46)
[2021-05-11] MEDS: polyethylene glycol 3350 Pkt 17 gm PO (19:48)
[2021-05-11 20:37] LABS: Glucose Point of Care 190 mg/dL (70-110)
[2021-05-12] VITALS (21 sets, daily range): BP systolic 90–120; BP diastolic 51–65; PULSE 64–120; RESP 14–31; TEMP 36.3–37; O2SAT 90–99
[2021-05-12] MEDS: dilTIAZem 60 mg Tablet 90 MG PO ×3 (01:57→20:43)
[2021-05-12] MEDS: piperacillin-tazobactam 3.375 GM in sodium chloride 0.9% (plus) 50 ML IV ×3 (01:57→18:29)
[2021-05-12] MEDS: ipratropium-albuterol 3 mL Neb INHALATION ×6 (03:42→23:04)
[2021-05-12] MEDS: acetaminophen 325 mg Tablet 650 MG PO (05:40)
[2021-05-12 06:32] LABS: Glucose Point of Care 197 mg/dL (70-110)
[2021-05-12] MEDS: gabapentin 300 mg Capsule PO (08:34)
[2021-05-12] MEDS: cholecalciferol (vitamin D3) 1,000 unit Tablet 1000 UNIT PO (08:34)
[2021-05-12] MEDS: insulin lispro 100 unit/1 mL SUBCUT ×4 (08:35→20:40)
[2021-05-12] MEDS: sucralfate 1 gm Tablet PO ×2 (08:39→20:45)
[2021-05-12] MEDS: pantoprazole 40 mg SDV IVP ×2 (09:10→20:44)
[2021-05-12] MEDS: FUROsemide 10 mg/mL SDV 4mL 40 MG IVP ×2 (09:11→20:43)
--- NOTE | 2021-05-12 09:17 | PC.CHAP ---
Pastoral Care Encounter/Spiritual Assessment Type of Contact [] Declined tableau analyst visit [] Patient/Family/Request visit [] Outpatient visit [] Follow-up visit [] Physician referral [] Code/Alert [x] Routine visit [] Staff referral [] Actively dying [] Patient sleeping [] Family support [] [] Out of room [] Palliative care [] [x] Receiving care in room [] Pre-surgical visit [] Trauma [] Long length of stay [] ICU visit [] Other: Relational/Emotional Strength [] Patient feels connected with others/family/visitors/staff [] Distress [] Loneliness/isolation [] Abandonment Spirituality of Patient [] Person of Ewa [] Attends Rastafarian of their Ewa [] Believes in Prayer [] Reads Bible or Scientologist materials [] There are Spiritual issues to be addressed Pbx Wire Chief Interventions [x] Prayer [] Active listening [] Non-anxious presence [] Spiritual/emotional support [] Crisis/trauma care [] Spiritual counseling [] Bereavement support [] Provided bereavement packet [] Provided Bible/devotional materials [] Provided toy/stuffed animal, coloring book to patient or family member [] Provided Communion [] Anointing/[place] [] Salvation [x] Completed spiritual assessment [] Other: Impact on Illness or Injury [] Angry [] Fearful [] Anxious [] Often cries [] Exhaustion [] Unable to work [] Unable to attend tenriism [] Unable to walk/stand [] Unable to read [] Unable to drive [] Unable to eat/drink [] Unable to sleep [] Unable to be with family [] Patient intubated [] Other: Summary Time spent with patient
[2021-05-12] MEDS: acetylcysteine 200 mg/mL SDV 4 mL 100 MG INHALATION ×3 (09:22→21:52)
--- NOTE | 2021-05-12 10:09 | PM.PN ---
Subjective Subjective: Interval history: Patient is feeling better. Oxygen saturation is around 90% on 10 L of oxygen by nasal cannula. Medications: Reviewed: Yes Medication Review Details: Current Medications Acetaminophen (Acetaminophen 325 Mg Tablet) 650 mg PO Q6H PRN PRN Reason: Mild/Mod Pain Or Temp >/= 101 Last Admin: 05/12/21 05:40 Dose: 650 mg Documented by: Acetylcysteine (Acetylcysteine 200 Mg/Ml Sdv 4 Ml) 100 mg INHALATION Q6H.RESPIRATORY NATALIE Last Admin: 05/12/21 09:22 Dose: 100 mg Documented by: Albuterol/Ipratropium (Ipratropium-Albuterol 3 Ml Neb) 3 ml INHALATION Q4H.RESPIRATORY NATALIE Last Admin: 05/12/21 09:21 Dose: 3 ml Documented by: Atorvastatin Calcium (Atorvastatin 40 Mg Tablet) 80 mg PO DAILY [facility] Last Admin: 05/08/21 08:15 Dose: 80 mg Documented by: Bisacodyl (Bisacodyl 5 Mg Tablet) 10 mg PO DAILY PRN; Protocol PRN Reason: Constipation (see protocol) Dextrose (Dextrose 50% Syringe 50 Ml) 25 ml IVP ONCE PRN; Protocol PRN Reason: hypoglycemia protocol Dextrose (Dextrose 50% Syringe 50 Ml) 50 ml IVP PRN PRN; Protocol PRN Reason: hypoglycemia protocol Diltiazem HCl (Diltiazem 60 Mg Tablet) 90 mg PO Q6H [facility] Last Admin: 05/12/21 08:35 Dose: 90 mg Documented by: Docusate Sodium (Docusate Sodium 100 Mg Capsule) 100 mg PO 0900,2100 [facility] Last Admin: 05/12/21 08:39 Dose: Not Given Documented by: Furosemide (Furosemide 10 Mg/Ml Sdv 4ml) 40 mg IVP Q12H NATALIE Last Admin: 05/12/21 09:11 Dose: 40 mg Documented by: Gabapentin (Gabapentin 300 Mg Capsule) 300 mg PO DAILY [facility] Last Admin: 05/12/21 08:34 Dose: 300 mg Documented by: Glucagon (Glucagon 1 Mg/Ml Inj 1 Ml) 1 mg IM ONCE PRN; Protocol PRN Reason: Adult Acute Hypoglycemia Prot. Dextrose (D5w) 500 mls @ 100 mls/hr IV ONCE PRN; Protocol PRN Reason: Adult Acute Hypoglycemia Prot Piperacillin Sod/Tazobactam (Sod 3.375 gm/ Sodium Chloride) 50 mls @ 12.5 mls/hr IV Q8H [facility]; Protocol Last Admin: 05/12/21 01:57 Dose: 12.5 mls/hr Documented by: Diltiazem HCl 125 mg/ Sodium (Chloride) 125 mls @ 0 mls/hr IV .Q0M [facility]; Protocol Last Titration: 05/10/21 01:08 Dose: 0 mg/hr, 0 mls/hr Documented by: Insulin Human Lispro (Insulin Lispro 100 Unit/1 Ml) 0 unit SUBCUT WM&BEDTIME [facility]; Protocol Last Admin: 05/12/21 08:35 Dose: 4 unit Documented by: Lanolin (Lanolin Oint 7 Gm) 1 applic TOPICAL PRN PRN PRN Reason: DRYNESS Last Admin: 05/04/21 18:37 Dose: 1 applic Documented by: Metoprolol Tartrate (Metoprolol Tartrate 1 Mg/1 Ml Sdv 5 Ml) 5 mg IVP Q5MIN PRN PRN Reason: HR>120, call go Last Admin: 05/09/21 09:49 Dose: 5 mg Documented by: Metoprolol Tartrate (Metoprolol Tartrate 25 Mg Tablet) 25 mg PO Q12H [facility] Last Admin: 05/11/21 21:54 Dose: 25 mg Documented by: Naloxone HCl (Naloxone 0.4 Mg/Ml Sdv) 0.1 mg IVP Q2M PRN PRN Reason: OPIATERV Ondansetron HCl (Ondansetron 2 Mg/Ml Sdv 2 Ml) 4 mg IVP Q8H PRN PRN Reason: vomiting, or N/V if npo Pantoprazole Sodium (Pantoprazole 40 Mg Sdv) 40 mg IVP Q12H [facility] Last Admin: 05/12/21 09:10 Dose: 40 mg Documented by: Polyethylene Glycol (Polyethylene Glycol 3350 Pkt 17 Gm) 17 gm PO 0900,2100 [facility] Last Admin: 05/12/21 08:39 Dose: Not Given Documented by: Sodium Chloride (Sodium Chloride 3.5% Neb 4 Ml Neb) 4 ml INHALATION BID.RESPIRATORY [facility] Last Admin: 05/11/21 19:27 Dose: 4 ml Documented by: Sucralfate (Sucralfate 1 Gm Tablet) 1 gm PO QID [facility] Last Admin: 05/12/21 08:39 Dose: 1 gm Documented by: Vitamin D (Cholecalciferol (Vitamin D3) 1,000 Unit Tablet) 1,000 unit PO DAILY NATALIE Last Admin: 05/12/21 08:34 Dose: 1,000 unit Documented by: Vitals/I&O/Wt Last Vital Signs Temp 97.4 F L 05/12/21 03:37 Pulse 91 05/12/21 09:39 Resp 22 H 05/12/21 09:29 BP 90/51 05/12/21 03:37 Pulse Ox 90 05/12/21 09:29 05/11/21 05/12/21 05/12/21 22:59 06:59 14:59 Intake Total 180 / 350 50 / 400 Output Total 203 / 543 750 / 1293 Balance -23 / -193 -700 / -893 Weight last 48 hrs Weight 224 lb Weight 222 lb 8 oz Physical Exam Narrative: EXAM NARRATIVE: GENERAL: The patient is alert and oriented to place and person. Seems to be more alert and active today. HEENT: Moderate pallor, icterus or lymphadenopathy. The pupils are symmetrical oral cavity: There are no mucous membrane lesions. Funduscopic examination: Fundus is not visualized NECK: Trachea appears to be central. No masses noted. No JVD or thyromegaly appreciated. No carotid bruit. RESPIRATORY: Breath sounds are heard bilaterally with some bronchovesicular breath sounds in the right side. Diminished intensity breath sounds at the bases BREASTS: Deferred. HEART: The PMI could not be palpated no palpable precordial events. The first heart sound is variable. Second heart sound is normal. No S3 or S4 heard. No pericardial rub or any click heard. ABDOMEN: No vessel pulsations or distention. No tenderness. No organomegaly appreciated. No abdominal bruit. Bowel sounds are normally heard. : Deferred. RECTAL: Deferred. LYMPHATIC: No lymphadenopathy in the neck EXTREMITIES:The skin is indurated with a healed excoriations. Trace edema with no cyanosis. Peripheral pulses are palpable but weak bilaterally MUSCULOSKELETAL: No acute joint deformities or swelling SKIN: Indurated, healed excoriations and some hyperpigmentation both lower extremities NEUROPSYCHIATRIC: Some motor weakness of the left lower extremity. Patient has generalized weakness Urinary Catheter Management^: Corbin: Cath Placed During This Visit: yes Reason for Continuing Indwelling Catheter: Accurate Measurement of Urinary Output in Critically Ill Patients Urinary Catheter Date of Insertion: 04/27/21 Urinary Catheter Time of Insertion: 09:15 Data : 05/11/21 05:40 05/11/21 05:40 A&P Assessment and plan (1) Atrial fibrillation with rapid ventricular response: Patient currently seems to be in atrial fibrillation with controlled ventricular response rate. May continue the current medications. Also patient is a GI bleed, requiring multiple blood transfusions, he may not be an ideal candidate for long-term oral anticoagulation. At this point, he may be continued on the current medications. Status: Acute (2) Acute on chronic systolic heart failure: Patient has systolic dysfunction with ejection fraction of around 45%. Most likely he may have underlying coronary artery disease causing LV dysfunction. For further evaluation of the coronary status, a myocardial perfusion imaging would be appropriate. However considering the patient's physical condition, it may be appropriate to hold off on this for the time being. Status: Acute (3) Acute exacerbation of chronic obstructive airways disease: The respiratory status is improving. The oxygenation is better. May continue on the current management. Status: Acute (4) Upper GI bleed: Patient status post multiple blood transfusion and endoscopic injection of the epinephrine around the gastric and duodenal ulcer. Currently does not appear to have any active bleeding. Status: Acute (5) Hypotension: Currently the blood pressure is in the normal range. Status: Acute Qualifiers: Hypotension type: hypotension due to drug Qualified Code(s): I95.2 - Hypotension due to drugs Additional A&P Information Other problems are 1.? Cardiomyopathy-because of the relatively low blood pressure and the kidney disease, we may hold off on the Entresto at this point 2. Anemia, possibly from blood loss, seems to be stable 3. Acute on chronic kidney injury, seems to be improving I discussed the patient's stepdaughter regarding his further care. Because of his multiple medical issues, it was decided to hold off on any further investigation at this point. May consider further cardiac work-up as an outpatient, if his clinical condition improves. The implications of this approach were discussed in detail with the family which they understood well. Attestations Medical Necessity Statement*: Disposition as per the primary Coding Level of Care Code Acute Vp Director Of Creative Strategy for Vin Fwd History Detailed Exam Detailed Medical Decision Making Moderate Complexity Diagnoses Atrial fibrillation with rapid ventricular response I48.91 Acute on chronic systolic heart failure I50.23 Acute exacerbation of chronic obstructive airways disease J44.1 Upper GI bleed K92.2 Hypotension I95.2 Hypotension type: hypotension due to drug
[2021-05-12] MEDS: metoprolol tartrate 25 mg Tablet PO ×2 (10:14→21:51)
[2021-05-12 11:57] LABS: Glucose Point of Care 183 mg/dL (70-110)
--- NOTE | 2021-05-12 12:55 | PC.SOCIAL ---
IMM UPDATED IMM dated and initialed and copy given to patient
--- NOTE | 2021-05-12 14:47 | PC.NURSE ---
Spoke with physician regarding patients blood pressure. Manual reading of 80/30. Nurse will continue to monitor patient closely. MAP is improving. If MAP drops below 62, nurse will notify physician. Orders to hold Cardizem 1400 dose at this time.
[2021-05-12 16:22] LABS: Glucose Point of Care 204 mg/dL (70-110)
--- NOTE | 2021-05-12 16:32 | PM.PN ---
Subjective Subjective: Interval history: All notes from current hospitalization have been reviewed. Patient continues to have fluctuating oxygen requirements between 8 to 10 L/min on high flow nasal cannula, saturating between early 80s to early 90s. Significantly deconditioned from prolonged hospital admission. No new complaints today resting comfortably at the time of exam. Medications: Reviewed: Yes Medication Review Details: Current Medications Acetaminophen (Acetaminophen 325 Mg Tablet) 650 mg PO Q6H PRN PRN Reason: Mild/Mod Pain Or Temp >/= 101 Last Admin: 05/12/21 05:40 Dose: 650 mg Documented by: Acetylcysteine (Acetylcysteine 200 Mg/Ml Sdv 4 Ml) 100 mg INHALATION Q6H.RESPIRATORY NATALIE Last Admin: 05/12/21 09:22 Dose: 100 mg Documented by: Albuterol/Ipratropium (Ipratropium-Albuterol 3 Ml Neb) 3 ml INHALATION Q4H.RESPIRATORY NATALIE Last Admin: 05/12/21 09:21 Dose: 3 ml Documented by: Atorvastatin Calcium (Atorvastatin 40 Mg Tablet) 80 mg PO DAILY [facility] Last Admin: 05/08/21 08:15 Dose: 80 mg Documented by: Bisacodyl (Bisacodyl 5 Mg Tablet) 10 mg PO DAILY PRN; Protocol PRN Reason: Constipation (see protocol) Dextrose (Dextrose 50% Syringe 50 Ml) 25 ml IVP ONCE PRN; Protocol PRN Reason: hypoglycemia protocol Dextrose (Dextrose 50% Syringe 50 Ml) 50 ml IVP PRN PRN; Protocol PRN Reason: hypoglycemia protocol Diltiazem HCl (Diltiazem 60 Mg Tablet) 90 mg PO Q6H [facility] Last Admin: 05/12/21 08:35 Dose: 90 mg Documented by: Docusate Sodium (Docusate Sodium 100 Mg Capsule) 100 mg PO 0900,2100 [facility] Last Admin: 05/12/21 08:39 Dose: Not Given Documented by: Furosemide (Furosemide 10 Mg/Ml Sdv 4ml) 40 mg IVP Q12H [facility] Last Admin: 05/12/21 09:11 Dose: 40 mg Documented by: Gabapentin (Gabapentin 300 Mg Capsule) 300 mg PO DAILY [facility] Last Admin: 05/12/21 08:34 Dose: 300 mg Documented by: Glucagon (Glucagon 1 Mg/Ml Inj 1 Ml) 1 mg IM ONCE PRN; Protocol PRN Reason: Adult Acute Hypoglycemia Prot. Dextrose (D5w) 500 mls @ 100 mls/hr IV ONCE PRN; Protocol PRN Reason: Adult Acute Hypoglycemia Prot Piperacillin Sod/Tazobactam (Sod 3.375 gm/ Sodium Chloride) 50 mls @ 12.5 mls/hr IV Q8H [facility]; Protocol Last Admin: 05/12/21 01:57 Dose: 12.5 mls/hr Documented by: Diltiazem HCl 125 mg/ Sodium (Chloride) 125 mls @ 0 mls/hr IV .Q0M [facility]; Protocol Last Titration: 05/10/21 01:08 Dose: 0 mg/hr, 0 mls/hr Documented by: Insulin Human Lispro (Insulin Lispro 100 Unit/1 Ml) 0 unit SUBCUT WM&BEDTIME [facility]; Protocol Last Admin: 05/12/21 08:35 Dose: 4 unit Documented by: Lanolin (Lanolin Oint 7 Gm) 1 applic TOPICAL PRN PRN PRN Reason: DRYNESS Last Admin: 05/04/21 18:37 Dose: 1 applic Documented by: Metoprolol Tartrate (Metoprolol Tartrate 1 Mg/1 Ml Sdv 5 Ml) 5 mg IVP Q5MIN PRN PRN Reason: HR>120, call og Last Admin: 05/09/21 09:49 Dose: 5 mg Documented by: Metoprolol Tartrate (Metoprolol Tartrate 25 Mg Tablet) 25 mg PO Q12H [facility] Last Admin: 05/11/21 21:54 Dose: 25 mg Documented by: Naloxone HCl (Naloxone 0.4 Mg/Ml Sdv) 0.1 mg IVP Q2M PRN PRN Reason: OPIATERV Ondansetron HCl (Ondansetron 2 Mg/Ml Sdv 2 Ml) 4 mg IVP Q8H PRN PRN Reason: vomiting, or N/V if npo Pantoprazole Sodium (Pantoprazole 40 Mg Sdv) 40 mg IVP Q12H [facility] Last Admin: 05/12/21 09:10 Dose: 40 mg Documented by: Polyethylene Glycol (Polyethylene Glycol 3350 Pkt 17 Gm) 17 gm PO 0900,2100 [facility] Last Admin: 05/12/21 08:39 Dose: Not Given Documented by: Sodium Chloride (Sodium Chloride 3.5% Neb 4 Ml Neb) 4 ml INHALATION BID.RESPIRATORY NATALIE Last Admin: 05/11/21 19:27 Dose: 4 ml Documented by: Sucralfate (Sucralfate 1 Gm Tablet) 1 gm PO QID [facility] Last Admin: 05/12/21 08:39 Dose: 1 gm Documented by: Vitamin D (Cholecalciferol (Vitamin D3) 1,000 Unit Tablet) 1,000 unit PO DAILY [facility] Last Admin: 05/12/21 08:34 Dose: 1,000 unit Documented by: Vitals/I&O/Wt Last Vital Signs Temp 98.6 F 05/12/21 08:00 Pulse 69 05/12/21 14:55 Resp 20 H 05/12/21 14:51 BP 116/58 05/12/21 12:34 Pulse Ox 95 05/12/21 14:51 05/12/21 05/12/21 05/12/21 06:59 14:59 22:59 Intake Total 100 / 450 286 / 286 Output Total 750 / 1293 Balance -650 / -843 286 / 286 Weight last 48 hrs Weight 101.605 kg Weight 100.924 kg Physical Exam Narrative: EXAM NARRATIVE: GEN: Awake, alert and oriented, chronically ill appearing male , lying in bed on to his side at this time CVS: S1S2 N RS: Coarse crackles to ausculttaion B/L Abd: Soft, nt/nd , bs+ CURBING STONECUTTER: no focal neuro deficits EXT: no gross swelling today Urinary Catheter Management^: Corbin: Cath Placed During This Visit: yes Reason for Continuing Indwelling Catheter: Accurate Measurement of Urinary Output in Critically Ill Patients Urinary Catheter Date of Insertion: 04/27/21 Urinary Catheter Time of Insertion: 09:15 Data : 05/11/21 05:40 05/11/21 05:40 A&P Assessment and plan (1) Atrial fibrillation with rapid ventricular response: Status: Acute (2) Heart failure: Status: Acute (3) Acute on chronic respiratory failure with hypoxia and hypercapnia: Status: Acute (4) COPD (chronic obstructive pulmonary disease): Status: Acute (5) Diabetes: Status: Acute (6) Hypertension: Status: Acute (7) CVA (cerebral vascular accident): Status: Acute (8) Aspiration into respiratory tract: Status: Acute Qualifiers: Encounter type: sequela Qualified Code(s): T17.908S - Unspecified foreign body in respiratory tract, part unspecified causing other injury, sequela (9) Aspiration pneumonia: Status: Acute (10) Upper GI bleed: Status: Acute (11) Hemorrhagic shock: Status: Acute (12) Acute respiratory failure: Status: Acute Additional A&P Information 75 year old male with past medical history of hypertension, diabetes, heart failure, COPD, admitted with worsening shortness of breath, A. fib with RVR, with hospital course has been comp located by development of recurrent mucous plugging, GI bleed, requiring intubation and mechanical ventilation at one point. Continues to have significantly high oxygen requirements and is quite deconditioned due to prolonged hospital stay. # A. fib with RVR, Off Cardizem drip at this time, heart rate is currently well controlled between 70-90. Afternoon dose of Cardizem is held today due to bradycardia. -Continue Cardizem 90 every 6 hours, Toprol 25 twice daily, with vitals permitting - Multiple wall motion of normalities with a diminished ejection fraction of 45%. Mildly dilated right ventricle with possibly normal ejection fraction Mild biatrial enlargement. #Hypoxic respiratory failure -Related to acute on chronic CHF exacerbation, recurrent mucous plugging, currently on chest vest therapy, hypertonic saline, Mucomyst - on diuresis with lasix 40mg iv q12h -Possible aspiration, aspiration pneumonitis, aspiration pneumonia, continue Zosyn, aspiration precautions. modified barium swallow in am. Could not be evaluted by speech therapist yesterday as he was on Bipap - -Extubated 05/06/2021 -Bilateral pleural effusions, ultrasound thoracocentesis 1 L out on the right on 04/30 #Upper GI bleed, with hemorrhagic shock -Status post units 4 units PRBC, 2 units FFP, protamine sulfate -Hemoglobin 8.3 today. -Transfuse if less than 7 -Status post EGD showed gastric and duodenal ulcer with injection of epinephrine, with repeat EGD 05/06/2021 due to recurrent black stools without any significant evidence of active bleeding -No repeat bloody or black stools -Protonix 40 IV twice daily, Carafate 4 times daily -Hold aspirin, hold Lovenox #Acute CVA -CT of the head shows: 1. Extensive multifocal small-vessel ischemic change along with encephalomalacia in the left posterior parietal and occipital regions. 2. Additional hypodensity in the left posterior cerebellum, suspicious for an ischemic infarct. -Currently moving all upper and lower extremities, no facial droop, no slurring of words, hasn't gotten up out of bed, is bedbound -All evident of embolic CVAs related to atrial fibrillation, likely embolic, however unable to anticoagulate him currently Statin on hold due to rhabdomyolysis #Right lung collapse, resolving -Chest x-ray showing whiteout of right lung, resolved #Acute renal failure -Creatinine up to 1.60 -Rhabdomyolysis -Continue to monitor #Rhabdomyolysis, -CPK over 1950 -Monitor for now -We will avoid fluids as concerns for fluid overload Left hernandez cellulitis -Completed antibiotic therapy, resolved #Diabetes: Lantus 30 subcu daily Low-dose sliding scale insulin Cardiac carbohydrate consistent diet Monitor fingerstick glucose #Hypertension: #COPD: Plan as above Dipso: Patient with multiple comorbidities and significant deconditioning during the course of admission here. He continues to have significant hypoxic respiratory failure requiring between 8 to 10 L on high flow nasal cannula. Intermittently also needing BiPAP. In light of the high oxygen requirements, significant deconditioning, multiple serious comorbidities including recent CVA, inability to anticoagulate, GI bleeding I do believe that an LTAC may be more appropriate for the patient. Discussed this with the family, they would like to think about this option, there hesitation right now is that the closest facility is in [place] which is far away from home. In case of discharge to [facility] I anticipate patient will be a high risk of recurrent readmissions. Attestations Medical Necessity Statement*: Needs ongoing admission for hypoxic respiratory failure, still with significant FiO2 requirements, hemoglobin monitoring needs a barium swallow evaluation prior to starting the diet, he is currently n.p.o. Coding Level of Care Code Acute Rand Cementer for Chg Fwd Diagnoses Atrial fibrillation with rapid ventricular response I48.91 Heart failure I50.9 Acute on chronic respiratory failure with hypoxia and hypercapnia J96.21; J96.22 COPD (chronic obstructive pulmonary disease) J44.9 Diabetes E11.9 Hypertension I10 CVA (cerebral vascular accident) I63.9 Aspiration into respiratory tract T17.908S Encounter type: sequela Aspiration pneumonia J69.0 Upper GI bleed K92.2 Hemorrhagic shock R57.8 Acute respiratory failure J96.00
[2021-05-12 20:58] LABS: Glucose Point of Care 224 mg/dL (70-110)
[2021-05-12] MEDS: sodium chloride 3.5% neb 4 mL Neb INHALATION (21:52)
[2021-05-13] VITALS (21 sets, daily range): BP systolic 91–123; BP diastolic 44–75; PULSE 74–145; RESP 18–36; TEMP 36.6–37.2; O2SAT 82–98
[2021-05-13] MEDS: dilTIAZem 60 mg Tablet 90 MG PO ×4 (01:55→20:20)
[2021-05-13] MEDS: piperacillin-tazobactam 3.375 GM in sodium chloride 0.9% (plus) 50 ML IV ×3 (01:56→17:32)
[2021-05-13] MEDS: metoprolol tartrate 1 mg/1 mL SDV 5 mL 5 MG IVP ×2 (03:20→05:10)
--- NOTE | 2021-05-13 05:42 | PC.NURSE ---
Patient heartrate elevated for extended time from 130-180. Given 5mg IV metroprolol at 0310. Notified hospitalist. Another dose given at 0510. Patient heartrate now at 110. Cardizem due at 0800. Will continue to monitor.
--- NOTE | 2021-05-13 05:44 | PC.NURSE ---
Patient pulled out two IV's this shift. 20 guage to left forearm. Patient receives IV antibiotics and for heartrate. Will continue to monitor.
--- NOTE | 2021-05-13 05:47 | PC.NURSE ---
Patient laying on horn catheter tubing. No output had been noticed. When fixing the catheter tubing, urine started to be seen in bag. 700 for shift.
[2021-05-13 06:50] LABS: Glucose Point of Care 271 mg/dL (70-110)
[2021-05-13] MEDS: acetylcysteine 200 mg/mL SDV 4 mL 100 MG INHALATION ×4 (08:29→21:04)
[2021-05-13] MEDS: sodium chloride 3.5% neb 4 mL Neb INHALATION ×2 (08:32→21:03)
[2021-05-13] MEDS: ipratropium-albuterol 3 mL Neb INHALATION ×5 (08:32→21:04)
[2021-05-13] MEDS: insulin lispro 100 unit/1 mL SUBCUT ×4 (08:37→20:51)
[2021-05-13] MEDS: sucralfate 1 gm Tablet PO ×4 (08:38→20:53)
[2021-05-13] MEDS: pantoprazole 40 mg SDV IVP ×2 (08:38→20:20)
[2021-05-13] MEDS: gabapentin 300 mg Capsule PO (08:38)
[2021-05-13] MEDS: cholecalciferol (vitamin D3) 1,000 unit Tablet 1000 UNIT PO (08:39)
[2021-05-13] MEDS: FUROsemide 10 mg/mL SDV 4mL 40 MG IVP ×2 (08:40→20:20)
--- NOTE | 2021-05-13 09:52 | USCV_ITS ---
John Guerrero Age: 75 Gender: M : 1945 Exam Date: 05/13/2021 11:42 Ordering Phys: Allyn Ruiz MD Technologist: YESSENIA Exam Location: [facility] [place] Indication: c/o pain LEFT calf s/p recent CVA. No hx DVT per patient. HISTORY: c/o pain LEFT calf s/p recent CVA. No hx DVT per patient. PROCEDURES: Venous duplex imaging was performed in only the left lower extremity. The following venous structures were evaluated: common femoral vein, profunda vein, proximal portion of the greater saphenous vein, superficial femoral vein, and the popliteal vein. In addition, the posterior tibial veins were evaluated. On the left side, the common femoral, superficial femoral, profunda femoral, popliteal, posterior tibial, and greater saphenous veins were identified and interrogated in the standard fashion. These veins were found to be easily compressible with spontaneous blood flow. No evidence of thrombus noted. Serial compression, augmentation maneuvers, and spectral Doppler flow evaluation were performed and were normal. CONCLUSIONS No evidence of left lower extremity DVT. Urban Paige MD (Electronically Signed) Final Date: 13 May 2021 12:24 S
--- NOTE | 2021-05-13 10:00 | PC.OT ---
PER NURSING, PATIENT IS AWAITING DOPPLER ON L LE THIS MORNING-HOLD AT THIS TIME. WILL ATTEMPT IN P.M.
[2021-05-13 11:20] LABS: Glucose Point of Care 215 mg/dL (70-110)
--- NOTE | 2021-05-13 16:45 | P.PN_ITS ---
Subjective Subjective: Interval history: Continues to be on high flow nasal cannula at 12 L/min. This morning needed BiPAP and pushes of metoprolol overnight for uncontrolled heart rate. Reports left lower extremity to be more painful than previous days. Medications: Reviewed: Yes Vitals/I&O/Wt Last Vital Signs Temp 98.9 F 05/13/21 04:00 Pulse 90 05/13/21 12:43 Resp 18 05/13/21 12:43 BP 106/72 05/13/21 12:00 Pulse Ox 95 05/13/21 12:43 05/13/21 05/13/21 05/13/21 06:59 14:59 22:59 Intake Total 100 / 740 290 / 290 Output Total 2878 / 5056 Balance -2778 / -4316 290 / 290 Weight last 48 hrs Weight 104.128 kg Weight 101.605 kg Physical Exam Narrative: EXAM NARRATIVE: GEN: Awake, alert and oriented, chronically ill appearing male , lying in bed, asleep at time of assessment, but wake sup easily CVS: S1S2 N RS: Coarse crackles to ausculttaion B/L bases Abd: Soft, nt/nd , bs+ 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: no focal neuro deficits Urinary Catheter Management: Corbin: Cath Placed During This Visit: yes Reason for Continuing Indwelling Catheter: Accurate Measurement of Urinary Output in Critically Ill Patients Urinary Catheter Date of Insertion: 04/27/21 Urinary Catheter Time of Insertion: 09:15 Data : 05/11/21 05:40 05/11/21 05:40 A&P Assessment and plan (1) Atrial fibrillation with rapid ventricular response: Status: Acute (2) Heart failure: Status: Acute (3) Acute on chronic respiratory failure with hypoxia and hypercapnia: Status: Acute (4) COPD (chronic obstructive pulmonary disease): Status: Acute (5) Diabetes: Status: Acute (6) Hypertension: Status: Acute (7) CVA (cerebral vascular accident): Status: Acute (8) Aspiration into respiratory tract: Status: Acute Qualifiers: Encounter type: sequela Qualified Code(s): T17.908S - Unspecified foreign body in respiratory tract, part unspecified causing other injury, sequela (9) Aspiration pneumonia: Status: Acute (10) Upper GI bleed: Status: Acute (11) Hemorrhagic shock: Status: Acute (12) Acute respiratory failure: Status: Acute Attestations Medical Necessity Statement*: 75 year old male with past medical history of hypertension, diabetes, heart failure, COPD, admitted with? worsening shortness of breath, A. fib with RVR, with hospital course has been comp located by development of recurrent mucous plugging, GI bleed, requiring intubation and mechanical ventilation at one point.? Continues to have significantly high oxygen requirements and is quite deconditioned due to prolonged hospital stay. # A. fib with RVR, Off Cardizem drip at this time, heart rate is currently well controlled between 70-90.? -Continue Cardizem 90 every 6 hours, Toprol 25 twice daily, with vitals permitting - Multiple wall motion of normalities with a diminished ejection fraction of 45%. Mildly dilated right ventricle with possibly normal ejection? fraction Mild biatrial enlargement. #Hypoxic respiratory failure -Related to acute on chronic CHF exacerbation, recurrent mucous plugging, currently on chest vest therapy, hypertonic saline, Mucomyst - needs intermittent Bipap - on diuresis with lasix 40mg iv q12h -Possible aspiration, aspiration pneumonitis, aspiration pneumonia, continue Zosyn, aspiration precautions. modified barium swallow not able to be perfromed due to tenous respiratory status. Reassesed with speech therapy- advance diet to mechanical soft. - -Extubated 05/06/2021 -Bilateral pleural effusions, ultrasound thoracocentesis 1 L out on the right on 04/30 #Upper GI bleed, with hemorrhagic shock -Status post units 4 units? PRBC, 2 units FFP, protamine sulfate -Hemoglobin 8.3 today. -Transfuse if less than 7 -Status post EGD showed gastric and duodenal ulcer with injection of epinephrine, with repeat EGD 05/06/2021 due to recurrent black stools without any significant evidence of active bleeding -No repeat bloody or black stools -Protonix 40 IV twice daily, Carafate 4 times daily -Hold aspirin, resume ppx lovenox #Acute CVA -CT of the head shows: 1. Extensive multifocal small-vessel ischemic change along with encephalomalacia in the left posterior parietal and occipital regions. 2. Additional hypodensity in the left posterior cerebellum, suspicious for an ischemic infarct. -Currently moving all upper and lower extremities, no facial droop, no slurring of words, hasn't gotten up out of bed, is bedbound -All evident of embolic CVAs related to atrial fibrillation, likely embolic, however unable to anticoagulate him currently due to Gi bleed Statin on hold due to rhabdomyolysis #Right lung collapse, resolving -Chest x-ray showing whiteout of right lung, resolved #Acute renal failure, recheck cr with am labs #Rhabdomyolysis, -CPK over 1950 Left hernandez cellulitis -Completed antibiotic therapy, resolved #Diabetes: Lantus 30 subcu daily Low-dose sliding scale insulin Cardiac carbohydrate consistent diet Monitor fingerstick glucose #Hypertension: #COPD: Plan as above Dipso: recommend LTAC Coding Level of Care Code Acute Medical Technologist Hematology for Chg Fwd Diagnoses Atrial fibrillation with rapid ventricular response I48.91 Heart failure I50.9 Acute on chronic respiratory failure with hypoxia and hypercapnia J96.21; J96.22 COPD (chronic obstructive pulmonary disease) J44.9 Diabetes E11.9 Hypertension I10 CVA (cerebral vascular accident) I63.9 Aspiration into respiratory tract T17.908S Encounter type: sequela Aspiration pneumonia J69.0 Upper GI bleed K92.2 Hemorrhagic shock R57.8 Acute respiratory failure J96.00
[2021-05-13 16:52] LABS: Glucose Point of Care 242 mg/dL (70-110)
[2021-05-13] MEDS: enoxaparin 40 mg/0.4 mL Syringe SUBCUT (17:32)
--- NOTE | 2021-05-13 20:17 | PC.NURSE ---
pt was up in chair for approx 4 hours today.it was very difficult to convince pt to get out of bed initially.used sit to stand to get pt back into bed.had 2 liquid stools today..tested negative for cdiff.
[2021-05-13] MEDS: acetaminophen 325 mg Tablet 650 MG PO (20:20)
[2021-05-13 20:32] LABS: Glucose Point of Care 293 mg/dL (70-110)
[2021-05-13] MEDS: docusate sodium 100 mg Capsule PO (20:53)
[2021-05-13] MEDS: polyethylene glycol 3350 Pkt 17 gm PO (20:53)
--- NOTE | 2021-05-13 22:38 | PM.PN ---
Subjective Subjective: Interval history: Patient's oxygenation status again has gotten worse. Denies any chest pain. He is currently on a BiPAP. The oxygenation seems to be improving. No fever or chills. Medications: Medication Review Details: Current Medications Acetaminophen (Acetaminophen 325 Mg Tablet) 650 mg PO Q6H PRN PRN Reason: Mild/Mod Pain Or Temp >/= 101 Last Admin: 05/13/21 20:20 Dose: 650 mg Documented by: Acetylcysteine (Acetylcysteine 200 Mg/Ml Sdv 4 Ml) 100 mg INHALATION Q6H.RESPIRATORY NATALIE Last Admin: 05/13/21 21:04 Dose: 100 mg Documented by: Albuterol/Ipratropium (Ipratropium-Albuterol 3 Ml Neb) 3 ml INHALATION Q4H.RESPIRATORY NATALIE Last Admin: 05/13/21 21:04 Dose: 3 ml Documented by: Atorvastatin Calcium (Atorvastatin 40 Mg Tablet) 80 mg PO DAILY [facility] Last Admin: 05/08/21 08:15 Dose: 80 mg Documented by: Bisacodyl (Bisacodyl 5 Mg Tablet) 10 mg PO DAILY PRN; Protocol PRN Reason: Constipation (see protocol) Dextrose (Dextrose 50% Syringe 50 Ml) 25 ml IVP ONCE PRN; Protocol PRN Reason: hypoglycemia protocol Dextrose (Dextrose 50% Syringe 50 Ml) 50 ml IVP PRN PRN; Protocol PRN Reason: hypoglycemia protocol Diltiazem HCl (Diltiazem 60 Mg Tablet) 90 mg PO Q6H [facility] Last Admin: 05/13/21 20:20 Dose: 90 mg Documented by: Docusate Sodium (Docusate Sodium 100 Mg Capsule) 100 mg PO 0900,2100 NATALIE Last Admin: 05/13/21 20:53 Dose: 100 mg Documented by: Enoxaparin Sodium (Enoxaparin 40 Mg/0.4 Ml Syringe) 40 mg SUBCUT Q24H NATALIE Last Admin: 05/13/21 17:32 Dose: 40 mg Documented by: Furosemide (Furosemide 10 Mg/Ml Sdv 4ml) 40 mg IVP Q12H [facility] Last Admin: 05/13/21 20:20 Dose: 40 mg Documented by: Gabapentin (Gabapentin 300 Mg Capsule) 300 mg PO DAILY [facility] Last Admin: 05/13/21 08:38 Dose: 300 mg Documented by: Glucagon (Glucagon 1 Mg/Ml Inj 1 Ml) 1 mg IM ONCE PRN; Protocol PRN Reason: Adult Acute Hypoglycemia Prot. Dextrose (D5w) 500 mls @ 100 mls/hr IV ONCE PRN; Protocol PRN Reason: Adult Acute Hypoglycemia Prot Piperacillin Sod/Tazobactam (Sod 3.375 gm/ Sodium Chloride) 50 mls @ 12.5 mls/hr IV Q8H NATALIE; Protocol Last Infusion: 05/13/21 22:24 Dose: Infused Documented by: Diltiazem HCl 125 mg/ Sodium (Chloride) 125 mls @ 0 mls/hr IV .Q0M NATALIE; Protocol Last Titration: 05/10/21 01:08 Dose: 0 mg/hr, 0 mls/hr Documented by: Insulin Human Lispro (Insulin Lispro 100 Unit/1 Ml) 0 unit SUBCUT WM&BEDTIME NATALIE; Protocol Last Admin: 05/13/21 20:51 Dose: 8 unit Documented by: Lanolin (Lanolin Oint 7 Gm) 1 applic TOPICAL PRN PRN PRN Reason: DRYNESS Last Admin: 05/04/21 18:37 Dose: 1 applic Documented by: Metoprolol Tartrate (Metoprolol Tartrate 1 Mg/1 Ml Sdv 5 Ml) 5 mg IVP Q5MIN PRN PRN Reason: HR>120, call og Last Admin: 05/13/21 05:10 Dose: 5 mg Documented by: Metoprolol Tartrate (Metoprolol Tartrate 25 Mg Tablet) 25 mg PO Q12H [facility] Last Admin: 05/13/21 11:07 Dose: Not Given Documented by: Naloxone HCl (Naloxone 0.4 Mg/Ml Sdv) 0.1 mg IVP Q2M PRN PRN Reason: OPIATERV Ondansetron HCl (Ondansetron 2 Mg/Ml Sdv 2 Ml) 4 mg IVP Q8H PRN PRN Reason: vomiting, or N/V if npo Pantoprazole Sodium (Pantoprazole 40 Mg Sdv) 40 mg IVP Q12H NATALIE Last Admin: 05/13/21 20:20 Dose: 40 mg Documented by: Polyethylene Glycol (Polyethylene Glycol 3350 Pkt 17 Gm) 17 gm PO 0900,2100 NATALIE Last Admin: 05/13/21 20:53 Dose: 17 gm Documented by: Sodium Chloride (Sodium Chloride 3.5% Neb 4 Ml Neb) 4 ml INHALATION BID.RESPIRATORY NATALIE Last Admin: 05/13/21 21:03 Dose: 4 ml Documented by: Sucralfate (Sucralfate 1 Gm Tablet) 1 gm PO QID [facility] Last Admin: 05/13/21 20:53 Dose: 1 gm Documented by: Vitamin D (Cholecalciferol (Vitamin D3) 1,000 Unit Tablet) 1,000 unit PO DAILY [facility] Last Admin: 05/13/21 08:39 Dose: 1,000 unit Documented by: Vitals/I&O/Wt Last Vital Signs Temp 98 F 05/13/21 20:00 Pulse 95 05/13/21 21:21 Resp 24 H 05/13/21 21:21 BP 98/64 05/13/21 20:00 Pulse Ox 94 05/13/21 21:21 05/13/21 05/13/21 05/13/21 06:59 14:59 22:59 Intake Total 100 / 740 290 / 290 290 / 580 Output Total 2878 / 5056 Balance -2778 / -4316 290 / 290 290 / 580 Weight last 48 hrs Weight 229 lb 9 oz Weight 224 lb Physical Exam Narrative: EXAM NARRATIVE: GENERAL: The patient is on BiPAP. Not in any acute distress. HEENT: No significant pallor, icterus or lymphadenopathy.Oral cavity: There are no mucous membrane lesions. NECK: Trachea appears to be central. No masses noted. No JVD or thyromegaly appreciated. RESPIRATORY: Breath sounds are bilaterally with diminished intensity of breath sounds in the bases. Scattered expiratory wheeze. BREASTS: Deferred. HEART: Deferred*is variable. Second heart sound is normal. No S3 short systolic murmur in the left sternal border. No pericardial rub ABDOMEN: No vessel pulsations or distention. No tenderness. No organomegaly appreciated. Bowel sounds are normally heard. : Deferred. RECTAL: Deferred. LYMPHATIC: No lymphadenopathy noted in the neck or groin. EXTREMITIES: Features of chronic venous stasis with excoriated skin lesions. MUSCULOSKELETAL: No acute joint deformities or swelling SKIN: There are no significant rashes or ecchymosis NEUROPSYCHIATRIC: Patient is on a BiPAP. Seems no focal neurological deficits. Urinary Catheter Management: Corbin: Cath Placed During This Visit: yes Reason for Continuing Indwelling Catheter: Accurate Measurement of Urinary Output in Critically Ill Patients Urinary Catheter Date of Insertion: 04/27/21 Urinary Catheter Time of Insertion: 09:15 Data : 05/14/21 02:29 05/14/21 02:29 Micro: Microbiology 05/13/21 10:45 C.difficile Toxin B Gene (PCR) - Final Stool Routine Collection A&P Assessment and plan (1) Atrial fibrillation with rapid ventricular response: Patient currently seems to be in atrial fibrillation with controlled ventricular response rate. May continue the current medications. Also patient is a GI bleed, requiring multiple blood transfusions, he may not be an ideal candidate for long-term oral anticoagulation. At this point, he may be continued on the current medications. Status: Acute (2) Acute on chronic systolic heart failure: Patient has systolic dysfunction with ejection fraction of around 45%. Most likely he may have underlying coronary artery disease causing LV dysfunction. For further evaluation of the coronary status, a myocardial perfusion imaging would be appropriate. However considering the patient's physical condition, it was decided to hold off on any further investigations. Status: Acute (3) Acute exacerbation of chronic obstructive airways disease: Patient seems to have intermittent oxygen desaturation. May benefit from a pulmonary evaluation Status: Acute (4) Upper GI bleed: Patient status post multiple blood transfusion and endoscopic injection of the epinephrine around the gastric and duodenal ulcer. Currently does not appear to have any active bleeding. Status: Acute (5) Hypotension: Currently the blood pressure is in the normal range. Status: Acute Qualifiers: Hypotension type: hypotension due to drug Qualified Code(s): I95.2 - Hypotension due to drugs Plan Other problems are Insulin requiring diabetes Recent CVA Acute on chronic kidney disease Generalized debilitation Attestations Medical Necessity Statement*: Patient requires continued hospital stay for close monitoring and further management Coding Level of Care Code Acute Early Breastfeeding Care Specialist for Chg Fwd History Detailed Exam Detailed Medical Decision Making Moderate Complexity Diagnoses Atrial fibrillation with rapid ventricular response I48.91 Acute on chronic systolic heart failure I50.23 Acute exacerbation of chronic obstructive airways disease J44.1 Upper GI bleed K92.2 Hypotension I95.2 Hypotension type: hypotension due to drug
[2021-05-13] MEDS: metoprolol tartrate 25 mg Tablet PO (23:36)
[2021-05-14] VITALS (39 sets, daily range): BP systolic 87–122; BP diastolic 44–94; PULSE 68–135; RESP 19–40; TEMP 36.6–37; O2SAT 75–100
[2021-05-14] MEDS: ipratropium-albuterol 3 mL Neb INHALATION ×6 (00:29→22:25)
[2021-05-14] MEDS: piperacillin-tazobactam 3.375 GM in sodium chloride 0.9% (plus) 50 ML IV ×3 (02:22→18:24)
[2021-05-14] MEDS: dilTIAZem 60 mg Tablet 90 MG PO ×2 (02:23→03:19)
--- NOTE | 2021-05-14 03:28 | PC.NURSE ---
Patient HR noted to be 120+. Orders received and 0800 morning Cardizem dose of 90mg PO given early.
[2021-05-14 03:46] LABS: Basophils # 0.1 10^3/uL (0.0-0.1); Basophils % 0.6 %; Eosinophils # 0.2 10^3/uL (0.0-0.8); Eosinophils % 1.6 %; Hematocrit 27.9 % (42.0-52.0); Hemoglobin 8.3 g/dL (11.7-16.6); Lymphocytes % 22.1 %; Mean Corpuscular HGB Conc 29.7 g/dL (30.0-36.0); Mean Corpuscular Hemoglobin 27.9 pg (28.0-34.0); Mean Corpuscular Volume 93.6 fl (80-94); Mean Platelet Volume 10.2 fL (7.4-10.4); Monocytes # 0.8 10^3/uL (0.2-0.9); Monocytes % 8.2 %; Neutrophils % 67.2 %; Nucleated Red Blood Cells % 0 %; Platelet Count 391 10^3/cmm (130-400); Red Blood Count 2.98 10^6/uL (4.1-5.3); Red Cell Distribution Width 17.2 % (12.1-15.1); White Blood Count 9.2 10^3/uL (4.0-10.0)
[2021-05-14 04:13] LABS: Alanine Aminotransferase 14 U/L (0-41); Albumin Level 2.7 g/dL (3.5-5.2); Alkaline Phosphatase 73 IU/L (40-130); Anion Gap 15.3 (5-19); Aspartate Amino Transferase 22 U/L (0-40); Blood Urea Nitrogen 47 mg/dL (8-23); Calcium 8.5 mg/dL (8.5-10.5); Carbon Dioxide 31 mmol/L (22-29); Chloride 96 mmol/L (98-107); Globulin 3.6 g/dL (1.3-4.6); Glucose 128 mg/dL (65-115); Osmolality Calculated 302 mOsm/kg (285-295); Potassium 3.3 mmol/L (3.5-5.1); Sodium 139 mmol/L (136-145); Total Bilirubin 0.2 mg/dL (0.15-1.2); Total Protein 6.3 g/dL (6.6-8.7)
--- NOTE | 2021-05-14 04:30 | PC.RESP ---
Pt is in A-Fib/RVR 130-140, tx contraindicated.
[2021-05-14] MEDS: sodium chloride 3.5% neb 4 mL Neb INHALATION ×2 (07:44→22:26)
[2021-05-14 08:14] LABS: Glucose Point of Care 269 mg/dL (70-110)
[2021-05-14] MEDS: acetylcysteine 200 mg/mL SDV 4 mL 100 MG INHALATION ×3 (08:20→22:26)
[2021-05-14] MEDS: pantoprazole 40 mg SDV IVP (08:58)
[2021-05-14] MEDS: cholecalciferol (vitamin D3) 1,000 unit Tablet 1000 UNIT PO (08:59)
[2021-05-14] MEDS: insulin lispro 100 unit/1 mL SUBCUT ×4 (08:59→20:39)
[2021-05-14] MEDS: sucralfate 1 gm Tablet PO ×4 (09:00→20:38)
[2021-05-14] MEDS: gabapentin 300 mg Capsule PO (09:00)
--- NOTE | 2021-05-14 10:25 | PC.CHAP ---
Pastoral Care Encounter/Spiritual Assessment Type of Contact [] Declined email engineer visit [] Patient/Family/Request visit [] Outpatient visit [] Follow-up visit [] Physician referral [] Code/Alert [x] Routine visit [] Staff referral [] Actively dying [] Patient sleeping [] Family support [] [] Out of room [] Palliative care [] [] Receiving care in room [] Pre-surgical visit [] Trauma [] Long length of stay [] ICU visit [] Other: Relational/Emotional Strength [] Patient feels connected with others/family/visitors/staff [] Distress [] Loneliness/isolation [] Abandonment Spirituality of Patient [] Person of Ewa [] Attends Buddhist of their Ewa [] Believes in Prayer [] Reads Bible or Voodoo materials [] There are Spiritual issues to be addressed Film Color Tester Interventions [x] Prayer [x] Active listening [x] Non-anxious presence [x] Spiritual/emotional support [] Crisis/trauma care [] Spiritual counseling [] Bereavement support [] Provided bereavement packet [] Provided Bible/devotional materials [] Provided toy/stuffed animal, coloring book to patient or family member [] Provided Communion [] Anointing/[place] [] Salvation [x] Completed spiritual assessment [] Other: Impact on Illness or Injury [] Angry [] Fearful [] Anxious [] Often cries [] Exhaustion [] Unable to work [] Unable to attend protestant [] Unable to walk/stand [] Unable to read [] Unable to drive [] Unable to eat/drink [] Unable to sleep [] Unable to be with family [] Patient intubated [] Other: Summary help patient with breakfast... Time spent with patient 5 min
[2021-05-14] MEDS: metoprolol tartrate 25 mg Tablet PO ×2 (10:45→22:30)
[2021-05-14 12:00] LABS: Glucose Point of Care 280 mg/dL (70-110)
--- NOTE | 2021-05-14 13:41 | P.PN_ITS ---
Subjective Subjective: Interval history: Continue to be on BiPAP overnight. Respiratory status continues to be tenuous. On 12 L/min of high flow nasal cannula this morning. Creatinine trending up to 3.0. Complaining of pain in the left leg, lower extremity Duplay taken yesterday was negative. No noted aspiration events. Medications: Reviewed: Yes Vitals/I&O/Wt Last Vital Signs Temp 98.6 F 05/14/21 12:00 Pulse 77 05/14/21 12:00 Resp 24 H 05/14/21 12:00 BP 97/47 05/14/21 12:00 Pulse Ox 100 05/14/21 12:00 05/13/21 05/14/21 05/14/21 22:59 06:59 14:59 Intake Total 290 / 580 200 / 780 Output Total 280 / 280 250 / 530 Balance 10 / 300 -50 / 250 Weight last 48 hrs Weight 104.326 kg Weight 104.128 kg Physical Exam Narrative: EXAM NARRATIVE: GEN: Awake, alert and oriented. chronically ill appearing male, nasal canula in place CVS: [id number] RS: B/L coarse crackles at lung bases ABd: Soft, NT/ND EXT: bedsore with noted gangrenous changes over left foot, unchanged ulcers over right foot Laboratory Results WBC 9.2 10^3/uL (4.0- 10.0) 05/14/21 02:29 RBC 2.98 10^6/uL (4.1 -5.3) L 05/14/21 02:29 Hgb 8.3 g/dL (11.7-16 .6) L 05/14/21 02:29 Hct 27.9 % (42.0-52.0 ) L 05/14/21 02:29 MCV 93.6 fl (80-94) 05/14/21 02:29 MCH 27.9 pg (28.0-34. 0) L 05/14/21 02:29 MCHC 29.7 g/dL (30.0-3 6.0) L 05/14/21 02:29 RDW 17.2 % (12.1-15.1 ) H 05/14/21 02:29 Plt Count 391 10^3/cmm (130 -400) 05/14/21 02:29 MPV 10.2 fL (7.4-10.4 ) 05/14/21 02:29 Neut % (Auto) 67.2 % 05/14/21 02:29 Lymph % (Auto) 22.1 % 05/14/21 02:29 Ripley % (Auto) 8.2 % 05/14/21 02:29 Eos % (Auto) 1.6 % 05/14/21 02:29 Baso % (Auto) 0.6 % 05/14/21 02:29 Reticulocyte % (Au to) 1.3 % (0.5-2.0) 04/29/21 02:55 Neut # (Auto) 6.20 10^3/uL (1.8 -7.7) 05/14/21 02:29 Lymph # (Auto) 2.0 10^3/uL (0.8- 4.8) 05/14/21 02:29 Ripley # (Auto) 0.8 10^3/uL (0.2- 0.9) 05/14/21 02:29 Eos # (Auto) 0.2 10^3/uL (0.0- 0.8) 05/14/21 02:29 Baso # (Auto) 0.1 10^3/uL (0.0- 0.1) 05/14/21 02:29 Nucleated RBC % (a uto) 0 % 05/14/21 02:29 Nucleated RBCs # 0.0 /100WBC 05/14/21 02:29 Differential Comme nt Yes 04/30/21 09:25 PT 17.30 SECONDS (12 .1-14.9) H 05/11/21 05:40 INR 1.38 (0.8-1.2) H 05/11/21 05:40 APTT 75.6 SECONDS (23. 9-36.7) H 05/01/21 13:05 D-Dimer 7.36 ug/mIFEU (0- 0.59) H 04/27/21 08:23 Specimen Type Arterial 05/09/21 09:37 Sample Site Radial, right 05/09/21 09:37 ABG pH 7.40 (7.35-7.45) 05/09/21 09:37 ABG pCO2 52.4 mmHg (35-45) H 05/09/21 09:37 ABG pO2 85.8 mmHg (80.0-1 00.0) 05/09/21 09:37 ABG HCO3 32.3 mmol/L (22-2 6) H 05/09/21 09:37 ABG O2 Saturation 97.3 05/09/21 09:37 ABG Base Excess 6.6 mmol/L (-2.0- 2.0) H 05/09/21 09:37 Dimitry Test Pos 05/09/21 09:37 A-a O2 Gradient Not Reportable 05/09/21 09:37 Hematocrit 25.0 % (42-52) L 05/09/21 09:37 Hgb O2 Saturation 95.4 % (95-100) 05/09/21 09:37 Carboxyhemoglobin 0.9 %THgb (0.4-20 .1) 05/09/21 09:37 Methemoglobin 1.0 % (0.4-1.5) 05/09/21 09:37 Total Hemoglobin 8.1 g/dL (14-18) L 05/09/21 09:37 Sodium 141.0 mmol/L (131 -143) 05/09/21 09:37 Potassium 3.6 mmol/L (3.5-5 .0) 05/09/21 09:37 Glucose 193.0 mg/dL (70-1 15) H 05/09/21 09:37 Ionized Calcium 1.2 mmol/L (1.1-1 .4) 05/09/21 09:37 O2 Delivery Device Nc 05/09/21 09:37 O2 Liters/Min 6.0 % 05/07/21 04:44 FiO2 15.0 % 05/09/21 09:37 Tidal Volume 0.45 05/06/21 03:40 PEEP 8.0 cmH20 05/06/21 03:40 Elementary Substitute Teacher ID Monro 05/09/21 09:37 Sodium 139 mmol/L (136-1 45) 05/14/21 02:29 Potassium 3.3 mmol/L (3.5-5 .1) L 05/14/21 02:29 Chloride 96 mmol/L (98-107 ) L 05/14/21 02:29 Carbon Dioxide 31 mmol/L (22-29) H 05/14/21 02:29 Anion Gap 15.3 (5-19) 05/14/21 02:29 BUN 47 mg/dL (8-23) H 05/14/21 02:29 Creatinine 3.0 mg/dL (0.7-1. 2) H 05/14/21 02:29 GFR Calculation Not Reportable 05/14/21 02:29 Glucose 128 mg/dL (65-115 ) H 05/14/21 02:29 POC Glucose 280 mg/dL (70-110 ) H 05/14/21 11:57 Calculated Osmolal ity 302 mOsm/kg (285- 295) H 05/14/21 02:29 Lactate 0.6 mmol/L (0.5-2 .2) 05/08/21 03:08 Calcium 8.5 mg/dL (8.5-10 .5) 05/14/21 02:29 Phosphorus 3.7 mg/dL (2.5-4. 5) 05/11/21 05:40 Magnesium 2.0 mg/dL (1.7-2. 3) 05/11/21 05:40 Iron 10 ug/dL (59-158) L 04/29/21 02:55 Ferritin 99 ng/mL (30-400) 04/29/21 02:55 Total Bilirubin 0.2 mg/dL (0.15-1 .2) 05/14/21 02:29 AST 22 U/L (0-40) 05/14/21 02:29 ALT 14 U/L (0-41) 05/14/21 02:29 Alkaline Phosphata se 73 IU/L (40-130) 05/14/21 02:29 Creatine Kinase 620 U/L (39-308) H* 05/11/21 05:40 Troponin T Baselin e 47 ng/L (0-15) H 04/27/21 08:23 Troponin T 120 Min [place] 46.61 ng/L (0-15) H 04/27/21 10:17 Delta Troponin T -0.39 ABS# (0-10) L 04/27/21 10:17 Troponin T Hi Sens 6Hr 47.02 ng/L (0-15) H 04/27/21 14:13 Troponin T Hi Sens 6Hr Delta 0.02 ng/L (0-12) 04/27/21 14:13 C-Reactive Protein 91.9 mg/L (0.0-4. 9) H 05/11/21 05:40 NT-Pro-B Natriuret Pep 68758 pg/mL (0-12 5) H 05/11/21 05:40 Total Protein 6.3 g/dL (6.6-8.7 ) L 05/14/21 02:29 Albumin 2.7 g/dL (3.5-5.2 ) L 05/14/21 02:29 Globulin 3.6 g/dL (1.3-4.6 ) 05/14/21 02:29 Procalcitonin 0.20 ng/mL (0-0.5 ) 05/11/21 05:40 TSH 0.35 uIU/mL (0.27 -4.20) 04/27/21 08:23 Urine Color Yellow (Yellow) 04/27/21 01:36 Urine Appearance Hazy (CLEAR) A 04/27/21 01:36 Urine pH 5 (5-7) 04/27/21 01:36 Ur Specific Gravit y 1.020 (1.005-1.0 30) 04/27/21 01:36 Urine Protein Neg (Negative) 04/27/21 01:36 Urine Glucose (UA) Norm (Normal) 04/27/21 01:36 Urine Ketones Negative (Negati ve) 04/27/21 01:36 Urine Blood 2+ (Negative) H 04/27/21 01:36 Urine Nitrate Negative (Negati ve) 04/27/21 01:36 Urine Bilirubin Neg (Negative) 04/27/21 01:36 Urine Urobilinogen Norm mg/dL (Negat latricia) 04/27/21 01:36 Ur Leukocyte Esther ase Negative (Negati ve) 04/27/21 01:36 Urine RBC 0-4 /hpf (0-2) H 04/27/21 01:36 Urine WBC 5-10 /hpf (0-5) H 04/27/21 01:36 Ur Squamous Epith Cells Rare /hpf (0-5) 04/27/21 01:36 Amorphous Sediment Not Reportable 04/27/21 01:36 Urine Bacteria 1+ /hpf (NONE) H 04/27/21 01:36 Fluid Color Yellow 04/30/21 09:25 Fluid Appearance Clear 04/30/21 09:25 Fluid WBC 906 /uL 04/30/21 09:25 Fluid RBC 5.000 10^3/uL 04/30/21 09:25 Fluid Hematocrit 0.1 % 04/30/21 09:25 Fld Polynuclear WB Cs # 0.153 04/30/21 09:25 Fld Polynuclear WB Cs % 16.900 % 04/30/21 09:25 Fl Mononucl WBCs # (Auto) 0.753 04/30/21 09:25 Fl Mononuclear % A uto 83.100 % 04/30/21 09:25 Fluid Albumin 1.5 g/dL 04/30/21 09:25 Fluid Creatinine 1.56 (0.7-1.2) H 04/30/21 09:25 Pleural pH 7.00 (6.5-7.5) 04/30/21 09:25 Pleural Total Prot ein 3.1 g/dL 04/30/21 09:25 Pleural LDH 122 U/L 04/30/21 09:25 Pleural Glucose 113.0 mg/dL 04/30/21 09:25 Pleural Amylase 20.0 U/L 04/30/21 09:25 Pleural Triglyceri angelo 39 mg/dL 04/30/21 09:25 Coronavirus 229E ( PCR) Not detected (NO T DETECT) 05/09/21 22:00 SARS-CoV-2 (PCR) Not detected (NO T DETECT) 05/09/21 22:00 Blood Type O Positive 05/07/21 19:36 Rho(D) Type Positive 05/07/21 19:36 Antibody Screen Negative 05/07/21 19:36 Crossmatch See Detail 05/07/21 19:36 Urinary Catheter Management: Corbin: Cath Placed During This Visit: yes Reason for Continuing Indwelling Catheter: Assist Healing of Perineal & Sacral Wounds- Incontinent Patients Urinary Catheter Date of Insertion: 04/27/21 Urinary Catheter Time of Insertion: 09:15 Data : 05/14/21 02:29 05/14/21 02:29 Micro: Microbiology 04/30/21 09:25 Mycobacterial Smear - Preliminary Body Fluids - Pleura 05/13/21 10:45 C.difficile Toxin B Gene (PCR) - Final Stool Routine Collection A&P Assessment and plan (1) Atrial fibrillation with rapid ventricular response: Status: Acute (2) Heart failure: Status: Acute (3) Acute on chronic respiratory failure with hypoxia and hypercapnia: Status: Acute (4) COPD (chronic obstructive pulmonary disease): Status: Acute (5) Diabetes: Status: Acute (6) Hypertension: Status: Acute (7) CVA (cerebral vascular accident): Status: Acute (8) Aspiration into respiratory tract: Status: Acute Qualifiers: Encounter type: sequela Qualified Code(s): T17.908S - Unspecified foreign body in respiratory tract, part unspecified causing other injury, sequela (9) Aspiration pneumonia: Status: Acute (10) Upper GI bleed: Status: Acute (11) Hemorrhagic shock: Status: Acute (12) Acute respiratory failure: Status: Acute Plan 75 year old male with past medical history of hypertension, diabetes, heart failure, COPD, admitted with? worsening shortness of breath, A. fib with RVR, with hospital course has been comp located by development of recurrent mucous plugging, GI bleed, requiring intubation and mechanical ventilation at one point.? Continues to have significantly high oxygen requirements and is quite deconditioned due to prolonged hospital stay. # A. fib with RVR, Off Cardizem drip at this time, heart rate is currently well controlled between 70-90.? -Continue Cardizem 60 every 6 hours, Toprol 25 twice daily, with vitals permitting - Multiple wall motion of normalities with a diminished ejection fraction of 45%. Mildly dilated right ventricle with possibly normal ejection? fraction Mild biatrial enlargement. #Hypoxic respiratory failure -Related to acute on chronic CHF exacerbation, recurrent mucous plugging, currently on chest vest therapy, hypertonic saline, Mucomyst - needs intermittent Bipap - on diuresis with lasix 40mg iv q12h, hold for today given increasing creatinine at this time -Possible aspiration, aspiration pneumonitis, aspiration pneumonia, continue Zosyn, aspiration precautions. modified barium swallow not able to be perfromed due to tenous respiratory status. Reassesed with speech therapy- advance diet to mechanical soft. - -Extubated 05/06/2021 -Bilateral pleural effusions, ultrasound thoracocentesis 1 L out on the right on 04/30 #Upper GI bleed, with hemorrhagic shock -Status post units 4 units? PRBC, 2 units FFP, protamine sulfate -Hemoglobin 8.3 today. -Transfuse if less than 7 -Status post EGD showed gastric and duodenal ulcer with injection of epinephrine, with repeat EGD 05/06/2021 due to recurrent black stools without any significant evidence of active bleeding -No repeat bloody or black stools -Protonix 40 po twice daily, Carafate 4 times daily -Hold aspirin, resume ppx lovenox #Acute CVA -CT of the head shows: 1. Extensive multifocal small-vessel ischemic change along with encephalomalacia in the left posterior parietal and occipital regions. 2. Additional hypodensity in the left posterior cerebellum, suspicious for an ischemic infarct. -Currently moving all upper and lower extremities, no facial droop, no slurring of words, hasn't gotten up out of bed, is bedbound -All evident of embolic CVAs related to atrial fibrillation, likely embolic, however unable to anticoagulate him currently due to Gi bleed Statin on hold due to rhabdomyolysis #Right lung collapse, resolving -Chest x-ray showing whiteout of right lung, resolved #Acute renal failure,Cr trendng up to 3.0 today, urine output 500cc thus far, Cheetah monitoring today, hold lasix in the interim #Rhabdomyolysis, -CPK over 1950 Left hernandez cellulitis -Completed antibiotic therapy, resolved #Diabetes: Lantus 30 subcu daily Low-dose sliding scale insulin Cardiac carbohydrate consistent diet Monitor fingerstick glucose Attestations Medical Necessity Statement*: worsening DAYAMI today, significant deconditioning due to multiple comorbidities, tenous resiratory status, awaiting placement at LTAC Coding Level of Care Code Acute Institutional Research Coordinator for g Fwd Diagnoses Atrial fibrillation with rapid ventricular response I48.91 Heart failure I50.9 Acute on chronic respiratory failure with hypoxia and hypercapnia J96.21; J96.22 COPD (chronic obstructive pulmonary disease) J44.9 Diabetes E11.9 Hypertension I10 CVA (cerebral vascular accident) I63.9 Aspiration into respiratory tract T17.908S Encounter type: sequela Aspiration pneumonia J69.0 Upper GI bleed K92.2 Hemorrhagic shock R57.8 Acute respiratory failure J96.00
--- NOTE | 2021-05-14 13:43 | XR_ITS ---
WS: [id number] Portable AP upright chest, 05/14/2021 Clinical Data: follow up pulm edema Comparison: Portable chest, 05/11/2021. Findings: The bilateral pulmonary opacities remain the same. The patient has small bilateral pleural effusions. The heart size is the same. There are monitor leads over the chest wall. There are plates and screws repairing old left lateral rib fractures. Monitor leads are on the chest wall. XR/XR chest 1V portable [id number] Impression: 1. No change in bilateral lower lobe pulmonary opacities. 2. No change in cardiomegaly.
--- NOTE | 2021-05-14 14:39 | PC.SOCIAL ---
IMM update IMM updated with patient. Copy Pg 2 provided. Verbalized an understanding. Initialled, dated, timed, and placed in chart.
--- NOTE | 2021-05-14 15:08 | USCV_ITS ---
CesarJohn Age: 75 Gender: M : 1945 Exam Date: 05/14/2021 16:54 Ordering Phys: Allyn Ruiz MD Technologist: DENTNO Exam Location: [facility] [place] Indication: GANGRENE OVER LEFT HEEL Risk Factors: Previous Vascular Surgery: RIGHT LEFT BP: 103.0 / 67.00 BP: / 0 Waveform Velocity (cm/s) Velocity (cm/s) Waveform Iliac Prox 22.2 Monophasic Iliac Mid 29.4 Monophasic Iliac Distal 30.4 Monophasic SOLAR PHOTOVOLTAIC DESIGNER Monophasic 31.5 SFA Mid 30.8 Monophasic SFA Dist 29.5 Monophasic POP 20.9 Monophasic FULL STACK ENGINEER 12.4 Monophasic FINDINGS . Unable to perform KAYY at this time. Low velocity continuous Doppler waveform in the left iliac and common femoral artery. No Doppler flow signals in the proximal SFA. The rest of the SFA, popliteal and posterior tibial artery were found to have low velocity continuous Doppler waveform. No Doppler flow signals in the dorsalis pedis artery. 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 Patent iliac and common femoral artery. Total occlusion of the proximal superficial femoral artery with reconstitution at the level of the mid SFA. Patent popliteal and posterior tibial artery. Possible total occlusion of the dorsalis pedis artery KAYY could not be performed. No similar previous studies are available for comparison Corrected copy of the report from 05/14/2021 Dr Freddy Vasques MD [facility] (Electronically Signed) Final Date: 14 May 2021 17:58 Amended: 14 May 2021 19:19 C
[2021-05-14] MEDS: enoxaparin 30 mg/0.3 mL Syringe SUBCUT (15:59)
[2021-05-14] MEDS: dilTIAZem 60 mg Tablet PO ×2 (15:59→20:39)
[2021-05-14 17:06] LABS: Glucose Point of Care 213 mg/dL (70-110)
[2021-05-14] MEDS: pantoprazole DR 40 mg Tablet PO (18:24)
--- NOTE | 2021-05-14 18:29 | P.PN_ITS ---
Subjective Subjective: Interval history: Patient was found to have cyanotic discoloration of the skin with edema around the left heel. Patient also is complaining of some pain in the left leg. He seems very vague about the symptoms. He told me about the pain in the leg only after asking about it. Denies any chest pain . Has the baseline shortness of breath with activities. He had a arterial Doppler examination of the left lower extremity. He was found to have possible high-grade lesion at the aortoiliac level with total occlusion of the proximal SFA, reconstitution at the level of t he mid SFA Vitals/I&O/Wt Last Vital Signs Temp 98.2 F 05/14/21 15:48 Pulse 89 05/14/21 17: Resp 25 H 05/14/21 17:26 BP 103/67 05/14/21 15:48 Pulse Ox 93 05/14/21 17:26 05/14/21 05/14/21 05/14/21 06:59 14:59 22:59 Intake Total 200 / 780 410 / 410 Output Total 250 / 530 Balance -50 / 250 410 / 410 Weight last 48 hrs Weight 230 lb Weight 229 lb 9 oz Physical Exam Narrative: EXAM NARRATIVE: GENERAL: The patient is on BiPAP. Not in any acute distress. HEENT: No significant pallor, icterus or lymphadenopathy.Oral cavity: There are no mucous membrane lesions. NECK: Trachea appears to be central. No masses noted. No JVD or thyromegaly appreciated. RESPIRATORY: Breath sounds are bilaterally with diminished intensity of breath sounds in the bases. Scattered expiratory wheeze. BREASTS: Deferred. HEART: Deferred*is variable. Second heart sound is normal. No S3 ? short systolic murmur in the left sternal border. No pericardial rub ABDOMEN: No vessel pulsations or distention. No tenderness. No organomegaly appreciated.? Bowel sounds are normally heard. : Deferred. RECTAL: Deferred. LYMPHATIC: No lymphadenopathy noted in the neck . EXTREMITIES: Features of chronic venous stasis with excoriated skin lesions.. Cyanotic skin around the heel of the left foot. The peripheral pulses are nonpalpable bilateral. Extremities are relatively cold on both sides MUSCULOSKELETAL: No acute joint deformities or swelling SKIN: There he is cyanosis around the heel of the left foot. This area is somewhat edematous Urinary Catheter Management: Corbin: Cath Placed During This Visit: yes Reason for Continuing Indwelling Catheter: Assist Healing of Perineal & Sacral Wounds- Incontinent Patients Urinary Catheter Date of Insertion: 04/27/21 Urinary Catheter Time of Insertion: 09:15 Data : 05/14/21 02:29 05/14/21 02:29 Other Labs: Arterial Doppler examination from today Features of high-grade stenosis at the aortoiliac level on the ?left side.? Patent iliac and common femoral artery. ?Total occlusion of the proximal superficial femoral artery with ?reconstitution at the level of the mid SFA. ?Patent popliteal and posterior tibial artery. ?Possible total occlusion of the dorsalis pedis l artery. ?KAYY could not be performed. ?No similar previous studies are available for comparison Micro: Microbiology 04/30/21 09:25 Mycobacterial Smear - Preliminary Body Fluids - Pleura 05/13/21 10:45 C.difficile Toxin B Gene (PCR) - Final Stool Routine Collection A&P Assessment and plan (1) Critical limb ischemia of both lower extremities: Patient seems to have extensive vascular disease of the left lower extremity. Most likely he has underlying chronic disease with an acute event. Discussed with the patient's daughter about this. It may be appropriate to give a trial of IV heparin tonight. If there is no significant improvement, need to consider possible peripheral angiogram and intervention. Patient carries a high risk for bleeding, acute kidney injury and other concomitant complications. This was discussed with the patient and family. I will be consulting Dr. Em for further evaluation and management of the critical limb ischemia Status: Acute (2) Atrial fibrillation with rapid ventricular response: Patient currently seems to be in atrial fibrillation with controlled ventricular response rate. May continue the current medications. Also patient is a GI bleed, requiring multiple blood transfusions, he may not be an ideal candidate for long-term oral anticoagulation. At this point, he may be continued on the current medications. But in view of the possible thrombotic occlusion of the peripheral artery of the left leg, if it is okay with Dr. Bishop, may be started on heparin. Status: Acute (3) Acute on chronic systolic heart failure: Patient has systolic dysfunction with ejection fraction of around 45%. Most likely he may have underlying coronary artery disease causing LV dysfunction. For further evaluation of the coronary status, a myocardial perfusion imaging would be appropriate. However considering the patient's physical condition, it was decided to hold off on any further investigations. Status: Acute (4) Acute exacerbation of chronic obstructive airways disease: Patient seems to have intermittent oxygen desaturation. May benefit from a pulmonary evaluation Status: Acute (5) Upper GI bleed: Patient status post multiple blood transfusion and endoscopic injection of the epinephrine around the gastric and duodenal ulcer. Currently does not appear to have any active bleeding. Status: Acute Plan Other problems are Insulin requiring diabetes Recent CVA Acute on chronic kidney disease Generalized debilitation Discussed with Dr. Ruiz about the arterial Doppler examination findings and further treatment options. Attestations Medical Necessity Statement*: Patient requires continued hospital stay for close monitoring and further management Coding Level of Care Code Acute Blankbook Forwarder for Chg Fwd History Detailed Exam Detailed Medical Decision Making High Complexity Diagnoses Atrial fibrillation with rapid ventricular response I48.91 Acute on chronic systolic heart failure I50.23 Acute exacerbation of chronic obstructive airways disease J44.1 Upper GI bleed K92.2 Critical limb ischemia of both lower extremities I70.223
--- NOTE | 2021-05-14 19:58 | PC.NURSE ---
pt with marginal urine output.dr gama requested that a cheetah evaluation be preformed.svi 46.ci 4.7.svi change 22.7%.fluid responsive.dr will hold lasix today and observe overnight.
[2021-05-14 21:14] LABS: Glucose Point of Care 239 mg/dL (70-110)
--- NOTE | 2021-05-14 21:14 | PC.NURSE ---
Received report from [facility] Angel. Patient resting in bed. Corbin catheter in place with decreased output. Repositioned for comfort. Pillows placed. Patient expressed thanks. Instructed patient on cardizem. Patient verbalized complete understanding but will need reinforcement. Patient denies other needs. No other distress observed. Will continue to monitor.
[2021-05-14] MEDS: heparin drip 25,000 UNIT/500 ML PREMIX 29 UNIT IV (22:29)
[2021-05-14] MEDS: heparin 5,000 unit/mL INJ 1 mL IV (22:29)
[2021-05-15] VITALS (33 sets, daily range): BP systolic 75–122; BP diastolic 42–94; PULSE 82–140; RESP 13–37; TEMP 36.2; O2SAT 71–99
[2021-05-15] MEDS: ipratropium-albuterol 3 mL Neb INHALATION ×6 (01:25→20:57)
[2021-05-15] MEDS: piperacillin-tazobactam 3.375 GM in sodium chloride 0.9% (plus) 50 ML IV ×2 (01:26→11:15)
[2021-05-15] MEDS: dilTIAZem 60 mg Tablet PO ×3 (01:26→23:30)
[2021-05-15] MEDS: acetaminophen 325 mg Tablet 650 MG PO ×2 (01:29→22:31)
--- NOTE | 2021-05-15 04:08 | PC.NURSE ---
Shift Note Frequent safety and comfort rounds continue. Orders and/or nursing care completed as indicated. Patient monitored for response to intervention and treatment(s). Education provided includes heparin drip. Patient verbalized understanding however will require reinforcement. Patient denies needs. No distress observed. Patient has been able to wear his bipap all this evening. Will continue to monitor.
[2021-05-15] MEDS: acetylcysteine 200 mg/mL SDV 4 mL 100 MG INHALATION ×4 (04:10→20:57)
[2021-05-15] MEDS: morphine 4 mg/mL SDV 1 mL 1 MG IVP ×2 (04:41→20:36)
[2021-05-15 04:42] LABS: Basophils # 0.1 10^3/uL (0.0-0.1); Basophils % 0.7 %; Eosinophils # 0.2 10^3/uL (0.0-0.8); Eosinophils % 2.8 %; Hematocrit 28.3 % (42.0-52.0); Hemoglobin 8.5 g/dL (11.7-16.6); Lymphocytes # 1.8 10^3/uL (0.8-4.8); Lymphocytes % 20.9 %; Mean Corpuscular Hemoglobin 27.5 pg (28.0-34.0); Mean Corpuscular Volume 91.6 fl (80-94); Mean Platelet Volume 9.8 fL (7.4-10.4); Monocytes # 0.6 10^3/uL (0.2-0.9); Monocytes % 6.9 %; Neutrophils # 5.94 10^3/uL (1.8-7.7); Neutrophils % 68.4 %; Nucleated Red Blood Cells % 0 %; Platelet Count 409 10^3/cmm (130-400); Red Blood Count 3.09 10^6/uL (4.1-5.3); White Blood Count 8.7 10^3/uL (4.0-10.0)
[2021-05-15 04:59] LABS: Creatine Phosphokinase 142 U/L (39-308); Magnesium 2.1 mg/dL (1.7-2.3)
[2021-05-15 05:02] LABS: Alanine Aminotransferase 14 U/L (0-41); Alkaline Phosphatase 72 IU/L (40-130); Anion Gap 16.6 (5-19); Aspartate Amino Transferase 18 U/L (0-40); Blood Urea Nitrogen 51 mg/dL (8-23); Calcium 8.3 mg/dL (8.5-10.5); Carbon Dioxide 31 mmol/L (22-29); Chloride 93 mmol/L (98-107); Globulin 3.5 g/dL (1.3-4.6); Glucose 130 mg/dL (65-115); Osmolality Calculated 299 mOsm/kg (285-295); Potassium 3.6 mmol/L (3.5-5.1); Sodium 137 mmol/L (136-145); Total Bilirubin 0.2 mg/dL (0.15-1.2); Total Protein 6.5 g/dL (6.6-8.7)
[2021-05-15 05:11] LABS: Partial Thromboplastin Time 164.9 SECONDS (23.9-36.7)
--- NOTE | 2021-05-15 05:25 | PC.NURSE ---
Patient's current PTT 164.9. Informed Dr Rios. Received telephone order to stop heparin for 4 hour and recheck PTT at that time.
[2021-05-15 06:19] LABS: Glucose Point of Care 180 mg/dL (70-110)
[2021-05-15] MEDS: sucralfate 1 gm Tablet PO ×3 (09:22→20:36)
[2021-05-15] MEDS: pantoprazole DR 40 mg Tablet PO ×2 (09:22→17:36)
[2021-05-15 10:21] LABS: Partial Thromboplastin Time 24.3 SECONDS (23.9-36.7)
--- NOTE | 2021-05-15 10:55 | PC.NURSE ---
reported PTT result to Dr Ruiz instructions to give Bolus heparin per protocol and leave rate at previous staring rate of 29ml/hr
[2021-05-15] MEDS: heparin 5,000 unit/mL INJ 1 mL IV (11:03)
[2021-05-15] MEDS: metoprolol tartrate 25 mg Tablet PO ×2 (11:17→20:36)
[2021-05-15 12:03] LABS: Glucose Point of Care 153 mg/dL (70-110)
--- NOTE | 2021-05-15 13:00 | PM.PN ---
Subjective Subjective: Interval history: arterial duplex performed yesterday with occlusion at multiple levels. Started on heparin infusion overnight. C/o pain in left leg, planned for intervention cardiololgy consult today. Cr worsened at 3.7 Vitals/I&O/Wt Last Vital Signs Temp 97.2 F L 05/15/21 04:00 Pulse 100 05/15/21 07:54 Resp 29 H 05/15/21 07:54 BP 96/47 05/15/21 04:00 Pulse Ox 92 05/15/21 07:54 05/15/21 05/15/21 05/15/21 06:59 14:59 22:59 Intake Total 372.033 / 1172.033 0 / 0 50 / 50 Output Total 100 / 320 Balance 272.033 / 852.033 0 / 0 50 / 50 Weight last 48 hrs Weight 105.233 kg Weight 104.326 kg Physical Exam Narrative: EXAM NARRATIVE: GEN: Awake, alert and oriented. chronically ill appearing male, nasal canula in place CVS: [id number] RS: B/L coarse crackles at lung bases ABd: Soft, NT/ND EXT: bedsore with noted gangrenous changes over left foot, unchanged ulcers over right foot Laboratory Results WBC 9.2 10^3/uL (4.0- 10.0) 05/14/21 02:29 RBC 2.98 10^6/uL (4.1 -5.3) L 05/14/21 02:29 Hgb 8.3 g/dL (11.7-16 .6) L 05/14/21 02:29 Hct 27.9 % (42.0-52.0 ) L 05/14/21 02:29 MCV 93.6 fl (80-94) 05/14/21 02:29 MCH 27.9 pg (28.0-34. 0) L 05/14/21 02:29 MCHC 29.7 g/dL (30.0-3 6.0) L 05/14/21 02:29 RDW 17.2 % (12.1-15.1 ) H 05/14/21 02:29 Plt Count 391 10^3/cmm (130 -400) 05/14/21 02:29 MPV 10.2 fL (7.4-10.4 ) 05/14/21 02:29 Neut % (Auto) 67.2 % 05/14/21 02:29 Lymph % (Auto) 22.1 % 05/14/21 02:29 Loving % (Auto) 8.2 % 05/14/21 02:29 Eos % (Auto) 1.6 % 05/14/21 02:29 Baso % (Auto) 0.6 % 05/14/21 02:29 Reticulocyte % (Au to) 1.3 % (0.5-2.0) 04/29/21 02:55 Neut # (Auto) 6.20 10^3/uL (1.8 -7.7) 05/14/21 02:29 Lymph # (Auto) 2.0 10^3/uL (0.8- 4.8) 05/14/21 02:29 Loving # (Auto) 0.8 10^3/uL (0.2- 0.9) 05/14/21 02:29 Eos # (Auto) 0.2 10^3/uL (0.0- 0.8) 05/14/21 02:29 Baso # (Auto) 0.1 10^3/uL (0.0- 0.1) 05/14/21 02:29 Nucleated RBC % (a uto) 0 % 05/14/21 02:29 Nucleated RBCs # 0.0 /100WBC 05/14/21 02:29 Differential Comme nt Yes 04/30/21 09:25 PT 17.30 SECONDS (12 .1-14.9) H 05/11/21 05:40 INR 1.38 (0.8-1.2) H 05/11/21 05:40 APTT 75.6 SECONDS (23. 9-36.7) H 05/01/21 13:05 D-Dimer 7.36 ug/mIFEU (0- 0.59) H 04/27/21 08:23 Specimen Type Arterial 05/09/21 09:37 Sample Site Radial, right 05/09/21 09:37 ABG pH 7.40 (7.35-7.45) 05/09/21 09:37 ABG pCO2 52.4 mmHg (35-45) H 05/09/21 09:37 ABG pO2 85.8 mmHg (80.0-1 00.0) 05/09/21 09:37 ABG HCO3 32.3 mmol/L (22-2 6) H 05/09/21 09:37 ABG O2 Saturation 97.3 05/09/21 09:37 ABG Base Excess 6.6 mmol/L (-2.0- 2.0) H 05/09/21 09:37 Dimitry Test Pos 05/09/21 09:37 A-a O2 Gradient Not Reportable 05/09/21 09:37 Hematocrit 25.0 % (42-52) L 05/09/21 09:37 Hgb O2 Saturation 95.4 % (95-100) 05/09/21 09:37 Carboxyhemoglobin 0.9 %THgb (0.4-20 .1) 05/09/21 09:37 Methemoglobin 1.0 % (0.4-1.5) 05/09/21 09:37 Total Hemoglobin 8.1 g/dL (14-18) L 05/09/21 09:37 Sodium 141.0 mmol/L (131 -143) 05/09/21 09:37 Potassium 3.6 mmol/L (3.5-5 .0) 05/09/21 09:37 Glucose 193.0 mg/dL (70-1 15) H 05/09/21 09:37 Ionized Calcium 1.2 mmol/L (1.1-1 .4) 05/09/21 09:37 O2 Delivery Device Nc 05/09/21 09:37 O2 Liters/Min 6.0 % 05/07/21 04:44 FiO2 15.0 % 05/09/21 09:37 Tidal Volume 0.45 05/06/21 03:40 PEEP 8.0 cmH20 05/06/21 03:40 Reverse Unit Operator ID Monro 05/09/21 09:37 Sodium 139 mmol/L (136-1 45) 05/14/21 02:29 Potassium 3.3 mmol/L (3.5-5 .1) L 05/14/21 02:29 Chloride 96 mmol/L (98-107 ) L 05/14/21 02:29 Carbon Dioxide 31 mmol/L (22-29) H 05/14/21 02:29 Anion Gap 15.3 (5-19) 05/14/21 02:29 BUN 47 mg/dL (8-23) H 05/14/21 02:29 Creatinine 3.0 mg/dL (0.7-1. 2) H 05/14/21 02:29 GFR Calculation Not Reportable 05/14/21 02:29 Glucose 128 mg/dL (65-115 ) H 05/14/21 02:29 POC Glucose 280 mg/dL (70-110 ) H 05/14/21 11:57 Calculated Osmolal ity 302 mOsm/kg (285- 295) H 05/14/21 02:29 Lactate 0.6 mmol/L (0.5-2 .2) 05/08/21 03:08 Calcium 8.5 mg/dL (8.5-10 .5) 05/14/21 02:29 Phosphorus 3.7 mg/dL (2.5-4. 5) 05/11/21 05:40 Magnesium 2.0 mg/dL (1.7-2. 3) 05/11/21 05:40 Iron 10 ug/dL (59-158) L 04/29/21 02:55 Ferritin 99 ng/mL (30-400) 04/29/21 02:55 Total Bilirubin 0.2 mg/dL (0.15-1 .2) 05/14/21 02:29 AST 22 U/L (0-40) 05/14/21 02:29 ALT 14 U/L (0-41) 05/14/21 02:29 Alkaline Phosphata se 73 IU/L (40-130) 05/14/21 02:29 Creatine Kinase 620 U/L (39-308) H* 05/11/21 05:40 Troponin T Baselin e 47 ng/L (0-15) H 04/27/21 08:23 Troponin T 120 Min [place] 46.61 ng/L (0-15) H 04/27/21 10:17 Delta Troponin T -0.39 ABS# (0-10) L 04/27/21 10:17 Troponin T Hi Sens 6Hr 47.02 ng/L (0-15) H 04/27/21 14:13 Troponin T Hi Sens 6Hr Delta 0.02 ng/L (0-12) 04/27/21 14:13 C-Reactive Protein 91.9 mg/L (0.0-4. 9) H 05/11/21 05:40 NT-Pro-B Natriuret Pep 45003 pg/mL (0-12 5) H 05/11/21 05:40 Total Protein 6.3 g/dL (6.6-8.7 ) L 05/14/21 02:29 Albumin 2.7 g/dL (3.5-5.2 ) L 05/14/21 02:29 Globulin 3.6 g/dL (1.3-4.6 ) 05/14/21 02:29 Procalcitonin 0.20 ng/mL (0-0.5 ) 05/11/21 05:40 TSH 0.35 uIU/mL (0.27 -4.20) 04/27/21 08:23 Urine Color Yellow (Yellow) 04/27/21 01:36 Urine Appearance Hazy (CLEAR) A 04/27/21 01:36 Urine pH 5 (5-7) 04/27/21 01:36 Ur Specific Gravit y 1.020 (1.005-1.0 30) 04/27/21 01:36 Urine Protein Neg (Negative) 04/27/21 01:36 Urine Glucose (UA) Norm (Normal) 04/27/21 01:36 Urine Ketones Negative (Negati ve) 04/27/21 01:36 Urine Blood 2+ (Negative) H 04/27/21 01:36 Urine Nitrate Negative (Negati ve) 04/27/21 01:36 Urine Bilirubin Neg (Negative) 04/27/21 01:36 Urine Urobilinogen Norm mg/dL (Negat latricia) 04/27/21 01:36 Ur Leukocyte Esther ase Negative (Negati ve) 04/27/21 01:36 Urine RBC 0-4 /hpf (0-2) H 04/27/21 01:36 Urine WBC 5-10 /hpf (0-5) H 04/27/21 01:36 Ur Squamous Epith Cells Rare /hpf (0-5) 04/27/21 01:36 Amorphous Sediment Not Reportable 04/27/21 01:36 Urine Bacteria 1+ /hpf (NONE) H 04/27/21 01:36 Fluid Color Yellow 04/30/21 09:25 Fluid Appearance Clear 04/30/21 09:25 Fluid WBC 906 /uL 04/30/21 09:25 Fluid RBC 5.000 10^3/uL 04/30/21 09:25 Fluid Hematocrit 0.1 % 04/30/21 09:25 Fld Polynuclear WB Cs # 0.153 04/30/21 09:25 Fld Polynuclear WB Cs % 16.900 % 04/30/21 09:25 Fl Mononucl WBCs # (Auto) 0.753 04/30/21 09:25 Fl Mononuclear % A uto 83.100 % 04/30/21 09:25 Fluid Albumin 1.5 g/dL 04/30/21 09:25 Fluid Creatinine 1.56 (0.7-1.2) H 04/30/21 09:25 Pleural pH 7.00 (6.5-7.5) 04/30/21 09:25 Pleural Total Prot ein 3.1 g/dL 04/30/21 09:25 Pleural LDH 122 U/L 04/30/21 09:25 Pleural Glucose 113.0 mg/dL 04/30/21 09:25 Pleural Amylase 20.0 U/L 04/30/21 09:25 Pleural Triglyceri angelo 39 mg/dL 04/30/21 09:25 Coronavirus 229E ( PCR) Not detected (NO T DETECT) 05/09/21 22:00 SARS-CoV-2 (PCR) Not detected (NO T DETECT) 05/09/21 22:00 Blood Type O Positive 05/07/21 19:36 Rho(D) Type Positive 05/07/21 19:36 Antibody Screen Negative 05/07/21 19:36 Crossmatch See Detail 05/07/21 19:36 Urinary Catheter Management: Corbin: Cath Placed During This Visit: yes Reason for Continuing Indwelling Catheter: Acute Urinary Retention or Obstruction Urinary Catheter Date of Insertion: 04/27/21 Urinary Catheter Time of Insertion: 09:15 Data : 05/15/21 04:32 05/15/21 04:32 A&P Assessment and plan (1) Atrial fibrillation with rapid ventricular response: Status: Acute (2) Heart failure: Status: Acute (3) Acute on chronic respiratory failure with hypoxia and hypercapnia: Status: Acute (4) COPD (chronic obstructive pulmonary disease): Status: Acute (5) Diabetes: Status: Acute (6) Hypertension: Status: Acute (7) CVA (cerebral vascular accident): Status: Acute (8) Aspiration into respiratory tract: Status: Acute Qualifiers: Encounter type: sequela Qualified Code(s): T17.908S - Unspecified foreign body in respiratory tract, part unspecified causing other injury, sequela (9) Aspiration pneumonia: Status: Acute (10) Upper GI bleed: Status: Acute (11) Hemorrhagic shock: Status: Acute (12) Acute respiratory failure: Status: Acute Plan 75 year old male with past medical history of hypertension, diabetes, heart failure, COPD, admitted with? worsening shortness of breath, A. fib with RVR, with hospital course has been comp located by development of recurrent mucous plugging, GI bleed, requiring intubation and mechanical ventilation at one point.? Continues to have significantly high oxygen requirements and is quite deconditioned due to prolonged hospital stay. # peripheral artery disease, developing dry gangrene, arterial duplex with mutlilevel occlusion intervention cardiology consult Difficult situation with revascularization given cr at 3.7 now, GI bleeding which makes antiplatelet &/or anticoagulant therapy risky Currently on heparin infusion, monitor H&H every 12 hrs May additonally need trial of Plavix priro to any planned intervention Gentle iv hydration , lasix on hold since 05/14; SVV at 26 yesterday on [place] # A. fib with RVR, Off Cardizem drip at this time, heart rate is currently well controlled between 70-90.? -Continue Cardizem 60 every 6 hours, Toprol 25 twice daily, with vitals permitting - Multiple wall motion of normalities with a diminished ejection fraction of 45%. Mildly dilated right ventricle with possibly normal ejection? fraction Mild biatrial enlargement. #Hypoxic respiratory failure -Related to acute on chronic CHF exacerbation, recurrent mucous plugging, currently on chest vest therapy, hypertonic saline, Mucomyst - needs intermittent Bipap - on diuresis with lasix 40mg iv q12h, hold for today given increasing creatinine at this time -Possible aspiration, aspiration pneumonitis, aspiration pneumonia, continue Zosyn, aspiration precautions. modified barium swallow not able to be perfromed due to tenous respiratory status. Reassesed with speech therapy- advance diet to mechanical soft. - -Extubated 05/06/2021 -Bilateral pleural effusions, ultrasound thoracocentesis 1 L out on the right on 04/30 #Upper GI bleed, with hemorrhagic shock -Status post units 4 units? PRBC, 2 units FFP, protamine sulfate -Hemoglobin 8.3 today. -Transfuse if less than 7 -Status post EGD showed gastric and duodenal ulcer with injection of epinephrine, with repeat EGD 05/06/2021 due to recurrent black stools without any significant evidence of active bleeding -No repeat bloody or black stools -Protonix 40 po twice daily, Carafate 4 times daily #Acute CVA -CT of the head shows: 1. Extensive multifocal small-vessel ischemic change along with encephalomalacia in the left posterior parietal and occipital regions. 2. Additional hypodensity in the left posterior cerebellum, suspicious for an ischemic infarct. -Currently moving all upper and lower extremities, no facial droop, no slurring of words, hasn't gotten up out of bed, is bedbound -All evident of embolic CVAs related to atrial fibrillation, likely embolic, however unable to anticoagulate him currently due to Gi bleed Statin on hold due to rhabdomyolysis #Right lung collapse, resolving -Chest x-ray showing whiteout of right lung, resolved #Acute renal failure,Cr trendng up to 3.0 today, urine output 500cc thus far, [place] monitoring today, hold lasix in the interim #Rhabdomyolysis, -CPK over 1949 Left hernandez cellulitis -Completed antibiotic therapy, resolved #Diabetes: Lantus 30 subcu daily Low-dose sliding scale insulin Cardiac carbohydrate consistent diet Monitor fingerstick glucose Attestations Medical Necessity Statement*: Arterial studies revealing multilevel occlusions, intervention cardiology consult, possible angiogram with intervention Coding Level of Care Code Acute [employer] F[employer] Diagnoses Atrial fibrillation with rapid ventricular response I48.91 Heart failure I50.9 Acute on chronic respiratory failure with hypoxia and hypercapnia J96.21; J96.22 COPD (chronic obstructive pulmonary disease) J44.9 Diabetes E11.9 Hypertension I10 CVA (cerebral vascular accident) I63.9 Aspiration into respiratory tract T17.908S Encounter type: sequela Aspiration pneumonia J69.0 Upper GI bleed K92.2 Hemorrhagic shock R57.8 Acute respiratory failure J96.00
--- NOTE | 2021-05-15 14:51 | PC.NURSE ---
spoke with Dr gama with concerns of giving Cardizem with patients current Blood pressure and HR instructions received to hold this dose
--- NOTE | 2021-05-15 14:52 | PC.NURSE ---
Dr gama at bedside for assessment spoke with her about medications instructions to Hold gabapentin and stop vitamin D
[2021-05-15 16:50] LABS: Glucose Point of Care 174 mg/dL (70-110)
[2021-05-15] MEDS: sodium chloride 0.9% 1,000 ML 30 ML IV (17:36)
[2021-05-15] MEDS: insulin lispro 100 unit/1 mL SUBCUT ×2 (17:41→20:37)
[2021-05-15 18:00] LABS: Hematocrit 28.3 % (42.0-52.0); Hemoglobin 8.4 g/dL (11.7-16.6)
--- NOTE | 2021-05-15 18:29 | PM.PN ---
Subjective Subjective: Interval history: Patient is somewhat drowsy. The left foot is very tender. Denies any chest pain. Remains afebrile. Medications: Medication Review Details: Current Medications Acetaminophen (Acetaminophen 325 Mg Tablet) 650 mg PO Q6H PRN PRN Reason: Mild/Mod Pain Or Temp >/= 101 Last Admin: 05/15/21 01:29 Dose: 650 mg Documented by: Acetylcysteine (Acetylcysteine 200 Mg/Ml Sdv 4 Ml) 100 mg INHALATION Q12H [facility] Albuterol/Ipratropium (Ipratropium-Albuterol 3 Ml Neb) 3 ml INHALATION Q4H.RESPIRATORY [facility] Last Admin: 05/15/21 16:30 Dose: 3 ml Documented by: Atorvastatin Calcium (Atorvastatin 40 Mg Tablet) 80 mg PO DAILY [facility] Last Admin: 05/08/21 08:15 Dose: 80 mg Documented by: Bisacodyl (Bisacodyl 5 Mg Tablet) 10 mg PO DAILY PRN; Protocol PRN Reason: Constipation (see protocol) Dextrose (Dextrose 50% Syringe 50 Ml) 25 ml IVP ONCE PRN; Protocol PRN Reason: hypoglycemia protocol Dextrose (Dextrose 50% Syringe 50 Ml) 50 ml IVP PRN PRN; Protocol PRN Reason: hypoglycemia protocol Diltiazem HCl (Diltiazem 60 Mg Tablet) 60 mg PO Q8H [facility] Last Admin: 05/15/21 18:27 Dose: Not Given Documented by: Docusate Sodium (Docusate Sodium 100 Mg Capsule) 100 mg PO 0900,2100 [facility] Last Admin: 05/15/21 09:24 Dose: Not Given Documented by: Furosemide (Furosemide 10 Mg/Ml Sdv 4ml) 40 mg IVP Q12H [facility] Last Admin: 05/13/21 20:20 Dose: 40 mg Documented by: Gabapentin (Gabapentin 300 Mg Capsule) 300 mg PO DAILY [facility] Last Admin: 05/15/21 09:24 Dose: Not Given Documented by: Glucagon (Glucagon 1 Mg/Ml Inj 1 Ml) 1 mg IM ONCE PRN; Protocol PRN Reason: Adult Acute Hypoglycemia Prot. Heparin Sodium (Porcine) (Heparin 5,000 Unit/Ml Inj 1 Ml) 0 unit IV PRN PRN; Protocol PRN Reason: Heparin weight-base protocol Last Admin: 05/15/21 11:03 Dose: 5,300 unit Documented by: Dextrose (D5w) 500 mls @ 100 mls/hr IV ONCE PRN; Protocol PRN Reason: Adult Acute Hypoglycemia Prot Heparin Sodium/Sodium Chloride (Heparin Drip) 25,000 unit in 500 mls @ 0 mls/hr IV .Q0M [facility]; Protocol Last Titration: 05/15/21 11:09 Dose: 13.9 unit/kg/hr, 29 mls/hr Documented by: Sodium Chloride (Sodium Chloride 0.9%) 1,000 mls @ 30 mls/hr IV .Q24H [facility] Last Admin: 05/15/21 17:36 Dose: 30 mls/hr Documented by: Insulin Human Lispro (Insulin Lispro 100 Unit/1 Ml) 0 unit SUBCUT WM&BEDTIME [facility]; Protocol Last Admin: 05/15/21 17:41 Dose: 2 unit Documented by: Lanolin (Lanolin Oint 7 Gm) 1 applic TOPICAL PRN PRN PRN Reason: DRYNESS Last Admin: 05/04/21 18:37 Dose: 1 applic Documented by: Metoprolol Tartrate (Metoprolol Tartrate 1 Mg/1 Ml Sdv 5 Ml) 5 mg IVP Q5MIN PRN PRN Reason: HR>120, call og Last Admin: 05/13/21 05:10 Dose: 5 mg Documented by: Metoprolol Tartrate (Metoprolol Tartrate 25 Mg Tablet) 25 mg PO Q12H [facility] Last Admin: 05/15/21 11:17 Dose: 25 mg Documented by: Morphine Sulfate (Morphine 4 Mg/Ml Sdv 1 Ml) 1 mg IVP Q8H PRN PRN Reason: SEVERE PAIN Last Admin: 05/15/21 04:41 Dose: 1 mg Documented by: Naloxone HCl (Naloxone 0.4 Mg/Ml Sdv) 0.1 mg IVP Q2M PRN PRN Reason: OPIATERV Ondansetron HCl (Ondansetron 2 Mg/Ml Sdv 2 Ml) 4 mg IVP Q8H PRN PRN Reason: vomiting, or N/V if npo Pantoprazole Sodium (Pantoprazole Dr 40 Mg Tablet) 40 mg PO BID [facility] Last Admin: 05/15/21 17:36 Dose: 40 mg Documented by: Polyethylene Glycol (Polyethylene Glycol 3350 Pkt 17 Gm) 17 gm PO 0900,2100 [facility] Last Admin: 05/15/21 09:24 Dose: Not Given Documented by: Sodium Chloride (Sodium Chloride 3.5% Neb 4 Ml Neb) 4 ml INHALATION BID.RESPIRATORY NATALIE Stop: 05/15/21 19:00 Last Admin: 05/15/21 15:05 Dose: Not Given Documented by: Sucralfate (Sucralfate 1 Gm Tablet) 1 gm PO QID [facility] Last Admin: 05/15/21 17:36 Dose: 1 gm Documented by: Vitamin D (Cholecalciferol (Vitamin D3) 1,000 Unit Tablet) 1,000 unit PO DAILY [facility] Last Admin: 05/15/21 09:24 Dose: Not Given Documented by: Vitals/I&O/Wt Last Vital Signs Temp 97.2 F L 05/15/21 04:00 Pulse 100 05/15/21 07:54 Resp 29 H 05/15/21 07:54 BP 96/47 05/15/21 04:00 Pulse Ox 92 05/15/21 07:54 05/15/21 05/15/21 05/15/21 06:59 14:59 22:59 Intake Total 372.033 / 1172.033 0 / 0 50 / 50 Output Total 100 / 320 Balance 272.033 / 852.033 0 / 0 50 / 50 Weight last 48 hrs Weight 232 lb Weight 230 lb Physical Exam Narrative: EXAM NARRATIVE: GENERAL: The patient is on BiPAP. HEENT: No significant pallor, icterus or lymphadenopathy.Oral cavity: There are no mucous membrane lesions. NECK: Trachea appears to be central. No masses noted. No JVD or thyromegaly appreciated. RESPIRATORY: Breath sounds are bilaterally with diminished intensity of breath sounds in the bases. Scattered expiratory wheeze. BREASTS: Deferred. HEART: Deferred*is variable. Second heart sound is normal. No S3 ? short systolic murmur in the left sternal border. No pericardial rub ABDOMEN: No vessel pulsations or distention. No tenderness. No organomegaly appreciated.? Bowel sounds are normally heard. : Deferred. RECTAL: Deferred. LYMPHATIC: No lymphadenopathy noted in the neck . EXTREMITIES: Features of chronic venous stasis with excoriated skin lesions.. Cyanotic skin around the heel of the left foot.? The peripheral pulses are nonpalpable bilateral.? The left foot is very tender. MUSCULOSKELETAL: No acute joint deformities or swelling SKIN: There he is cyanosis around the heel of the left foot.? This area is somewhat edematous Urinary Catheter Management: Corbin: Cath Placed During This Visit: yes Reason for Continuing Indwelling Catheter: Acute Urinary Retention or Obstruction Urinary Catheter Date of Insertion: 04/27/21 Urinary Catheter Time of Insertion: 09:15 Data : 05/15/21 17:45 05/15/21 04:32 Other Labs: Laboratory Last Values WBC 8.7 10^3/uL (4.0-10.0) 05/15/21 04:32 RBC 3.09 10^6/uL (4.1-5.3) L 05/15/21 04:32 Hgb 8.4 g/dL (11.7-16.6) L 05/15/21 17:45 Hct 28.3 % (42.0-52.0) L 05/15/21 17:45 MCV 91.6 fl (80-94) 05/15/21 04:32 MCH 27.5 pg (28.0-34.0) L 05/15/21 04:32 MCHC 30.0 g/dL (30.0-36.0) 05/15/21 04:32 RDW 17.0 % (12.1-15.1) H 05/15/21 04:32 Plt Count 409 10^3/cmm (130-400) H 05/15/21 04:32 MPV 9.8 fL (7.4-10.4) 05/15/21 04:32 Neut % (Auto) 68.4 % 05/15/21 04:32 Lymph % (Auto) 20.9 % 05/15/21 04:32 [place] % (Auto) 6.9 % 05/15/21 04:32 Eos % (Auto) 2.8 % 05/15/21 04:32 Baso % (Auto) 0.7 % 05/15/21 04:32 Reticulocyte % (Auto) 1.3 % (0.5-2.0) 04/29/21 02:55 Neut # (Auto) 5.94 10^3/uL (1.8-7.7) 05/15/21 04:32 Lymph # (Auto) 1.8 10^3/uL (0.8-4.8) 05/15/21 04:32 [place] # (Auto) 0.6 10^3/uL (0.2-0.9) 05/15/21 04:32 Eos # (Auto) 0.2 10^3/uL (0.0-0.8) 05/15/21 04:32 Baso # (Auto) 0.1 10^3/uL (0.0-0.1) 05/15/21 04:32 Nucleated RBC % (auto) 0 % 05/15/21 04:32 Nucleated RBCs # 0.0 /100WBC 05/15/21 04:32 Differential Comment Yes 04/30/21 09:25 PT 17.30 SECONDS (12.1-14.9) H 05/11/21 05:40 INR 1.38 (0.8-1.2) H 05/11/21 05:40 APTT 24.3 SECONDS (23.9-36.7) D 05/15/21 09:50 D-Dimer 7.36 ug/mIFEU (0-0.59) H 04/27/21 08:23 Specimen Type Arterial 05/09/21 09:37 Sample Site Radial, right 05/09/21 09:37 ABG pH 7.40 (7.35-7.45) 05/09/21 09:37 ABG pCO2 52.4 mmHg (35-45) H 05/09/21 09:37 ABG pO2 85.8 mmHg (80.0-100.0) 05/09/21 09:37 ABG HCO3 32.3 mmol/L (22-26) H 05/09/21 09:37 ABG O2 Saturation 97.3 05/09/21 09:37 ABG Base Excess 6.6 mmol/L (-2.0-2.0) H 05/09/21 09:37 Dimitry Test Pos 05/09/21 09:37 A-a O2 Gradient Not Reportable 05/09/21 09:37 Hematocrit 25.0 % (42-52) L 05/09/21 09:37 Hgb O2 Saturation 95.4 % (95-100) 05/09/21 09:37 Carboxyhemoglobin 0.9 %THgb (0.4-20.1) 05/09/21 09:37 Methemoglobin 1.0 % (0.4-1.5) 05/09/21 09:37 Total Hemoglobin 8.1 g/dL (14-18) L 05/09/21 09:37 Sodium 141.0 mmol/L (131-143) 05/09/21 09:37 Potassium 3.6 mmol/L (3.5-5.0) 05/09/21 09:37 Glucose 193.0 mg/dL (70-115) H 05/09/21 09:37 Ionized Calcium 1.2 mmol/L (1.1-1.4) 05/09/21 09:37 O2 Delivery Device Nc 05/09/21 09:37 O2 Liters/Min 6.0 % 05/07/21 04:44 FiO2 15.0 % 05/09/21 09:37 Tidal Volume 0.45 05/06/21 03:40 PEEP 8.0 cmH20 05/06/21 03:40 Instrumentation Manager ID Monro 05/09/21 09:37 Sodium 137 mmol/L (136-145) 05/15/21 04:32 Potassium 3.6 mmol/L (3.5-5.1) 05/15/21 04:32 Chloride 93 mmol/L (98-107) L 05/15/21 04:32 Carbon Dioxide 31 mmol/L (22-29) H 05/15/21 04:32 Anion Gap 16.6 (5-19) 05/15/21 04:32 BUN 51 mg/dL (8-23) H 05/15/21 04:32 Creatinine 3.7 mg/dL (0.7-1.2) H 05/15/21 04:32 GFR Calculation Not Reportable 05/15/21 04:32 Glucose 130 mg/dL (65-115) H 05/15/21 04:32 POC Glucose 174 mg/dL (70-110) H 05/15/21 15:53 Calculated Osmolality 299 mOsm/kg (285-295) H 05/15/21 04:32 Lactate 0.6 mmol/L (0.5-2.2) 05/08/21 03:08 Calcium 8.3 mg/dL (8.5-10.5) L 05/15/21 04:32 Phosphorus 3.7 mg/dL (2.5-4.5) 05/11/21 05:40 Magnesium 2.1 mg/dL (1.7-2.3) 05/15/21 04:32 Iron 10 ug/dL (59-158) L 04/29/21 02:55 Ferritin 99 ng/mL (30-400) 04/29/21 02:55 Total Bilirubin 0.2 mg/dL (0.15-1.2) 05/15/21 04:32 AST 18 U/L (0-40) 05/15/21 04:32 ALT 14 U/L (0-41) 05/15/21 04:32 Alkaline Phosphatase 72 IU/L (40-130) 05/15/21 04:32 Creatine Kinase 142 U/L (39-308) 05/15/21 04:32 Troponin T Baseline 47 ng/L (0-15) H 04/27/21 08:23 Troponin T 120 Minute 46.61 ng/L (0-15) H 04/27/21 10:17 Delta Troponin T -0.39 ABS# (0-10) L 04/27/21 10:17 Troponin T Hi Sens 6Hr 47.02 ng/L (0-15) H 04/27/21 14:13 Troponin T Hi Sens 6Hr Delta 0.02 ng/L (0-12) 04/27/21 14:13 C-Reactive Protein 91.9 mg/L (0.0-4.9) H 05/11/21 05:40 NT-Pro-B Natriuret Pep 83733 pg/mL (0-125) H 05/11/21 05:40 Total Protein 6.5 g/dL (6.6-8.7) L 05/15/21 04:32 Albumin 3.0 g/dL (3.5-5.2) L 05/15/21 04:32 Globulin 3.5 g/dL (1.3-4.6) 05/15/21 04:32 Procalcitonin 0.20 ng/mL (0-0.5) 05/11/21 05:40 TSH 0.35 uIU/mL (0.27-4.20) 04/27/21 08:23 Urine Color Yellow (Yellow) 04/27/21 01:36 Urine Appearance Hazy (CLEAR) A 04/27/21 01:36 Urine pH 5 (5-7) 04/27/21 01:36 Ur Specific [place] 1.020 (1.005-1.030) 04/27/21 01:36 Urine Protein Neg (Negative) 04/27/21 01:36 Urine Glucose (UA) Norm (Normal) 04/27/21 01:36 Urine Ketones Negative (Negative) 04/27/21 01:36 Urine Blood 2+ (Negative) H 04/27/21 01:36 Urine Nitrate Negative (Negative) 04/27/21 01:36 Urine Bilirubin Neg (Negative) 04/27/21 01:36 Urine Urobilinogen Norm mg/dL (Negative) 04/27/21 01:36 Ur Leukocyte Esterase Negative (Negative) 04/27/21 01:36 Urine RBC 0-4 /hpf (0-2) H 04/27/21 01:36 Urine WBC 5-10 /hpf (0-5) H 04/27/21 01:36 Ur Squamous Epith Cells Rare /hpf (0-5) 04/27/21 01:36 Amorphous Sediment Not Reportable 04/27/21 01:36 Urine Bacteria 1+ /hpf (NONE) H 04/27/21 01:36 Fluid Color Yellow 04/30/21 09:25 Fluid Appearance Clear 04/30/21 09:25 Fluid WBC 906 /uL 04/30/21 09:25 Fluid RBC 5.000 10^3/uL 04/30/21 09:25 Fluid Hematocrit 0.1 % 04/30/21 09:25 Fld Polynuclear WBCs # 0.153 04/30/21 09:25 Fld Polynuclear WBCs % 16.900 % 04/30/21 09:25 Fl Mononucl WBCs #(Auto) 0.753 04/30/21 09:25 Fl Mononuclear % Auto 83.100 % 04/30/21 09:25 Fluid Albumin 1.5 g/dL 04/30/21 09:25 Fluid Creatinine 1.56 (0.7-1.2) H 04/30/21 09:25 Pleural pH 7.00 (6.5-7.5) 04/30/21 09:25 Pleural Total Protein 3.1 g/dL 04/30/21 09:25 Pleural LDH 122 U/L 04/30/21 09:25 Pleural Glucose 113.0 mg/dL 04/30/21 09:25 Pleural Amylase 20.0 U/L 04/30/21 09:25 Pleural Triglycerides 39 mg/dL 04/30/21 09:25 Coronavirus 229E (PCR) Not detected (NOT DETECT) 05/09/21 22:00 SARS-CoV-2 (PCR) Not detected (NOT DETECT) 05/09/21 22:00 Blood Type O Positive 05/07/21 19:36 Rho(D) Type Positive 05/07/21 19:36 Antibody Screen Negative 05/07/21 19:36 Crossmatch See Detail 05/07/21 19:36 A&P Assessment and plan (1) Critical limb ischemia of both lower extremities: Patient seems to have extensive vascular disease of the left lower extremity. Most likely he has underlying chronic disease with an acute event. Discussed with the patient's daughter about this. It may be appropriate to give a trial of IV heparin tonight. If there is no significant improvement, need to consider possible peripheral angiogram and intervention. Patient carries a high risk for bleeding, acute kidney injury and other concomitant complications. This was discussed with the patient and family. I will be consulting Dr. Em for further evaluation and management of the critical limb ischemia Once again I discussed with the patient's 2 daughters who are at the bedside. Patient is currently on IV heparin. The risk of angiogram and the possibility of bleeding were discussed in detail. Because of the patient's underlying kidney disease, he may develop acute kidney injury requiring dialysis. The family is wanting to talk with Dr. Ritchie and will make a final decision. Dr. Em is consulted at this time. Status: Acute (2) Atrial fibrillation with rapid ventricular response: Patient currently seems to be in atrial fibrillation with controlled ventricular response rate. May continue the current medications. Also patient is a GI bleed, requiring multiple blood transfusions, he may not be an ideal candidate for long-term oral anticoagulation. At this point, he may be continued on the current medications. But in view of the possible thrombotic occlusion of the peripheral artery of the left leg, if it is okay with Dr. Bishop, may be started on heparin. Status: Acute (3) Acute on chronic systolic heart failure: Patient has systolic dysfunction with ejection fraction of around 45%. Most likely he may have underlying coronary artery disease causing LV dysfunction. For further evaluation of the coronary status, a myocardial perfusion imaging would be appropriate. However considering the patient's physical condition, it was decided to hold off on any further investigations. Status: Acute (4) Acute exacerbation of chronic obstructive airways disease: Patient seems to have intermittent oxygen desaturation. Currently is on BiPAP. Oxygen saturations around 90%. Status: Acute (5) Upper GI bleed: Patient status post multiple blood transfusion and endoscopic injection of the epinephrine around the gastric and duodenal ulcer. Currently does not appear to have any active bleeding. Seems to have no recurrence of GI bleed. ARIANNA globin seems to be stable. Status: Acute Plan Other problems are Insulin requiring diabetes Recent CVA Acute on chronic kidney disease Generalized debilitation Dr. Em will discuss with the patient's family in detail about the feasibility of peripheral angiogram and a final decision will be made afterwards. Attestations Medical Necessity Statement*: Patient requires continued hospital stay for close monitoring and further management Coding Level of Care Code Acute Hand Alterations Tailor for Chg Fwd History Detailed Exam Detailed Medical Decision Making Moderate Complexity Diagnoses Critical limb ischemia of both lower extremities I70.223 Atrial fibrillation with rapid ventricular response I48.91 Acute on chronic systolic heart failure I50.23 Acute exacerbation of chronic obstructive airways disease J44.1 Upper GI bleed K92.2
[2021-05-15 18:31] LABS: Partial Thromboplastin Time 109.3 SECONDS (23.9-36.7)
[2021-05-15 20:33] LABS: Glucose Point of Care 276 mg/dL (70-110)
--- NOTE | 2021-05-15 20:51 | PC.NURSE ---
Received report from IN[facility] Arteaga. Patient resting in bed. Patient incontinent of bowel with large loose brown stool. Performed complete linen change, bed bath and repositioning for comfort. Patient has large area of presssure injury unstagable to sacrum. Placed pillows for comfort. Corbin remains in place at this time with continued decreased output. C/o pain to 8/10 to legs and sacrum. Medicated for pain as documented. Will continue to monitor.
[2021-05-15] MEDS: heparin drip 25,000 UNIT/500 ML PREMIX 23 UNIT IV (22:07)
--- NOTE | 2021-05-15 22:43 | PC.NURSE ---
Patient removed NC, telemetry and IV access. Found IV intact in patient's bed. Replaced NC, telemetry and placed new IV to left hand per protocol. Patient tolerated well. Patient c/o severe pain to legs and back (sacrum). Administered pain medications as ordered and documented. Will continue to monitor.
--- NOTE | 2021-05-15 23:21 | PC.NURSE ---
Patient crying and moaning in pain /10 to primarily to left leg but has pain to sacrum as well. Pain medications were given as ordered with no relief. Informed Dr Rios and received telephone order for Dilaudid 1mg IVP every 4 hours as needed for severe pain. Received order to discontinue order for morphine as well. RBVO
[2021-05-15] MEDS: HYDROmorphone 1 mg/mL INJ 1 mL IVP (23:30)
--- NOTE | 2021-05-15 23:35 | PC.NURSE ---
Patient reports feeling well tonight except for the pain in his left leg. Noted patient to have converted to NSR ~1730 with controlled rate at 80-81. SpO2 t 96% on 5L high flow NC. Respirations at 20. BP at 112/58. Patient is more awake tonight. Administered pain medication as ordered and documented. Instructed patient on Dilaudid. Patient verbalized complete understanding and expressed thanks.
[2021-05-16] VITALS (13 sets, daily range): BP systolic 86–125; BP diastolic 46–64; PULSE 78–90; RESP 18–25; TEMP 36.4–36.6; O2SAT 88–97
[2021-05-16] MEDS: ipratropium-albuterol 3 mL Neb INHALATION ×3 (00:12→09:21)
[2021-05-16 01:16] LABS: Hematocrit 26.6 % (42.0-52.0); Hemoglobin 7.7 g/dL (11.7-16.6); Platelet Count 429 10^3/cmm (130-400)
[2021-05-16 01:32] LABS: Partial Thromboplastin Time 70.6 SECONDS (23.9-36.7)
[2021-05-16 01:36] LABS: Alanine Aminotransferase 13 U/L (0-41); Albumin Level 2.8 g/dL (3.5-5.2); Alkaline Phosphatase 71 IU/L (40-130); Anion Gap 15.6 (5-19); Aspartate Amino Transferase 19 U/L (0-40); Blood Urea Nitrogen 54 mg/dL (8-23); Calcium 8.1 mg/dL (8.5-10.5); Carbon Dioxide 30 mmol/L (22-29); Chloride 94 mmol/L (98-107); Globulin 3.8 g/dL (1.3-4.6); Glucose 152 mg/dL (65-115); Osmolality Calculated 300 mOsm/kg (285-295); Potassium 3.6 mmol/L (3.5-5.1); Sodium 136 mmol/L (136-145); Total Bilirubin 0.2 mg/dL (0.15-1.2); Total Protein 6.6 g/dL (6.6-8.7)
--- NOTE | 2021-05-16 04:00 | XRR_ITS ---
PROCEDURE INFORMATION: Exam: XR Chest Exam date and time: 05/16/2021 4:00 AM Age: 75 years old Clinical indication: Shortness of breath; Prior surgery; Surgery type: Costal fixation; Patient HX: F/u for peristent pulmonary edema with hypoxia. ; Additional info: Follow up for pulmonary edema TECHNIQUE: Imaging protocol: XR of the chest. Views: 1 view. COMPARISON: CR XR chest 1V portable [id number] 05/14/2021 1:45 PM FINDINGS: Lungs: Marked mixed interstitial/alveolar opacities throughout the right lung, most prominent at the lung base, overall increased from prior study. Marked mixed interstitial/alveolar opacities throughout the left lung, most prominent at the lung base, overall increased from prior study. The lung findings may represent any combination of severe pulmonary edema and multifocal pneumonia. Pleural spaces: No visible pneumothorax. Moderate right pleural effusion, increased from prior study. Small left pleural effusion, similar to prior study. Heart/Mediastinum: Heart size difficult to evaluate due to adjacent lung abnormality. Bones/joints: Metallic hardware in left mid ribs, similar to prior study. XR/XR chest 1V portable [id number] IMPRESSION: 1. Marked mixed interstitial/alveolar opacities throughout the right lung, most prominent at the lung base, overall increased from prior study. 2. Marked mixed interstitial/alveolar opacities throughout the left lung, most prominent at the lung base, overall increased from prior study. 3. The lung findings may represent any combination of severe pulmonary edema and multifocal pneumonia. 4. Moderate right pleural effusion, increased from prior study. Small left pleural effusion, similar to prior study.
[2021-05-16 08:01] LABS: Glucose Point of Care 169 mg/dL (70-110)
[2021-05-16 08:39] LABS: Partial Thromboplastin Time 63.6 SECONDS (23.9-36.7)
[2021-05-16] MEDS: pantoprazole DR 40 mg Tablet PO (08:54)
[2021-05-16] MEDS: dilTIAZem 60 mg Tablet PO (08:54)
[2021-05-16] MEDS: sucralfate 1 gm Tablet PO (08:54)
[2021-05-16] MEDS: insulin lispro 100 unit/1 mL SUBCUT (08:54)
[2021-05-16] MEDS: gabapentin 300 mg Capsule PO (08:54)
--- NOTE | 2021-05-16 08:54 | PC.SOCIAL ---
IMM update IMM updated with patient. Copy Pg 2 provided. Verbalized an understanding. Initialled, dated, timed, and placed in chart.
[2021-05-16] MEDS: acetylcysteine 200 mg/mL SDV 4 mL 100 MG INHALATION (09:21)
--- NOTE | 2021-05-16 10:51 | PM.CONSULT ---
Providers/Reason For Consult Consulting Physician/Specialty*: Nephrology Reason for Consult*: DAYAMI Attending Physician: Allyn Ruiz MD History of Present Illness History of Present Illness Thank you for consultation, today had the pleasure of reviewing John Guerrero for evaluation of acute kidney injury. He has had somewhat of an extended, protracted hospital course. In brief, he was admitted back on 04/27/2021 with weakness, worsening shortness of breath, diagnosed with atrial fibrillation with RVR, pulmonary edema. Ejection fraction 45% but otherwise looks pretty reasonable. During his hospital stay his hemoglobin acutely dropped, he was diagnosed with GI bleed and underwent numerous blood transfusions, EGD showed gastric and duodenal ulcers, received injections of epinephrine. His right lung was luis out, diagnosed with right lung collapse. Care was complicated by CVA. He also has peripheral artery disease, developed dry gangrene, this is being medically managed. On admission serum creatinine 1.2, it drifted up and down over the last few days, on 05/11 was 1.6, increasing to 3 on 05/14, 3.7 on 3.7, 4.5 today. Urine output dropping overnight also. Hemodynamics have been labile over the last few days with runs of RVR and acute drops in his Bp, ie down to 75/51 yesterday. He is minimally conversant at this time, slightly confused, no other overt uremic symptoms. Minimal extremity edema, breathing comfortably at this time on room air despite the finding of pulmonary edema on chest x-ray. Review of Systems Narrative: Too confused, unobtainable Medications/Allergies Home Medications Medication Instructions Recorded Confirmed Last Taken Type atorvastatin 80 mg tablet 80 mg PO DAILY 04/27/21 04/27/21 Unknown History carvedilol 6.25 mg tablet 6.25 mg PO BID 04/27/21 04/27/21 Unknown History cholecalciferol (vitamin D3) 25 25 mcg PO DAILY 04/27/21 04/27/21 Unknown History mcg (1,000 unit) capsule (Vitamin D3) clopidogrel 75 mg tablet (Plavix) 75 mg PO DAILY 04/27/21 04/27/21 Unknown History ferrous gluconate 324 mg (38 mg 324 mg PO DAILY 04/27/21 04/27/21 Unknown History iron) tablet insulin aspart U-100 100 unit/mL See Rx Instructions .ROUTE .COMPLEX 04/27/21 04/27/21 Unknown History subcutaneous solution (Novolog U-100 Insulin aspart) insulin glargine 100 unit/mL 40 unit SUBCUT DAILY 04/27/21 04/27/21 Unknown History subcutaneous solution (Lantus U-100 Insulin) ipratropium 0.5 mg-albuterol 3 mg 3 ml INHALATION QID PRN 04/27/21 04/27/21 Unknown History (2.5 mg base)/3 mL nebulization soln metoprolol tartrate 50 mg tablet 25 mg PO BID 04/27/21 04/27/21 Unknown History multivitamin 1 tab PO DAILY 04/27/21 04/27/21 Unknown History oxycodone 5 mg tablet 10 mg PO Q8H PRN 04/27/21 04/27/21 Unknown History Allergies Allergy/AdvReac Type Severity Reaction Status Date / Time No Known Allergies Allergy Verified 04/27/21 08:00 Current Medications Generic Name Dose Route Start Last Admin Trade Name Freq PRN Reason Stop Dose Admin Acetaminophen 650 mg 04/27/21 18:13 05/15/21 22:31 Acetaminophen 325 Mg Tablet PO 650 mg Q6H PRN Administration Mild/Mod Pain Or Temp >/= 101 Acetylcysteine 100 mg 05/15/21 18:30 05/16/21 09:21 Acetylcysteine 200 Mg/Ml Sdv 4 Ml INHALATION 100 mg Q12H NATALIE Administration Albuterol/Ipratropium 3 ml 04/29/21 16:00 05/16/21 09:21 Ipratropium-Albuterol 3 Ml Neb INHALATION 3 ml Q4H.RESPIRATORY NATALIE Administration Atorvastatin Calcium 80 mg 04/28/21 09:00 05/08/21 08:15 Atorvastatin 40 Mg Tablet PO 80 mg DAILY NATALIE Administration Diltiazem HCl 60 mg 05/15/21 16:46 05/16/21 08:54 Diltiazem 60 Mg Tablet PO 60 mg Q8H NATALIE Administration Docusate Sodium 100 mg 05/08/21 09:00 05/16/21 09:11 Docusate Sodium 100 Mg Capsule PO Not Given 0900,2100 NATALIE Furosemide 40 mg 05/10/21 18:45 05/13/21 20:20 Furosemide 10 Mg/Ml Sdv 4ml IVP 40 mg Q12H NATALIE Administration Gabapentin 300 mg 05/07/21 13:15 05/16/21 08:54 Gabapentin 300 Mg Capsule PO 300 mg DAILY NATALIE Administration Heparin Sodium (Porcine) 0 unit 05/14/21 21:58 05/15/21 11:03 Heparin 5,000 Unit/Ml Inj 1 Ml IV 5,300 unit PRN PRN Administration Heparin weight-base protocol Protocol Hydromorphone HCl 1 mg 05/15/21 23:19 05/15/21 23:30 Hydromorphone 1 Mg/Ml Inj 1 Ml IVP 1 mg Q4H PRN Administration SEVERE PAIN Heparin Sodium/Sodium Chloride 25,000 unit in 500 mls @ 0 mls/hr 05/14/21 22:00 05/15/21 22:07 Heparin Drip IV 11.02 unit/kg/hr .Q0M NATALIE 23 mls/hr Administration Protocol Per Protocol Sodium Chloride 1,000 mls @ 60 mls/hr 05/15/21 16:45 05/16/21 10:12 Sodium Chloride 0.9% IV 60 mls/hr .[id number] NATALIE Infusion Insulin Human Lispro 0 unit 04/27/21 21:00 05/16/21 08:54 Insulin Lispro 100 Unit/1 Ml SUBCUT 2 unit WM&BEDTIME NATALIE Administration Protocol Lanolin 1 applic 05/04/21 18:31 05/04/21 18:37 Lanolin Oint 7 Gm TOPICAL 1 applic PRN PRN Administration DRYNESS Metoprolol Tartrate 5 mg 05/09/21 08:05 05/13/21 05:10 Metoprolol Tartrate 1 Mg/1 Ml Sdv 5 Ml IVP 5 mg Q5MIN PRN Administration HR>120, call og Metoprolol Tartrate 25 mg 05/09/21 10:15 05/15/21 20:36 Metoprolol Tartrate 25 Mg Tablet PO 25 mg Q12H NATALIE Administration Pantoprazole Sodium 40 mg 05/14/21 18:00 05/16/21 08:[address] 40 Mg Tablet PO 40 mg BID NATALIE Administration Polyethylene Glycol 17 gm 05/08/21 09:00 05/16/21 09:11 Polyethylene Glycol 3350 Pkt 17 Gm PO Not Given 0900,2100 NATALIE Sucralfate 1 gm 05/02/21 17:00 05/16/21 08:54 Sucralfate 1 Gm Tablet PO 1 gm QID NATALIE Administration PFSH Acute PFSH: Medical History Chronic respiratory failure with hypoxia COPD (chronic obstructive pulmonary disease) CVA (cerebral vascular accident) Diabetes Gastric ulcer Ribs, multiple fractures Surgical History H/O knee surgery Social History Additional social history: lives at home Vitals/I&O/Wt Last Vital Signs Temp 97.2 F L 05/15/21 04:00 Pulse 89 05/16/21 09:26 Resp 22 H 05/16/21 09:23 BP 125/64 05/16/21 05:36 Pulse Ox 93 05/16/21 09:23 05/15/21 05/16/21 05/16/21 22:59 06:59 14:59 Intake Total 807.967 / 807.967 240 / 1047.967 498 / 498 Output Total 125 / 125 Balance 807.967 / 807.967 115 / 922.967 498 / 498 Weight last 48 hrs Weight 106.594 kg Weight 105.233 kg Physical Exam Narrative: EXAM NARRATIVE: Constitutional: Awake, comfortable HEENT: Wet mucosa, no jvp, non icteric Lungs: Bilaterally decreased air entry lung zones CVS: S1 S2, no murmurs Abdo: Soft, BS ok Ext 4: Minimal edema, peripheral perfusion with no cyanosis Neurological: Grossly non-focal Urinary Catheter Management: Corbin: Cath Placed During This Visit: yes Reason for Continuing Indwelling Catheter: Acute Urinary Retention or Obstruction Urinary Catheter Date of Insertion: 04/27/21 Urinary Catheter Time of Insertion: 09:15 Data : 05/16/21 00:59 05/16/21 00:59 A&P Assessment and plan (1) Acute kidney failure: Status: Acute Plan 1. Acute kidney injury Likely secondary to cardiorenal syndrome, renal hypoperfusion from runs of atrial fibrillation with RVR dropping cardiac output. Hopefully this has not resulted in ischemic ATN but certainly there is a risk of this. No acute indication for dialysis Hemodynamic support as outlined below Limited evaluation to include urinalysis, urine sodium, creatinine, CPK. Bedside bladder scan, Corbin catheter in, flushing Corbin catheter. No need for additional renal imaging. Dose medication for GFR less than 15 Avoid usual nephrotoxic agents Strict ins and outs 2. Chemistry Minor noncritical aberration including metabolic alkalosis, possibly from intravascular volume depletion from diuretics. Continue to monitor closely. 3. Hemodynamics Atrial fibrillation with RVR, being managed with diltiazem and metoprolol. Will add midodrine. Currently on gentle IV hydration, however, we may need to rethink this if it continues to affect his lungs. 4. Disposition. He is obviously very sick with multiple problems including atrial fibrillation with RVR, heart failure, recent GI bleed, dry gangrene of the leg, recent CVA, collapsed lung and now renal failure. This he continues to accumulate medical problems, his prognosis because ever more poor and chance recovery is more bleak. I do agree with palliation at this time, he will be a poor candidate for dialysis. Stoney Yarbrough MD Nephrology [phone] Patient seen and examined via telemedicine, with the assistance of the bedside RN > 25 min spent in evaluation and mgmt of patient Coding Level of Care Code Acute Roller Print Tender for Chg Fwd History Detailed Exam Detailed Medical Decision Making Moderate Complexity Diagnoses Acute kidney failure N17.9
[2021-05-16 11:09] LABS: Glucose Point of Care 206 mg/dL (70-110)
[2021-05-16] MEDS: metoprolol tartrate 25 mg Tablet PO (11:31)
[2021-05-16] MEDS: midodrine 5 mg TABLET 10 MG PO (11:31)
[2021-05-16 11:38] LABS: Creatine Phosphokinase 109 U/L (39-308)
[2021-05-16] MEDS: morphine 4 mg/mL SDV 1 mL 1 MG IVP (13:13)
--- NOTE | 2021-05-16 14:00 | P.PN_ITS ---
Subjective Subjective: Interval history: Creatinine continues to worsen at 4.5 today. Renal consulted, added midodrine, high likelihood of progressing to dialysis. Patient becoming more confused, likely uremia also contributing. Continues to be uncomfortable, pain in left leg. Urine output only at about 100 cc. Vitals/I&O/Wt Last Vital Signs Temp 97.8 F 05/16/21 12:00 Pulse 90 05/16/21 12:00 Resp 20 H 05/17/21 09:18 BP 86/46 05/16/21 12:00 Pulse Ox 90 05/16/21 12:00 05/16/21 05/17/21 05/17/21 22:59 06:59 14:59 Intake Total 796.283 / 1334.283 Balance 796.283 / 1334.283 Weight last 48 hrs Weight 106.594 kg Physical Exam Narrative: EXAM NARRATIVE: GEN: Awake, alert, disoriented today, very lethargic, does not wake up easily on left previous days when he was able to wake up and have a conversation. 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 Gangrenous changes still persisting over the left heel. Urinary Catheter Management: Corbin: Cath Placed During This Visit: yes Reason for Continuing Indwelling Catheter: Hospice/Comfort/Palliative Care Urinary Catheter Date of Insertion: 04/27/21 Urinary Catheter Time of Insertion: 09:15 Data : 05/16/21 00:59 05/16/21 00:59 A&P Assessment and plan (1) Atrial fibrillation with rapid ventricular response: Status: Acute (2) Heart failure: Status: Acute (3) Acute on chronic respiratory failure with hypoxia and hypercapnia: Status: Acute (4) COPD (chronic obstructive pulmonary disease): Status: Acute (5) Diabetes: Status: Acute (6) Hypertension: Status: Acute (7) CVA (cerebral vascular accident): Status: Acute (8) Aspiration into respiratory tract: Status: Acute Qualifiers: Encounter type: sequela Qualified Code(s): T17.908S - Unspecified foreign body in respiratory tract, part unspecified causing other injury, sequela (9) Aspiration pneumonia: Status: Acute (10) Upper GI bleed: Status: Acute (11) Hemorrhagic shock: Status: Acute (12) Acute respiratory failure: Status: Acute (13) Critical limb ischemia of both lower extremities: Status: Acute (14) 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 For details regarding treatment and management so far please see my progress note dated May 15, 2021. Current active issues include DAYAMI on CKD, patient's creatinine continues to trend up to 4.5. He is more lethargic, somnolent, disoriented today. Likely DAYAMI is contributing in addition to all of his other comorbidities. Renal service was consulted today and midodrine has been added. Urine output is only 100 cc. Patient is at a high risk of progressing to hemodialysis in the next 24 to 48 hours. Additionally if any intervention is planned peripherally for the gangrenous changes developing on his legs and critical limb ischemia, patient will need contrast studies and and possible stents thereafter. Contrast at this point would certainly be a contraindication unless dialysis can be instituted shortly after. Additionally, patient has had a drop in hemoglobin again down to 7.7 and a history of hemorrhagic shock during this admission due to GI bleeding with multiple bleeding ulcers work injected with epinephrine. In light of above even if an intervention is performed to save his leg, it is highly likely that he will not be able to tolerate anticoagulation or antiplatelets thereafter. We had discussed with the family to try Plavix prior to any intervention to see if the patient tolerates. Repeat endoscopy at this time would be risky as patient is at a high risk of becoming ventilator dependent due to his tenuous respiratory course during this admission. All of the above comorbidities, overall clinical worsening, multiple challenges in his care have been discussed extensively with his daughter Lauren, his son and [id number] were all additionally at bedside right now. After extensive goals of care discussion the family has decided at this time not to proceed with any further aggressive interventions such as hemodialysis or peripheral angiograms or any kind of intervention in this regard. They understand that patient is nearing the end of life and want to maximize his comfort, do not want him to suffer anymore. In keeping with Naun goals of care have been changed now to comfort measures only. We will continue all medications except those that will be needed for pain and anxiety management. CODE STATUS changed to DNR/DNI. Patient transition to comfort care management with as needed morphine and Ativan. Patient currently appears comfortable with these interventions. Attestations Medical Necessity Statement*: As per detailed note above, transition to comfort care management. 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
--- NOTE | 2021-05-16 19:09 | P.PN_ITS ---
Subjective Subjective: Interval history: Patient is drowsy. Family has decided comfort care Medications: Reviewed: Yes Medication Review Details: Current Medications Acetaminophen (Acetaminophen 325 Mg Tablet) 650 mg PO Q6H PRN PRN Reason: Mild/Mod Pain Or Temp >/= 101 Last Admin: 05/15/21 01:29 Dose: 650 mg Documented by: Acetylcysteine (Acetylcysteine 200 Mg/Ml Sdv 4 Ml) 100 mg INHALATION Q12H [facility] Albuterol/Ipratropium (Ipratropium-Albuterol 3 Ml Neb) 3 ml INHALATION Q4H.RE SPIRATORY [facility] Last Admin: 05/15/21 16:30 Dose: 3 ml Documented by: Atorvastatin Calcium (Atorvastatin 40 Mg Tablet) 80 mg PO DAILY [facility] Last Admin: 05/08/21 08:15 Dose: 80 mg Documented by: Bisacodyl (Bisacodyl 5 Mg Tablet) 10 mg PO DAILY PRN; Protocol PRN Reason: Constipation (see protocol) Dextrose (Dextrose 50% Syringe 50 Ml) 25 ml IVP ONCE PRN; Protocol PRN Reason: hypoglycemia protocol Dextrose (Dextrose 50% Syringe 50 Ml) 50 ml IVP PRN PRN; Protocol PRN Reason: hypoglycemia protocol Diltiazem HCl (Diltiazem 60 Mg Tablet) 60 mg PO Q8H [facility] Last Admin: 05/15/21 18:27 Dose: Not Given Documented by: Docusate Sodium (Docusate Sodium 100 Mg Capsule) 100 mg PO 0900,2100 [facility] Last Admin: 05/15/21 09:24 Dose: Not Given Documented by: Furosemide (Furosemide 10 Mg/Ml Sdv 4ml) 40 mg IVP Q12H [facility] Last Admin: 05/13/21 20:20 Dose: 40 mg Documented by: Gabapentin (Gabapentin 300 Mg Capsule) 300 mg PO DAILY [facility] Last Admin: 05/15/21 09:24 Dose: Not Given Documented by: Glucagon (Glucagon 1 Mg/Ml Inj 1 Ml) 1 mg IM ONCE PRN; Protocol PRN Reason: Adult Acute Hypoglycemia Prot. Heparin Sodium (Porcine) (Heparin 5,000 Unit/Ml Inj 1 Ml) 0 unit IV PRN PRN; Protocol PRN Reason: Heparin weight-base protocol Last Admin: 05/15/21 11:03 Dose: 5,300 unit Documented by: Dextrose (D5w) 500 mls @ 100 mls/hr IV ONCE PRN; Protocol PRN Reason: Adult Acute Hypoglycemia Prot Heparin Sodium/Sodium Chloride (Heparin Drip) 25,000 unit in 500 mls @ 0 mls/hr IV .Q0M [facility]; Protocol Last Titration: 05/15/21 11:09 Dose: 13.9 unit/kg/hr, 29 mls/hr Documented by: Sodium Chloride (Sodium Chloride 0.9%) 1,000 mls @ 30 mls/hr IV .Q24H [facility] Last Admin: 05/15/21 17:36 Dose: 30 mls/hr Documented by: Insulin Human Lispro (Insulin Lispro 100 Unit/1 Ml) 0 unit SUBCUT WM&BEDTIME [facility]; Protocol Last Admin: 05/15/21 17:41 Dose: 2 unit Documented by: Lanolin (Lanolin Oint 7 Gm) 1 applic TOPICAL PRN PRN PRN Reason: DRYNESS Last Admin: 05/04/21 18:37 Dose: 1 applic Documented by: Metoprolol Tartrate (Metoprolol Tartrate 1 Mg/1 Ml Sdv 5 Ml) 5 mg IVP Q5MIN PRN PRN Reason: HR>120, call og Last Admin: 05/13/21 05:10 Dose: 5 mg Documented by: Metoprolol Tartrate (Metoprolol Tartrate 25 Mg Tablet) 25 mg PO Q12H [facility] Last Admin: 05/15/21 11:17 Dose: 25 mg Documented by: Morphine Sulfate (Morphine 4 Mg/Ml Sdv 1 Ml) 1 mg IVP Q8H PRN PRN Reason: SEVERE PAIN Last Admin: 05/15/21 04:41 Dose: 1 mg Documented by: Naloxone HCl (Naloxone 0.4 Mg/Ml Sdv) 0.1 mg IVP Q2M PRN PRN Reason: OPIATERV Ondansetron HCl (Ondansetron 2 Mg/Ml Sdv 2 Ml) 4 mg IVP Q8H PRN PRN Reason: vomiting, or N/V if npo Pantoprazole Sodium (Pantoprazole Dr 40 Mg Tablet) 40 mg PO BID [facility] Last Admin: 05/15/21 17:36 Dose: 40 mg Documented by: Polyethylene Glycol (Polyethylene Glycol 3350 Pkt 17 Gm) 17 gm PO 0900,2100 [facility] Last Admin: 05/15/21 09:24 Dose: Not Given Documented by: Sodium Chloride (Sodium Chloride 3.5% Neb 4 Ml Neb) 4 ml INHALATION BID.RESPIRATORY [facility] Stop: 05/15/21 19:00 Last Admin: 05/15/21 15:05 Dose: Not Given Documented by: Sucralfate (Sucralfate 1 Gm Tablet) 1 gm PO QID [facility] Last Admin: 05/15/21 17:36 Dose: 1 gm Documented by: Vitamin D (Cholecalciferol (Vitamin D3) 1,000 Unit Tablet) 1,000 unit PO DAILY [facility] Last Admin: 05/15/21 09:24 Dose: Not Given Documented by: Vitals/I&O/Wt Last Vital Signs Temp 97.8 F 05/16/21 12:00 Pulse 90 05/16/21 12:00 Resp 22 H 05/16/21 13:13 BP 86/46 05/16/21 12:00 Pulse Ox 90 05/16/21 12:00 05/16/21 05/16/21 05/16/21 06:59 14:59 22:59 Intake Total 240 / 1047.967 538 / 538 796.283 / 1334.283 Output Total 125 / 125 Balance 115 / 922.967 538 / 538 796.283 / 1334.283 Weight last 48 hrs Weight 235 lb Weight 232 lb Physical Exam Cardio: OTHER: GENERAL: Patient is sleepy and drowsy NECK: No jugular vein distension. HEENT: No cyanosis. No icterus. No pallor. HEART: Regular S1 and S2. No murmur, rub or gallop. LUNGS: Clear to auscultate bilaterally. Urinary Catheter Management: Corbin: Cath Placed During This Visit: yes Reason for Continuing Indwelling Catheter: Accurate Measurement of Urinary Output in Critically Ill Patients Urinary Catheter Date of Insertion: 04/27/21 Urinary Catheter Time of Insertion: 09:15 Data : 05/16/21 00:59 05/16/21 00:59 A&P Assessment and plan (1) Critical limb ischemia of both lower extremities: I have discussed regarding intervention on his extremities but presented patient yesterday and family by bedside all risk benefit and alternatives. Patient is very high risk for critical limb ischemia intervention in terms of anemia or bleeding renal failure contrast-induced nephropathy vascular injury and other complications. Patient and the family chose to be comfort care. Status: Acute (2) Atrial fibrillation with rapid ventricular response: Rate controlled now. Not on anticoagulation due to GI bleed. Patient is comfort care now. 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 Hold diuretics Status: Acute (4) Acute exacerbation of chronic obstructive airways disease: Continue current regimen appear to be stable Status: Acute (5) Upper GI bleed: As per medicine Status: Acute Plan Other problems are Insulin requiring diabetes Recent CVA Acute on chronic kidney disease Generalized debilitation Dr. Em will discuss with the patient's family in detail about the feasibility of peripheral angiogram and a final decision will be made afterwards. Attestations Medical Necessity Statement*: Patient require continuation hospitalization for above defined care Coding Level of Care Code Established Pt Acute Card Boxer for Haimg Fwd Patient Type Established History Detailed Exam Detailed Medical Decision Making Moderate Complexity Diagnoses Critical limb ischemia of both lower extremities I70.223 Atrial fibrillation with rapid ventricular response I48.91 Acute on chronic systolic heart failure I50.23 Acute exacerbation of chronic obstructive airways disease J44.1 Upper GI bleed K92.2
--- NOTE | 2021-05-16 19:38 | PC.NURSE ---
Received report from INGA Arteaga. Patient is currently on comfort measures. Family remains at bedside. Patient appears comfortably at this time. Instructed family regarding morphine and ativan along with other needs of patient and family. Family verbalized complete understanding. Family refusing all care and is assisting patient with positioning and other needs. No distress observed. Will continue to monitor.
[2021-05-16] MEDS: morphine 4 mg/mL SDV 1 mL IVP (19:50)
[2021-05-17] MEDS: LORazepam 2 mg/mL INJ 1 mL IVP (07:01)
[2021-05-17 09:18] VITALS: RESP 20
[2021-05-17] MEDS: morphine 4 mg/mL SDV 1 mL IVP (09:18)
--- NOTE | 2021-05-17 09:37 | PM.PN ---
Subjective Subjective: Interval history: patient comfortable. Continues to be on comfort care management. Vitals/I&O/Wt Last Vital Signs Temp 97.8 F 05/16/21 12:00 Pulse 90 05/16/21 12:00 Resp 20 H 05/17/21 09:18 BP 86/46 05/16/21 12:00 Pulse Ox 90 05/16/21 12:00 05/16/21 05/17/21 05/17/21 22:59 06:59 14:59 Intake Total 796.283 / 1334.283 Balance 796.283 / 1334.283 Weight last 48 hrs Weight 106.594 kg Physical Exam Narrative: EXAM NARRATIVE: Not examined to allow for patient comfort. Urinary Catheter Management: Corbin: Cath Placed During This Visit: yes Reason for Continuing Indwelling Catheter: Hospice/Comfort/Palliative Care Urinary Catheter Date of Insertion: 04/27/21 Urinary Catheter Time of Insertion: 09:15 Data : 05/16/21 00:59 05/16/21 00:59 A&P Assessment and plan (1) Atrial fibrillation with rapid ventricular response: Status: Acute (2) Heart failure: Status: Acute (3) Acute on chronic respiratory failure with hypoxia and hypercapnia: Status: Acute (4) COPD (chronic obstructive pulmonary disease): Status: Acute (5) Diabetes: Status: Acute (6) Hypertension: Status: Acute (7) CVA (cerebral vascular accident): Status: Acute (8) Aspiration into respiratory tract: Status: Acute Qualifiers: Encounter type: sequela Qualified Code(s): T17.908S - Unspecified foreign body in respiratory tract, part unspecified causing other injury, sequela (9) Aspiration pneumonia: Status: Acute (10) Upper GI bleed: Status: Acute (11) Hemorrhagic shock: Status: Acute (12) Acute respiratory failure: Status: Acute Plan Continue with comfort care management. Attestations Medical Necessity Statement*: Patient admitted for management of multiple comorbidities, now under comfort care orders. Coding Level of Care Code Acute Senior Net Developer Architect for Vin Alonzo Diagnoses Atrial fibrillation with rapid ventricular response I48.91 Heart failure I50.9 Acute on chronic respiratory failure with hypoxia and hypercapnia J96.21; J96.22 COPD (chronic obstructive pulmonary disease) J44.9 Diabetes E11.9 Hypertension I10 CVA (cerebral vascular accident) I63.9 Aspiration into respiratory tract T17.908S Encounter type: sequela Aspiration pneumonia J69.0 Upper GI bleed K92.2 Hemorrhagic shock R57.8 Acute respiratory failure J96.00
--- NOTE | 2021-05-17 10:10 | PM.DDS ---
Discharge Providers DDS Date of Admission: 04/27/21 17:31 Date Summary Completed: 05/17/21 Attending Provider at Admission: Capo Ames MD Time of : 10:10 Attending Provider at Discharge: Allyn Ruiz MD Pronouncing Clinician: Allyn Ruiz DS Diagnoses Hospital Diagnoses (1) Atrial fibrillation with rapid ventricular response: (2) Heart failure: (3) Acute on chronic respiratory failure with hypoxia and hypercapnia: (4) COPD (chronic obstructive pulmonary disease): (5) Diabetes: (6) Hypertension: (7) CVA (cerebral vascular accident): (8) Aspiration into respiratory tract: Qualifiers: Encounter type: sequela Qualified Code(s): T17.908S - Unspecified foreign body in respiratory tract, part unspecified causing other injury, sequela (9) Aspiration pneumonia: (10) Upper GI bleed: (11) Hemorrhagic shock: (12) Acute respiratory failure: (13) Critical limb ischemia of both lower extremities: (14) 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 worsening shortness of breath, A. fib with RVR,?admitted on April 27, 2021. He had a fairly complicated hospital course with uncontrolled A. fib with RVR, hypoxic respiratory failure related to acute on chronic CHF exacerbation, mucous plugging, needed supplemental oxygen and intermittent BiPAP all during the course of admission. He was on IV diuresis, chest vest therapy, beta-blockers and calcium channel blockers. He did require intubation during the course of admission as well, extubated 05/06/2021 but continued to have persisting oxygen requirements. An ultrasound-guided thoracentesis was also performed on April 30, 2021. Other hospital comorbidities included upper GI bleed with hemorrhagic shock for which patient had received multiple units of packed red blood cells and FFP transfusion. He had EGD which showed gastric and duodenal ulcer which needed injection with epinephrine. He remained anemic during the course of admission. 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 Patient also started to develop acute kidney injury with creatinine up to 4.5 and became anuric as well.he subsequently also developed encephalopathy by May 16, 2021. In spite of best efforts at managing his multiple comorbidities patient continued to clinically deteriorate. Goals of care were discussed extensively on May 16 with his daughter Lauren, his son and [id number] were all additionally at bedside.? After extensive goals of care discussion the family has decided at this time not to proceed with any further aggressive interventions such as hemodialysis or peripheral angiograms.? They understood that patient is nearing the end of life and wanted to maximize his comfort, do not want him to suffer anymore.? In keeping with his goals of care, he was transitioned to comfort measures only on evening on 05/16/21 and on the morning on 05/17/21. Additional Data Advance directives?: Yes Discharge Plan Discharge Patient Disposition: Condition: Stable Prescriptions: No Action multivitamin Tablet 1 tab PO DAILY 0RF atorvastatin 80 mg Tablet 80 mg PO DAILY 0RF carvedilol 6.25 mg Tablet 6.25 mg PO BID 0RF ipratropium-albuterol 0.5 mg-3 mg(2.5 mg base)/3 mL Solution For Nebulization 3 ml INHALATION QID PRN (Reason: Shortness Of Breath) 0RF Lantus U-100 Insulin 100 unit/mL Solution 40 unit SUBCUT DAILY 0RF Plavix 75 mg Tablet 75 mg PO DAILY 0RF Novolog U-100 Insulin aspart 100 unit/mL Solution See Rx Instructions .ROUTE .COMPLEX 0RF Rx Instructions: PER SLIDING SCALE metoprolol tartrate 50 mg Tablet 25 mg PO BID 0RF oxycodone 5 mg Tablet 10 mg PO Q8H PRN (Reason: Pain) 0RF Vitamin D3 25 mcg (1,000 unit) Capsule 25 mcg PO DAILY 0RF ferrous gluconate 324 mg (38 mg iron) Tablet 324 mg PO DAILY 0RF Referrals: [facility] [Outside] Patient Instructions: GI Discharge Instructions, Opioid Safety DS Attestations Time Spent in /Discharge Care*: greater than 30 min Quality - AMI: AMI present?: No Quality - Stroke: CVA present?: No Quality - VTE: VTE present?: No Coding Level of Care Code Acute Pcu Rn for Vin Fwdominic Diagnoses Atrial fibrillation with rapid ventricular response I48.91 Heart failure I50.9 Acute on chronic respiratory failure with hypoxia and hypercapnia J96.21; J96.22 COPD (chronic obstructive pulmonary disease) J44.9 Diabetes E11.9 Hypertension I10 CVA (cerebral vascular accident) I63.9 Aspiration into respiratory tract T17.908S Encounter type: sequela Aspiration pneumonia J69.0 Upper GI bleed K92.2 Hemorrhagic shock R57.8 Acute respiratory failure J96.00 Critical limb ischemia of both lower extremities I70.223 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
--- NOTE | 2021-05-17 10:10 | PC.NURSE ---
Patient without heart beat or respirations. Confirmed with second nurse, Jaxon Marcos RN. Dr. Ruiz notified by telephone. supervisor [employer] notified by telephone.
--- NOTE | 2021-05-17 12:00 | PC.NURSE ---
Spoke with Giulia at [facility] and provided information per telephone x 30 minutes.
--- NOTE | 2021-05-17 13:00 | PC.NURSE ---
Patient released by [facility]. [facility] contacted to transport patient.
--- NOTE | 2021-05-17 13:17 | PC.NURSE ---
Patient's family; , daughter and son educated regarding next steps in process of preparing patient for mortuary. First call placed to [facility] by Domestic Violence Counselor. Then evaluation by [facility] and verified mortuary information.
--- NOTE | 2021-05-17 15:15 | PC.NURSE ---
[facility] here to mixing picker tender patient.
--- NOTE | 2021-05-17 15:26 | PC.NURSE ---
Family has removed all personal belongings from room.
== END 2021-05-17 10:05 | disposition expired | DRG 291 ==
LOC: ER 17:55 → CSU 19:12 → ICU 04-29 11:00 → MEDSURG 05-08 16:18 → CSU 05-09 16:34
PROVIDERS: Family Medicine; Internal Medicine Nephrology; Surgery; Admitting Provider Internal Medicine; Emergency Provider Emergency Medicine; Visit Provider Student in an Organized Health Care Education/Training Program
PROC: 0DJ08ZZ Inspection of Upper Intestinal Tract, Via Natural or Artificial Opening Endoscopic (ICD-10-PCS; CPT 43235; principal; 2021-05-02 13:00)
DX: I13.0 Hypertensive heart and chronic kidney disease with heart failure and stage 1 through stage 4 chronic kidney disease, or unspecified chronic kidney disease (principal); I50.43 Acute on chronic combined systolic (congestive) and diastolic (congestive) heart failure; J96.22 Acute and chronic respiratory failure with hypercapnia; J96.21 Acute and chronic respiratory failure with hypoxia; K26.4 Chronic or unspecified duodenal ulcer with hemorrhage; I63.40 Cerebral infarction due to embolism of unspecified cerebral artery; J69.0 Pneumonitis due to inhalation of food and vomit; E11.52 Type 2 diabetes mellitus with diabetic peripheral angiopathy with gangrene; I96 Gangrene, not elsewhere classified; J44.1 Chronic obstructive pulmonary disease with (acute) exacerbation; D62 Acute posthemorrhagic anemia; I82.412 Acute embolism and thrombosis of left femoral vein; I82.442 Acute embolism and thrombosis of left tibial vein; G93.40 Encephalopathy, unspecified; L03.116 Cellulitis of left lower limb; L03.115 Cellulitis of right lower limb; M62.82 Rhabdomyolysis; N17.9 Acute kidney failure, unspecified; J90 Pleural effusion, not elsewhere classified; N18.9 Chronic kidney disease, unspecified; E11.22 Type 2 diabetes mellitus with diabetic chronic kidney disease; I48.91 Unspecified atrial fibrillation; E66.9 Obesity, unspecified; Z68.31 Body mass index [BMI] 31.0-31.9, adult; E78.5 Hyperlipidemia, unspecified; Z51.5 Encounter for palliative care; I42.9 Cardiomyopathy, unspecified; I95.9 Hypotension, unspecified; R57.8 Other shock
CPT/HCPCS: 12345; 32555; 36415; 36416; 36430; 36600; 43235; 43255; 51702; 70450; 71045; 71275; 73562; 80051; 80053; 80500; 81001; 82042; 82150; 82330; 82550; 82570; 82728; 82803; 82805; 82945; 82962; 83540; 83605; 83615; 83735; 83880; 83986; 84100; 84145; 84157; 84443; 84478; 84484; 84550; 85014; 85018; 85025; 85045; 85049; 85378; 85610; 85730; 86140; 86850; 86900; 86920; 86927; 87015; 87040; 87070; 87075; 87116; 87205; 87206; 87493; 87635; 87641; 87801; 88305; 89050; 92507; 92526; 92610; 93005; 93306; 93308; 93926; 93970; 93971; 94002; 94003; 94640; 94660; 94669; 94799; 96365; 96366; 96367; 96372; 96375; 96376; 97110; 97161; 97165; 97530; 97535; 99291; C9113; J0171; J1170; J1644; J1650; J1815 ×2; J1940; J2020; J2060; J2250; J2270; J2354; J2543; J2704; J2720; J3010; J3475; J3480; J3490; J7030; J7040; J7050; J7608; P9016; P9017; P9047; Q9967